=== PATIENT | male | born 1935 | race Caucasian/White ===

== ENCOUNTER 2020-05-08 07:54 | Observation (INO) | payer MEDICARE, SELFPAY ==
[2020-05-08] VITALS (15 sets, daily range): BP systolic 144–168; BP diastolic 56–76; PULSE 58–72; RESP 14–20; TEMP 36.4–36.8; O2SAT 95–99; BMI 29.7
--- NOTE | ~2020-05-08 | XR_ITS ---
XR chest 2V DATE: 05/08/2020 08:19 INDICATION: Mid frontal chest wall pain. TECHNIQUE: AP and lateral views COMPARISON: 05/02/2018 PA and lateral views FINDINGS: Status post sternotomy and aortic valve replacement. Left-sided AICD/pacemaker device with leads overlying right atrium and right ventricle. Cardiomegaly. Aortic calcification. No pulmonary infiltrate or consolidation, pleural effusion or pulmonary vascular congestion or pneumo thorax is detected. Severe osteoarthritic change at the glenohumeral joints. Degenerative spurring of the thoracic spine. Diffuse osteopenia. IMPRESSION: Status post sternotomy/aortic valve replacement Left AICD/pacemaker Cardiomegaly, aortic atherosclerosis No active pulmonary disease Reviewed, dictated and finalized at location B.
--- NOTE | ~2020-05-08 | XR_ITS ---
XR knee RT 3V 05/08/2020 15:14 Indication: Right knee pain and swelling Procedure: 3 views right knee Comparison: No prior studies for comparison. Findings: No fracture or traumatic malalignment. Mild osteoarthritis of the right knee. There is kristina drocalcinosis. There are surgical changes along the medial aspect of the knee. Impression: 1: Mild osteoarthritis of the right knee. Reviewed, dictated and finalized at location A. Impression: 1: Mild osteoarthritis of the right knee.
--- NOTE | 2020-05-08 07:59 | ECG_ITS ---
Measurements Intervals [place] Rate: 61 P: -40 MS: 221 QRS: -29 QRSD: 117 T: -61 QT: 422 QTc: 427 Interpretive Statements ELECTRONIC ATRIAL PACEMAKER WITH INHIBITION ATRIAL PREMATURE COMPLEX INTRAVENTRICULAR CONDUCTION DELAY LEFT VENTRICULAR HYPERTROPHY AND ST-T CHANGE INFERIOR INFARCT, AGE INDETERMINATE EXTENSIVE ANTERIOR INFARCT, AGE INDETERMINATE BORDERLINE T WAVE ABNORMALITY- HIGH LATERAL LEADS ABNORMAL ECG Electronically Signed On 05-08-2020 13:39:29 CDT by Yvan Jenkins D.O.
--- NOTE | 2020-05-08 08:03 | ED.CHESTPAIN ---
HPI - Chest Pain General Chief Complaint: Chest Pain Stated Complaint: CP Source: RN notes reviewed History of Present Illness HPI narrative: Patient presents emergency department from home via EMS for chest pain. Patient states he awoke approximately 5:30 AM this morning with midsternal chest pain states the pain was described as a pressure did not radiate associate with shortness of breath. Patient took 4 nitros at home with minimal relief was given additional nitro by EMS with resolution of the pain. Patient also was given aspirin 325 mg by EMS patient denies any current chest pain. Denies any fevers or chills nausea vomiting diarrhea or any other symptoms. Patient does have a history of coronary artery disease and is followed by Dr. Francois Related Data Home Medications Medication Instructions Recorded Confirmed aspirin 81 mg tablet,delayed 81 mg PO DAILY 04/11/19 release atorvastatin 40 mg tablet 40 mg PO DAILY 04/11/19 calcitonin (salmon) 200 1 spray INTRANASAL (ALT) DAILY 04/11/19 unit/actuation nasal spray losartan 100 1 tablet PO DAILY 04/11/19 mg-hydrochlorothiazide 12.5 mg tablet Allergies Allergy/AdvReac Type Severity Reaction Status Date / Time No Known Allergies Allergy Verified 05/08/20 08:06 Review of Systems Review of Systems: Narrative: Gen.: Denies fevers or chills Eyes: Denies eye pain or visual change ENT: Denies congestion Respiratory: Denies shortness of breath or cough CV: See HPI GI: Denies abdominal pain nausea, emesis or diarrhea Musculoskeletal: Denies back pain or muscle pain Neuro: Denies numbness, tingling, weakness or focal weakness Skin: Denies rash Except as documented, all other systems reviewed and negative [facility] Past Medical History Medical History AF (atrial fibrillation) Benign essential HTN CAD (coronary artery disease) Cataract Hypothyroidism (acquired) Mitral valve regurgitation Mixed hyperlipidemia Neuropathy Scoliosis 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 Surgical History Surgical History (Updated 04/11/19 @ 21:49 by Narcisa Lopez MD) Hx of CABG Hx of cataract surgery S/P AVR S/P implantation of automatic cardioverter/defibrillator (AICD) Family History Family History (Updated 05/22/16 @ 23:56 by DOCTOR UNKNOWN) Father Family history of premature coronary heart disease, Onset Age: 56 Patient's father is Social History Social History Social History: Smoking status: Former smoker Tobacco type: cigarettes Second hand tobacco smoke exposure: No Smoking end date: 02/15/93 Alcohol intake: never Substance use: never Substance use type: does not use Gender identity (if verbalized by the patient): Male Exam Narrative: Exam Narrative: APPEARANCE: No acute distress, nontoxic, resting in bed EYES: EOMI HEENT: Normocephalic, atraumatic, OMM RESPIRATORY: No respiratory distress Clear to auscultation bilaterally with no rhonchi wheezing or rales. CARDIOVASCULAR: Regular rate and rhythm without murmurs rubs or gallops. ABDOMINAL: Soft, nontender, nondistended, no rebound or guarding MUSCULOSKELETAl: Moves all extremities. No clubbing, cyanosis or edema. NEURO: Awake and alert. Following commands, speech normal, no focal deficits SKIN:: Warm, dry. No rashes lesions or abrasions PSYCHIATRIC: Normal affect/mood, Course Course Emergency Course: Discussed with Dr. Francois presentation work-up agrees with admission to her service at this time Discussed with patient and family results of workup and diagnosis. Discussed need for admission. Patient and family understand and agree to current treatment plan Vital Signs Vital signs: Vital Signs Temperature 97.9 F 05/08/20 07:53 Pulse Rate 60 05/08/20 07:53 Respiratory Rate 17
--- NOTE | 2020-05-08 08:14 | PC.NURSE ---
Pt taken to XR via stretcher at this time.
[2020-05-08 08:34] LABS: Basophils Percent Auto 0.4 % (0.2-1.2); Eosinophils Absolute Auto 0.1 K/mm3 (0-0.3); Eosinophils Percent Auto 1.1 % (0-4.4); Hematocrit 37.4 % (42.0-52.0); Hemoglobin 12.6 g/dL (14.0-18.0); Immature Granulocyte Absolute 0.03 K/mm3 (0.00-0.031); Immature Granulocyte Percent A 0.3 % (0-0.5); Lymphocytes Absolute Auto 2.37 K/mm3 (0.9-3.2); Lymphocytes Percent Auto 22.1 % (18.3-44.2); Mean Corpuscular HGB Conc 33.7 g/dl (32-36); Mean Corpuscular Hemoglobin 33.2 pg (26-34); Mean Corpuscular Volume 98.4 fl (80-100); Mean Platelet Volume 10.1 fl (7.4-10.4); Monocytes Absolute Auto 1.1 K/mm3 (0.1-0.6); Monocytes Percent Auto 10.6 % (2.6-8.5); Neutrophils Percent Auto 65.5 % (45.5-73.1); Platelet Count Result 143 k/mm3 (150-375); Red Cell Distribution Width 11.9 % (11.5-14.5); White Blood Count 10.7 K/mm3 (4.5-10.0)
[2020-05-08 08:44] LABS: Partial Thromboplastin Time 26.2 SECONDS (22.3-36.8); Prothrombin Time 14.1 Seconds (11.1-14.7)
[2020-05-08 08:45] LABS: Anion Gap 7 mmol/L (8-16); Blood Urea Nitrogen 40 mg/dL (9-20); Calcium 8.9 mg/dL (8.4-10.2); Carbon Dioxide 23 mmol/L (22-30); Chloride 106 mmol/L (98-107); Estimated CRCL calculation 35 ml/min; Estimated Glomerular Filt Rate 36; Glucose 116 mg/dL (75-110); Potassium 4.6 mmol/L (3.4-5.0); Sodium 136 mmol/L (137-145)
[2020-05-08 09:01] LABS: Troponin I 0.036 ng/mL (0.000-0.034)
--- NOTE | 2020-05-08 11:29 | ADMGEN ---
This patient, Vladimir Blackburn, was admitted to IMU Room 206-01. Patient/family oriented to hospital policies and general routines including ID bracelet, bed and alarms, visiting hours, pain management, procedures, bathroom and other care routines, personal items, smoking policy, room service/diet, and visiting hours. Information on how to activate the Rapid Response Team has been discussed. Patient/Family are encouraged to report perceived risks to care and to ask questions if they do not understand what they are told or what they should do.
--- NOTE | 2020-05-08 11:35 | PM.IMHP ---
H&P: HPI History of Present Illness Date/Time: 05/08/20 11:35 Chief Complaint: Chest pain Narrative: Mr. Vladimir Blackburn is an 85-year-old male who was admitted with chest discomfort. He has a history of CAD. Mr. bia bower woke up this morning around 5:00 a.m. with some lower sternal and epigastric chest discomfort and pressure. He rated it as a 5/10. There was a little shortness of breath. No sweating, radiation, or nausea. He took 3 nitroglycerins which helped some, and called the ambulance. EMS gave him a another nitroglycerin and his discomfort resolved. He has been doing well since then. He is not sure if this is similar to what he had in the past, although it was not as severe as the discomfort he experienced in 2019. Do his ADLs in the last few weeks with no particular problems with any chest discomfort. He has a history of CAD with CABG and aortic valve replacement in 2009 by at [facility] (MAGALLON to the Left anterior descending, SVG to the OM, SVG to the PDA), with bioprosthetic aortic valve replacement. Non-STEMI in 2019 secondary to mid vessel occlusion of a large mid diagonal. Also [employer] [facility] ICD with Gen change in 2016, paroxysmal AFib RVR, prior cardiomyopathy with improvement of EF, PVCs, hypertensive heart disease, stage III CKD, hyperlipidemia. Review of Systems Constitutional: Constitutional: Denies weakness Eyes: Eyes: Reports no additional eye complaints ENT: Denies epistaxis Cardiovascular: Cardiovascular: Reports chest pain, Denies diaphoresis, Denies pedal edema and Denies lightheadedness Respiratory: Respiratory: Denies cough and Reports dyspnea Gastrointestinal: Gastrointestinal: Denies abdominal pain Genitourinary: Genitourinary: Denies dysuria Musculoskeletal: Musculoskeletal: Reports arthralgias (Twisted right knee recently) Integumentary/Breasts: Skin/Breast: Denies rash Neurologic: Reports system reviewed and no additional complaints, except as documented Psychiatric: Psychiatric: Denies behavioral changes [facility] Past Medical History Medical History (Updated 05/08/20 @ 17:08 by Aiyana Francois MD) AF (atrial fibrillation) Benign essential HTN CAD (coronary artery disease) Cataract Chronic kidney disease, stage 3 Hypothyroidism (acquired) Mitral valve regurgitation Mixed hyperlipidemia Neuropathy Scoliosis 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 Smoking status: Former smoker Tobacco type: cigarettes Second hand tobacco smoke exposure: No Smoking end date: 02/15/93 Alcohol intake: never Substance use: never Substance use type: does not use Gender identity (if verbalized by the patient): Male Spiritual care concerns: No Meds Home Medications and Allergies Home Medications Medication Instructions Recorded Confirmed Type aspirin 81 mg tablet,delayed 81 mg PO DAILY 04/11/19 05/08/20 History release atorvastatin 40 mg tablet 40 mg PO DAILY 04/11/19 05/08/20 History metoprolol tartrate 50 mg tablet 50 mg PO Q12H #180 tablet 07/03/19 05/08/20 Rx levothyroxine 50 mcg tablet 50 mcg PO DAILY #90 tablet 11/13/19 05/08/20 Rx amlodipine 2.5 mg tablet 2.5 mg PO DAILY #30 tablet 01/31/20 05/08/20 Rx terazosin 2 mg capsule 2 mg PO DAILY #90 cap 03/03/20 05/08/20 Rx valsartan-hydrochlorothiazide 1 tablet DAILY 05/08/20 05/08/20 History
[2020-05-08 12:26] LABS: Troponin I 0.029 ng/mL (0.000-0.034)
--- NOTE | 2020-05-08 14:00 | ECG_ITS ---
Measurements Intervals [place] Rate: 74 P: PA: 0 QRS: -23 QRSD: 116 T: -28 QT: 402 QTc: 448 Interpretive Statements ELECTRONIC ATRIAL PACEMAKER WITH INHIBITION VENTRICULAR PREMATURE COMPLEX INFERIOR INFARCT, AGE INDETERMINATE BORDERLINE ST-T WAVE ABNORMALITY- LAT/HIGH LAT LEADS BASELINE ARTIFACT- II, III, AVF ABNORMAL ECG Electronically Signed On 05-08-2020 14:27:32 CDT by Yvan Jenkins D.O.
[2020-05-08 15:57] LABS: Troponin I 0.032 ng/mL (0.000-0.034)
[2020-05-08] MEDS: METOPROLOL TARTRATE 50 MG TAB PO (21:43)
[2020-05-09] VITALS (8 sets, daily range): BP systolic 119–157; BP diastolic 58–72; PULSE 60–81; RESP 12–20; TEMP 36.6; O2SAT 95–98
[2020-05-09] MEDS: LEVOTHYROXINE SODIUM 50 MCG TABLET PO (06:40)
[2020-05-09] MEDS: METOPROLOL TARTRATE 50 MG TAB PO (09:10)
[2020-05-09] MEDS: VALSARTAN 160 MG TABLET BY MOUTH (09:10)
[2020-05-09] MEDS: ASPIRIN 81 MG ENTERIC TABLET PO (09:11)
[2020-05-09] MEDS: hydroCHLOROthiazide 25 MG TABLET PO (09:11)
[2020-05-09] MEDS: ATORVASTATIN 40 MG TABLET PO (09:11)
[2020-05-09] MEDS: TERAZOSIN HCL 1 MG CAPSULE 2 MG PO (09:11)
[2020-05-09] MEDS: amLODIPine BESYLATE 2.5 MG TABLET PO (09:11)
--- NOTE | 2020-05-09 11:02 | PM.DS ---
DS: Admitting Diagnosis Admitting Diagnosis Admitting Diagnosis: Chest pain DS: Discharge Diagnosis Discharge Diagnosis (1) Chest pain: Code(s): R07.9 - Chest pain, unspecified Status: Acute Assessment and Plan: Patient was awakened with chest pain as described in the H&P and came to the emergency room after 3 nitroglycerins did not relieve it. He received a 4th nitroglycerin by EMS and when he arrived in the emergency room was free of discomfort. Troponins were slightly elevated but flat, at 0.036, 0.0290, 0.032, which is not suggestive of an ACS. Two EKGs showed no acute ischemic changes. He had no further chest discomfort during his hospital stay. Unclear if this was an episode of angina or perhaps acid reflux. He was up and about with no further chest discomfort so I feel it is reasonable to discharge Mr. Blackburn today with outpatient follow-up and outpatient Lexiscan. He was instructed to call if he had any further episodes and was given a fresh prescription for nitroglycerin. (2) CAD (coronary artery disease): Code(s): I25.10 - Atherosclerotic heart disease of [place] coronary artery without angina pectoris Status: Acute Assessment and Plan: History of CAD and CABG. (3) S/P aortic valve replacement with bioprosthetic valve: Code(s): Z95.3 - Presence of xenogenic heart valve Status: Acute Assessment and Plan: History of bioprosthetic heart valve which sounds normal by auscultation. (4) Knee pain: Code(s): M25.569 - Pain in unspecified knee Status: Acute Assessment and Plan: Acute knee pain which started a couple days ago. Chest x-ray showed only arthritis. Recommend he follow up with Dr. oscar carlton, take Tylenol, heat, and perhaps [id number] Voltaren cream or Aspercreme. (5) Chronic kidney disease, stage 3: Code(s): N18.30 - Chronic kidney disease, stage 3 unspecified Status: Acute Assessment and Plan: Chronic kidney disease stage 3, stable. Avoid nonsteroidals. DS: Summary Hospital Course Reason for hospitalization: Chest pain Hospital Course: See above Status at Discharge Functional status at discharge: independent ambulation Overall status at discharge: patient is back to baseline Time Spent with Patient Time attestation: Total time spent providing and/or coordinating discharge services: Time spent: Greater than 30 minutes Exam Const: General: comfortable and no acute distress HENMT: Mouth: Yes moist mucous membranes Eyes: EOM: EOMs intact bilaterally Neck: Neck: supple Resp: Effort & Inspection: normal respiratory effort Auscultation: clear to auscultation bilaterally Cardio: Rate: regular rate Rhythm: regular rhythm Heart sounds: Murmur heart sound present Other: 1-2/6 JOSE upper sternal borders GI: GI Palp: Yes Soft to palpation Skin: General skin exam: no rashes or lesions noted Neuro: Motor exam (neuro): Normal motor muscle tone present throughout Extrem: General: no edema and no pedal edema Psych: Appearance: grossly normal Mental Status: mental status grossly normal Affect: normal affect DS: Data Data Completed and Pending Labs on day of discharge: Labs from last 24 hours 05/08/20 05/08/20 14:29 11:27 Troponin I 0.032 0.029 First trop 0.036 BUN/creat = 40/1.8, GFR 36 ml/min chest x-ray showed ICD leads in appropriate position, borderline cardiomegaly but clear lungs. Radiologist interpretation similar. EKG showed: Atrially paced rhythm, [place] contrast shows no ischemic changes. Old anterior CT, old inferior CT. Heart rate 51, first-degree AV block. Interventricular conduction delay. EKG from 05/08/2020 at 2:09 p.m.: atrial paced, PVC, old inferior CT, old anteroseptal CT, no acute ischemic
== END 2020-05-09 11:52 | disposition home or self-care (01) ==
LOC: ANHED 09:36 → ANHIMU 10:14
PROVIDERS: Admitting Provider Internal Medicine Cardiovascular Disease; Emergency Provider Emergency Medicine; PCP Family Medicine; Visit Provider Internal Medicine Cardiovascular Disease
DX: R07.9 Chest pain, unspecified (principal); I25.2 Old myocardial infarction; I25.10 Atherosclerotic heart disease of native coronary artery without angina pectoris; M17.11 Unilateral primary osteoarthritis, right knee; N18.30 Chronic kidney disease, stage 3 unspecified; Z95.810 Presence of automatic (implantable) cardiac defibrillator; Z95.4 Presence of other heart-valve replacement; Z95.1 Presence of aortocoronary bypass graft; Z87.891 Personal history of nicotine dependence; Z95.3 Presence of xenogenic heart valve
CPT/HCPCS: 36415; 71046; 73562; 80048; 84484; 85025; 85610; 85730; 93005; 99285; A9270; G0378

== ENCOUNTER 2021-07-07 07:23 | Emergency (ER) | payer MEDICARE, SELFPAY ==
--- NOTE | ~2021-07-07 | CT_ITS ---
EXAMINATION: CT abdomen pelvis wo con DATE: 07/07/2021 08:06 INDICATION: Low abdominal pain. Inability to urinate. TECHNIQUE: Computed tomography (CT) of the abdomen and pelvis was performed without intravenous contr ast. Automated exposure control and iterative reconstruction technique were employed. The dose-length product was 977.25 mGy-cm. COMPARISON: Chest CT 11/22/2009 FINDINGS: The visualized portions of the lung bases demonstrate mild atelectasis and chronic lung dis ease. There is a 6 mm nodule in right middle lobe, likely benign. There is a 6 mm nodule in left lowe r lobe, likely benign. Cardiomegaly is noted. There are changes of aortic valve replacement. There ar e coronary artery calcifications. There is a large sliding hiatal hernia. The liver is normal. There are gallstones in the gallbladder, which is normal in size. Calcifications in the spleen are consiste nt with old granulomatous disease. The pancreas, adrenal glands, and right kidney are normal. There i s a 4.5 cm cyst in left kidney. There are changes of left inguinal hernia repair. The bladder is deco mpressed by a Newton catheter. There are approximately 6 calcifications in the prostate adjacent to th e Newton catheter measuring up to 3 mm. There is diverticulosis of the colon without evidence of diver ticulitis. The appendix is normal. There is calcified atherosclerosis of the aorta and many of the ot her arteries. There are no pathologically enlarged lymph nodes. There is no free intraperitoneal flui d. IMPRESSION: 1. Small calcifications in the prostate adjacent to the Newton catheter that are most likely prostate calcifications. Urethral stone cannot be excluded. 2. Large sliding hiatal hernia. Reviewed, dictated and finalized at location A.
[2021-07-07 07:27] VITALS: BP 159/79; PULSE 95; RESP 18; TEMP 36.6; O2SAT 98
--- NOTE | 2021-07-07 07:33 | ED.MALEGU ---
HPI - Male Genitourinary General Chief complaint: Urogenital-Male Stated complaint: diff urinating Time Seen by Provider: 07/07/21 07:27 Source: RN notes reviewed History of Present Illness HPI Narrative: Patient presents emergency department from home via EMS for urinary retention. Patient states has been having difficulty urinating for the past week and a half this progressively worsening he states is gotten to the point when he goes he only has a small amount of dribbling he states that with this he has a feeling of fullness in his lower abdomen he denies any fevers or chills chest pain shortness of breath nausea vomiting or any other symptoms. Denies any previous history of difficulty urinating Related Data Home Medications Medication Instructions Recorded Confirmed aspirin 81 mg tablet,delayed 81 mg PO DAILY 04/11/19 06/20/21 release Allergies Allergy/AdvReac Type Severity Reaction Status Date / Time No Known Allergies Allergy Verified 07/07/21 07:38 Review of Systems Review of Systems: Gen.: Denies fevers or chills Respiratory: Denies shortness of breath or cough CV: Denies chest pain or palpitations GI: Denies abdominal pain nausea, emesis or diarrhea see HPI Musculoskeletal: Denies back pain or muscle pain Neuro: Denies numbness, tingling, weakness or focal weakness Skin: Denies rash Except as documented, all other systems reviewed and negative [facility] Past Medical History Medical History AF (atrial fibrillation) Benign essential HTN CAD (coronary artery disease) Cataract Chronic kidney disease, stage 3 Hypothyroidism (acquired) Mitral valve regurgitation Mixed hyperlipidemia Neuropathy Scoliosis 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 Smoking status: Former smoker Tobacco type: cigarettes Second hand tobacco smoke exposure: No Smoking end date: 02/15/93 Alcohol intake: never Substance use: never Substance use type: does not use Gender identity (if verbalized by the patient): Male Sexual Orientation (if Verbalized by the Patient): Straight or Heterosexual Spiritual care concerns: No Exam Narrative: APPEARANCE: No acute distress, nontoxic, resting in bed EYES: EOMI HEENT: Normocephalic, atraumatic, OMM RESPIRATORY: No respiratory distress Clear to auscultation bilaterally with no rhonchi wheezing or rales. CARDIOVASCULAR: Regular rate and rhythm without murmurs rubs or gallops. ABDOMINAL: Soft, nontender, nondistended, no rebound or guarding : No phimosis or paraphimosis, no skin lesions no scrotal swelling or erythema MUSCULOSKELETAl: Moves all extremities. No clubbing, cyanosis or edema. NEURO: Awake and alert. Following commands, speech normal, no focal deficits SKIN:: Warm, dry. No rashes lesions or abrasions PSYCHIATRIC: Normal affect/mood, Course Course Emergency Course: Called and discussed with Dr. Driscoll presentation work-up this time recommends patient remain with Newton and discharged with Flomax and follow-up as an outpatient Discussed with patient results of workup and diagnosis. Discussed need for follow-up with primary care, proper use of medication, and reasons to return to the emergency department. Patient understands and agrees to current treatment plan Reviewed old records patient
[2021-07-07 07:45] LABS: Appearance Urine Clear (Clear); Bilirubin Urine Negative (Negative); Blood Urine Negative (Negative); Color Urine Yellow (Yellow); Glucose Urine UA Negative (Negative); Ketones Urine Negative (Negative); Leukocyte Esterase Ur Negative LEU/UL (Negative); Nitrate Urine Negative (Negative); Protein Urine 1+ mg/dL (Negative); Urobilinogen Urine 0.2 mg/dL (<2.0); pH Urine 5.5 (5.0-9.0)
[2021-07-07 07:53] LABS: Basophils Absolute Auto 0.1 K/mm3 (0.0-0.1); Basophils Percent Auto 0.4 % (0.2-1.2); Eosinophils Absolute Auto 0.2 K/mm3 (0-0.3); Eosinophils Percent Auto 1.5 % (0-4.4); Hematocrit 37.2 % (42.0-52.0); Hemoglobin 12.7 g/dL (14.0-18.0); Immature Granulocyte Absolute 0.04 K/mm3 (0.00-0.031); Immature Granulocyte Percent A 0.4 % (0-0.5); Lymphocytes Absolute Auto 3.47 K/mm3 (0.9-3.2); Lymphocytes Percent Auto 30.7 % (18.3-44.2); Mean Corpuscular HGB Conc 34.1 g/dl (32-36); Mean Corpuscular Hemoglobin 33.6 pg (26-34); Mean Corpuscular Volume 98.4 fl (80-100); Mean Platelet Volume 10.1 fl (7.4-10.4); Monocytes Absolute Auto 1.2 K/mm3 (0.1-0.6); Monocytes Percent Auto 10.9 % (2.6-8.5); Neutrophils Absolute Auto 6.4 K/mm3 (1.3-6.7); Neutrophils Percent Auto 56.1 % (45.5-73.1); Platelet Count Result 166 k/mm3 (150-375); Red Blood Count 3.78 M/mm3 (4.6-6.20); Red Cell Distribution Width 12.2 % (11.5-14.5); White Blood Count 11.3 K/mm3 (4.5-10.0)
[2021-07-07 07:59] LABS: Mucus Urine Rare /lpf; RBC Urine 0-2 /hpf (0-2); WBC Urine 0-3 /hpf
[2021-07-07 08:03] LABS: Alanine Aminotransferase 19 U/L (6-50); Albumin Level 3.7 g/dL (3.5-5.1); Alkaline Phosphatase 62 U/L (38-126); Anion Gap 6 mmol/L (8-16); Aspartate Amino Transferase 27 U/L (17-59); Bilirubin,Total 0.6 mg/dL (0.2-1.3); Blood Urea Nitrogen 37 mg/dL (9-20); Calcium 8.7 mg/dL (8.4-10.2); Carbon Dioxide 19 mmol/L (22-30); Chloride 109 mmol/L (98-107); Estimated CRCL calculation 30 ml/min; Estimated Glomerular Filt Rate 36; Glucose 109 mg/dL (65-110); Potassium 4.3 mmol/L (3.4-5.0); Sodium 134 mmol/L (137-145)
[2021-07-07 08:15] LABS: Add Urine Microscopic? YES
[2021-07-07] MEDS: SODIUM CHLORIDE 0.9% IV 1,000 ML 999 ML IV CONT (08:19)
[2021-07-07] MEDS: TAMSULOSIN HCL 0.4 MG CAPSULE PO (09:13)
[2021-07-07 09:27] VITALS: BP 144/79; PULSE 84; RESP 17; O2SAT 97
== END 2021-07-07 10:31 | disposition home or self-care (01) ==
PROVIDERS: Emergency Provider Emergency Medicine; PCP Family Medicine
DX: R33.9 Retention of urine, unspecified (principal); N18.30 Chronic kidney disease, stage 3 unspecified; I12.9 Hypertensive chronic kidney disease with stage 1 through stage 4 chronic kidney disease, or unspecified chronic kidney disease; I48.91 Unspecified atrial fibrillation; I25.10 Atherosclerotic heart disease of native coronary artery without angina pectoris; I34.0 Nonrheumatic mitral (valve) insufficiency; E03.9 Hypothyroidism, unspecified; E78.2 Mixed hyperlipidemia; G62.9 Polyneuropathy, unspecified; M47.816 Spondylosis without myelopathy or radiculopathy, lumbar region; Z95.1 Presence of aortocoronary bypass graft; Z98.49 Cataract extraction status, unspecified eye; Z95.810 Presence of automatic (implantable) cardiac defibrillator; Z87.891 Personal history of nicotine dependence; Z79.82 Long term (current) use of aspirin; K44.9 Diaphragmatic hernia without obstruction or gangrene
CPT/HCPCS: 36415; 51702; 74176; 80053; 81001; 85025; 96360; 99284; A9270; J7030

== ENCOUNTER 2022-05-11 19:59 | Observation (INO) | payer MEDICARE, SELFPAY ==
--- NOTE | ~2022-05-11 | CT_ITS ---
EXAMINATION: CT abdomen pelvis w con DATE: 05/12/2022 04:12 INDICATION: Blood in stool. Abdominal pain. TECHNIQUE: Computed tomography (CT) of the abdomen and pelvis was performed with 100 mL Omnipaque 350 intravenous contrast. Automated exposure control and iterative reconstruction technique were employe d. The dose-length product was 1196.01 mGy-cm. COMPARISON: CT abdomen and pelvis 07/07/2021 FINDINGS: The visualized portions of the lung bases demonstrate emphysema and chronic interstitial martin ng disease. There are a few scattered pulmonary nodules measuring up to 7 mm without change, likely b enign. No pleural effusion. The heart size is normal. No pericardial effusion. There is a pacer wire in right ventricle. There is a large sliding hiatal hernia. The liver and spleen are normal. There ar e gallstones in the gallbladder, which is normal in size. The pancreas and adrenal glands are normal. There is cortical thinning of the kidneys. There are cysts in the kidneys measuring up to 4.6 cm on the left. There is calcified atherosclerosis of the aorta and many of the other arteries. There is se racheal stenosis of the origins of celiac axis and superior mesenteric artery. There is moderate stenosi s of the origin of right renal artery and severe stenosis of the origin of left renal artery. There i s severe stenosis of the origin of inferior mesenteric artery. There are changes of left inguinal her adrienne repair. There is lumbar dextroscoliosis and severe spondylosis. There is diverticulosis of the co alfredo without evidence of diverticulitis. Again seen is a focus of old fat necrosis adjacent to the sig moid colon. The appendix is normal. There are no dilated loops of bowel. There are no pathologically enlarged lymph nodes. There is no free intraperitoneal fluid. There is thoracolumbar dextroscoliosis and severe spondylosis. IMPRESSION: 1. Large sliding hiatal hernia. 2. 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 Reviewed, dictated and finalized at location A. IMPRESSION: 1. Large sliding hiatal hernia. 2. 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
[2022-05-11 20:24] VITALS: BP 154/65; PULSE 78; RESP 16; TEMP 36.3; O2SAT 97
[2022-05-11 20:49] LABS: Basophils Absolute Auto 0.1 K/mm3 (0.0-0.1); Basophils Percent Auto 0.5 % (0.2-1.2); Eosinophils Absolute Auto 0.5 K/mm3 (0-0.3); Eosinophils Percent Auto 3.5 % (0-4.4); Hemoglobin 11.7 g/dL (14.0-18.0); Immature Granulocyte Absolute 0.05 K/mm3 (0.00-0.031); Immature Granulocyte Percent A 0.4 % (0-0.5); Lymphocytes Absolute Auto 4.17 K/mm3 (0.9-3.2); Lymphocytes Percent Auto 32.1 % (18.3-44.2); Mean Corpuscular HGB Conc 33.4 g/dl (32-36); Mean Corpuscular Hemoglobin 33.4 pg (26-34); Mean Platelet Volume 9.8 fl (7.4-10.4); Monocytes Absolute Auto 1.6 K/mm3 (0.1-0.6); Monocytes Percent Auto 12.5 % (2.6-8.5); Neutrophils Absolute Auto 6.7 K/mm3 (1.3-6.7); Platelet Count Result 167 k/mm3 (150-375); Red Cell Distribution Width 12.6 % (11.5-14.5)
[2022-05-11 21:04] LABS: Alanine Aminotransferase 21 U/L (6-50); Albumin Level 3.7 g/dL (3.5-5.1); Alkaline Phosphatase 59 U/L (38-126); Anion Gap 6 mmol/L (8-16); Aspartate Amino Transferase 25 U/L (17-59); Bilirubin,Total 0.5 mg/dL (0.2-1.3); Blood Urea Nitrogen 35 mg/dL (9-20); Calcium 8.5 mg/dL (8.4-10.2); Carbon Dioxide 23 mmol/L (22-30); Chloride 108 mmol/L (98-107); Estimated CRCL calculation 30 ml/min; Estimated Glomerular Filt Rate 36; Glucose 153 mg/dL (65-110); Potassium 4.4 mmol/L (3.4-5.0); Sodium 137 mmol/L (137-145)
[2022-05-11 21:05] LABS: INR 1.2; Partial Thromboplastin Time 28.2 SECONDS (22.3-36.8); Prothrombin Time 14.7 Seconds (11.1-14.7)
[2022-05-11 22:26] VITALS: BP 146/91; PULSE 75; RESP 16; TEMP 36.6; O2SAT 99
[2022-05-12] VITALS (11 sets, daily range): BP systolic 152–191; BP diastolic 74–113; PULSE 62–95; RESP 15–22; TEMP 36.4–36.5; O2SAT 94–98; BMI 29.0
--- NOTE | 2022-05-12 03:18 | ED.GENADULT ---
HPI - General Adult General Chief complaint: GI Bleed Stated complaint: rectal bleeding tonight - no blood thinners Time Seen by Provider: 05/12/22 03:00 History of Present Illness HPI narrative: Patient is a 87-year-old gentleman who presents to emergency department with chief complaint of rectal bleeding patient reports that this evening he had a bowel movement and then subsequently started having bright light blood per rectum. Patient denies vomiting denies abdominal pain reports he is not on any blood thinners. Related Data Home Medications Medication Instructions Recorded Confirmed aspirin 81 mg tablet,delayed 81 mg PO DAILY 04/11/19 05/12/22 release (Adult Low Dose Aspirin) atorvastatin 40 mg tablet 40 mg PO DAILY 05/12/22 05/12/22 terazosin 2 mg capsule 2 mg PO DAILY 05/12/22 05/12/22 valsartan 160 1 tablet PO DAILY 05/12/22 05/12/22 mg-hydrochlorothiazide 25 mg tablet Allergies Allergy/AdvReac Type Severity Reaction Status Date / Time No Known Allergies Allergy Verified 05/12/22 06:38 Review of Systems Review of Systems: A 10 system review of systems was completed on the patient and is negative except for what is stated in the HPI. Nursing and ancillary documentation was reviewed. 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 Smoking status: Former smoker Tobacco type: cigarettes Second hand tobacco smoke exposure: No Smoking end date: 02/15/93 Alcohol intake: never Substance use: never Substance use type: does not use Lack of Transportation: No Lack of Food: Never True Current Housing: I Have Housing Concerned About Future Housing: No Difficulty Paying Gas/Electric Bills: No Difficulty Paying for Meds: No Currently Unemployed: No Education: Trade/Vocational Certificate Difficulty w/ Childcare or Family Care: No Living arrangements: with family Occupation/Education: retired Gender identity (if verbalized by the patient): Male Sexual Orientation (if Verbalized by the Patient): Straight or Heterosexual Spiritual care concerns: No Exam Narrative: GENERAL: Well-appearing, well-nourished, and in no acute distress. HEAD: Normocephalic, atraumatic. EYES: PERRLA and EOMI. ENT: Nares clear, no rhinorrhea or epistaxis. Mucous membranes moist. NECK: Supple. CHEST: Clear to auscultation. No respiratory distress. HEART: Regular rate and rhythm. No murmur heard. Normal peripheral pulses. ABDOMEN: Soft, nontender, nondistended, normal active bowel sounds. : There is a small skin tag/hemorrhoid at the 1 o'clock position stool is guaiac positive and red EXTREMITIES: Normal range of motion. No edema. SKIN: Warm, dry, no rash. NEURO: No focal deficits. Alert and oriented x3. PSYCH: Normal mood and affect. Course Vital Signs Vital signs: Vital Signs Temperature 36.3 C L 05/11/22 20:24 Pulse Rate 78 05/11/22 20:24 Respiratory Rate 16 05/11/22 20:24 Blood Pressure 154/65 H 05/11/22 20:24 Pulse O
[2022-05-12 05:32] LABS: Hematocrit 35.6 % (42.0-52.0); Hemoglobin 11.8 g/dL (14.0-18.0)
--- NOTE | 2022-05-12 07:35 | ADMGEN ---
This patient, Vladimir Blackburn, was admitted to 3 [facility] Surg Room 305-01. Patient/family oriented to hospital policies and general routines including ID bracelet, bed and alarms, visiting hours, pain management, procedures, bathroom and other care routines, personal items, smoking policy, room service/diet, and visiting hours. Information on how to activate the Rapid Response Team has been discussed. Patient/Family are encouraged to report perceived risks to care and to ask questions if they do not understand what they are told or what they should do.
[2022-05-12] MEDS: PANTOPRAZOLE SODIUM IV 40 MG VIAL IV PUSH (08:54)
[2022-05-12 11:43] LABS: Hematocrit 36.4 % (42.0-52.0)
--- NOTE | 2022-05-12 12:24 | WPDGICN ---
Assessment and Plan Assessment and plan (1) Rectal bleeding: Code(s): K62.5 - Hemorrhage of anus and rectum Status: Acute Assessment and Plan: The bleeding was bright red and occurred after he wiped himself repeatedly. I told that I am fairly certain that is hemorrhoidal. I also told that if he has persistent bleeding that we would need to consider at least a flexible sigmoidoscopy. He is hungry and would like to go home. I had ordered liquid diet but since he did not get that I will switch to a regular diet. (2) Mesenteric artery insufficiency: Code(s): K55.1 - Chronic vascular disorders of intestine Status: Acute Assessment and Plan: He has had no abdominal pain or other symptoms to suggest mesenteric insufficiency as a cause of his symptoms such as ischemic colitis, but the CT scan does show: IMPRESSION: 1. Large sliding hiatal hernia. 2. 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 (3) Anemia: Code(s): D64.9 - Anemia, unspecified Status: Acute Assessment and Plan: His initial hemoglobin yesterday was 11.7. This is more less than his usual range. In April of 2018 he was 11.2. Last summer he was 12.7. His hemoglobin now is 12. This difficult therefore to determine how much blood he lost with this present illness but I suspect that is not a significant amount. He is hemodynamically stable. Plan From my perspective he can be discharged today after seen by hospitalist GI Consult Note Consult date/time: 05/12/22 12:24 HPI: Vladimir Blackburn is a 87 year old male who presented to the emergency room last night with rectal bleeding. He states that he was having a bowel movement. Was soft, he needed to wipe himself repeatedly. He then noticed that he was bleeding and he had to wipe the blood over over. The blood was bright red. He was not having any abdominal pain or rectal pain but that. He does not recall straining having a bowel movement. He then called 911 and came to the emergency room. He waited 7 hours to be seen. He was then admitted I told that I would see check his CT scan and let him know if he could go home. I had actually did not receive the consult request until 10:11 a.m. this morning. He stated that he has been ?waiting all morning? for me to get there. He has not seen any more blood since he got here. I had ordered a clear liquid diet when I received the consult information but he states he still has had nothing. He would like to eat. I looked at his orders and saw that there was a consult request put in for me and it indicates that I had not yet been notified The only other documentation in the records so far is the draft of the ER physician which states: General Chief complaint: GI Bleed Stated complaint: rectal bleeding tonight - no blood thinners Time Seen by Provider: 05/12/22 03:00 Review of Systems Review of Systems: All systems reviewed & are unremarkable except as noted in HPI and below PMFSH Past Medical History Medical History AF (atrial fibrillation) Benign essential HTN CAD (coronary artery disease) Cataract Chronic kidney disease, stage 3 Hypothyroidism (acquired) Mitral valve regurgitation Mixed hyperlipidemia Neuropathy Scoliosis 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
--- NOTE | 2022-05-12 13:06 | PM.SD2 ---
Same Day Admit/Disch: HPI History of Present Illness Chief complaint: GI Bleed Narrative: Vladimir Blackburn is a 87 year old male who presented to the ED last night with rectal bleeding. he states it wasnot a bowel movement, it was all bright red blood. no abdominal pain, nausea, vomiting. no straining. hx of constipation on and off int eh apst. came to the ED for evaluation. he has not had any blood since then. he is seen by pediatric critical care nurse recently. he takes a baby aspirin a day. he is not on any other blood thinner. no fever, chills. family at bedside. 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 Smoking status: Former smoker Tobacco type: cigarettes Second hand tobacco smoke exposure: No Smoking end date: 02/15/93 Alcohol intake: never Substance use: never Substance use type: does not use Lack of Transportation: No Lack of Food: Never True Current Housing: I Have Housing Concerned About Future Housing: No Difficulty Paying Gas/Electric Bills: No Difficulty Paying for Meds: No Currently Unemployed: No Education: Trade/Vocational Certificate Difficulty w/ Childcare or Family Care: No Living arrangements: with family Occupation/Education: retired Gender identity (if verbalized by the patient): Male Sexual Orientation (if Verbalized by the Patient): Straight or Heterosexual Spiritual care concerns: No Same Day Admit/Disch: Med Pre-admit Medications Home Medications Medication Instructions Recorded Confirmed Type aspirin 81 mg tablet,delayed 81 mg PO DAILY 04/11/19 05/12/22 History release (Adult Low Dose Aspirin) amlodipine 2.5 mg tablet 2.5 mg PO DAILY #90 tabs 06/20/21 05/12/22 Rx tamsulosin 0.4 mg capsule (Flomax) 0.4 mg PO DAILY #14 caps 07/07/21 05/12/22 Rx levothyroxine 50 mcg tablet 50 mcg PO DAILY #90 tabs 03/31/22 05/12/22 Rx metoprolol tartrate 50 mg tablet 50 mg PO Q12H #180 tabs 03/31/22 05/12/22 Rx atorvastatin 40 mg tablet 40 mg PO DAILY 05/12/22 05/12/22 History terazosin 2 mg capsule 2 mg PO DAILY 05/12/22 05/12/22 History valsartan 160 1 tablet PO DAILY 05/12/22 05/12/22 History mg-hydrochlorothiazide 25 mg tablet Exam Narrative: GENERAL: The patient is well developed, not in acute distress HEENT: Nonicteric sclerae, PERRLA, EOMI. Oropharynx clear. Moist mucous membranes. Conjunctivae appear well perfused. CHEST: Chest wall is nontender. HEART: Regular rate and rhythm without murmur, rubs, or gallops LUNGS: Clear to auscultation bilaterally. no respiratory distress ABDOMEN: Soft, positive bowel sounds, non-tender, no organomegaly. SKIN: No rash, no excessive bruising, petechiae, or purpura. NEUROLOGIC: Cranial nerves II-XII intact, alert and oriented x 3, no gross motor deficits EXTREMITIES: no edema, cyanosis or clubbing DS: Data Data Completed and Pending Labs on day of discharge: Labs from last 24 hours 05/12/22 05/12/22 05/11/22 11:28 05:27 20:39 WBC RBC H
== END 2022-05-12 14:15 | disposition home or self-care (01) ==
LOC: ANHED 05-12 06:02 → ANH3MEDSUR 05-12 06:39
PROVIDERS: Emergency Medicine; Admitting Provider Internal Medicine; Emergency Provider Emergency Medicine; PCP Family Medicine; Visit Provider Internal Medicine
DX: K62.5 Hemorrhage of anus and rectum (principal); K55.1 Chronic vascular disorders of intestine; D64.9 Anemia, unspecified; Z79.82 Long term (current) use of aspirin; I25.10 Atherosclerotic heart disease of native coronary artery without angina pectoris; E78.5 Hyperlipidemia, unspecified; E03.9 Hypothyroidism, unspecified; N18.30 Chronic kidney disease, stage 3 unspecified; I12.9 Hypertensive chronic kidney disease with stage 1 through stage 4 chronic kidney disease, or unspecified chronic kidney disease; I48.91 Unspecified atrial fibrillation; Z87.891 Personal history of nicotine dependence
CPT/HCPCS: 36415; 74177; 80053; 85014; 85018; 85025; 85610; 85730; 86850; 86900; 86901; 96374; 99285; C9113; G0378; Q9967

== ENCOUNTER 2023-01-31 07:15 | Emergency (ER) | payer MEDICARE, SELFPAY ==
--- NOTE | ~2023-01-31 | XR_ITS ---
XR foot RT min 3V 01/31/2023 07:50 Indication: Right foot injury with pain. Procedure: 4 views right foot Comparison: No prior studies for comparison. Findings: There is an acute nondisplaced intra-articular fracture proximal aspect of the first proxim al phalanx. There is mild osteoarthritis of the first MTP joint. There is atherosclerosis. Osteopenia . Mild soft tissue swelling of the first digit. Impression: 1: Nondisplaced intra-articular fracture right first proximal phalanx extending to the MTP joint. Reviewed, dictated and finalized at location A. MOUNTER Impression: 1: Nondisplaced intra-articular fracture right first proximal phalanx extending to the MTP joint.
--- NOTE | ~2023-01-31 | CT_ITS ---
EXAMINATION: CT cervical spine wo con DATE: 01/31/2023 07:45 INDICATION: Neck pain after fall TECHNIQUE: Computed tomography (CT) of the cervical spine was performed without intravenous contrast. The dose-length product was 459 mGy-cm. Automated exposure control and iterative reconstruction technique were employed. COMPARISON: None FINDINGS: There is straightening of cervical lordosis. There is advanced multilevel uncinate and face t hypertrophy with levoscoliosis. There is degenerative anterolisthesis at C3-4 and C4-5. There is di sc narrowing at C4-5, C5-6 and C6-7. Craniovertebral junction is normal. Odontoid process is normal. No evidence for perched facet. No abnormality of the lung apices. No significant paraspinal soft tiss ue abnormality. No acute fracture or traumatic malalignment. IMPRESSION: 1. No acute abnormality of the cervical spine. 2: Severe cervical spondylosis. Reviewed, dictated and finalized at location A. [employer]
--- NOTE | ~2023-01-31 | CT_ITS ---
EXAMINATION: CT brain wo con DATE: 01/31/2023 07:45 INDICATION: Status post recent fall. Abrasions to the head. TECHNIQUE: Computed tomography (CT) of the head was performed without intravenous contrast. The dose- length product was 681.00 mGy-cm. Automated exposure control and iterative reconstruction technique w ere employed. COMPARISON: CT dated 08/14/2015 FINDINGS: There is generalized atrophy. There are scattered moderate periventricular and subcortical white matter changes, most likely related to small vessel ischemic disease (microangiopathy). No vent riculomegaly or midline shift. There is a chronic left cerebellar infarction. There is intracranial a therosclerosis. There is mucosal thickening of the left maxillary, ethmoid and sphenoid sinuses. Mast oids are pneumatized. No depressed skull fractures. IMPRESSION: 1. No acute intracranial abnormality. 2: Mild sinusitis. 3: Chronic left cerebellar infarction. Reviewed, dictated and finalized at location A. [employer]
--- NOTE | ~2023-01-31 | XR_ITS ---
XR lumbar spine 2-3V 01/31/2023 07:50 Indication: Low back pain after recent fall Procedure: 3 views lumbar spine Comparison: CT dated 07/16/2017 Findings: There is dextroscoliosis. There is severe loss of disc height at all lumbar levels with end plate hypertrophy. There is severe multilevel facet hypertrophy. No acute fracture or traumatic malal ignment. Mild chronic wedge shaped appearance to T12. There is atherosclerosis of the aorta and iliac arteries. Impression: 1: No acute abnormality of the lumbar spine. 2: Severe lumbar spondylosis with dextroscoliosis. Reviewed, dictated and finalized at location A. [employer] W[employer]ER Impression: 1: No acute abnormality of the lumbar spine. 2: Severe lumbar spondylosis with dextroscoliosis.
[2023-01-31 07:19] VITALS: BP 156/86; PULSE 85; RESP 16; TEMP 36.9; O2SAT 97
--- NOTE | 2023-01-31 07:26 | ED.GENADULT ---
HPI - General Adult General Chief complaint: Weakness Stated complaint: stubbed toe x 2 days Time Seen by Provider: 01/31/23 07:18 History of Present Illness HPI narrative: 87-year-old male presenting to the emergency department for evaluation of right foot pain. Patient reports 2 days ago he was walking and injured his foot causing himself to fall and strike his face. Patient denies any loss of consciousness at this time. Patient does have abrasions to his face from that fall. Patient states that since he had the fall he has had increased pain at the right foot and difficulty with ambulation. Patient states he did not feel safe using a cane but did use a walker and was still having some discomfort with foot. patient denies any chest pain shortness of breath nausea vomiting or diarrhea. Patient denies any abdominal pain or pain with urination. Patient states he is eating and drinking well. Patient denies any associated numbness or weakness but states he is having ambulation issues due to the right foot Related Data Home Medications Medication Instructions Recorded Confirmed aspirin 81 mg tablet,delayed 81 mg PO DAILY 04/11/19 08/26/22 release (Adult Low Dose Aspirin) Allergies Allergy/AdvReac Type Severity Reaction Status Date / Time No Known Allergies Allergy Verified 08/25/22 09:34 Review of Systems Review of Systems: All systems reviewed & are unremarkable except as noted in HPI and below [facility] Past Medical History Medical History (Updated 01/31/23 @ 18:30 by Kush Cerda MD) AF (atrial fibrillation) Benign essential HTN CAD (coronary artery disease) Cataract Chronic kidney disease, stage 3 Hypothyroidism (acquired) Mitral valve regurgitation Mixed hyperlipidemia Neuropathy Scoliosis 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 Smoking status: Former smoker Tobacco type: cigarettes Second hand tobacco smoke exposure: No Smoking end date: 02/15/93 Alcohol intake: never Substance use: never Substance use type: does not use Lack of Transportation: No Lack of Food: Never True Current Housing: I Have Housing Concerned About Future Housing: No Difficulty Paying Gas/Electric Bills: No Difficulty Paying for Meds: No Currently Unemployed: No Education: Trade/Vocational Certificate Difficulty w/ Childcare or Family Care: No Living arrangements: with family Occupation/Education: retired Gender identity (if verbalized by the patient): Male Sexual Orientation (if Verbalized by the Patient): Straight or Heterosexual Spiritual care concerns: No Exam Narrative: APPEARANCE: Well appearing, no pain, no distress, well-nourished. HEAD: normocephalic, facial abrasion. EYES: PERRLA/EOMI, conjunctivae clear. NOSE: Normal no drainage EARS:TMS clear with good light reflex. THROAT: Pharynx clear, no exudate. NECK: Supple. No adenopathy, no masses. RESPIRATORY: Airway patent, respirations nonlabored. Clear to auscultation bilaterally, no rales, rhonchi, wheezing. CARDIOVASCULAR: Regular rate and rhythm without murmurs rubs or gallops. ABDOMINAL: Soft, nontender, nondistended, normal bowel sounds MUSCULOSKELETAL: Moves all extremities. ecchymosis over right great toe NEURO: Alert. Cranial nerves II through XII intact. grossly intact SKIN: abrasion to face an
== END 2023-01-31 10:20 | disposition home or self-care (01) ==
PROVIDERS: Emergency Provider Emergency Medicine; PCP Family Medicine
DX: S92.414A Nondisplaced fracture of proximal phalanx of right great toe, initial encounter for closed fracture (principal); S00.81XA Abrasion of other part of head, initial encounter; I48.91 Unspecified atrial fibrillation; I25.10 Atherosclerotic heart disease of native coronary artery without angina pectoris; I12.9 Hypertensive chronic kidney disease with stage 1 through stage 4 chronic kidney disease, or unspecified chronic kidney disease; N18.30 Chronic kidney disease, stage 3 unspecified; E03.9 Hypothyroidism, unspecified; E78.2 Mixed hyperlipidemia; G62.9 Polyneuropathy, unspecified; Z95.810 Presence of automatic (implantable) cardiac defibrillator; Z95.1 Presence of aortocoronary bypass graft; Z87.891 Personal history of nicotine dependence; Z98.49 Cataract extraction status, unspecified eye; Z79.82 Long term (current) use of aspirin; J32.9 Chronic sinusitis, unspecified; M47.812 Spondylosis without myelopathy or radiculopathy, cervical region; M47.816 Spondylosis without myelopathy or radiculopathy, lumbar region; W01.0XXA Fall on same level from slipping, tripping and stumbling without subsequent striking against object, initial encounter
CPT/HCPCS: 29515; 70450; 72100; 72125; 73630; 99284

== ENCOUNTER 2023-06-03 11:08 | Inpatient (IN) | payer MEDICARE, SELFPAY ==
[2023-06-03] VITALS (11 sets, daily range): BP systolic 131–166; BP diastolic 53–86; PULSE 71–86; RESP 18–22; TEMP 36.1–36.6; O2SAT 95–97; BMI 28.0
--- NOTE | ~2023-06-03 | CT_ITS ---
EXAMINATION: CTA chest PE protocol DATE: 06/03/2023 14:55 INDICATION: Shortness of breath. TECHNIQUE: Computed tomography angiography (CTA) of the chest was performed with 100 mL Omnipaque-350 intravenous contrast timed to evaluate the pulmonary arteries. Coronal maximum intensity projection 3D-reconstructions were created by the technologist. Automated exposure control and iterative reconst ruction technique were employed. The dose-length product was 769.37 mGy-cm. COMPARISON: None. FINDINGS: There are small pleural effusions. There is mild atelectasis bilaterally. There are airspac e opacities in left lower lobe. Cardiomegaly is noted. There are changes of aortic valve replacement. There are coronary artery calcifications. There are changes of coronary bypass grafting. No pericard ial effusion. There is no pulmonary embolus. There is a large sliding hiatal hernia. There are widesp read arterial calcifications. There is a 4.2 cm cyst in left kidney. There are gallstones in the gall bladder, which is normal in size. There is a closure device at left atrial appendage. There is a left chest wall pacer with leads in the right atrium and right ventricle. There is severe cervical spondy losis, moderate thoracic spondylosis, and severe lumbar spondylosis. There is mild chronic anterior w edging of multiple vertebral bodies. IMPRESSION: 1. No pulmonary embolus. Sensitivity is moderately decreased by motion artifact. 2. Left lower lobe airspace opacities, consistent with atelectasis versus pneumonia. 3. Small pleural effusions. 4. Large sliding hiatal hernia. Reviewed, dictated and finalized at location E. IMPRESSION: 1. No pulmonary embolus. Sensitivity is moderately decreased by motion artifact . 2. Left lower lobe airspace opacities, consistent with atelectasis versus pneum onia. 3. Small pleural effusions. 4. Large sliding hiatal hernia.
--- NOTE | ~2023-06-03 | XR_ITS ---
EXAMINATION: XR chest 1V portable DATE: 06/03/2023 12:10 INDICATION: Congestive heart failure TECHNIQUE: frontal view of the chest was obtained. COMPARISON: None FINDINGS: Increased interstitial pattern in the bilateral lower lungs consistent with mild pulmonary edema. Mor e dense consolidation at the left lower lung zone with blunting at costophrenic angle consistent with small left pleural effusion and associated atelectasis. No pneumothorax. Cardiomegaly. Median sterno annelise wires and aortic valve repair. There is also a left atrial appendage occlusion clip. Dual lead p acemaker/AICD seen with leads projecting over the expected locations of the right atrium and right ve ntricle. Advanced right-sided and at least moderate left-sided glenohumeral osteoarthritis. IMPRESSION: 1. Likely congestive heart failure related mild pulmonary edema in the bilateral lower lungs. Differe ntial would include pneumonia in the appropriate clinical setting. 2. Small left pleural effusion with associated atelectasis. 3. Cardiomegaly. Reviewed, dictated and finalized at location A. IMPRESSION: 1. Likely congestive heart failure related mild pulmonary edema in the bilatera l lower lungs. Differential would include pneumonia in the appropriate clinical setting. 2. Small left pleural effusion with associated atelectasis. 3. Cardiomegaly.
--- NOTE | ~2023-06-03 | US_ITS ---
EXAMINATION: US venous doppler UE LT DATE: 06/03/2023 15:15 INDICATION: swelling . TECHNIQUE: Grayscale ultrasound images without and with compression and Doppler ultrasound images of the left upper extremity veins were obtained. COMPARISON: None. FINDINGS: The visualized portions of the left internal jugular vein, subclavian vein, axillary vein, brachial v eins, basilic vein, cephalic vein, radial vein, and ulnar vein are patent. IMPRESSION: No deep venous thrombosis. Reviewed, dictated and finalized at location K. IMPRESSION: No deep venous thrombosis.
--- NOTE | ~2023-06-03 | US_ITS ---
EXAMINATION: US renal BI DATE: 06/06/2023 15:06 INDICATION: Elevated creatinine. TECHNIQUE: Multiple ultrasound grayscale images of the kidneys were obtained. COMPARISON: Chest CT 06/03/2023 FINDINGS: The right kidney measures 14.0 x 7.5 x 7.1 cm. The left kidney measures 13.4 x 6.4 x 5.8 cm. The kidn eys demonstrate normal parenchymal echogenicity. There are cysts in the kidneys measuring up to 3.8 c m on the right. There is no hydronephrosis. The bladder is normal. IMPRESSION: 1. Normal kidney sizes. No hydronephrosis. Reviewed, dictated and finalized at location E.
--- NOTE | 2023-06-03 11:14 | ECG_ITS ---
SEE SCANNED COPY FOR CONFIRMED REPORT MTDD
[2023-06-03 11:31] LABS: Basophils Percent Auto 0.3 % (0.2-1.2); Eosinophils Absolute Auto 0.2 K/mm3 (0-0.3); Eosinophils Percent Auto 1.6 % (0-4.4); Hematocrit 32.8 % (42.0-52.0); Hemoglobin 10.7 g/dL (14.0-18.0); Immature Granulocyte Absolute 0.03 K/mm3 (0.00-0.031); Immature Granulocyte Percent A 0.3 % (0-0.5); Lymphocytes Absolute Auto 3.24 K/mm3 (0.9-3.2); Lymphocytes Percent Auto 31.3 % (18.3-44.2); Mean Corpuscular HGB Conc 32.6 g/dl (32-36); Mean Corpuscular Hemoglobin 33.8 pg (26-34); Mean Corpuscular Volume 103.5 fl (80-100); Mean Platelet Volume 9.7 fl (7.4-10.4); Monocytes Absolute Auto 1.1 K/mm3 (0.1-0.6); Monocytes Percent Auto 10.8 % (2.6-8.5); Neutrophils Absolute Auto 5.8 K/mm3 (1.3-6.7); Neutrophils Percent Auto 55.7 % (45.5-73.1); Platelet Count Result 164 k/mm3 (150-375); Red Blood Count 3.17 M/mm3 (4.6-6.20); Red Cell Distribution Width 13.2 % (11.5-14.5); White Blood Count 10.4 K/mm3 (4.5-10.0)
[2023-06-03 11:41] LABS: Alanine Aminotransferase 18 U/L (6-50); Albumin Level 3.3 g/dL (3.5-5.1); Alkaline Phosphatase 76 U/L (38-126); Anion Gap 7 mmol/L (4-12); Aspartate Amino Transferase 25 U/L (17-59); Bilirubin,Total 0.7 mg/dL (0.2-1.3); Blood Urea Nitrogen 27 mg/dL (9-20); Calcium 8.5 mg/dL (8.4-10.2); Carbon Dioxide 20 mmol/L (22-30); Chloride 109 mmol/L (98-107); Estimated CRCL calculation 27 ml/min; Estimated Glomerular Filt Rate 34; Glucose 135 mg/dL (65-110); Potassium 4.3 mmol/L (3.4-5.0); Sodium 136 mmol/L (137-145)
[2023-06-03 11:47] LABS: INR 1.2; Partial Thromboplastin Time 27.9 Seconds (22.3-36.8); Prothrombin Time 15.5 Seconds (11.1-14.7)
[2023-06-03 12:06] LABS: NT Pro B Type Natriuretic Pept 8100 pg/mL (19.9-100); Troponin I 0.043 ng/mL (0.000-0.034)
--- NOTE | 2023-06-03 12:25 | ED.EXTPRO ---
HPI - Extremity Problem General Chief complaint: Extremity Problem,Nontraumatic Stated complaint: BLE swelling Time Seen by Provider: 06/03/23 12:11 Source: patient and family Mode of arrival: ambulatory Limitations: no limitations History of Present Illness HPI Narrative: 88 years old white male came from home by ambulance complaining of swelling of the feet bilaterally , left forearm and shortness of breath on exertion started 1 week ago. Patient report intermittent productive cough of dark sputum over the last 2 days. He denies any fever or chills or nausea or vomiting or orthopnea. Denies chest pain or back pain. Complaint: cold extremity Related Data Home Medications Medication Instructions Recorded Confirmed aspirin 81 mg tablet,delayed 81 mg PO DAILY 04/11/19 02/16/23 release (Adult Low Dose Aspirin) tamsulosin 0.4 mg capsule 0.4 mg PO DAILY 02/16/23 02/16/23 Allergies Allergy/AdvReac Type Severity Reaction Status Date / Time No Known Allergies Allergy Verified 06/03/23 11:32 Review of Systems Review of Systems: All systems reviewed & are unremarkable except as noted in HPI and below PMFSH Past Medical History Medical History AF (atrial fibrillation) Benign essential HTN CAD (coronary artery disease) Cataract Chronic kidney disease, stage 3 Hypothyroidism (acquired) Mitral valve regurgitation Mixed hyperlipidemia Neuropathy Scoliosis 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 Smoking status: Former smoker Tobacco type: cigarettes Second hand tobacco smoke exposure: No Smoking end date: 02/15/93 Alcohol intake: never Substance use: never Substance use type: does not use Current Housing: Decline to Answer Concerned About Future Housing: Decline to Answer Difficulty Paying Gas/Electric Bills: Decline to Answer Difficulty Paying for Meds: Decline to Answer Currently Unemployed: Decline to Answer Education: Decline to Answer Difficulty w/ Childcare or Family Care: Decline to Answer Living arrangements: with family Occupation/Education: retired Gender identity (if verbalized by the patient): Male Sexual Orientation (if Verbalized by the Patient): Straight or Heterosexual Spiritual care concerns: No Exam Narrative: General appearance: Well-developed, well-nourished Skin: Normal color 2+ edema of the ankles bilaterally, no edema of the left upper extremity or swelling. Few basilar rales bilaterally Head: Normocephalic, nontraumatic Eyes: Clear conjunctiva ENT: Oropharynx normal, ears normal, nose normal Neck: Supple, nontender Chest and respiratory: Airway patent, no respiratory distress, no accessory muscle use Heart: Regular rate/rhythm Abdomen: Soft, nontender, no organomegaly, quiet bowel sounds Vascular: Normal peripheral pulses, normal capillary refill. Musculoskeletal: Normal range of motion, nontender back Neurologic: Alert and oriented ?3, FEATHER MIXER is normal as tested, no gross motor deficit Course Vital Si
[2023-06-03] MEDS: FUROSEMIDE INJ 40 MG/4 ML VIAL IV PUSH (13:31)
[2023-06-03 13:44] LABS: Alveolar/Arterial O2 Gradient 43.3 mmHg; Base Excess ABG -5.1 mEq/l (+/-2.0); Fractional Inspired Oxygen 21 %; HCO3 ABG 18.1 mEq/l (22.0-26.0); Oxygen Content ABG 14.9 %vol (16.0-22.0); Oxygen Saturation ABG 95.3 % (95.0-100.0); Oxyhemoglobin 92.3 % THb (90.0-100.0); PCO2 ABG 27.9 mmHg (35.0-45.0); PO2 FiO2 Ratio Arterial Blood 3.48 %; Total Hemoglobin 11.4 g/dL (12.0-18.0); pH ABG 7.429 (7.350-7.450)
[2023-06-03 13:45] LABS: Device ROOM AIR; Modified Allen's Test Pass; Site Drawn RIGHT RADIAL
[2023-06-03 14:31] LABS: D Dimer 1.96 ug/mL (<0.48)
--- NOTE | 2023-06-03 15:20 | PC.NURSE ---
Meal tray ordered for pt
--- NOTE | 2023-06-03 16:30 | PM.IMHP ---
H&P: HPI History of Present Illness Date/Time: 06/03/23 18:30 Chief Complaint: Shortness of breath and lower extremity swelling. Narrative: This is a pleasant 88-year-old male with congestive heart failure, ischemic cardiomyopathy with ejection fraction as low as 30 to 35% although that has gradually improved, coronary artery disease status post 3 vessel bypass in 2009, bicuspid aortic valve with stenosis status post bioprosthetic aortic valve replacement, hypertension, hyperlipidemia, chronic kidney disease stage 3, anemia, benign prostatic hyperplasia, and hypothyroidism who presented to the emergency department for evaluation of shortness of breath and lower extremity swelling. The patient provides the following history. He gives a 1 week history of progressive dyspnea on lesser and lesser exertion as well as increasing edema in his legs as well as his left arm. He also endorses a cough productive of dark brown phlegm which has been ongoing for 3 weeks. He denies syncope, near syncope, fever, chills, sweats, sinus congestion, sore throat, chest and pleuritic pain, palpitations, abdominal pain, nausea, vomiting, diarrhea, orthopnea, and paroxysmal nocturnal dyspnea. No sick contacts. In the ED: He was afebrile on arrival with stable vital signs. Labs were significant for WBC count of 10.4, hemoglobin 10.7, MCV 103.5, D-dimer 1.96, sodium 136, BUN 27, creatinine 1.90, troponin 0.043, proBNP 8100, total protein 6.0, albumin 3.3. Chest x-ray showed likely congestive heart failure with mild pulmonary edema in the lower lung zones, small left pleural effusion with associated atelectasis, and cardiomegaly. Chest CTA was negative for PE but sensitivity was moderately decreased by motion artifact, left lower lobe airspace opacities which may be atelectasis or pneumonia, small pleural effusions, enlarged sliding hiatal hernia. Left upper extremity venous Doppler ultrasound was negative for DVT. He received 40 mg IV furosemide and 750 mg of levofloxacin and he is being admitted in this setting for further treatment and evaluation. Review of Systems Review of Systems: 12 systems were reviewed and are negative except for as per HPI. [facility] Past Medical History Medical History (Updated 06/03/23 @ 16:40 by Justine Rivera PA-C) Aortic stenosis 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 History of cataract extraction History of coronary artery bypass graft x 3 (2009) MAGALLON to LAD, SVG to OM, SVG to PDA per Dr. Antony at [place]. History of hernia repair History of implantable cardioverter-defibrillator (ICD) placement (2009) History of melanoma excision Left hand. Family History Family History Father Family history of premature coronary heart disease, Onset Age: 56 Patient's father is Mother Bladder cancer Social History Social History (Updated 06/03/23 @ 16:35 by Justine Rivera PA-C) Social History: Surrogate medical decision maker: Code status: Full code. Smoking packs per day: 0.5 Smoking cigarettes per day: 10.0 Years smoked: 42 Smoking pack-years: 21.00 Smoking status: Former smoker Tobacco type: cigarettes Second hand tobacco smoke exposure: No Smoking end date: 02/15/93 Alcohol intake: never Substance use: never Substance use type: does not use Do You Feel Safe in your Home
[2023-06-03] MEDS: levoFLOXacin 750 MG/D5W 150 ML 750 MG/150 ML BAG 100 MG IVPB (16:31)
--- NOTE | 2023-06-03 17:28 | ADMGEN ---
This patient, Vladimir Blackburn, was admitted to IMU Room 203-01. Patient/family oriented to hospital policies and general routines including ID bracelet, bed and alarms, visiting hours, pain management, procedures, bathroom and other care routines, personal items, smoking policy, room service/diet, and visiting hours. Information on how to activate the Rapid Response Team has been discussed. Patient/Family are encouraged to report perceived risks to care and to ask questions if they do not understand what they are told or what they should do.
[2023-06-03 18:10] LABS: Influenza A QL RT-PCR Negative (Negative); Influenza B QL RT-PCR Negative (Negative); RSV RNA, RT-PCR Negative (Negative); SARS-CoV-2 RNA PCR Negative (Negative)
[2023-06-03 19:51] LABS: CRP < 0.5 mg/dL (<1.0)
[2023-06-03 20:00] LABS: Troponin I 0.035 ng/mL (0.000-0.034)
[2023-06-03 20:20] LABS: Procalcitonin 0.1 ng/mL
[2023-06-03] MEDS: guaiFENesin 12 HR 600 MG TABCR PO (20:39)
[2023-06-03] MEDS: FUROSEMIDE INJ 40 MG/4 ML VIAL 20 MG IV PUSH (20:40)
[2023-06-03 20:49] LABS: Folic Acid 13.7 ng/mL (2.76->20)
[2023-06-03] MEDS: METOPROLOL TARTRATE 50 MG TAB PO (23:57)
[2023-06-03] MEDS: AZITHROMYCIN 250 MG TABLET 500 MG PO (23:57)
[2023-06-04] VITALS (16 sets, daily range): BP systolic 141–161; BP diastolic 56–83; PULSE 65–88; RESP 16–20; TEMP 36.2–36.9; O2SAT 94–98
--- NOTE | 2023-06-04 | ECHO_ITS ---
Patient Info Name: Vladimir Blackburn Age: 88 years : 1935 Gender: Male Ht: 72 in Wt: 206 lbs BSA: 2.20 m2 HR: 76 bpm BP: 157 / 65 mmHg Heart Rhythm: Sinus Rhythm Technical Quality: Fair Exam Date: 06/04/2023 9:33 AM Exam Location: Echo Lab Patient Status: Inpatient Admit Date: 06/03/2023 Staff Ordering Physician: Justine Rivera PA-C Rn Er: Sheela Torres YONI Attending Provider: Kelly Nguyen MD Referring Physician: Miguel SYLVESTER; Exam Type: CA echo doppler color flow Study Info Indications I50.20 - Unspecified systolic (congestive) heart failure Complete two-dimensional, color flow and Doppler transthoracic echocardiogram is performed. Summary 1. Complete two-dimensional, color flow and Doppler transthoracic echocardiogram is performed. 2. Left ventricular chamber dimension is mildly enlarged. 3. Left ventricular systolic function is mildly reduced, estimated at 40-45%. 4. There is mildly increased left ventricular wall thickness. 5. The left ventricular diastolic function is grade II diastolic dysfunction. 6. The inferior wall, and mid inferolateral wall are akinetic. 7. The anterolateral wall, and basal inferolateral wall are hypokinetic. 8. Left atrial chamber dimension is moderately enlarged. 9. There is mild bioprosthetic aortic valve stenosis with a peak velocity of 240 cm/s, mean gradient of 8 mmHg, and aortic valve area of 1.2 cm2. 10. The bioprosthetic aortic valve is normal. 11. There is moderate mitral valve regurgitation. 12. There is mild pulmonic regurgitation. 13. Mild pulmonary hypertension, estimated pulmonary arterial systolic pressure is 40 mmHg. 14. There is moderate tricuspid valve regurgitation. Left Ventricle Left ventricular chamber dimension is mildly enlarged. Left ventricular systolic function is mildly reduced, estimated at 40-45%. There is mildly increased left ventricular wall thickness. The left ventricular diastolic function is grade II diastolic dysfunction. The inferior wall, and mid inferolateral wall are akinetic. The anterolateral wall, and basal inferolateral wall are hypokinetic. All other lee appear normal. Right Ventricle Right ventricular chamber dimension is normal. Right ventricular systolic function is normal. Linear artifact in right ventricle suggestive of catheter(s), pacemaker lead(s), or ICD lead(s). Left Atria Left atrial chamber dimension is moderately enlarged. Right Atria Right atrial chamber dimension is normal. Atrial Septum Intact interatrial septum visualized by color flow imaging. Aortic Valve The bioprosthetic aortic valve is normal. There is mild bioprosthetic aortic valve stenosis with a peak velocity of 240 cm/s, mean gradient of 8 mmHg, and aortic valve area of 1.2 cm2. There is trace regurgitation of the bioprosthetic aortic valve. Pulmonic Valve The pulmonic valve is normal. There is no pulmonic valve stenosis. There is mild pulmonic regurgitation. Mitral Valve The mitral valve has thickened leaflets. There is no mitral valve stenosis. There is moderate mitral valve regurgitation. Tricuspid Valve The tricuspid valve leaflets are normal. There is no significant tricuspid valve stenosis. There is moderate tricuspid valve regurgitation. Mild pulmonary hypertension, estimated pulmonary arterial systolic pressure is 40 mmHg. Pericardium/Pleural The pericardium appears normal. There is no pericardial effusion. Inferior Vena Cava Normal inferior vena cava with >50% collapse upon inspiration consistent with normal right atrial pressure, 10 mmHg.
[2023-06-04 04:34] LABS: Basophils Percent Auto 0.3 % (0.2-1.2); Eosinophils Absolute Auto 0.3 K/mm3 (0-0.3); Eosinophils Percent Auto 2.7 % (0-4.4); Hematocrit 30.7 % (42.0-52.0); Hemoglobin 10.1 g/dL (14.0-18.0); Immature Granulocyte Absolute 0.04 K/mm3 (0.00-0.031); Immature Granulocyte Percent A 0.3 % (0-0.5); Lymphocytes Absolute Auto 3.09 K/mm3 (0.9-3.2); Lymphocytes Percent Auto 26.5 % (18.3-44.2); Mean Corpuscular HGB Conc 32.9 g/dl (32-36); Mean Corpuscular Hemoglobin 33.3 pg (26-34); Mean Corpuscular Volume 101.3 fl (80-100); Mean Platelet Volume 10.5 fl (7.4-10.4); Monocytes Absolute Auto 1.3 K/mm3 (0.1-0.6); Monocytes Percent Auto 11.3 % (2.6-8.5); Neutrophils Absolute Auto 6.8 K/mm3 (1.3-6.7); Neutrophils Percent Auto 58.9 % (45.5-73.1); Platelet Count Result 163 k/mm3 (150-375); Red Blood Count 3.03 M/mm3 (4.6-6.20); Red Cell Distribution Width 13.1 % (11.5-14.5); White Blood Count 11.6 K/mm3 (4.5-10.0)
[2023-06-04 05:08] LABS: Anion Gap 5 mmol/L (4-12); Blood Urea Nitrogen 28 mg/dL (9-20); Calcium 8.6 mg/dL (8.4-10.2); Carbon Dioxide 24 mmol/L (22-30); Chloride 103 mmol/L (98-107); Estimated CRCL calculation 26 ml/min; Estimated Glomerular Filt Rate 32; Glucose 96 mg/dL (65-110); Magnesium 1.6 mg/dL (1.6-2.3); Sodium 132 mmol/L (137-145)
[2023-06-04] MEDS: LEVOTHYROXINE SODIUM 50 MCG TABLET BY MOUTH (05:23)
[2023-06-04] MEDS: VALSARTAN 160 MG TABLET PO (09:01)
[2023-06-04] MEDS: FUROSEMIDE INJ 40 MG/4 ML VIAL 20 MG IV PUSH (09:02)
[2023-06-04] MEDS: guaiFENesin 12 HR 600 MG TABCR PO ×2 (09:02→20:04)
[2023-06-04] MEDS: METOPROLOL TARTRATE 50 MG TAB PO ×2 (09:02→20:04)
[2023-06-04] MEDS: TERAZOSIN HCL 1 MG CAPSULE 2 MG PO (09:02)
[2023-06-04] MEDS: ATORVASTATIN 40 MG TABLET PO (09:03)
[2023-06-04] MEDS: ASPIRIN 81 MG ENTERIC TABLET PO (09:03)
[2023-06-04] MEDS: AZITHROMYCIN 250 MG TABLET PO (09:03)
[2023-06-04] MEDS: ENOXAPARIN 40 MG/0.4 ML SYRINGE SUB-Q (09:03)
--- NOTE | 2023-06-04 09:48 | PM.IMPN ---
Progress Note: A&P Assessment and Plan (1) Acute exacerbation of congestive heart failure: Code(s): I50.9 - Heart failure, unspecified Status: Acute (2) Elevated troponin: Code(s): R79.89 - Other specified abnormal findings of blood chemistry Status: Acute (3) Pneumonia: Code(s): J18.9 - Pneumonia, unspecified organism Status: Acute (4) Coronary artery disease: Code(s): I25.10 - Atherosclerotic heart disease of [place] coronary artery without angina pectoris Status: Acute (5) Chronic kidney disease, stage 3: Code(s): N18.30 - Chronic kidney disease, stage 3 unspecified Status: Acute (6) Chronic anemia: Code(s): D64.9 - Anemia, unspecified Status: Acute (7) Benign essential hypertension: Code(s): I10 - Essential (primary) hypertension Status: Acute (8) Hypothyroidism: Code(s): E03.9 - Hypothyroidism, unspecified Status: Acute Plan The patient presented to the emergency department for evaluation of shortness of breath, productive cough, and increased lower extremity edema as detailed in HPI. Labs, imaging, EKG, and all reports were personally reviewed. Clinically he appears to have a CHF exacerbation he will be diuresed with close monitoring of volume status, renal function, and electrolytes. Continue empiric antibiotics for possible pneumonia seen on CT as he does have a productive cough, mild leukocytosis, and findings suggestive of pneumonia on CT scan. Check CRP and procalcitonin. Attempt sputum for culture. Troponins were mildly elevated and are flat and are not likely indicative acute coronary syndrome and more likely related to CHF in the setting of chronic kidney disease. Iron studies, B12, and folate ordered for evaluation of macrocytic anemia. Continue levothyroxine and check TSH. T 06/03 community-acquired pneumonia Continue azithromycin ceftriaxone today suspected acute on chronic diastolic heart failure received Lasix 40 mg IV push once Now is on Lasix 20 mg b.i.d. IV Repeat echocardiogram change to oral lasix 20 mg bid po today Essential hypertension Continue metoprolol 50 mg b.i.d. p.o. Hypothyroidism Continue Synthroid 50 mcg daily p.o. CKD stage 4 avoid nephrotoxic medication Follow-up BMP Subjective Date/time seen: 06/04/23 09:48 Interval history: I saw and exam patient today. Patient feels dyspnea is improving, still has cough with sputum. Patient denies headache, still has general weakness no focal weakness. Denies abdomen pain, nausea vomiting diarrhea Exam Narrative: GENERAL: Pleasant, in no acute distress. Well-nourished. - EYES: EOMI. Anicteric. - HENT: Moist mucous membranes. - LUNGS: Clear to auscultation bilaterally, no wheezing, rhonchi, or rales. - CARDIOVASCULAR: Regular rate and rhythm. No murmur. No JVD. - ABDOMEN: Soft, non-tender and non-distended. No palpable masses. - EXTREMITIES: No edema. Peripheral pulses 2+. Non-tender. - NEUROLOGIC: No focal neurological deficits. CN II-XII grossly intact. general weakness - PSYCHIATRIC: Awake, Alert and oriented x 3. Appropriate mood and affect. - SKIN: No rashes or lesions. Warm. - LYMPH: No cervical lymphadenopathy. Objective Data Vital Signs Vital Signs: Vital Signs - 24 hr 06/03/23 11:20 06/03/23 11:30 06/03/23 13:33 Temperature 97.9 F Pulse Rate 74 71 Respiratory Rate 22 H 18 Blood Pressure 150/64 H 157/84 H Pulse Oximetry 95 95 96 Oxygen Delivery Room Air Room Air 06/03/23 15:12 06/03/23 16:58 06/03/23 18:00 Temperature 97.8 F Pulse Rate 71 76 79 Respiratory Rate 20 20 Blood Pressure 161/63 H 166/86 H Pulse Oximetry 96 96 Oxygen Delivery 06/03/23 20:38 06/03/23 20:00 06/03/23 20:00 Temperature 97.7 F Pulse Rate 81 77 Respiratory Rate 18 Blood Pressure 131/53 L Pulse Oximetry 97 Oxygen Delivery Room Air 06/03/23 22:00 06/03/23 23:38 06/03/23 23:
--- NOTE | 2023-06-04 16:18 | PC.NURSE ---
notified dr. Nguyen of 9 beat run of [facility] and patient asymptomatic. Telephone order to consult Cardiology obtained and carried out.
[2023-06-04] MEDS: FUROSEMIDE 20 MG TABLET PO (16:57)
[2023-06-04] MEDS: MAGNESIUM SULF 2 GM/WATER 50ML 2 GM/50 ML BAG IVPB (16:57)
[2023-06-04 23:53] LABS: Iron 85 ug/dL (49-181)
[2023-06-05] VITALS (11 sets, daily range): BP systolic 118–169; BP diastolic 49–72; PULSE 64–96; RESP 12–24; TEMP 36.3–36.9; O2SAT 89–96
[2023-06-05 00:02] LABS: Percent Iron Saturation 36 % (20-50)
[2023-06-05 00:57] LABS: Free T4 Free Thyroxine Reflex 1.37 ng/dL (0.78-2.19)
[2023-06-05 04:15] LABS: Anion Gap 4 mmol/L (4-12); Blood Urea Nitrogen 35 mg/dL (9-20); Calcium 8.8 mg/dL (8.4-10.2); Carbon Dioxide 27 mmol/L (22-30); Chloride 103 mmol/L (98-107); Estimated CRCL calculation 22 ml/min; Estimated Glomerular Filt Rate 26; Glucose 98 mg/dL (65-110); Magnesium 1.9 mg/dL (1.6-2.3); Potassium 4.3 mmol/L (3.4-5.0); Sodium 134 mmol/L (137-145)
[2023-06-05] MEDS: LEVOTHYROXINE SODIUM 50 MCG TABLET BY MOUTH (06:14)
[2023-06-05] MEDS: VALSARTAN 160 MG TABLET PO (08:45)
[2023-06-05] MEDS: TERAZOSIN HCL 1 MG CAPSULE 2 MG PO (08:45)
[2023-06-05] MEDS: guaiFENesin 12 HR 600 MG TABCR PO ×2 (08:45→20:01)
[2023-06-05] MEDS: METOPROLOL TARTRATE 50 MG TAB PO ×2 (08:45→20:01)
[2023-06-05] MEDS: FUROSEMIDE 20 MG TABLET PO (08:45)
[2023-06-05] MEDS: ATORVASTATIN 40 MG TABLET PO (08:46)
[2023-06-05] MEDS: ASPIRIN 81 MG ENTERIC TABLET PO (08:46)
[2023-06-05] MEDS: AZITHROMYCIN 250 MG TABLET PO (08:46)
[2023-06-05] MEDS: ENOXAPARIN 30 MG/0.3 ML SYRINGE SUB-Q (08:50)
--- NOTE | 2023-06-05 09:09 | PM.IMPN ---
Progress Note: A&P Assessment and Plan (1) Chronic kidney disease, stage 3: Code(s): N18.30 - Chronic kidney disease, stage 3 unspecified Status: Acute (2) Chronic anemia: Code(s): D64.9 - Anemia, unspecified Status: Acute (3) Acute exacerbation of congestive heart failure: Code(s): I50.9 - Heart failure, unspecified Status: Acute (4) Coronary artery disease: Code(s): I25.10 - Atherosclerotic heart disease of [place] coronary artery without angina pectoris Status: Acute (5) Hypothyroidism: Code(s): E03.9 - Hypothyroidism, unspecified Status: Acute (6) Benign essential hypertension: Code(s): I10 - Essential (primary) hypertension Status: Acute (7) Pneumonia: Code(s): J18.9 - Pneumonia, unspecified organism Status: Acute (8) Elevated troponin: Code(s): R79.89 - Other specified abnormal findings of blood chemistry Status: Acute Plan 88-year-old male past medical history heart failure reduced ejection fraction (EF as low as 35%), ischemic cardiomyopathy, ICD implantation, CAD status post in 2009, bicuspid aortic valve with stenosis status post bioprosthetic aortic valve replacement, hypertension, hyperlipidemia, CKD stage 3, anemia, BPH, hypothyroidism presenting with complaint of shortness of breath lower extremity swelling. Admitted on 06/03/2023. His swelling is resolved. It appears his decompensation has been resolved although with this low-dose of Lasix 20 mg p.o. b.i.d. it appears his renal function has declined. TRI and CKD. Could also be compound did by ATN from pneumonia. Continue ceftriaxone and azithromycin. Discontinue his valsartan as he will have to be started on Entresto anyway. Hydrochlorothiazide will be switched out for Lasix eventually as well. Start fluid restriction 1500 cc per day with daily weights intake and output he is already on heart healthy diet. There have been reports about paroxysmal AFib but the patient denies he has any history of this and does not want to take blood thinners. He does have a history of rectal bleeding. Start Jardiance. Does have elevated blood pressure. When his renal function is better hopefully start spironolactone and Entresto. He is already on metoprolol 50 mg p.o. b.i.d.. Hopefully send him home on a low dose of Lasix. Increase levothyroxine from 50 mcg 25 mcg q.day as is TSH is elevated. Check procalcitonin tomorrow as he leukocytosis FEN: Saline lock IV. Heart healthy diet. GI prophylaxis: Not indicated DVT prophylaxis: Lovenox Lines: Peripheral IV Code Status: DNR Dispo: Stable. Transfer to medical floor Subjective Date/time seen: 06/05/23 09:09 Interval history: No acute overnight events. Patient reports the swelling is resolved Review of Systems Review of Systems: All systems reviewed & are unremarkable except as noted in HPI and below (Subjective) Exam Const: General: comfortable and no acute distress Eyes: Pupils: Equal, round and reactive pupils present Resp: Effort & Inspection: normal respiratory effort Auscultation: clear to auscultation bilaterally Cardio: Rate: regular rate Rhythm: regular rhythm GI: GI Palp: Yes Soft to palpation and No Tenderness to palpation present (GI) Extrem: General: no edema Objective Data Vital Signs Vital Signs: Vital Signs - 24 hr 06/04/23 11:35 06/04/23 10:00 06/04/23 12:00 Temperature 98.5 F Pulse Rate 84 74 Respiratory Rate 17 Blood Pressure 153/82 H Pulse Oximetry 98 Oxygen Delivery Room Air 06/04/23 12:00 06/04/23 15:48 06/04/23 16:00 Temperature 98.3 F Pulse Rate 88 73 77 Respiratory Rate 18 Blood Pressure 161/83 H Pulse Oximetry 96 Oxygen Delivery 06/04/23 19:48 06/04/23 20:04 06/04/23 20:00 Temperature 97.6 F Pulse Rate 71 78 71 Respiratory Rate 18 18 Blood Pressure 141/56 H Pulse Oximetry 95 95 Oxygen Delivery Room Air
--- NOTE | 2023-06-05 09:54 | PM.CNCAR ---
Assessment and Plan Assessment and plan (1) NSVT (nonsustained ventricular tachycardia): Code(s): I47.29 - Other ventricular tachycardia Status: Acute Assessment and Plan: He had a 9 beat run nonsustained ventricular tachycardia in a patient has underlying CAD, previous cardiomyopathy, ICD in place. Electrolytes were checked and his magnesium level was 1.6. I did proceed to give him 2 g IV magnesium. Potassium is okay. At This point no further workup is indicated. (2) Chronic kidney disease, stage 3: Code(s): N18.30 - Chronic kidney disease, stage 3 unspecified Status: Acute Assessment and Plan: Worsening likely secondary to diuresis (3) Acute exacerbation of congestive heart failure: Code(s): I50.9 - Heart failure, unspecified Status: Acute Assessment and Plan: Acute on chronic mixed systolic and diastolic CHF. Already underwent diuresis and appears to be compensated and euvolemic at this point (4) Paroxysmal atrial fibrillation: Code(s): I48.0 - Paroxysmal atrial fibrillation Status: Acute Assessment and Plan: Paced rhythm at present (5) Coronary artery disease: Code(s): I25.10 - Atherosclerotic heart disease of [place] coronary artery without angina pectoris Status: Acute Assessment and Plan: Asymptomatic History of Present Illness History of Present Illness Consult date/time: 06/05/23 09:54 Requesting physician: Kelly Nguyen MD Consult reason: Other (NSVT) Reason For Visit: elevated troponin,chf,pneumonia Narrative: Date of service 06/05/2023 Reason for consultation: Nonsustained ventricular tachycardia Requesting provider: Dr. Nguyen History: Patient is an 85-year-old male who has a history of CAD and CABG and aortic valve replacement 2009 at [place]. His MAGALLON to LAD, SVG OM, SVG to PDA with a bioprosthetic aortic valve. He had a non-STEMI in 2019 with mid vessel occlusion of a large mid diagonal branch. ICD 10 changes and 16. He also has PAF, cardiomyopathy, PVCs, hypertensive heart disease and stage 3 chronic kidney disease. He had progressive worsening shortness of breath as well as lower extremity edema over the past week or so prior to admission. He was admitted for diuresis and heart failure exacerbation. Denied any significant chest pain. Also had productive sputum production x3 weeks. Denies any syncope, presyncope, paroxysmal nocturnal dyspnea, orthopnea, edema or palpitations. Chest x-ray showed mild pulmonary edema. BNP was 8100. Yesterday while on telemetry, he had a 9 beat run of nonsustained ventricular tachycardia. Magnesium level was low at 1.6. Have ordered placed with 2 g IV magnesium. He otherwise feels fine and is without complaint except for the fact that he wants to go home Review of Systems Review of Systems: All systems reviewed & are unremarkable except as noted in HPI and below Constitutional: Constitutional: Denies body ache(s) Eyes: Eyes: Denies blurry vision ENT: Denies Normal hearing present Cardiovascular: Cardiovascular: Denies chest pain and Reports leg edema Respiratory: Respiratory: Denies chest congestion Gastrointestinal: Gastrointestinal: Denies abdominal pain Genitourinary: Genitourinary: Denies hematuria Musculoskeletal: Musculoskeletal: Denies back pain Integumentary/Breasts: Skin/Breast: Denies skin pain Neurologic: Denies Abnormal speech present Psychiatric: Psychiatric: Denies behavioral changes Endocrine: Endocrine: Denies excessive sweating Hematologic/Lymphatic: Hematologic/Lymphatic: Denies easy bleeding Allergic/Immunologic: Allergic/Immunologic: Denies GI upset with certain foods PMFSH Past Medical History Medical History Aortic stenosis 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 Benign essential hypertension Benign prostatic hyperplasia Chronic
[2023-06-05] MEDS: LEVOTHYROXINE SODIUM 75 MCG TABLET PO (10:31)
[2023-06-05] MEDS: EMPAGLIFLOZIN 10 MG TABLET PO (10:31)
[2023-06-05] MEDS: SODIUM CHLORIDE 0.9% IV 250 ML 999 ML IV CONT (11:18)
[2023-06-06] VITALS (14 sets, daily range): BP systolic 121–170; BP diastolic 57–85; PULSE 67–80; RESP 16–24; TEMP 36.1–36.5; O2SAT 91–98
[2023-06-06 04:01] LABS: Basophils Absolute Auto 0.1 K/mm3 (0.0-0.1); Basophils Percent Auto 0.4 % (0.2-1.2); Eosinophils Absolute Auto 0.4 K/mm3 (0-0.3); Eosinophils Percent Auto 3.4 % (0-4.4); Hematocrit 29.7 % (42.0-52.0); Hemoglobin 9.6 g/dL (14.0-18.0); Immature Granulocyte Absolute 0.04 K/mm3 (0.00-0.031); Immature Granulocyte Percent A 0.4 % (0-0.5); Lymphocytes Absolute Auto 4.13 K/mm3 (0.9-3.2); Lymphocytes Percent Auto 36.7 % (18.3-44.2); Mean Corpuscular HGB Conc 32.3 g/dl (32-36); Mean Corpuscular Hemoglobin 33.6 pg (26-34); Mean Corpuscular Volume 103.8 fl (80-100); Mean Platelet Volume 10.5 fl (7.4-10.4); Monocytes Absolute Auto 1.3 K/mm3 (0.1-0.6); Monocytes Percent Auto 11.6 % (2.6-8.5); Neutrophils Absolute Auto 5.4 K/mm3 (1.3-6.7); Neutrophils Percent Auto 47.5 % (45.5-73.1); Platelet Count Result 158 k/mm3 (150-375); Red Blood Count 2.86 M/mm3 (4.6-6.20); Red Cell Distribution Width 12.9 % (11.5-14.5); White Blood Count 11.3 K/mm3 (4.5-10.0)
[2023-06-06 04:14] LABS: Anion Gap 7 mmol/L (4-12); Blood Urea Nitrogen 38 mg/dL (9-20); Calcium 8.5 mg/dL (8.4-10.2); Carbon Dioxide 23 mmol/L (22-30); Chloride 105 mmol/L (98-107); Estimated CRCL calculation 23 ml/min; Estimated Glomerular Filt Rate 27; Glucose 100 mg/dL (65-110); Magnesium 1.9 mg/dL (1.6-2.3); Potassium 4.2 mmol/L (3.4-5.0); Sodium 135 mmol/L (137-145)
[2023-06-06 04:31] LABS: Procalcitonin 0.1 ng/mL
[2023-06-06] MEDS: LEVOTHYROXINE SODIUM 75 MCG TABLET PO (06:03)
[2023-06-06] MEDS: ATORVASTATIN 40 MG TABLET PO (08:08)
[2023-06-06] MEDS: METOPROLOL TARTRATE 50 MG TAB PO ×2 (08:09→20:58)
[2023-06-06] MEDS: EMPAGLIFLOZIN 10 MG TABLET PO (08:10)
[2023-06-06] MEDS: AZITHROMYCIN 250 MG TABLET PO (08:11)
[2023-06-06] MEDS: ENOXAPARIN 30 MG/0.3 ML SYRINGE SUB-Q (08:11)
[2023-06-06] MEDS: guaiFENesin 12 HR 600 MG TABCR PO ×2 (08:11→20:58)
[2023-06-06] MEDS: ASPIRIN 81 MG ENTERIC TABLET PO (08:11)
[2023-06-06] MEDS: TERAZOSIN HCL 1 MG CAPSULE 2 MG PO (08:51)
--- NOTE | 2023-06-06 09:02 | PM.PNCARD ---
Progress Note: A&P Assessment and Plan (1) NSVT (nonsustained ventricular tachycardia): Code(s): I47.29 - Other ventricular tachycardia Status: Acute Assessment and Plan: He had a 9 beat run nonsustained ventricular tachycardia in a patient has underlying CAD, previous cardiomyopathy, ICD in place. 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 Already underwent diuresis and appears to be compensated and euvolemic at this point (4) Paroxysmal atrial fibrillation: Code(s): I48.0 - Paroxysmal atrial fibrillation Status: Acute Assessment and Plan: Paced rhythm at present (5) Coronary artery disease: Code(s): I25.10 - Atherosclerotic heart disease of [place] coronary artery without angina pectoris Status: Acute Assessment and Plan: Asymptomatic Plan Okay for discharge from cardiac perspective Subjective Date/time seen: 06/06/23 09:02 Interval history: 88-year-old with CAD, AVR, CHF Date of service 06/06/2023: Feels good and still wants to go home. No chest pain or shortness of breath. Review of Systems Review of Systems: All systems reviewed & are unremarkable except as noted in HPI and below Constitutional: Constitutional: Denies body ache(s) and Denies excessive sweating Eyes: Eyes: Denies blurry vision ENT: Denies Normal hearing present Cardiovascular: Cardiovascular: Denies chest pain and Reports leg edema Respiratory: Respiratory: Denies chest congestion Gastrointestinal: Gastrointestinal: Denies abdominal pain Genitourinary: Genitourinary: Denies hematuria Musculoskeletal: Musculoskeletal: Denies back pain Integumentary/Breasts: Skin/Breast: Denies skin pain Neurologic: Denies Normal hearing present, Denies Abnormal speech present and Denies behavioral changes Psychiatric: Psychiatric: Denies behavioral changes Endocrine: Endocrine: Denies excessive sweating Hematologic/Lymphatic: Hematologic/Lymphatic: Denies easy bleeding Allergic/Immunologic: Allergic/Immunologic: Denies GI upset with certain foods Exam Narrative: Awake alert oriented appears stated age Const: General: comfortable and no acute distress HENMT: Face/Nose/Sinus: Normal nares present Mouth: Yes moist mucous membranes Eyes: General: appearance normal, both eyes and all related structures Sclera: sclerae normal Neck: Neck: supple Carotids: no bruits Chest: Other: No reproducible chest wall pain to palpation. ICD in left upper chest Resp: Effort & Inspection: normal respiratory effort Auscultation: clear to auscultation bilaterally Cardio: Rate: regular rate Rhythm: regular rhythm Heart sounds: Murmur heart sound present GI: Inspection: non-distended Auscultation: normal bowel sounds Skin: General skin exam: normal color Neuro: Cranial nerves: No Normal hearing present Speech: No Abnormal speech present Other: Bruising noted Extrem: General: normal to inspection Psych: Mental Status: mental status grossly normal Affect: normal affect Objective Data Vital Signs Vital Signs: Vital Signs - 24 hr 06/05/23 09:39 06/05/23 12:34 06/05/23 12:00 Temperature 36.3 C L Pulse Rate 71 80 Respiratory Rate 20 Blood Pressure 151/65 H Pulse Oximetry 96 94 Oxygen Delivery Room Air 06/05/23 16:00 06/05/23 16:00 06/05/23 20:01 Temperature 36.9 C Pulse Rate 71 67 76 Respiratory Rate 16 Blood Pressure 118/49 L Pulse Oximetry 91 Oxygen Delivery 06/05/23 20:00 06/05/23 20:00 06/05/23 20:00 [facility]
--- NOTE | 2023-06-06 13:13 | PM.CNNEP ---
Assessment and Plan Assessment and plan (1) Chronic kidney disease, stage 3b: Code(s): N18.32 - Chronic kidney disease, stage 3b Status: Acute Assessment and Plan: The patient has a chronically elevated creatinine. Lately his creatinine has been relatively stable at 1.9 which gives him stage IIIB CKD. Most likely this is due to hypertension. Because of his hyperlipidemia and because of his coronary disease there is risk that there might be some small vessel vascular disease in the kidneys but I doubt if there is large vessel renal arterial stenosis because of his good blood pressure control. I have encouraged the patient to follow-up with me in the off the and we could evaluate this to be sure there is nothing else going on. He is campaigning for discharge so I will not order all whole lot of labs now. I will order renal ultrasound. Will also order a CK and a urinalysis. (2) Acute kidney injury: Code(s): N17.9 - Acute kidney failure, unspecified Status: Acute Assessment and Plan: The patient has acute kidney injury. This could be because of the diuresis. Although his intake/output was not he usually negative, his swelling is certainly much better than it was on admission. He also received contrast with his CT angio of the chest and this may have played a role as well. His creatinine was routinely rising since admission however today it is down a little bit. Hopefully he has reached a peak and his creatinine will fall more with time. His has dementia and cannot be alone and there is nobody else to be with her so he might end of signing out AMA. If he does I asked him to call my office tomorrow so we get some more blood work and follow was kidneys closely. (3) Benign essential HTN: Code(s): I10 - Essential (primary) hypertension Status: Acute Assessment and Plan: Patient has hypertension. His blood pressure is under good control. Will hold off on ARBs until he is back to baseline. (4) CAD (coronary artery disease): Qualifiers: Coronary Disease-Associated Artery/Lesion type: [place] artery [place] vs. transplanted heart: [place] heart Associated angina: with stable angina Qualified Code(s): I25.118 - Atherosclerotic heart disease of [place] coronary artery with other forms of angina pectoris Code(s): I25.10 - Atherosclerotic heart disease of [place] coronary artery without angina pectoris Status: Acute Assessment and Plan: No chest pain. He had a bypass. He does have a history of volume overload. He has been given Lasix to help this. He had valve replacements. He has paroxysmal atrial fibrillation. (5) Mixed hyperlipidemia: Code(s): E78.2 - Mixed hyperlipidemia Status: Acute Assessment and Plan: He is on atorvastatin History of Present Illness Reason for Consult Consult date: 06/06/23 Chief Complaint Chief complaint: elevated troponin,chf,pneumonia History of Present Illness Narrative: Vladimir is a very pleasant 88-year-old gentleman who has multiple medical problems including congestive heart failure, chronic kidney disease with a baseline creatinine of around 1.9, history of coronary artery disease status post bypass in 2009 and also prosthetic aortic valve placement then, hypertension, hyperlipidemia, anemia, BPH, hypothyroidism, melanoma, hyperlipidemia, paroxysmal atrial fibrillation. The patient came in the hospital was shortness of breath and swelling. He says that he had been having swelling in his legs for a little while, going on for about a week. He also had gradually worsening shortness of breath. In addition on the night of admission he woke up in his left wrist was swollen and painful so he called the ambulance and was brought over to the ER. He was seen in the ER and evaluated. He is found to be in volume overload. Because the shortness of breath he had a chest CTA to rule out pulmonary embolism. T
--- NOTE | 2023-06-06 13:18 | PM.IMPN ---
Progress Note: A&P Assessment and Plan (1) Hypothyroidism (acquired): Code(s): E03.9 - Hypothyroidism, unspecified Status: Acute (2) Benign essential HTN: Code(s): I10 - Essential (primary) hypertension Status: Acute (3) CHF (congestive heart failure): Code(s): I50.9 - Heart failure, unspecified Status: Acute (4) CKD (chronic kidney disease) stage 3, GFR 30-59 ml/min: Code(s): N18.30 - Chronic kidney disease, stage 3 unspecified Status: Acute (5) Acute exacerbation of congestive heart failure: Code(s): I50.9 - Heart failure, unspecified Status: Acute Plan 88-year-old male past medical history heart failure reduced ejection fraction (EF as low as 35%), ischemic cardiomyopathy, ICD implantation, CAD status post in 2009, bicuspid aortic valve with stenosis status post bioprosthetic aortic valve replacement, hypertension, hyperlipidemia, CKD stage 3, anemia, BPH, hypothyroidism presenting with complaint of shortness of breath lower extremity swelling. Admitted on 06/03/2023. His swelling is resolved. It appears his decompensation has been resolved although with this low-dose of Lasix 20 mg p.o. b.i.d. it appears his renal function has declined. TRI and CKD. Could also be compound did by ATN from pneumonia and contrast administration. Continue ceftriaxone and azithromycin. Discontinue his valsartan as he will have to be started on Entresto anyway. Hydrochlorothiazide will be switched out for Lasix eventually as well. Start fluid restriction 1500 cc per day with daily weights intake and output he is already on heart healthy diet. There have been reports about paroxysmal AFib but the patient denies he has any history of this and does not want to take blood thinners. He does have a history of rectal bleeding. Start Jardiance. Does have elevated blood pressure. When his renal function is better hopefully start spironolactone and Entresto. He is already on metoprolol 50 mg p.o. b.i.d.. Hopefully send him home on a low dose of Lasix. Increase levothyroxine from 50 mcg 25 mcg q.day as is TSH is elevated. Check procalcitonin tomorrow as he leukocytosis June 06, 2023: Continue to monitor leukocytosis. His serum creatinine is slightly better although continue monitoring is warranted. Nephrology consult pending. He is currently off of diuretic and the fluid restriction has been lifted. Yesterday administered a 250 cc normal saline bolus. Cardiology consulted for his VTACH. Maintain normal electrolytes status. FEN: Saline lock IV. Heart healthy diet. GI prophylaxis: Not indicated DVT prophylaxis: Lovenox Lines: Peripheral IV Code Status: DNR Dispo: Stable. Okay to transfer to medical floor with telemetry. Subjective Date/time seen: 06/06/23 13:18 Interval history: No acute overnight events. No complaints elicit Review of Systems Review of Systems: All systems reviewed & are unremarkable except as noted in HPI and below (Subjective) Exam Const: General: comfortable and no acute distress Eyes: Pupils: Equal, round and reactive pupils present Resp: Effort & Inspection: normal respiratory effort Auscultation: clear to auscultation bilaterally Cardio: Rate: regular rate Rhythm: regular rhythm GI: GI Palp: Yes Soft to palpation and No Tenderness to palpation present (GI) Extrem: General: no edema Objective Data Vital Signs Vital Signs: Vital Signs - 24 hr 06/05/23 16:00 06/05/23 16:00 06/05/23 20:01 Temperature 98.4 F Pulse Rate 71 67 76 Respiratory Rate 16 Blood Pressure 118/49 L Pulse Oximetry 91 Oxygen Delivery 06/05/23 20:00 06/05/23 20:00 06/05/23 20:00 Temperature 98.0 F Pulse Rate 96 96 80 Respiratory Rate 12 12 Blood Pressure 125/59 L Pulse Oximetry 90 90 Oxygen Delivery Room Air 06/05/23 23:23 06/06/23 00:00 06/06/23 04:16 Temperature 97.7 F Pulse Rate 75 72 Respiratory Rate 12 Blood
[2023-06-06 13:56] LABS: Creatine Kinase 115 U/L (55-170)
[2023-06-06 15:46] LABS: Urea Random Urine 289 MG/DL
[2023-06-06 15:47] LABS: Creatinine Urine 39.1 mg/dL; Total Protein Urine Random 81 mg/dL; Ur Ttl Prot Creatinine Ratio 2.07 mg/mg (0-0.20)
[2023-06-06 15:49] LABS: Sodium Urine Random 60 meq/L
--- NOTE | 2023-06-06 17:20 | PC.NURSE ---
Report given to Pia RN - pt to move to room 311 - personal belongings with pt- pt denies any c/o pain/or SOB
--- NOTE | 2023-06-06 18:55 | PC.NURSE ---
pt adamantly refuses bed alarm. pt educated on fall risk. pt states if I fall then it's my right to do so.
[2023-06-07] VITALS: PULSE 62
[2023-06-07 04:00] VITALS: PULSE 73
[2023-06-07 04:27] VITALS: BP 127/62; PULSE 59; RESP 16; TEMP 37.2; O2SAT 95
[2023-06-07] MEDS: LEVOTHYROXINE SODIUM 75 MCG TABLET PO (05:36)
[2023-06-07 06:12] LABS: Basophils Absolute Auto 0.1 K/mm3 (0.0-0.1); Basophils Percent Auto 0.4 % (0.2-1.2); Eosinophils Absolute Auto 0.4 K/mm3 (0-0.3); Eosinophils Percent Auto 3.8 % (0-4.4); Hematocrit 29.6 % (42.0-52.0); Hemoglobin 9.9 g/dL (14.0-18.0); Immature Granulocyte Absolute 0.04 K/mm3 (0.00-0.031); Immature Granulocyte Percent A 0.4 % (0-0.5); Lymphocytes Absolute Auto 3.87 K/mm3 (0.9-3.2); Lymphocytes Percent Auto 34.8 % (18.3-44.2); Mean Corpuscular HGB Conc 33.4 g/dl (32-36); Mean Corpuscular Hemoglobin 34.4 pg (26-34); Mean Corpuscular Volume 102.8 fl (80-100); Mean Platelet Volume 10.5 fl (7.4-10.4); Monocytes Absolute Auto 1.3 K/mm3 (0.1-0.6); Monocytes Percent Auto 11.6 % (2.6-8.5); Neutrophils Absolute Auto 5.5 K/mm3 (1.3-6.7); Platelet Count Result 158 k/mm3 (150-375); Red Blood Count 2.88 M/mm3 (4.6-6.20); Red Cell Distribution Width 13.2 % (11.5-14.5); White Blood Count 11.1 K/mm3 (4.5-10.0)
[2023-06-07 06:27] LABS: Albumin Level 3.1 g/dL (3.5-5.1); Anion Gap 2 mmol/L (4-12); Blood Urea Nitrogen 36 mg/dL (9-20); Calcium 8.3 mg/dL (8.4-10.2); Carbon Dioxide 23 mmol/L (22-30); Chloride 107 mmol/L (98-107); Estimated CRCL calculation 25 ml/min; Estimated Glomerular Filt Rate 30; Glucose 92 mg/dL (65-110); Phosphorus 4.2 mg/dL (2.5-4.5); Potassium 4.2 mmol/L (3.4-5.0); Sodium 132 mmol/L (137-145)
[2023-06-07 09:21] VITALS: PULSE 62
[2023-06-07] MEDS: ENOXAPARIN 30 MG/0.3 ML SYRINGE SUB-Q (09:21)
[2023-06-07] MEDS: METOPROLOL TARTRATE 50 MG TAB PO (09:21)
[2023-06-07] MEDS: guaiFENesin 12 HR 600 MG TABCR PO (09:21)
[2023-06-07] MEDS: ASPIRIN 81 MG ENTERIC TABLET PO (09:21)
[2023-06-07] MEDS: EMPAGLIFLOZIN 10 MG TABLET PO (09:21)
[2023-06-07] MEDS: ATORVASTATIN 40 MG TABLET PO (09:22)
[2023-06-07] MEDS: AZITHROMYCIN 250 MG TABLET PO (09:22)
--- NOTE | 2023-06-07 10:28 | PM.PNNEP ---
Progress Note: A&P Assessment and Plan (1) Acute kidney injury: Code(s): N17.9 - Acute kidney failure, unspecified Status: Acute Assessment and Plan: improvement noted likely due to combo of IV diuresis and contrast exposure (CTA of chest on admission) evaluation to date: renal ultrasound without obstruction urine electrolytes non-prerenal moderate proteinuria CPK normal aside from protein, UA bland creatinine appears to have peaked/plateaued at 2.4mg/dl reasonable urine output noted continue to follow trend of labs and UOP (2) Chronic kidney disease, stage 3b: Code(s): N18.32 - Chronic kidney disease, stage 3b Status: Acute Assessment and Plan: baseline creatinine seems to run ~ 1.8 - 1.9mg/dl suspect secondary to HTN, vascular disease (hyperlipidemia + CAD), and age-related change (3) Acute exacerbation of congestive heart failure: Code(s): I50.9 - Heart failure, unspecified Status: Acute Assessment and Plan: resolved/compensated at this time responded to IV diuretics Cardiology recommendations noted (4) Benign essential HTN: Code(s): I10 - Essential (primary) hypertension Status: Acute Assessment and Plan: reasonable control probably ok to restart his ARB in a couple of days follow trend of hemodynamics Not opposed to discharge from renal perspective if otherwise medically stable -- he can follow-up with Dr. Ochoa in the office for ongoing CKD management. Will continue to follow. Subjective Date/time seen: 06/07/23 10:28 Interval history: Follow-up for acute kidney injury/acute renal failure on chronic kidney disease. Chart reviewed -- assuming care from Dr. Ochoa; no apparent distress noted at the time of my visit; swelling/edema has resolved with current therapy/interventions; no issues or events overnight or earlier this morning; asking me about possible discharge today. Exam Narrative: General: elderly but WD/WN [place] male in NAD Heart: normal S1 and S2; no rub Lungs: clear to auscultation Abdomen: soft, nontender, nondistended, positive bowel sounds Extremities: no cyanosis or clubbing; no edema Skin: warm and dry Objective Data Vital Signs Vital Signs: Vital Signs Temp Pulse Resp BP Pulse Ox O2 Del Method 06/07/23 08:00 Room Air 06/07/23 09:21 62 06/07/23 04:27 98.9 F 59 L 16 127/62 95 04/22/24 04:00 73 06/07/23 00:00 62 06/06/23 20:00 73 06/06/23 20:18 97.7 F 72 16 154/85 H 97 06/06/23 20:58 73 06/06/23 20:00 Room Air 06/06/23 17:58 97.6 F 80 18 130/59 L 98 06/06/23 16:00 97.0 F L 70 20 170/68 H 95 Intake/Output Intake/Output: Intake & Output 06/04/23 06/05/23 06/06/23 06/07/23 23:59 23:59 23:59 23:59 Intake Total 2920 1720 830 620 Output Total 3050 1300 1250 600 Balance -130 420 -420 20 Meds/Results Medications: Active Medications Generic Name Dose Route Start Last Admin Trade Name Freq PRN Reason Stop Dose Admin Acetaminophen 650 mg 06/03/23 15:56 Acetaminophen 325 Mg Tablet PO Q4H PRN Mild Pain (1-3) or Fever Aspirin 81 mg 06/04/23 09:00 06/07/23 09:21 Aspirin 81 Mg Enteric Tablet PO 81 mg DAILY BUSHRA Administration Atorvastatin Calcium 40 mg 06/04/23 09:00 06/07/23 09:22 Atorvastatin 40 Mg Tablet PO 40 mg DAILY BUSHRA Administration Empagliflozin 10 mg 06/05/23 09:10 06/07/23 09:21 Empagliflozin 10 Mg Tablet PO 10 mg DAILY BUSHRA Administration Enoxaparin Sodium 30 mg 06/05/23 09:00 06/07/23 09:21 Enoxaparin 30 Mg/0.3 Ml Syringe SUB-Q 30 mg DAILY BUSHRA Administration Guaifenesin 600 mg 06/03/23 21:00 06/07/23 09:21 Guaifenesin 12 Hr 600 Mg Tabcr PO 600 mg Q12HR BUSHRA Administration Ceftriaxone Sodium 1 gm in 50 mls @ 100 mls/hr 06/04/23 21:00 06/06/23 21:30 Rocephin 1 Gm/Ns 50 Ml IVPB Infus
--- NOTE | 2023-06-07 10:28 | P.PNNP_ITS ---
Progress Note: A&P Assessment and Plan (1) Acute kidney injury: Code(s): N17.9 - Acute kidney failure, unspecified Status: Acute Assessment and Plan: * improvement noted * likely due to combo of IV diuresis and contrast exposure (CTA of chest on admission) * evaluation to date: * renal ultrasound without obstruction * urine electrolytes non-prerenal * moderate proteinuria * CPK normal * aside from protein, UA bland * creatinine appears to have peaked/plateaued at 2.4mg/dl * reasonable urine output noted * continue to follow trend of labs and UOP (2) Chronic kidney disease, stage 3b: Code(s): N18.32 - Chronic kidney disease, stage 3b Status: Acute Assessment and Plan: * baseline creatinine seems to run ~ 1.8 - 1.9mg/dl * suspect secondary to HTN, vascular disease (hyperlipidemia + CAD), and age- related change (3) Acute exacerbation of congestive heart failure: Code(s): I50.9 - Heart failure, unspecified Status: Acute Assessment and Plan: * resolved/compensated at this time * responded to IV diuretics * Cardiology recommendations noted (4) Benign essential HTN: Code(s): I10 - Essential (primary) hypertension Status: Acute Assessment and Plan: * reasonable control * probably ok to restart his ARB in a couple of days * follow trend of hemodynamics Not opposed to discharge from renal perspective if otherwise medically stable -- he can follow-up with Dr. Ochoa in the office for ongoing CKD management. Will continue to follow. Subjective Date/time seen: 06/07/23 10:28 Interval history: Follow-up for acute kidney injury/acute renal failure on chronic kidney disease. Chart reviewed -- assuming care from Dr. Ochoa; no apparent distress noted at the time of my visit; swelling/edema has resolved with current ther apy/interventions; no issues or events overnight or earlier this morning; asking me about possible discharge today. Exam Narrative: General: elderly but WD/WN [place] male in NAD Heart: normal S1 and S2; no rub Lungs: clear to auscultation Abdomen: soft, nontender, nondistended, positive bowel sounds Extremities: no cyanosis or clubbing; no edema Skin: warm and dry Objective Data Vital Signs Vital Signs: Vital Signs Temp Pulse Resp BP Pulse Ox O2 Del Method 06/07/23 08:00 Room Air 06/07/23 09:21 62 06/07/23 04:27 98.9 F 59 L 16 127/62 95 06/07/23 04:00 73 06/07/23 00:00 62 06/06/23 20:00 73 06/06/23 20:18 97.7 F 72 16 154/85 H 97 06/06/23 20:58 73 06/06/23 20:00 Room Air 06/06/23 17:58 97.6 F 80 18 130/59 L 98 06/06/23 16:00 97.0 F L 70 20 170/68 H 95 Intake/Output Intake/Output: Intake & Output 06/04/23 06/05/23 06/06/23 06/07/23 23:59 23:59 23:59 23:59 Intake Total 2920 1720 830 620 Output Total 3050 1300 1250 600 Balance -130 420 -420 20 Meds/Results Medications: Active Medications Generic Name Dose Route Start Last Admin Trade Name Freq PRN Reason Stop Dose Admin Acetaminophen 650 mg 06/03/23 15:56 Acetaminophen 325 Mg Tablet P
--- NOTE | 2023-06-07 10:32 | PM.IMPN ---
Progress Note: A&P Assessment and Plan (1) Hypothyroidism (acquired): Code(s): E03.9 - Hypothyroidism, unspecified Status: Acute (2) Benign essential HTN: Code(s): I10 - Essential (primary) hypertension Status: Acute (3) CHF (congestive heart failure): Code(s): I50.9 - Heart failure, unspecified Status: Acute (4) CKD (chronic kidney disease) stage 3, GFR 30-59 ml/min: Code(s): N18.30 - Chronic kidney disease, stage 3 unspecified Status: Acute (5) Acute exacerbation of congestive heart failure: Code(s): I50.9 - Heart failure, unspecified Status: Acute Plan 88-year-old male past medical history heart failure reduced ejection fraction (EF as low as 35%), ischemic cardiomyopathy, ICD implantation, CAD status post in 2009, bicuspid aortic valve with stenosis status post bioprosthetic aortic valve replacement, hypertension, hyperlipidemia, CKD stage 3, anemia, BPH, hypothyroidism presenting with complaint of shortness of breath lower extremity swelling. Admitted on 06/03/2023. acute on chronic heart failure His swelling is resolved. It appears his decompensation has been resolved although with this low-dose of Lasix 20 mg p.o. b.i.d. it appears his renal function has declined. c/w Jardiance. He is already on metoprolol 50 mg p.o. b.i.d.. buyer agent is consulted patient will see primary care doctor and buyer agent in the office for evaluation and adjusting diuretic medications TRI and CKD. Could also be compound did by ATN from pneumonia and contrast administration. Discontinue his valsartan appreciate clin application specialist consultation Follow-up with clin application specialist after discharge renal ultrasound shows no hydronephrosis, creatinine is 2.1 improving clin application specialist approved discharge patient today There have been reports about paroxysmal AFib but the patient denies he has any history of this and does not want to take blood thinners. He does have a history of rectal bleeding. Increase levothyroxine from 50 mcg to 75 mcg q.day as is TSH is elevated. Check procalcitonin tomorrow as he leukocytosis community-acquired pneumonia received azithromycin and ceftriaxone IV Transition to Augmentin 500-125 1 tab q.12 hour p.o. for total 7 days procalcitonin 0.1 patient is afebrile patient will be discharged home today Subjective Date/time seen: 06/07/23 10:32 Interval history: I saw on exam patient today in presents of patient's family. Patient denies cough, shortness of breath, patient was afebrile over the night blood pressure stable, no O2 desaturation Exam Narrative: GENERAL: Pleasant, in no acute distress. Well-nourished. - EYES: EOMI. Anicteric. - HENT: Moist mucous membranes. - LUNGS: Clear to auscultation bilaterally, no wheezing, rhonchi, or rales. - CARDIOVASCULAR: Regular rate and rhythm. No murmur. No JVD. - ABDOMEN: Soft, non-tender and non-distended. No palpable masses. - EXTREMITIES: No edema. Peripheral pulses 2+. Non-tender. - NEUROLOGIC: No focal neurological deficits. CN II-XII grossly intact. general weakness - PSYCHIATRIC: Awake, Alert and oriented x 3. Appropriate mood and affect. - SKIN: No rashes or lesions. Warm. - LYMPH: No cervical lymphadenopathy. Objective Data Vital Signs Vital Signs: Vital Signs - 24 hr 06/06/23 12:00 06/06/23 12:00 06/06/23 16:00 Temperature 97.4 F L 97.0 F L Pulse Rate 68 74 70 Respiratory Rate 24 H 20 Blood Pressure 121/59 L 170/68 H Pulse Oximetry 96 95 Oxygen Delivery 06/06/23 17:58 06/06/23 20:00 06/06/23 20:58 Temperature 97.6 F Pulse Rate 80 73 Respiratory Rate 18 Blood Pressure 130/59 L Pulse Oximetry 98 Oxygen Delivery Room Air 06/06/23 20:18 06/06/23 20:00 06/07/23 00:00 Temperature 97.7 F Pulse Rate 72 73 62 Respiratory Rate 16 Blood Pressure 154/85 H Pulse Oximetry 97 Oxygen Delivery 06/07/23 04:00 06/07/23 04:27 06/06
[2023-06-07] MEDS: TERAZOSIN HCL 1 MG CAPSULE 2 MG PO (11:25)
[2023-06-07 14:00] VITALS: BP 130/76; PULSE 76; RESP 14; TEMP 36.3; O2SAT 94
--- NOTE | 2023-06-07 14:31 | PM.DS ---
DS: Admitting Diagnosis Discharge Date 06/07/23 Admitting Diagnosis (1) Hypothyroidism (acquired): ?Code(s): E03.9 - Hypothyroidism, unspecified ?Status:?Acute (2) Benign essential HTN: ?Code(s): I10 - Essential (primary) hypertension ?Status:?Acute (3) CHF (congestive heart failure): ?Code(s): I50.9 - Heart failure, unspecified ?Status:?Acute (4) CKD (chronic kidney disease) stage 3, GFR 30-59 ml/min: ?Code(s): N18.30 - Chronic kidney disease, stage 3 unspecified ?Status:?Acute (5) Acute exacerbation of congestive heart failure: ?Code(s): I50.9 - Heart failure, unspecified ?Status:?Acute DS: Discharge Diagnosis Discharge Diagnosis (1) Hypothyroidism (acquired): Code(s): E03.9 - Hypothyroidism, unspecified Status: Acute (2) Benign essential HTN: Code(s): I10 - Essential (primary) hypertension Status: Acute (3) CHF (congestive heart failure): Code(s): I50.9 - Heart failure, unspecified Status: Acute (4) CKD (chronic kidney disease) stage 3, GFR 30-59 ml/min: Code(s): N18.30 - Chronic kidney disease, stage 3 unspecified Status: Acute (5) Acute exacerbation of congestive heart failure: Code(s): I50.9 - Heart failure, unspecified Status: Acute DS: Summary Hospital Course Hospital Course: 88-year-old male past medical history heart failure reduced ejection fraction (EF as low as 35%), ischemic cardiomyopathy, ICD implantation, CAD status post in 2009, bicuspid aortic valve with stenosis status post bioprosthetic aortic valve replacement, hypertension, hyperlipidemia, CKD stage 3, anemia, BPH, hypothyroidism presenting with complaint of shortness of breath lower extremity swelling. Admitted on 06/03/2023. the following med issues have been addressed during hospitalization acute on chronic heart failure His swelling is resolved. It appears his decompensation has been resolved although with this low-dose of Lasix 20 mg p.o. b.i.d. it appears his renal function has declined. c/w Jardiance. He is already on metoprolol 50 mg p.o. b.i.d.. timber trimmer is consulted patient will see primary care doctor and timber trimmer in the office for evaluation and adjusting diuretic medications TRI and CKD. Could also be compound did by ATN from pneumonia and contrast administration. Discontinue his valsartan appreciate store receiving specialist consultation Follow-up with store receiving specialist after discharge renal ultrasound shows no hydronephrosis, creatinine is 2.1 improving store receiving specialist approved discharge patient today There have been reports about paroxysmal AFib but the patient denies he has any history of this and does not want to take blood thinners. He does have a history of rectal bleeding. Increase levothyroxine from 50 mcg to 75 mcg q.day as is TSH is elevated. Check procalcitonin tomorrow as he leukocytosis community-acquired pneumonia received azithromycin and ceftriaxone IV Transition to Augmentin 500-125 1 tab q.12 hour p.o. for total 7 days procalcitonin 0.1 patient is afebrile patient will be discharged home today Time Spent with Patient Time attestation: Total time spent providing and/or coordinating discharge services: Exam Narrative: GENERAL: Pleasant, in no acute distress. Well-nourished. - EYES: EOMI. Anicteric. - HENT: Moist mucous membranes. - LUNGS: Clear to auscultation bilaterally, no wheezing, rhonchi, or rales. - CARDIOVASCULAR: Regular rate and rhythm. No murmur. No JVD. - ABDOMEN: Soft, non-tender and non-distended. No palpable masses. - EXTREMITIES: No edema. Peripheral pulses 2+. Non-tender. - NEUROLOGIC: No focal neurological deficits. CN II-XII grossly intact. general weakness - PSYCHIATRIC: Awake, Alert and oriented x 3. Appropriate mood and affect. - SKIN: No rashes or lesions. Warm. - LYMPH: No cervical lymphadenopathy. DS: Data Data Completed and Pen
[2023-06-07 18:22] LABS: Pneumococcal Antigen Urine NOT DETECTED
[2023-06-08 00:28] LABS: Legionella pneumophila Ag Ur NOT DETECTED
[2023-06-09 18:29] LABS: Mycoplasma IgM Antibody Titer 127 U/mL
== END 2023-06-07 15:50 | disposition home or self-care (01) | DRG 291 ==
LOC: ANHED 15:56 → ANHIMU 16:37 → ANH3MEDSUR 06-06 17:30
PROVIDERS: Emergency Medicine; General Practice; Internal Medicine Cardiovascular Disease; Internal Medicine Nephrology; Physician Assistant; Admitting Provider Hospitalist; Emergency Provider Emergency Medicine; PCP Family Medicine; Visit Provider Hospitalist
DX: I13.0 Hypertensive heart and chronic kidney disease with heart failure and stage 1 through stage 4 chronic kidney disease, or unspecified chronic kidney disease (principal); I50.43 Acute on chronic combined systolic (congestive) and diastolic (congestive) heart failure; J18.9 Pneumonia, unspecified organism; I47.29 Other ventricular tachycardia; N17.9 Acute kidney failure, unspecified; I25.5 Ischemic cardiomyopathy; N18.32 Chronic kidney disease, stage 3b; D63.1 Anemia in chronic kidney disease; E78.2 Mixed hyperlipidemia; E03.9 Hypothyroidism, unspecified; I25.118 Atherosclerotic heart disease of native coronary artery with other forms of angina pectoris; I25.2 Old myocardial infarction; I48.0 Paroxysmal atrial fibrillation; I08.0 Rheumatic disorders of both mitral and aortic valves; N40.0 Benign prostatic hyperplasia without lower urinary tract symptoms; Z95.810 Presence of automatic (implantable) cardiac defibrillator; Z95.2 Presence of prosthetic heart valve; Z79.82 Long term (current) use of aspirin; Z95.1 Presence of aortocoronary bypass graft; Z87.891 Personal history of nicotine dependence; Z98.49 Cataract extraction status, unspecified eye; Z85.820 Personal history of malignant melanoma of skin
CPT/HCPCS: 36415; 36600; 71045; 71275; 76775; 80048; 80053; 80069; 82550; 82570; 82607; 82728; 82746; 82805; 83540; 83550; 83735; 83880; 84145; 84156; 84300; 84439; 84443; 84480; 84484; 84540; 85025; 85380; 85610; 85730; 86140; 86738; 87040; 87070; 87205; 87449; 87637; 87899; 93005; 93306; 93971; 96365; 96366; 96372; 96374; 96375; 96376; 99285; A9270; G0378; J0696; J1650; J1940; J1956; J3475; J7030; J7050; Q9967

== ENCOUNTER 2023-09-21 07:49 | Inpatient (IN) | payer MEDICARE, SELFPAY ==
[2023-09-21] VITALS (14 sets, daily range): BP systolic 122–154; BP diastolic 49–82; PULSE 80–118; RESP 18–26; TEMP 35.9–36.8; O2SAT 92–99; BMI 26.5
--- NOTE | ~2023-09-21 | US_ITS ---
EXAMINATION: US thoracentesis DATE: 09/23/2023 15:48 INDICATION: pleural effusion TECHNIQUE: The procedure and its risks, benefits, and alternatives were discussed with the patient. P otential risks discussed included bleeding, infection, and pneumothorax. The patient understood the r isks and agreed to proceed. The skin was prepped and draped in sterile fashion. 1% lidocaine was used for local anesthesia. Under ultrasound guidance, a 5 Fr catheter with trochar was advanced into the left pleural effusion. Fluid was aspirated. The catheter was removed, and a dressing was applied. The re were no immediate complications. FINDINGS: Ultrasound images demonstrate a left pleural effusion and the catheter within the fluid. IMPRESSION: 1. Successful ultrasound-guided thoracentesis yielding 1000 mL of clear, yellow fluid. Reviewed, dictated and finalized at location A. IMPRESSION: 1. Successful ultrasound-guided thoracentesis yielding 1000 mL of clear, yello w fluid.
--- NOTE | ~2023-09-21 | XR_ITS ---
XR chest 2V Ordering provider: Kush Cerda MD History: 88 years Male with . sob, HX OF HIGH BLOOD PRESSURE . Comparison: June 03, 2023 FINDINGS: MEDIASTINUM: The cardiac silhouette is moderately enlarged Left bipolar pacemaker. Postoperative lamar ges in the mediastinum. Congestive romelia. LUNGS: No pneumothorax. Bilateral basal opacification suggestive of pneumonia. Left pleural effusion is noted. Minimal opacification the right upper lobe is also noted. OTHER: No free air under the diaphragm. Degenerative spine. Bilateral shoulder osteoarthritic changes . IMPRESSION: Bilateral basal pneumonia with left pleural effusion. Underlying cardiac decompensation with pulmonar y edema is highly suggestive. Reviewed, dictated and finalized at location A. IMPRESSION: Bilateral basal pneumonia with left pleural effusion. Underlying cardiac decomp ensation with pulmonary edema is highly suggestive.
--- NOTE | ~2023-09-21 | XR_ITS ---
EXAMINATION: [id number] DATE: 09/23/2023 15:09 INDICATION: Left pleural effusion status post thoracentesis. TECHNIQUE: Frontal and lateral views of the chest were obtained. COMPARISON: Chest 2 views 09/23/2023 at 9:20 AM, chest CT 09/21/2023 FINDINGS: There is a small right pleural effusion. There are airspace opacities in right lower lung z one. No pneumothorax. Cardiomegaly is noted. There are changes of aortic valve replacement. There is a closure device at left atrial appendage. There is a left chest wall pacer with leads in the right a trium and right ventricle. There is a large hiatal hernia. IMPRESSION: 1. Small right pleural effusion. 2. Airspace opacities in right lower lung zone, consistent with atelectasis versus pneumonia. 3. Cardiomegaly. 4. Large hiatal hernia. Reviewed, dictated and finalized at location A. IMPRESSION: 1. Small right pleural effusion. 2. Airspace opacities in right lower lung zone, consistent with atelectasis laverne agusto pneumonia. 3. Cardiomegaly. 4. Large hiatal hernia.
--- NOTE | ~2023-09-21 | CT_ITS ---
EXAMINATION: CT diagnostic chest wo con DATE: 09/21/2023 20:08 INDICATION: Hemoptysis TECHNIQUE: Computed tomography (CT) of the chest was performed with 100 mL Omnipaque-350 intravenous contrast. Automated exposure control and iterative reconstruction technique were employed. The dose-l ength product was 311.48 mGy-cm. COMPARISON: X-ray chest same date; [facility]PA 06/03/2023. FINDINGS: CHEST: Thoracic aorta: No significant dilation. Moderate arch calcification. Lung parenchyma and airways: Bilateral septal thickening. Subsegmental right basilar opacities. Minim al left basilar atelectasis. Thoracic inlet, axillae and chest wall: No thyroid or soft tissue mass. Left chest pacer. No axillary lymphadenopathy. Mediastinum: Large hiatal hernia. Enlarged mediastinal lymph nodes. Dilated central pulmonary arterie s as can be seen with pulmonary arterial hypertension. Heart and pericardium: Cardiomegaly. Aortic valve replacement. Mitral calcification. No pericardial e ffusion. Atrial occlusion device. Coronary artery calcifications: Moderate. Pleura: Moderate volume simple bilateral pleural fluid collections. Upper abdomen: No significant finding. Thoracic bones: No acute osseous finding in the chest. IMPRESSION: Subsegmental right lower lobe atelectasis/consolidation. Mild interstitial edema. Moderate bilateral pleural effusions. Cardiomegaly. Reviewed, dictated and finalized at location K. IMPRESSION: Subsegmental right lower lobe atelectasis/consolidation. Mild interstitial kathryn a. Moderate bilateral pleural effusions. Cardiomegaly.
--- NOTE | ~2023-09-21 | XR_ITS ---
Clinical Indication: CHF PA and lateral views of the chest: Comparison: 09/21/2023 Findings: Small left pleural effusion present. There is bibasilar pulmonary edema/atelectasis and aimee tral congestive change. Cardiomediastinal silhouette is stable, with pacemaker device. There is adva nced degenerative change of the bilateral glenohumeral joints. Impression: Bibasilar pulmonary edema and central congestive change, with small left pleural effusion. Findings o verall are similar to prior exam. Reviewed, dictated and finalized at location M. Impression: Bibasilar pulmonary edema and central congestive change, with small left pleura l effusion. Findings overall are similar to prior exam.
--- NOTE | 2023-09-21 08:02 | ECG_ITS ---
Test Date: 2023-09-21 08:01:11 Measurements Intervals [place] Rate: 67 P: 0 WI: 0 QRS: -62 QRSD: 183 T: 112 QT: 434 QTc: 461 Interpretive Statements ELECTRONIC VENTRICULAR PACEMAKER No previous ECG available for comparison Electronically Signed On 09-21-2023 14:47:55 CDT by Ju Hernandez M.D.
--- NOTE | 2023-09-21 09:07 | ED.GENADULT ---
HPI - General Adult General Chief complaint: Shortness of Breath/Dyspnea Stated complaint: SOB History of Present Illness HPI narrative: 88-year-old male presenting to the emergency department for evaluation of worsening shortness breath this morning. Patient does have history of coronary disease, mitral valve regurgitation, chronic kidney disease, high cholesterol, hypertension. Related Data Home Medications Medication Instructions Recorded Confirmed aspirin 81 mg tablet,delayed 81 mg PO DAILY 04/11/19 09/21/23 release (Adult Low Dose Aspirin) rivaroxaban 15 mg tablet (Xarelto) 15 mg PO DAILY 09/21/23 09/21/23 terazosin 2 mg capsule 2 mg PO DAILY 09/21/23 09/21/23 Allergies Allergy/AdvReac Type Severity Reaction Status Date / Time No Known Allergies Allergy Verified 09/21/23 12:24 Review of Systems Review of Systems: All systems reviewed & are unremarkable except as noted in HPI and below PMFSH Past Medical History Medical History (Updated 09/21/23 @ 10:49 by Kush Cerda MD) Aortic stenosis 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 History of cataract extraction History of coronary artery bypass graft x 3 (2009) MAGALLON to LAD, SVG to OM, SVG to PDA per Dr. Antony at [place]. History of hernia repair History of implantable cardioverter-defibrillator (ICD) placement (2009) History of melanoma excision Left hand. Family History Family History (Updated 09/21/23 @ 12:16 by Unruly Flowers RN) Father Patient's father is Family history of premature coronary heart disease, Onset Age: 56 Mother Bladder cancer Other No problems noted. Other Breast cancer Social History Social History (Updated 06/10/23 @ 13:19 by Kathy Schroeder) Social History: Surrogate medical decision maker: Code status: Full code. Smoking packs per day: 0.5 Smoking cigarettes per day: 10.0 Years smoked: 40 Smoking pack-years: 20.00 Smoking status: Former smoker Tobacco type: cigarettes Second hand tobacco smoke exposure: No Smoking end date: 02/15/93 Alcohol intake: never Substance use: never Substance use type: does not use Do You Feel Safe in your Home?: Yes Lack of Transportation: No Lack of Food: Never True Current Housing: I Have Housing Concerned About Future Housing: No Difficulty Paying Gas/Electric Bills: No Difficulty Paying for Meds: No Currently Unemployed: No Education: Decline to Answer Difficulty w/ Childcare or Family Care: YES Living arrangements: with family Additional living arrangements comments: Has a son and daughter. Occupation/Education: retired Gender identity (if verbalized by the patient): Male Sexual Orientation (if Verbalized by the Patient): Straight or Heterosexual Spiritual care concerns: No Exam Narrative: APPEARANCE: Ill-appearing HEAD: normocephalic, atraumatic. EYES: PERRLA/EOMI, conjunctivae clear. NOSE: Normal no drainage EARS:TMS clear with good light reflex. THROAT: Pharynx clear, no exudate. NECK: Supple. No adenopathy, no masses. RESPIRATORY: Airway patent, respirations nonlabored. Clear to auscultation bilaterally, no rales, rhonchi, wheezing. CARDIOVASCULAR: Regular rate and rhythm without murmurs rubs or gallops. ABDOMINAL: Soft, nontender,
--- NOTE | 2023-09-21 09:10 | PC.NURSE ---
Pt family states pt has been having streaks of blood in his mucous, EDP made aware
[2023-09-21] MEDS: AZITHROMYCIN 500 MG/NS 250 ML 500 MG/250 ML BAG 250 MG IVPB (09:37)
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
[2023-09-21 09:50] LABS: Basophils Percent Auto 0.3 % (0.2-1.2); Eosinophils Absolute Auto 0.1 K/mm3 (0-0.3); Eosinophils Percent Auto 0.6 % (0-4.4); Hematocrit 29.2 % (42.0-52.0); Hemoglobin 9.3 g/dL (14.0-18.0); Immature Granulocyte Absolute 0.04 K/mm3 (0.00-0.031); Immature Granulocyte Percent A 0.4 % (0-0.5); Lymphocytes Absolute Auto 1.97 K/mm3 (0.9-3.2); Lymphocytes Percent Auto 18.8 % (18.3-44.2); Mean Corpuscular HGB Conc 31.8 g/dl (32-36); Mean Corpuscular Hemoglobin 33.3 pg (26-34); Mean Corpuscular Volume 104.7 fl (80-100); Mean Platelet Volume 10.7 fl (7.4-10.4); Monocytes Percent Auto 9.5 % (2.6-8.5); Neutrophils Absolute Auto 7.4 K/mm3 (1.3-6.7); Neutrophils Percent Auto 70.4 % (45.5-73.1); Platelet Count Result 148 k/mm3 (150-375); Red Blood Count 2.79 M/mm3 (4.6-6.20); Red Cell Distribution Width 13.2 % (11.5-14.5); White Blood Count 10.5 K/mm3 (4.5-10.0)
[2023-09-21 09:59] LABS: INR 2.3; Prothrombin Time 25.9 Seconds (11.1-14.7)
[2023-09-21 10:00] LABS: Partial Thromboplastin Time 36.6 Seconds (22.3-36.8)
[2023-09-21 10:25] LABS: SARS-CoV-2 RNA PCR Negative (Negative)
[2023-09-21 11:17] LABS: Alanine Aminotransferase 17 U/L (6-50); Albumin Level 3.1 g/dL (3.5-5.1); Alkaline Phosphatase 74 U/L (38-126); Anion Gap 12 mmol/L (4-12); Aspartate Amino Transferase 22 U/L (17-59); Bilirubin,Total 0.9 mg/dL (0.2-1.3); Blood Urea Nitrogen 35 mg/dL (9-20); Calcium 8.5 mg/dL (8.4-10.2); Carbon Dioxide 15 mmol/L (22-30); Chloride 109 mmol/L (98-107); Estimated CRCL calculation 26 ml/min; Estimated Glomerular Filt Rate 32; Glucose 109 mg/dL (65-110); Potassium 4.2 mmol/L (3.4-5.0); Sodium 136 mmol/L (137-145)
[2023-09-21 11:25] LABS: NT Pro B Type Natriuretic Pept 19400 pg/mL (19.9-100)
--- NOTE | 2023-09-21 12:12 | ADMGEN ---
This patient, Vladimir Blackburn, was admitted to [facility] Surg Room 317-02. Patient/family oriented to hospital policies and general routines including ID bracelet, bed and alarms, visiting hours, pain management, procedures, bathroom and other care routines, personal items, smoking policy, room service/diet, and visiting hours. Information on how to activate the Rapid Response Team has been discussed. Patient/Family are encouraged to report perceived risks to care and to ask questions if they do not understand what they are told or what they should do.
[2023-09-21] MEDS: FUROSEMIDE INJ 40 MG/4 ML VIAL IV PUSH (17:15)
[2023-09-21 17:20] LABS: Procalcitonin 0.1 ng/mL
--- NOTE | 2023-09-21 18:50 | PM.IMHP ---
H&P: HPI History of Present Illness Date/Time: 09/21/23 18:50 Chief Complaint: Worsening shortness of breath Narrative: Patient presented to the ER with reports of worsening SOB within the last 3-4 days. Patient reports that symptoms started gradually and he was getting SOB just trying to put on his shoes, but now he cannot tolerate any activity in the house and he's his 's caregiver as the has dementia. Patient also reports episodes of intermittent coughs with sometimes bloody sputum for about a week. Patient has a history of coronary artery disease, mitral valve regurgitation, chronic kidney disease, AICD placement, high cholesterol, and hypertension. Patient also has paroxysmal A-Fib for which he takes rivaroxaban as well as aspirin for CAD. ER Work-up: CXR: Bilateral basal pneumonia with left pleural effusion. Underlying cardiac decompensation with pulmonary edema is highly suggestive. Labs: WBC 10.5, Hgb 9.3, Plat 148, INR 2.3, Co2 15, BUN 35, Cr 2, BNP 19,400. Review of Systems Review of Systems: All systems reviewed & are unremarkable except as noted in HPI and below PMFSH Past Medical History Medical History Aortic stenosis 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 History of cataract extraction History of coronary artery bypass graft x 3 (2009) MAGALLON to LAD, SVG to OM, SVG to PDA per Dr. Antony at [place]. History of hernia repair History of implantable cardioverter-defibrillator (ICD) placement (2009) History of melanoma excision Left hand. Family History Family History Father Patient's father is Family history of premature coronary heart disease, Onset Age: 56 Mother Bladder cancer Other No problems noted. Other Breast cancer Social History Social History Social History: Surrogate medical decision maker: Code status: Full code. Smoking packs per day: 0.5 Smoking cigarettes per day: 10.0 Years smoked: 40 Smoking pack-years: 20.00 Smoking status: Former smoker Tobacco type: cigarettes Second hand tobacco smoke exposure: No Smoking end date: 02/15/93 Alcohol intake: never Substance use: never Substance use type: does not use Do You Feel Safe in your Home?: Yes Lack of Transportation: No Lack of Food: Never True Current Housing: I Have Housing Concerned About Future Housing: No Difficulty Paying Gas/Electric Bills: No Difficulty Paying for Meds: No Currently Unemployed: No Education: Decline to Answer Difficulty w/ Childcare or Family Care: YES Living arrangements: with family Additional living arrangements comments: Has a son and daughter. Occupation/Education: retired Gender identity (if verbalized by the patient): Male Sexual Orientation (if Verbalized by the Patient): Straight or Heterosexual Spiritual care concerns: No Meds Home Medications and Allergies Home Medications Medication Instructions Recorded Confirmed Type aspirin 81 mg tablet,delayed 81 mg PO DAILY 04/11/19 09/21/23 History release (Adult Low Dose Aspirin) metoprolol tartrate 50 mg tablet 50 mg PO Q12H #180 tabs 03/31/22 09/21/23 Rx
[2023-09-21 20:34] LABS: Troponin I 0.047 ng/mL (0.000-0.034)
[2023-09-21] MEDS: guaiFENesin 12 HR 600 MG TABCR PO (21:00)
[2023-09-21] MEDS: METOPROLOL TARTRATE 50 MG TAB PO (21:00)
[2023-09-21 23:32] LABS: Troponin I 0.054 ng/mL (0.000-0.034)
[2023-09-22] VITALS (19 sets, daily range): BP systolic 109–140; BP diastolic 57–81; PULSE 77–84; RESP 18–24; TEMP 36.4–36.6; O2SAT 92–98
[2023-09-22] MEDS: MELATONIN 3 MG TABLET 6 MG PO ×2 (00:43→20:27)
[2023-09-22 02:30] LABS: Troponin I 0.068 ng/mL (0.000-0.034)
--- NOTE | 2023-09-22 02:55 | PCRCNOTE ---
Patient refused his 0200 updraft treatment stating he has not been able to get any sleep. Treatment to resume at 0800.
[2023-09-22] MEDS: NITROGLYCERIN SL 0.4 MG TABLET SUBLINGUAL ×3 (05:28→05:39)
[2023-09-22] MEDS: LEVOTHYROXINE SODIUM 75 MCG TABLET PO (05:39)
--- NOTE | 2023-09-22 05:40 | PC.NURSE ---
Pt compaining of chest pain. This RN spoke with MD about concerns, and provider reported to bedside. Provider ordered Nitro to be administered. After 3 doses SL the pt continued to complain of 4/10 chest pain, described as aching. This RN called MD after administering Nitro to give update. Provider ordered a consult to cardiology.
[2023-09-22] MEDS: IPRATROPIUM 0.5 MG/ALBUTEROL SULFATE 2.5 MG AMPUL.NEB 3 ML INHALATION ×3 (07:44→21:10)
--- NOTE | 2023-09-22 07:56 | PM.IMPN ---
Progress Note: A&P Assessment and Plan (1) Acute hypoxic respiratory failure: Code(s): J96.01 - Acute respiratory failure with hypoxia Status: Acute Assessment and Plan: Patient requiring 2 L NC on admission. Likely related to PNA and CHF exacerbation. - Oxygen via NC; wean as tolerated. Keep SpO2 greater than 88% - Started on abx, neb treatments for PNA. (2) CAP (community acquired pneumonia): Qualifiers: Laterality: left Lung location: lower lobe of lung Qualified Code(s): J18.9 - Pneumonia, unspecified organism Code(s): J18.9 - Pneumonia, unspecified organism Status: Acute Assessment and Plan: CXR: Bilateral basal pneumonia with left pleural effusion. Underlying cardiac decompensation with pulmonary edema is highly suggestive. Chest CT: Subsegmental right lower lobe atelectasis/consolidation. Mild interstitial edema.Moderate bilateral pleural effusions.Cardiomegaly. - started on CAP tx: azithromycin ceftriaxone on 05/17 - Viral PCR: negative for Flu/COVID/RSV - Sputum culture pending - Blood cultures pending - Requiring 2L NC (baseline RA), Oxygen via NC; wean as tolerated. Keep SpO2 greater than 90% - supportive treatment - Consider thoracentesis if patient continues to have shortness of breath following IV lasix treatment - Monitor vital signs, I&Os, neuro status and patient is a fall risk - Follow WBC, serum electrolytes, temperature curves and cultures - Gentle IV fluid resuscitation (3) CAD (coronary artery disease): Qualifiers: Associated angina: with stable angina Coronary Disease-Associated Artery/Lesion type: [place] artery [place] vs. transplanted heart: [place] heart Qualified Code(s): I25.118 - Atherosclerotic heart disease of [place] coronary artery with other forms of angina pectoris Code(s): I25.10 - Atherosclerotic heart disease of [place] coronary artery without angina pectoris Status: Acute Assessment and Plan: - Denies chest pain. - No ischemic changes on EKG. - Troponin elevated at 0.068 - Continue aspirin, statin and BB. - Cardiology consulted Minimally elevated troponin, flat. Not an ASC. (4) Hemoptysis: Code(s): R04.2 - Hemoptysis Status: Acute Assessment and Plan: - Unclear etiology. Possibly related to anticoagulation use vs pulmonary hypertension vs other. - Chest CT: Subsegmental right lower lobe atelectasis/consolidation. Mild interstitial edema.Moderate bilateral pleural effusions.Cardiomegaly. - Sputum culture pending - Hold rivaroxaban for now. - Monitor symptoms progression. (5) Acute exacerbation of congestive heart failure: Code(s): I50.9 - Heart failure, unspecified Status: Acute Assessment and Plan: - CXR Showing Left pleural effusion with underlying cardiac decompensation with pulmonary edema highly suggestive. - BNP: 19,400 >>> 8100 on 06/08. - Echo 06/04/23: LVEF 40-45% with grade II diastolic dysfunction and mild pulmonary hypertension - Given lasix 40 mg IV x1 - Strict I & O's with daily weights. - Low-Na diet. - Fluid restrictions. (6) CKD (chronic kidney disease) stage 3, GFR 30-59 ml/min: Code(s): N18.30 - Chronic kidney disease, stage 3 unspecified Status: Chronic Assessment and Plan: - Cr appears baseline. - Monitor renal function closely with diuresis. (7) AF (atrial fibrillation): Code(s): I48.91 - Unspecified atrial fibrillation Status: Chronic Assessment and Plan: - V-Paced rhythm on EKG. - No previous EKG's for comparison. - Continue tele monitoring. - Continue metoprolol. - Hold Xarelto for now. - TSH 2.760 Plan Code Status: DNR Diet: Heart Health, Low Na DVT PPx: SCD's. GI PPx: Protonix. Time Spent With Patient Time with patient: 25 - 35 minutes Subjective Date/time seen: 09/22/23 07:56 Interval history: 88-year-old male past medical history heart failure reduced ejection fraction (EF as lo
[2023-09-22 09:13] LABS: Hematocrit 28.3 % (42.0-52.0); Mean Corpuscular HGB Conc 31.8 g/dl (32-36); Mean Corpuscular Volume 103.7 fl (80-100); Mean Platelet Volume 10.7 fl (7.4-10.4); Platelet Count Result 141 k/mm3 (150-375); Red Blood Count 2.73 M/mm3 (4.6-6.20); Red Cell Distribution Width 13.2 % (11.5-14.5); White Blood Count 10.5 K/mm3 (4.5-10.0)
[2023-09-22 09:22] LABS: Anion Gap 11 mmol/L (4-12); Blood Urea Nitrogen 35 mg/dL (9-20); Calcium 8.1 mg/dL (8.4-10.2); Carbon Dioxide 18 mmol/L (22-30); Chloride 103 mmol/L (98-107); Estimated CRCL calculation 26 ml/min; Estimated Glomerular Filt Rate 32; Glucose 111 mg/dL (65-110); Potassium 4.2 mmol/L (3.4-5.0); Sodium 132 mmol/L (137-145)
[2023-09-22] MEDS: TERAZOSIN HCL 1 MG CAPSULE 2 MG PO (10:54)
[2023-09-22] MEDS: ATORVASTATIN 40 MG TABLET PO (10:54)
[2023-09-22] MEDS: guaiFENesin 12 HR 600 MG TABCR PO ×2 (10:54→20:27)
[2023-09-22] MEDS: ASPIRIN 81 MG ENTERIC TABLET PO (10:54)
[2023-09-22] MEDS: METOPROLOL TARTRATE 50 MG TAB PO ×2 (10:54→20:28)
[2023-09-22] MEDS: AZITHROMYCIN 500 MG/NS 250 ML 500 MG/250 ML BAG 250 MG IVPB (11:29)
--- NOTE | 2023-09-22 13:40 | PM.CNCAR ---
Assessment and Plan Assessment and plan (1) Pneumonia: Code(s): J18.9 - Pneumonia, unspecified organism Status: Acute Assessment and Plan: Treatment as per primary team. (2) Acute hypoxic respiratory failure: Code(s): J96.01 - Acute respiratory failure with hypoxia Status: Acute Assessment and Plan: Likely due to pneumonia and CHF. Will give him another dose of IV Lasix today. Please monitor strict I/Os. (3) Hemoptysis: Code(s): R04.2 - Hemoptysis Status: Acute Assessment and Plan: Xarelto on hold due to this. Resume Xarelto when hemoptysis has resolved. (4) Acute on chronic heart failure with mildly reduced ejection fraction (HFmrEF, 41-49%): Code(s): I50.23 - Acute on chronic systolic (congestive) heart failure Status: Acute Assessment and Plan: As above, will give another dose of IV Lasix today. Please monitor strict I/Os. Continue Metoprolol. (5) CAD (coronary artery disease): Qualifiers: Coronary Disease-Associated Artery/Lesion type: [place] artery [place] vs. transplanted heart: [place] heart Associated angina: with stable angina Qualified Code(s): I25.118 - Atherosclerotic heart disease of [place] coronary artery with other forms of angina pectoris Code(s): I25.10 - Atherosclerotic heart disease of [place] coronary artery without angina pectoris Status: Acute Assessment and Plan: Continue ASA and statin. (6) Benign essential HTN: Code(s): I10 - Essential (primary) hypertension Status: Acute Assessment and Plan: Stable. Continue Metoprolol. (7) Mixed hyperlipidemia: Code(s): E78.2 - Mixed hyperlipidemia Status: Acute Assessment and Plan: Continue high intensity statin (8) S/P aortic valve replacement with bioprosthetic valve: Code(s): Z95.3 - Presence of xenogenic heart valve Status: Acute (9) Paroxysmal atrial fibrillation: Code(s): I48.0 - Paroxysmal atrial fibrillation Status: Acute Assessment and Plan: Continue Metoprolol. Xarelto on hold for now due to hemoptysis. (10) Chest pain: Code(s): R07.9 - Chest pain, unspecified Status: Acute Assessment and Plan: Atypical, likely noncardiac. (11) Elevated troponin: Code(s): R79.89 - Other specified abnormal findings of blood chemistry Status: Acute Assessment and Plan: Minimally elevated, flat. Not an acute coronary syndrome. (12) History of implantable cardioverter-defibrillator (ICD) placement: Onset Date: 2009 Code(s): Z95.810 - Presence of automatic (implantable) cardiac defibrillator Status: Acute Assessment and Plan: Device interrogation ordered. History of Present Illness History of Present Illness Consult date/time: 09/22/23 13:40 Requesting physician: Fabio Argueta DO Consult reason: chest pain Reason For Visit: pneumonia,dyspnea Narrative: We are consulted for chest pain. This is an 88 year old male with coronary artery disease s/p CABG (MAGALLON to LAD, SVG to OM, SVG to PDA) in 2009, s/p bioprosthetic AVR, s/p [employer] ICD, atrial fibrillation, heart failure with reduced LVEF of 40-45% per TTE 05/2023, chronic kidney disease. Vladimir presented to [place] [facility] for worsening shortness of breath for the past few days. Has been having hemoptysis as well. Workup shows Hgb of 9, SCr of 2. Troponins of 0.047, 0.054, 0.068. Chest CTA showed subsegmental right lower lobe atelectasis/consolidation. Mild interstitial edema, moderate bilateral pleural effusions, cardiomegaly. He is admitted for pneumonia, acute hypoxic respiratory failure. Patient reports chest pain right beneath his device site that has been constant for 3 days now. No alleviated or exacerbating factors. Review of Systems Review of Systems: All systems reviewed & are unremarkable except as noted in HPI and below (HPI) [facility] Past Medical
[2023-09-22] MEDS: FUROSEMIDE INJ 40 MG/4 ML VIAL IV PUSH (17:21)
--- NOTE | 2023-09-22 18:52 | PC.NURSE ---
During admission, previous history shows a [employer] pacemaker. 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 It was unable to recognize device during multiple attempts. Granddaughter/daughter contacted who state they will bring up pt wallet that his device card in it 8/8 AM.
[2023-09-22 20:43] LABS: Troponin I 0.043 ng/mL (0.000-0.034)
[2023-09-23] VITALS (18 sets, daily range): BP systolic 131–144; BP diastolic 71–75; PULSE 72–100; RESP 18–22; TEMP 35.9–37.4; O2SAT 94–98
[2023-09-23] MEDS: LEVOTHYROXINE SODIUM 75 MCG TABLET PO (06:50)
[2023-09-23 07:06] LABS: Basophils Percent Auto 0.4 % (0.2-1.2); Eosinophils Absolute Auto 0.2 K/mm3 (0-0.3); Eosinophils Percent Auto 1.4 % (0-4.4); Hematocrit 30.9 % (42.0-52.0); Hemoglobin 9.7 g/dL (14.0-18.0); Immature Granulocyte Absolute 0.05 K/mm3 (0.00-0.031); Immature Granulocyte Percent A 0.5 % (0-0.5); Lymphocytes Absolute Auto 2.24 K/mm3 (0.9-3.2); Lymphocytes Percent Auto 21.3 % (18.3-44.2); Mean Corpuscular HGB Conc 31.4 g/dl (32-36); Mean Corpuscular Hemoglobin 32.6 pg (26-34); Mean Corpuscular Volume 103.7 fl (80-100); Mean Platelet Volume 10.7 fl (7.4-10.4); Monocytes Absolute Auto 1.2 K/mm3 (0.1-0.6); Monocytes Percent Auto 11.5 % (2.6-8.5); Neutrophils Absolute Auto 6.8 K/mm3 (1.3-6.7); Neutrophils Percent Auto 64.9 % (45.5-73.1); Platelet Count Result 154 k/mm3 (150-375); Red Blood Count 2.98 M/mm3 (4.6-6.20); Red Cell Distribution Width 13.1 % (11.5-14.5); White Blood Count 10.5 K/mm3 (4.5-10.0)
[2023-09-23 07:21] LABS: Alanine Aminotransferase 18 U/L (6-50); Albumin Level 3.1 g/dL (3.5-5.1); Alkaline Phosphatase 73 U/L (38-126); Anion Gap 12 mmol/L (4-12); Aspartate Amino Transferase 26 U/L (17-59); Bilirubin,Total 0.6 mg/dL (0.2-1.3); Blood Urea Nitrogen 37 mg/dL (9-20); Calcium 8.6 mg/dL (8.4-10.2); Carbon Dioxide 19 mmol/L (22-30); Chloride 102 mmol/L (98-107); Estimated CRCL calculation 25 ml/min; Estimated Glomerular Filt Rate 30; Glucose 114 mg/dL (65-110); Potassium 4.3 mmol/L (3.4-5.0); Sodium 133 mmol/L (137-145)
[2023-09-23] MEDS: IPRATROPIUM 0.5 MG/ALBUTEROL SULFATE 2.5 MG AMPUL.NEB 3 ML INHALATION ×3 (07:50→20:18)
--- NOTE | 2023-09-23 08:21 | PM.IMPN ---
Progress Note: A&P Assessment and Plan (1) Acute hypoxic respiratory failure: Code(s): J96.01 - Acute respiratory failure with hypoxia Status: Acute Assessment and Plan: Patient requiring 2 L NC on admission. Likely related to PNA and CHF exacerbation. - Oxygen via NC; wean as tolerated. Keep SpO2 greater than 88% - Started on abx, neb treatments for PNA. (2) CAP (community acquired pneumonia): Qualifiers: Laterality: left Lung location: lower lobe of lung Qualified Code(s): J18.9 - Pneumonia, unspecified organism Code(s): J18.9 - Pneumonia, unspecified organism Status: Acute Assessment and Plan: CXR 09/20: Bilateral basal pneumonia with left pleural effusion. Underlying cardiac decompensation with pulmonary edema is highly suggestive. Chest CT 09/20: Subsegmental right lower lobe atelectasis/consolidation. Mild interstitial edema.Moderate bilateral pleural effusions.Cardiomegaly. CXR 09/22: Bibasilar pulmonary edema and central congestive change, with small left pleural effusion. Findings overall are similar to prior exam. - started on CAP tx: azithromycin ceftriaxone on 09/21 - Viral PCR: negative for Flu/COVID/RSV - Sputum culture: preliminary- growth of normal oropharyngeal roger - Blood cultures obtained on 09/21/23: NGTD - Requiring 2L NC (baseline RA), Oxygen via NC; wean as tolerated. Keep SpO2 greater than 90% - supportive treatment - thoracentesis ordered, xarelto being held - Monitor vital signs, I&Os, neuro status and patient is a fall risk - Follow WBC, serum electrolytes, temperature curves and cultures - Gentle IV fluid resuscitation (3) CAD (coronary artery disease): Qualifiers: Associated angina: with stable angina Coronary Disease-Associated Artery/Lesion type: [place] artery [place] vs. transplanted heart: [place] heart Qualified Code(s): I25.118 - Atherosclerotic heart disease of [place] coronary artery with other forms of angina pectoris Code(s): I25.10 - Atherosclerotic heart disease of [place] coronary artery without angina pectoris Status: Acute Assessment and Plan: - Denies chest pain. - No ischemic changes on EKG. - Troponin elevated at 0.068 - Continue aspirin, statin and BB. - Cardiology consulted Minimally elevated troponin, flat. Not an ASC. (4) Hemoptysis: Code(s): R04.2 - Hemoptysis Status: Acute Assessment and Plan: - Unclear etiology. Possibly related to anticoagulation use vs pulmonary hypertension vs other. - Chest CT: Subsegmental right lower lobe atelectasis/consolidation. Mild interstitial edema.Moderate bilateral pleural effusions.Cardiomegaly. - Sputum culture: preliminary- growth of normal oropharyngeal roger - Hold rivaroxaban for now. - Monitor symptoms progression. Resolved. (5) Acute exacerbation of congestive heart failure: Code(s): I50.9 - Heart failure, unspecified Status: Acute Assessment and Plan: - CXR Showing Left pleural effusion with underlying cardiac decompensation with pulmonary edema highly suggestive. - BNP: 72882>>>19,400 on 09/20 >>> 8100 on 06/08. - Echo 06/04/23: LVEF 40-45% with grade II diastolic dysfunction and mild pulmonary hypertension - Echo ordered - Strict I & O's with daily weights. - Low-Na diet. - Fluid restrictions. (6) CKD (chronic kidney disease) stage 3, GFR 30-59 ml/min: Code(s): N18.30 - Chronic kidney disease, stage 3 unspecified Status: Chronic Assessment and Plan: - Cr appears baseline. - Monitor renal function closely with diuresis. (7) AF (atrial fibrillation): Code(s): I48.91 - Unspecified atrial fibrillation Status: Chronic Assessment and Plan: - V-Paced rhythm on EKG. - No previous EKG's for comparison. - Continue tele monitoring. - Continue metoprolol. - Hold Xarelto for now. - TSH 2.760 Plan Code Status: DNR Diet: Heart Health, Low Na DVT PPx: SCD's. GI PPx: Protonix. Time Sp
--- NOTE | 2023-09-23 08:37 | PM.PNCARD ---
Progress Note: A&P Assessment and Plan (1) Pneumonia: Code(s): J18.9 - Pneumonia, unspecified organism Status: Acute Assessment and Plan: Treatment as per primary team. (2) Acute hypoxic respiratory failure: Code(s): J96.01 - Acute respiratory failure with hypoxia Status: Acute Assessment and Plan: Likely due to pneumonia and CHF. Will give one more dose of IV furosemide today. Check CXR. (3) Hemoptysis: Code(s): R04.2 - Hemoptysis Status: Acute Assessment and Plan: Xarelto on hold due to this. Resume Xarelto when hemoptysis has resolved. (4) Acute on chronic heart failure with mildly reduced ejection fraction (HFmrEF, 41-49%): Code(s): I50.23 - Acute on chronic systolic (congestive) heart failure Status: Acute Assessment and Plan: As above, will give another dose of IV Lasix today. Please monitor strict I/Os. Continue Metoprolol. (5) CAD (coronary artery disease): Qualifiers: Coronary Disease-Associated Artery/Lesion type: [place] artery [place] vs. transplanted heart: [place] heart Associated angina: with stable angina Qualified Code(s): I25.118 - Atherosclerotic heart disease of [place] coronary artery with other forms of angina pectoris Code(s): I25.10 - Atherosclerotic heart disease of [place] coronary artery without angina pectoris Status: Acute Assessment and Plan: Continue ASA and statin. (6) Benign essential HTN: Code(s): I10 - Essential (primary) hypertension Status: Acute Assessment and Plan: Stable. Continue Metoprolol. (7) Mixed hyperlipidemia: Code(s): E78.2 - Mixed hyperlipidemia Status: Acute Assessment and Plan: Continue high intensity statin (8) S/P aortic valve replacement with bioprosthetic valve: Code(s): Z95.3 - Presence of xenogenic heart valve Status: Acute (9) Paroxysmal atrial fibrillation: Code(s): I48.0 - Paroxysmal atrial fibrillation Status: Acute Assessment and Plan: Continue Metoprolol. Xarelto on hold for now due to hemoptysis. (10) Chest pain: Code(s): R07.9 - Chest pain, unspecified Status: Acute Assessment and Plan: Atypical, likely noncardiac. (11) Elevated troponin: Code(s): R79.89 - Other specified abnormal findings of blood chemistry Status: Acute Assessment and Plan: Minimally elevated, flat. Not an acute coronary syndrome. (12) History of implantable cardioverter-defibrillator (ICD) placement: Onset Date: 2009 Code(s): Z95.810 - Presence of automatic (implantable) cardiac defibrillator Status: Acute Assessment and Plan: Device interrogation ordered. [employer] device. Subjective Date/time seen: 09/23/23 08:37 Interval history: Cardiology follow-up for CHF Date of service 09/23/2023: States that he feels about the same today, perhaps slightly less short of breath. He denies any chest pain, palpitations. Review of Systems Review of Systems: All systems reviewed & are unremarkable except as noted in HPI and below (HPI) Exam Const: Other: Ill appearing elderly man Eyes: General: appearance normal, both eyes and all related structures Sclera: sclerae normal Resp: Auscultation: not clear to auscultation bilaterally, rhonchi and wheezes Other: Slightly labored respirations, on supplemental oxygen Cardio: Rate: regular rate Rhythm: regular rhythm Heart sounds: no murmurs Skin: General skin exam: normal color Psych: Mental Status: mental status grossly normal Affect: normal affect Objective Data Vital Signs Vital Signs: Vital Signs - 24 hr 09/22/23 10:54 09/22/23 13:38 09/22/23 13:47 Temperature Pulse Rate 80 81 80 Respiratory Rate 18 18 Blood Pressure Pulse Oximetry Oxygen Delivery Oxygen Flow Rate 09/22/23 14:00 09/22/23 12:00 09/22/23 16:00 Temperature 3
[2023-09-23 09:05] LABS: NT Pro B Type Natriuretic Pept 24300 pg/mL (19.9-100)
[2023-09-23] MEDS: METOPROLOL TARTRATE 50 MG TAB PO ×2 (09:57→20:34)
[2023-09-23] MEDS: TERAZOSIN HCL 1 MG CAPSULE 2 MG PO (09:57)
[2023-09-23] MEDS: guaiFENesin 12 HR 600 MG TABCR PO ×2 (09:58→20:34)
[2023-09-23] MEDS: ATORVASTATIN 40 MG TABLET PO (09:58)
[2023-09-23] MEDS: ASPIRIN 81 MG ENTERIC TABLET PO (09:58)
[2023-09-23] MEDS: AZITHROMYCIN 500 MG/NS 250 ML 500 MG/250 ML BAG 250 MG IVPB (10:28)
[2023-09-23 10:59] LABS: INR 1.3; Prothrombin Time 16.7 Seconds (11.1-14.7)
[2023-09-23 11:00] LABS: Partial Thromboplastin Time 31.7 Seconds (22.3-36.8)
[2023-09-23] MEDS: FUROSEMIDE INJ 40 MG/4 ML VIAL IV PUSH (11:28)
[2023-09-23 15:55] LABS: pH Pleural Fluid > 7.500 (7.210-7.500)
[2023-09-23 16:14] LABS: Appearance Pleural Fluid Clear (Clear); Color Pleural Fluid Colorless (Colorless); Lymphocytes Pleural Fluid 31 %; Macrophages Pleural Fluid 30 %; Monocytes Pleural Fluid 31 %; Neutrophils Pleural Fluid 8 % (0-25); Nucleated Cell Pleural Fluid 454 /uL (0-1000); Pleural fluid source Pleural fluid; RBC Pleural Fluid < 2000 /uL (0-10000)
[2023-09-23 20:32] LABS: Troponin I 0.045 ng/mL (0.000-0.034)
[2023-09-23] MEDS: MELATONIN 3 MG TABLET 6 MG PO (20:34)
[2023-09-23] MEDS: ACETAMINOPHEN 325 MG TABLET 650 MG PO (20:34)
[2023-09-24] VITALS (12 sets, daily range): BP systolic 141; BP diastolic 77; PULSE 72–88; RESP 20; TEMP 36.7; O2SAT 96–97
--- NOTE | 2023-09-24 | ECHO_ITS ---
Patient Info Name: Vladimir Blackburn Age: 88 years : 1935 Gender: Male Ht: 72 in Wt: 195 lbs BSA: 2.13 m2 HR: 87 bpm BP: 131 / 75 mmHg Heart Rhythm: Paced Technical Quality: Good Exam Date: 09/24/2023 8:15 AM Exam Location: Echo Lab Patient Status: Inpatient Admit Date: 09/22/2023 Staff Ordering Physician: Arlene Berry PA-C Coupon Clerk: Cam Calix RDCS Attending Provider: Arlene Berry PA-C Referring Physician: Kristi CHUA; Exam Type: CA echo doppler color flow Study Info Indications - Cardiomegaly - BNP - SOB Complete two-dimensional, color flow and Doppler transthoracic echocardiogram is performed. Summary 1. Complete two-dimensional, color flow and Doppler transthoracic echocardiogram is performed. 2. Technically somewhat challenging echocardiogram. 3. Left ventricular hypertrophy with moderate enlargement and moderately reduced systolic function. 4. Bioprosthetic aortic valve which appears to be functioning normally. 5. Mild to moderate mitral regurgitation. 6. Biatrial dilation. 7. Pacemaker lead noted. Left Ventricle Left ventricular chamber dimension is mildly enlarged. Left ventricular systolic function is moderately reduced, estimated at 35-40%. There is moderate concentric increased left ventricular wall thickness. The left ventricular diastolic function is indeterminate. Right Ventricle Right ventricular chamber dimension is normal. Linear artifact in right ventricle suggestive of catheter(s), pacemaker lead(s), or ICD lead(s). Left Atria Left atrial chamber dimension is moderately enlarged. Right Atria Right atrial chamber dimension is moderately enlarged. Pulmonic Valve The pulmonic valve is normal. Mitral Valve The mitral valve has normal leaflets. There is mild to moderate mitral valve regurgitation. Tricuspid Valve The tricuspid valve leaflets are normal. There is mild tricuspid valve regurgitation. Mild pulmonary hypertension, estimated pulmonary arterial systolic pressure is Empty. Pericardium/Pleural The pericardium appears normal. Aorta The aortic root size at the sinus of Valsalva is normal. Left Ventricular Outflow Tract Name Value Normal LVOT 2D LVOT Diameter 1.9 cm LVOT Doppler LVOT Peak Gradient 3 mmHg LVOT Mean Gradient 2 mmHg LVOT VTI 17 cm LVOT VTI/AV VTI Ratio 0.3 LVOT Stroke Volume 48 ml LVOT CO 3.9 l/min LVOT CI 1.8 l/min/m2 Pulmonic Valve Name Value Normal PV Doppler PV Peak Gradient 7 mmHg PV Regurgitation Doppler OK Peak End Diastolic Velocity 116 cm/s Mitral Valve
[2023-09-24] MEDS: LEVOTHYROXINE SODIUM 75 MCG TABLET PO (05:44)
[2023-09-24 06:10] LABS: Basophils Percent Auto 0.3 % (0.2-1.2); Eosinophils Absolute Auto 0.3 K/mm3 (0-0.3); Eosinophils Percent Auto 2.3 % (0-4.4); Hematocrit 28.7 % (42.0-52.0); Hemoglobin 9.2 g/dL (14.0-18.0); Immature Granulocyte Absolute 0.04 K/mm3 (0.00-0.031); Immature Granulocyte Percent A 0.4 % (0-0.5); Lymphocytes Absolute Auto 2.88 K/mm3 (0.9-3.2); Lymphocytes Percent Auto 26.8 % (18.3-44.2); Mean Corpuscular HGB Conc 32.1 g/dl (32-36); Mean Corpuscular Hemoglobin 33.1 pg (26-34); Mean Corpuscular Volume 103.2 fl (80-100); Mean Platelet Volume 10.9 fl (7.4-10.4); Monocytes Absolute Auto 1.3 K/mm3 (0.1-0.6); Monocytes Percent Auto 11.9 % (2.6-8.5); Neutrophils Absolute Auto 6.3 K/mm3 (1.3-6.7); Neutrophils Percent Auto 58.3 % (45.5-73.1); Platelet Count Result 155 k/mm3 (150-375); Red Blood Count 2.78 M/mm3 (4.6-6.20); Red Cell Distribution Width 13.2 % (11.5-14.5); White Blood Count 10.8 K/mm3 (4.5-10.0)
[2023-09-24] MEDS: SODIUM CHLOR 3% 15 ML NEB (RESPIRATORY THERAPY) 6 ML INHALATION (06:14)
[2023-09-24 06:23] LABS: Alanine Aminotransferase 19 U/L (6-50); Albumin Level 2.9 g/dL (3.5-5.1); Alkaline Phosphatase 72 U/L (38-126); Anion Gap 8 mmol/L (4-12); Aspartate Amino Transferase 27 U/L (17-59); Bilirubin,Total 0.5 mg/dL (0.2-1.3); Blood Urea Nitrogen 42 mg/dL (9-20); Calcium 8.7 mg/dL (8.4-10.2); Carbon Dioxide 22 mmol/L (22-30); Chloride 102 mmol/L (98-107); Estimated CRCL calculation 25 ml/min; Estimated Glomerular Filt Rate 30; Glucose 109 mg/dL (65-110); Potassium 4.4 mmol/L (3.4-5.0); Sodium 132 mmol/L (137-145)
--- NOTE | 2023-09-24 08:26 | PM.IMPN ---
Progress Note: A&P Assessment and Plan (1) Acute hypoxic respiratory failure: Code(s): J96.01 - Acute respiratory failure with hypoxia Status: Acute Assessment and Plan: Patient requiring 2 L NC on admission. Likely related to PNA and CHF exacerbation. - Oxygen via NC; wean as tolerated. Keep SpO2 greater than 88% - Started on abx, neb treatments for PNA. Patient has returned to baseline room air. (2) CAP (community acquired pneumonia): Qualifiers: Laterality: left Lung location: lower lobe of lung Qualified Code(s): J18.9 - Pneumonia, unspecified organism Code(s): J18.9 - Pneumonia, unspecified organism Status: Acute Assessment and Plan: CXR 09/20: Bilateral basal pneumonia with left pleural effusion. Underlying cardiac decompensation with pulmonary edema is highly suggestive. Chest CT 09/20: Subsegmental right lower lobe atelectasis/consolidation. Mild interstitial edema.Moderate bilateral pleural effusions.Cardiomegaly. CXR 09/22: Bibasilar pulmonary edema and central congestive change, with small left pleural effusion. Findings overall are similar to prior exam. - started on CAP tx: IV azithromycin ceftriaxone on 09/21, transitioned to PO Augmentin and azithromycin on 09/23 - Viral PCR: negative for Flu/COVID/RSV - Sputum culture: final - growth of normal oropharyngeal roger - Blood cultures obtained on 09/21/23: NGTD - Returned to baseline room air, Oxygen via NC; wean as tolerated. Keep SpO2 greater than 90% - supportive treatment - s/p thoracentesis 09/22, 1L clear, yellow fluid removed from left pleura. Gram stain with no organisms seen. Cultures pending. - Monitor vital signs, I&Os, neuro status and patient is a fall risk - Follow WBC, serum electrolytes, temperature curves and cultures (3) CAD (coronary artery disease): Qualifiers: Associated angina: with stable angina Coronary Disease-Associated Artery/Lesion type: [place] artery [place] vs. transplanted heart: [place] heart Qualified Code(s): I25.118 - Atherosclerotic heart disease of [place] coronary artery with other forms of angina pectoris Code(s): I25.10 - Atherosclerotic heart disease of [place] coronary artery without angina pectoris Status: Acute Assessment and Plan: - Denies chest pain. - No ischemic changes on EKG. - Troponin elevated at 0.068 - Continue aspirin, statin and BB. - Cardiology consulted Minimally elevated troponin, flat. Not an ASC. (4) Hemoptysis: Code(s): R04.2 - Hemoptysis Status: Acute Assessment and Plan: - Unclear etiology. Possibly related to anticoagulation use vs pulmonary hypertension vs other. - Chest CT: Subsegmental right lower lobe atelectasis/consolidation. Mild interstitial edema.Moderate bilateral pleural effusions.Cardiomegaly. - Sputum culture: preliminary- growth of normal oropharyngeal roger - Hold rivaroxaban for now. - Monitor symptoms progression. Resolved. (5) Acute exacerbation of congestive heart failure: Code(s): I50.9 - Heart failure, unspecified Status: Acute Assessment and Plan: - CXR Showing Left pleural effusion with underlying cardiac decompensation with pulmonary edema highly suggestive. - BNP: 71364>>>19,400 on 09/20 >>> 8100 on 06/08. - Echo 06/04/23: LVEF 40-45% with grade II diastolic dysfunction and mild pulmonary hypertension - Echo 09/24/23: LVEF 35-40% - Strict I & O's with daily weights. - Low-Na diet. - Fluid restrictions - Cardiology consulted for HFrEF (6) CKD (chronic kidney disease) stage 3, GFR 30-59 ml/min: Code(s): N18.30 - Chronic kidney disease, stage 3 unspecified Status: Chronic Assessment and Plan: - Cr appears baseline. - Monitor renal function closely with diuresis. (7) AF (atrial fibrillation): Code(s): I48.91 - Unspecified atrial fibrillation Status: Chronic Assessment and Plan: - V-Paced rhythm on EKG. - No previous EKG's for compari
[2023-09-24] MEDS: ENOXAPARIN 30 MG/0.3 ML SYRINGE SUB-Q (08:39)
[2023-09-24] MEDS: ATORVASTATIN 40 MG TABLET PO (08:40)
[2023-09-24] MEDS: ASPIRIN 81 MG ENTERIC TABLET PO (08:40)
[2023-09-24] MEDS: METOPROLOL TARTRATE 50 MG TAB PO (08:40)
[2023-09-24] MEDS: guaiFENesin 12 HR 600 MG TABCR PO ×2 (08:40→21:17)
[2023-09-24] MEDS: AZITHROMYCIN 500 MG/NS 250 ML 500 MG/250 ML BAG 250 MG IVPB (09:35)
--- NOTE | 2023-09-24 13:16 | PM.PNCARD ---
Progress Note: A&P Assessment and Plan (1) Pneumonia: Code(s): J18.9 - Pneumonia, unspecified organism Status: Acute Assessment and Plan: Treatment as per primary team. (2) Acute hypoxic respiratory failure: Code(s): J96.01 - Acute respiratory failure with hypoxia Status: Acute Assessment and Plan: Likely due to pneumonia and CHF. Improving. (3) Hemoptysis: Code(s): R04.2 - Hemoptysis Status: Acute Assessment and Plan: Xarelto on hold due to this. Resume Xarelto when hemoptysis has resolved. (4) Acute on chronic heart failure with mildly reduced ejection fraction (HFmrEF, 41-49%): Code(s): I50.23 - Acute on chronic systolic (congestive) heart failure Status: Acute Assessment and Plan: EF 35-40%. Status post thoracentesis yesterday with improvement in respiratory status. No need for further IV diuresis, looks euvolemic. Will shift metoprolol tartrate to succinate Will add jardiance 10mg daily Because of renal function will not add ANDREA/ARB/ARNI at this time. Will also avoid spironolactone. Cardiology will sign off please call with any questions (5) CAD (coronary artery disease): Qualifiers: Associated angina: with stable angina Coronary Disease-Associated Artery/Lesion type: [place] artery [place] vs. transplanted heart: [place] heart Qualified Code(s): I25.118 - Atherosclerotic heart disease of [place] coronary artery with other forms of angina pectoris Code(s): I25.10 - Atherosclerotic heart disease of [place] coronary artery without angina pectoris Status: Acute Assessment and Plan: Continue ASA and statin. (6) Benign essential HTN: Code(s): I10 - Essential (primary) hypertension Status: Acute Assessment and Plan: Stable. Continue Metoprolol. (7) Mixed hyperlipidemia: Code(s): E78.2 - Mixed hyperlipidemia Status: Acute Assessment and Plan: Continue high intensity statin (8) S/P aortic valve replacement with bioprosthetic valve: Code(s): Z95.3 - Presence of xenogenic heart valve Status: Acute (9) Paroxysmal atrial fibrillation: Code(s): I48.0 - Paroxysmal atrial fibrillation Status: Acute Assessment and Plan: Continue Metoprolol. Xarelto on hold for now due to hemoptysis. (10) Chest pain: Code(s): R07.9 - Chest pain, unspecified Status: Acute Assessment and Plan: Atypical, likely noncardiac. (11) Elevated troponin: Code(s): R79.89 - Other specified abnormal findings of blood chemistry Status: Acute Assessment and Plan: Minimally elevated, flat. Not an acute coronary syndrome. (12) History of implantable cardioverter-defibrillator (ICD) placement: Onset Date: 2009 Code(s): Z95.810 - Presence of automatic (implantable) cardiac defibrillator Status: Acute Assessment and Plan: Device interrogation ordered. [employer] device. Subjective Date/time seen: 09/24/23 13:16 Interval history: Cardiology follow-up for CHF Date of service 09/23/2023: States that he feels about the same today, perhaps slightly less short of breath. He denies any chest pain, palpitations. Date of service 09/24/2023: Feeling better after undergoing thoracentesis yesterday. No shortness of breath. Off supplemental oxygen Review of Systems Review of Systems: All systems reviewed & are unremarkable except as noted in HPI and below (HPI) Exam Const: Other: Ill appearing elderly man Eyes: General: appearance normal, both eyes and all related structures Sclera: sclerae normal Resp: Auscultation: clear to auscultation bilaterally and diminished lung sounds Cardio: Rate: regular rate Rhythm: regular rhythm Heart sounds: no murmurs Skin: General skin exam: normal color Psych: Mental Status: mental status grossly normal Affect: normal affect Objective Data Vital Signs
[2023-09-24] MEDS: IPRATROPIUM 0.5 MG/ALBUTEROL SULFATE 2.5 MG AMPUL.NEB 3 ML INHALATION ×2 (13:41→20:33)
--- NOTE | 2023-09-24 16:33 | PCPTNOTE ---
On 09/24/23, the student, Evelyne Patel, provided care and completed [facility] documentation on this patient. I have reviewed the student's documentation and agree with the findings.
[2023-09-24] MEDS: ACETAMINOPHEN 325 MG TABLET 650 MG PO (21:09)
[2023-09-24] MEDS: MELATONIN 3 MG TABLET 6 MG PO (21:10)
[2023-09-25] MEDS: IPRATROPIUM 0.5 MG/ALBUTEROL SULFATE 2.5 MG AMPUL.NEB 3 ML INHALATION (02:26)
[2023-09-25] MEDS: SODIUM CHLOR 3% 15 ML NEB (RESPIRATORY THERAPY) 6 ML INHALATION (04:57)
[2023-09-25 04:58] VITALS: PULSE 81; RESP 20
[2023-09-25 05:15] VITALS: PULSE 87; RESP 20
[2023-09-25 05:50] VITALS: BP 157/78; PULSE 67; RESP 20; TEMP 36.7; O2SAT 100
[2023-09-25 06:15] LABS: Basophils Percent Auto 0.4 % (0.2-1.2); Eosinophils Absolute Auto 0.3 K/mm3 (0-0.3); Eosinophils Percent Auto 2.7 % (0-4.4); Hematocrit 27.2 % (42.0-52.0); Hemoglobin 8.8 g/dL (14.0-18.0); Immature Granulocyte Absolute 0.03 K/mm3 (0.00-0.031); Immature Granulocyte Percent A 0.3 % (0-0.5); Lymphocytes Absolute Auto 2.98 K/mm3 (0.9-3.2); Lymphocytes Percent Auto 31.1 % (18.3-44.2); Mean Corpuscular HGB Conc 32.4 g/dl (32-36); Mean Corpuscular Hemoglobin 33.1 pg (26-34); Mean Corpuscular Volume 102.3 fl (80-100); Mean Platelet Volume 10.9 fl (7.4-10.4); Monocytes Absolute Auto 1.2 K/mm3 (0.1-0.6); Monocytes Percent Auto 12.7 % (2.6-8.5); Neutrophils Absolute Auto 5.1 K/mm3 (1.3-6.7); Neutrophils Percent Auto 52.8 % (45.5-73.1); Platelet Count Result 152 k/mm3 (150-375); Red Blood Count 2.66 M/mm3 (4.6-6.20); Red Cell Distribution Width 13.4 % (11.5-14.5); White Blood Count 9.6 K/mm3 (4.5-10.0)
[2023-09-25 06:29] LABS: Alanine Aminotransferase 21 U/L (6-50); Albumin Level 2.9 g/dL (3.5-5.1); Alkaline Phosphatase 66 U/L (38-126); Anion Gap 8 mmol/L (4-12); Aspartate Amino Transferase 26 U/L (17-59); Bilirubin,Total 0.6 mg/dL (0.2-1.3); Blood Urea Nitrogen 46 mg/dL (9-20); Calcium 8.5 mg/dL (8.4-10.2); Carbon Dioxide 22 mmol/L (22-30); Chloride 104 mmol/L (98-107); Estimated CRCL calculation 25 ml/min; Estimated Glomerular Filt Rate 30; Glucose 107 mg/dL (65-110); Potassium 4.3 mmol/L (3.4-5.0); Sodium 134 mmol/L (137-145)
[2023-09-25] MEDS: LEVOTHYROXINE SODIUM 75 MCG TABLET PO (06:57)
[2023-09-25 08:00] VITALS: PULSE 86
[2023-09-25] MEDS: TERAZOSIN HCL 1 MG CAPSULE 2 MG PO (08:45)
[2023-09-25 08:46] VITALS: PULSE 72
[2023-09-25] MEDS: guaiFENesin 12 HR 600 MG TABCR PO (08:46)
[2023-09-25] MEDS: ATORVASTATIN 40 MG TABLET PO (08:46)
[2023-09-25] MEDS: ASPIRIN 81 MG ENTERIC TABLET PO (08:46)
[2023-09-25] MEDS: ACETAMINOPHEN 325 MG TABLET 650 MG PO (08:46)
[2023-09-25] MEDS: AMOXICILLIN/CLAVULANATE K 500-125 MG TAB 1 TABLET PO (08:46)
[2023-09-25] MEDS: METOPROLOL SUCCINATE EXT REL 100 MG TABCR PO (08:46)
[2023-09-25] MEDS: ENOXAPARIN 30 MG/0.3 ML SYRINGE SUB-Q (08:47)
[2023-09-25] MEDS: AZITHROMYCIN 250 MG TABLET 500 MG PO (08:52)
[2023-09-25 09:26] LABS: Iron 54 ug/dL (49-181)
[2023-09-25 09:35] LABS: Percent Iron Saturation 26 % (20-50)
[2023-09-25 11:36] LABS: Folic Acid 7.8 ng/mL (2.76->20)
[2023-09-25 12:00] VITALS: PULSE 80
--- NOTE | 2023-09-25 12:51 | PM.DS ---
DS: Admitting Diagnosis Discharge Date 09/25/2023 Admitting Diagnosis Acute hypoxic community-acquired pneumonia coronary artery disease hemoptysis acute exacerbation of congestive heart failure CKD AFib DS: Discharge Diagnosis Discharge Diagnosis (1) Acute hypoxic respiratory failure: Code(s): J96.01 - Acute respiratory failure with hypoxia Status: Acute (2) CAP (community acquired pneumonia): Qualifiers: Laterality: left Lung location: lower lobe of lung Qualified Code(s): J18.9 - Pneumonia, unspecified organism Code(s): J18.9 - Pneumonia, unspecified organism Status: Acute (3) CAD (coronary artery disease): Qualifiers: Associated angina: with stable angina Coronary Disease-Associated Artery/Lesion type: hoh artery [place] vs. transplanted heart: hoh heart Qualified Code(s): I25.118 - Atherosclerotic heart disease of hoh coronary artery with other forms of angina pectoris Code(s): I25.10 - Atherosclerotic heart disease of hoh coronary artery without angina pectoris Status: Acute (4) Hemoptysis: Code(s): R04.2 - Hemoptysis Status: Acute (5) Acute exacerbation of congestive heart failure: Code(s): I50.9 - Heart failure, unspecified Status: Acute (6) CKD (chronic kidney disease) stage 3, GFR 30-59 ml/min: Code(s): N18.30 - Chronic kidney disease, stage 3 unspecified Status: Chronic (7) AF (atrial fibrillation): Code(s): I48.91 - Unspecified atrial fibrillation Status: Chronic DS: Summary Hospital Course Reason for hospitalization: Acute hypoxic community-acquired pneumonia coronary artery disease hemoptysis acute exacerbation of congestive heart failure CKD AFib Hospital Course: 88-year-old male past medical history heart failure reduced ejection fraction (EF as low as 35%), ischemic cardiomyopathy, ICD implantation, CAD status post in 2009, bicuspid aortic valve with stenosis status post bioprosthetic aortic valve replacement, hypertension, hyperlipidemia, CKD stage 3, anemia, BPH, hypothyroidism presenting with complaint of shortness of breath. On admission patient was noted to be in acute respiratory distress with new oxygen supplementation requirement of 2L NC (baseline room air). Patient had a slight leukocytosis but did not meet sepsis requirements at that time. Patients troponins wre elevated, but he denies chest pain. Cardiology was consulted and ruled out ASC. Patient endorsed mild hemoptysis. His Xarelto was held at that time. A Chest XR was obtained and showed bilateral basal pneumonia with left pleural effusion. Underlying cardiac decompensation with pulmonary edema is highly suggestive. Chest CT showed subsegmental right lower lobe atelectasis/consolidation. Mild interstitial edema.Moderate bilateral pleural effusions.Cardiomegaly. Patient was started on community acquired pneumonia treatment of azithromycin and rocephin. A sputum culture was negative. Blood cultures were negative. BNP was elevated at 19,400. He was then treated for cocurrent CHF exacerbation with IV lasix. An echo was obtained and showed worsening EF of 35-40%. Cardiology started patient on Toprolol XL and jardiance. Due to renal function, ANDREA/ARB/ARNI adn spironolactone was avoided. Patient underwent a thoracentesis on 09/22 with removal of 1L. He was weaned off the oxygen and returned to baseline room air. His hemoptysis resolved and his Xarelto was restarted at discharge. Patient completed his course of azithromycin while inpatient and is to compete the Augmentin at time of discharge. Patient was noted to be anemic throughout hospitalization. Iron panel and B12 were low and patient was started on supplementation. Patient was evaluated by PT/OT prior to discharge who recommended home health services. Patient discharged home with home health in stable condition. He is to complete his antibiotic regimen and follow
[2023-09-28 03:19] LABS: Legionella pneumophila Ag Ur NOT DETECTED
[2023-10-06 19:44] LABS: Albumin Pleural Fluid 0.5 g/dL; Amylase, Pleural Fluid <10 U/L; Glucose Pleural Fluid 126 mg/dL; LDH Pleural Fluid 27 U/L; Total Protein Pleural Fluid <3.0 g/dL
== END 2023-09-25 14:00 | disposition home health service (06) | DRG 193 ==
LOC: ANHED 10:38 → ANH3MEDSUR 11:11
PROVIDERS: Internal Medicine; Nurse Practitioner; Nurse Practitioner Adult Health; Admitting Provider Internal Medicine; Emergency Provider Emergency Medicine; PCP Family Medicine; Visit Provider Student in an Organized Health Care Education/Training Program
DX: J18.9 Pneumonia, unspecified organism (principal); I50.23 Acute on chronic systolic (congestive) heart failure; I13.0 Hypertensive heart and chronic kidney disease with heart failure and stage 1 through stage 4 chronic kidney disease, or unspecified chronic kidney disease; R04.2 Hemoptysis; N40.0 Benign prostatic hyperplasia without lower urinary tract symptoms; N18.30 Chronic kidney disease, stage 3 unspecified; E78.2 Mixed hyperlipidemia; I48.0 Paroxysmal atrial fibrillation; M41.9 Scoliosis, unspecified; M47.817 Spondylosis without myelopathy or radiculopathy, lumbosacral region; I25.10 Atherosclerotic heart disease of native coronary artery without angina pectoris; G62.9 Polyneuropathy, unspecified; I25.5 Ischemic cardiomyopathy; D64.9 Anemia, unspecified; R09.02 Hypoxemia; R07.89 Other chest pain; Z66 Do not resuscitate; Z95.2 Presence of prosthetic heart valve; Z87.891 Personal history of nicotine dependence; Z85.820 Personal history of malignant melanoma of skin; Z95.1 Presence of aortocoronary bypass graft; Z20.822 Contact with and (suspected) exposure to COVID-19; Z79.01 Long term (current) use of anticoagulants; Z95.810 Presence of automatic (implantable) cardiac defibrillator
CPT/HCPCS: 32555; 36415; 71046; 71250; 80048; 80053; 82042; 82150; 82607; 82746; 82945; 83540; 83550; 83605; 83615; 83880; 83986; 84145; 84157; 84311; 84443; 84478; 84484; 85025; 85027; 85610; 85730; 87015; 87040; 87070; 87075; 87102; 87116; 87205; 87206; 87449; 87635; 88108; 88305; 89051; 93005; 93306; 94640; 96365; 96367; 96375; 97110; 97116; 97161; 97165; 97530; 99285; A9270; G0378; J0456; J0696; J1650; J1940

== ENCOUNTER 2023-10-17 09:35 | Inpatient (IN) | payer MEDICARE, SELFPAY ==
[2023-10-17] VITALS (7 sets, daily range): BP systolic 125–151; BP diastolic 75–86; PULSE 80–88; RESP 17–28; TEMP 36.4; O2SAT 94–98; BMI 27.1
--- NOTE | ~2023-10-17 | XR_ITS ---
EXAMINATION: [id number] DATE: 10/23/2023 11:20 INDICATION: Bilateral pleural effusions status post left thoracentesis. TECHNIQUE: Frontal and lateral views of the chest were obtained. COMPARISON: Chest 2 views 10/17/2023 FINDINGS: There is a small right pleural effusion. There are airspace opacities at the lung bases. No pneumothorax. Cardiomegaly is noted. There are changes of aortic valve replacement. There is a closu re device at left atrial appendage. There is a left chest wall pacer with leads in the right atrium a nd right ventricle. There is a moderate-sized hiatal hernia. IMPRESSION: 1. Small right pleural effusion. 2. Airspace opacities at the lung bases with interval improvement, likely atelectasis. 3. Cardiomegaly. 4. Moderate-sized hiatal hernia. Reviewed, dictated and finalized at location A. IMPRESSION: 1. Small right pleural effusion. 2. Airspace opacities at the lung bases with interval improvement, likely atele ctasis. 3. Cardiomegaly. 4. Moderate-sized hiatal hernia.
--- NOTE | ~2023-10-17 | XR_ITS ---
EXAMINATION: XR chest 1V portable DATE: 10/23/2023 07:17 INDICATION: Pleural effusions. TECHNIQUE: A single frontal view of the chest was obtained. COMPARISON: Chest 2 views 10/17/2023, chest CT 10/21/2023 FINDINGS: There are small pleural effusions. There are airspace opacities in the perihilar regions an d at the lung bases. No pneumothorax. Cardiomegaly is noted. There are changes of aortic valve replac ement. There is a closure device at left atrial appendage. There is a left chest wall pacer with lead s in the right atrium and right ventricle. IMPRESSION: 1. Stable airspace opacities in the perihilar regions and at the lung bases, consistent with atelecta sis versus pneumonia. 2. Stable small pleural effusions. 3. Cardiomegaly. Reviewed, dictated and finalized at location A. IMPRESSION: 1. Stable airspace opacities in the perihilar regions and at the lung bases, co nsistent with atelectasis versus pneumonia. 2. Stable small pleural effusions. 3. Cardiomegaly.
--- NOTE | ~2023-10-17 | CT_ITS ---
CT Scan of the Chest without Contrast: Clinical Indication: Pneumonia, effusion Technique: Contiguous sections were acquired throughout the chest without intravenous contrast. Dose reduction technique was used on this scan by utilizing automated exposure control and iterative recon struction technique. The dose-length product (DLP) was 559.32 mGy-cm. COMPARISON: 09/21/2023 Findings: There is no evidence of any significant mediastinal, hilar or axillary lymphadenopathy.. Extensive co ronary artery calcifications and atherosclerotic calcifications of the aorta are present. No pericard ial effusion. . There are large bilateral pleural effusions, probably mildly increased in size from prior exam. The re is mild bibasilar atelectatic change. Images through the upper abdomen reveal moderate hiatal hernia and small layering gallstones/gallblad mary sludge. Impression: Large bilateral pleural effusions, probably increased from prior exam, with mild bibasilar atelectati c change. Moderate hiatal hernia. Reviewed, dictated and finalized at location M. Impression: Large bilateral pleural effusions, probably increased from prior exam, with mil d bibasilar atelectatic change. Moderate hiatal hernia.
--- NOTE | ~2023-10-17 | US_ITS ---
EXAMINATION: US thoracentesis DATE: 10/23/2023 11:19 INDICATION: pleural effusion TECHNIQUE: The procedure and its risks, benefits, and alternatives were discussed with the patient. P otential risks discussed included bleeding, infection, and pneumothorax. The patient understood the r isks and agreed to proceed. The skin was prepped and draped in sterile fashion. 1% lidocaine was used for local anesthesia. Under ultrasound guidance, a 5 Fr catheter with trochar was advanced into the left pleural effusion. Fluid was aspirated. The catheter was removed, and a dressing was applied. The re were no immediate complications. FINDINGS: Ultrasound images demonstrate a left pleural effusion and the catheter within the fluid. IMPRESSION: 1. Successful ultrasound-guided thoracentesis yielding 500 mL of yellow fluid. Reviewed, dictated and finalized at location A.
--- NOTE | ~2023-10-17 | XR_ITS ---
Clinical Indication: Shortness of breath AP and lateral views of the chest: Comparison: 09/23/2023 Findings: Small left pleural effusion present. There is an open incision bibasilar consolidation. Car diomediastinal silhouette is stable, with pacemaker device, status post interval placement. Bones and soft tissues are unremarkable. Impression: Probable bibasilar pulmonary edema/atelectasis. Correlate clinically for pneumonia. Small left pleural effusion. Status post interval replacement with pacemaker device. Reviewed, dictated and finalized at location . Impression: Probable bibasilar pulmonary edema/atelectasis. Correlate clinically for pneumo adrienne. Small left pleural effusion. Status post interval replacement with pacemaker device.
--- NOTE | 2023-10-17 09:43 | ECG_ITS ---
Test Date: 2023-10-17 09:49:11 Measurements Intervals [place] Rate: 80 P: 0 [place]: 0 QRS: -66 QRSD: 191 T: 117 QT: 460 QTc: 531 Interpretive Statements ELECTRONIC VENTRICULAR PACEMAKER BASELINE ARTIFACT- I, III, AVR, AVL, AVF NO FURTHER INTERPRETATION IS POSSIBLE ATYPICAL ECG Compared to ECG 09/21/2023 08:01:11 No significant changes Electronically Signed On 10-17-2023 11:11:35 CDT by Yvan Jenkins D.O.
[2023-10-17 09:55] LABS: Basophils Percent Auto 0.2 % (0.2-1.2); Eosinophils Absolute Auto 0.1 K/mm3 (0-0.3); Eosinophils Percent Auto 0.8 % (0-4.4); Hematocrit 30.3 % (42.0-52.0); Hemoglobin 9.5 g/dL (14.0-18.0); Immature Granulocyte Absolute 0.03 K/mm3 (0.00-0.031); Immature Granulocyte Percent A 0.3 % (0-0.5); Lymphocytes Absolute Auto 1.82 K/mm3 (0.9-3.2); Lymphocytes Percent Auto 20.1 % (18.3-44.2); Mean Corpuscular HGB Conc 31.4 g/dl (32-36); Mean Corpuscular Hemoglobin 33.8 pg (26-34); Mean Corpuscular Volume 107.8 fl (80-100); Mean Platelet Volume 10.4 fl (7.4-10.4); Monocytes Percent Auto 10.8 % (2.6-8.5); Neutrophils Absolute Auto 6.1 K/mm3 (1.3-6.7); Neutrophils Percent Auto 67.8 % (45.5-73.1); Platelet Count Result 135 k/mm3 (150-375); Red Blood Count 2.81 M/mm3 (4.6-6.20); Red Cell Distribution Width 15.2 % (11.5-14.5); White Blood Count 9.1 K/mm3 (4.5-10.0)
[2023-10-17 10:07] LABS: Alanine Aminotransferase 26 U/L (6-50); Alkaline Phosphatase 69 U/L (38-126); Anion Gap 7 mmol/L (4-12); Aspartate Amino Transferase 32 U/L (17-59); Bilirubin,Total 0.6 mg/dL (0.2-1.3); Blood Urea Nitrogen 35 mg/dL (9-20); Calcium 8.4 mg/dL (8.4-10.2); Carbon Dioxide 21 mmol/L (22-30); Chloride 107 mmol/L (98-107); Estimated CRCL calculation 28 ml/min; Estimated Glomerular Filt Rate 34; Glucose 112 mg/dL (65-110); Potassium 4.5 mmol/L (3.4-5.0); Sodium 135 mmol/L (137-145)
[2023-10-17 10:20] LABS: Anisocytosis 1+; Macrocytosis 1+ (NORMAL); Platelet Estimate Slightly Decreased (Adequate); Schistocytes None Seen
[2023-10-17 10:56] LABS: NT Pro B Type Natriuretic Pept 23100 pg/mL (19.9-100)
[2023-10-17 11:31] LABS: Influenza A QL RT-PCR Negative (Negative); Influenza B QL RT-PCR Negative (Negative); SARS-CoV-2 RNA PCR Negative (Negative)
--- NOTE | 2023-10-17 11:53 | ED.GENADULT ---
HPI - General Adult General Chief complaint: Shortness of Breath/Dyspnea Stated complaint: SOB Time Seen by Provider: 10/17/23 10:10 History of Present Illness HPI narrative: Patient is a 88-year-old male who presents to the emergency department this morning complaining of worsening shortness of breath since yesterday. Patient states the symptoms have been intermittent for the past week but has worsened yesterday / this morning. Patient was admitted here approximately 2 weeks ago for pneumonia and atrial fibrillation. Patient states that when he was discharged he was feeling slightly better and feels as though his symptoms have progressively gotten worse throughout the past few days. Patient also states that he been having some worsening lower extremity edema and states that the edema has now progressed to his arms as well. Denies taking any water pills at home. Denies any chest pain or shortness of breath and denies any abdominal pain. No additional symptoms or concerns at this time. Related Data Home Medications Medication Instructions Recorded Confirmed aspirin 81 mg tablet,delayed 81 mg PO DAILY 04/11/19 09/21/23 release (Adult Low Dose Aspirin) rivaroxaban 15 mg tablet (Xarelto) 15 mg PO DAILY 09/21/23 09/21/23 terazosin 2 mg capsule 2 mg PO DAILY 09/21/23 09/21/23 Allergies Allergy/AdvReac Type Severity Reaction Status Date / Time No Known Allergies Allergy Verified 09/21/23 12:24 Review of Systems Review of Systems: All systems are reviewed and are negative unless stated otherwise in the HPI. [facility] Past Medical History Medical History Aortic stenosis 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 History of cataract extraction History of coronary artery bypass graft x 3 (2009) MAGALLON to LAD, SVG to OM, SVG to PDA per Dr. Antony at [place]. History of hernia repair History of implantable cardioverter-defibrillator (ICD) placement (2009) History of melanoma excision Left hand. Family History Family History Father Patient's father is Family history of premature coronary heart disease, Onset Age: 56 Mother Bladder cancer Other No problems noted. Other Breast cancer Social History Social History Social History: Surrogate medical decision maker: Code status: Full code. Smoking packs per day: 0.5 Smoking cigarettes per day: 10.0 Years smoked: 40 Smoking pack-years: 20.00 Smoking status: Former smoker Tobacco type: cigarettes Second hand tobacco smoke exposure: No Smoking end date: 02/15/93 Alcohol intake: never Substance use: never Substance use type: does not use Do You Feel Safe in your Home?: Yes Lack of Transportation: No Lack of Food: Never True Current Housing: I Have Housing Concerned About Future Housing: No Difficulty Paying Gas/Electric Bills: No Difficulty Paying for Meds: No Currently Unemployed: No Education: Decline to Answer Difficulty w/ Childcare or Family Care: YES Living arrangements: with family Additional living arrangements comments: Has a son and daughter. Occupation/Education: retired [employer]
[2023-10-17] MEDS: levoFLOXacin 750 MG/D5W 150 ML 750 MG/150 ML BAG 100 MG IVPB (12:24)
--- NOTE | 2023-10-17 13:21 | PC.NURSE ---
This patient, Vladimir Blackburn, was admitted to Medical Room 345-01. Patient/family oriented to hospital policies and general routines including ID bracelet, bed and alarms, visiting hours, pain management, procedures, bathroom and other care routines, personal items, smoking policy, room service/diet, and visiting hours. Information on how to activate the Rapid Response Team has been discussed. Patient/Family are encouraged to report perceived risks to care and to ask questions if they do not understand what they are told or what they should do.
--- NOTE | 2023-10-17 14:10 | PM.IMHP ---
H&P: HPI History of Present Illness Date/Time: 10/17/23 14:10 Chief Complaint: Shortness of breath. Narrative: This is [id number] male with congestive heart failure, ischemic cardiomyopathy with ejection fraction as low as 30 to 35% although that has gradually improved, coronary artery disease status post 3 vessel bypass in 2009, bicuspid aortic valve with stenosis status post bioprosthetic aortic valve replacement, hypertension, hyperlipidemia, chronic kidney disease stage 3, anemia, benign prostatic hyperplasia, and hypothyroidism who presented to the emergency department for evaluation of shortness of breath. The patient provides the following history. He was admitted to hospital for 4 days earlier this month with hypoxia attributed to both pneumonia and congestive heart failure. He was feeling okay on discharge however over the past 1 week he has once again started to feel short of breath though it has been worse since about 6. He has also noticed an increase in lower extremity edema and new swelling in his arms. He also reports mild orthopnea and cough which is occasionally productive. He denies fever, chills, chest pain, pleuritic pain, nausea, vomiting, syncope, near-syncope, diarrhea, and dysuria. No sick contacts. He denies difficulty swallowing and concerns for aspirations. In the ED: He was afebrile on arrival with an SpO2 of 94% on room air and a blood pressure of 143/78. Labs are significant for WBC count of 9.1, hemoglobin 9.5, platelet 135, sodium 135, BUN 35, creatinine 1.90, proBNP 07550, total protein 6.0, albumin 3.0. He tested negative for influenza and COVID. Chest x-ray showed probable bibasilar pulmonary edema/atelectasis and small left pleural effusion. He was given levofloxacin 750 mg IV for possible pneumonia and is being admitted in this setting. Review of Systems Review of Systems: 12 systems were reviewed and are negative except for as per HPI. [facility] Past Medical History Medical History Aortic stenosis 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 History of cataract extraction History of coronary artery bypass graft x 3 (2009) MAGALLON to LAD, SVG to OM, SVG to PDA per Dr. Antony at [place]. History of hernia repair History of implantable cardioverter-defibrillator (ICD) placement (2009) History of melanoma excision Left hand. Family History Family History Father Patient's father is Family history of premature coronary heart disease, Onset Age: 56 Mother Bladder cancer Other No problems noted. Other Breast cancer Social History Social History (Updated 10/17/23 @ 20:32 by Justine Rivera PA-C) Social History: Surrogate medical decision maker: Kerri Tabor, daughter. Code status: Full code. Smoking packs per day: 0.5 Smoking cigarettes per day: 10.0 Years smoked: 40 Smoking pack-years: 20.00 Smoking status: Former smoker Second hand tobacco smoke exposure: No Alcohol intake: never Substance use: never Substance use type: does not use Do You Feel Safe in your Home?: Yes Lack of Transportation: No Lack of Food: Never True Current Housing: I Have Housing Concerned About Future Housi
[2023-10-17 16:50] LABS: Free T4 Free Thyroxine Reflex 1.43 ng/dL (0.78-2.19)
[2023-10-17 17:36] LABS: Total Triiodothyronine (T3) 0.78 NG/ML (0.97-1.69)
[2023-10-17 17:58] LABS: Color Urine Yellow (Yellow)
[2023-10-17 17:59] LABS: Appearance Urine Clear (Clear); Protein Urine 3+ mg/dL (Negative); Specific Grav Ur 1.025 (1.001-1.035)
[2023-10-17 18:00] LABS: Blood Urine Trace-intact (Negative); Glucose Urine UA Negative (Negative); Ketones Urine Negative (Negative)
[2023-10-17 18:01] LABS: Add Urine Microscopic? YES; Bilirubin Urine Negative (Negative); Leukocyte Esterase Ur Negative LEU/UL (Negative); Nitrate Urine Negative (Negative); Urobilinogen Urine 0.2 mg/dL (<2.0)
[2023-10-17 19:07] LABS: Bacteria Urine None Seen /hpf; Mucus Urine Present /lpf; Need Manual Microscopic Reviewed; RBC Urine 0-2 /hpf (0-2); Squamous Epithelial Cell Urine None Seen /hpf (Few); WBC Urine 0-5 /hpf (0-3)
[2023-10-17] MEDS: MELATONIN 5 MG TABLET PO (20:54)
[2023-10-17] MEDS: FUROSEMIDE INJ 40 MG/4 ML VIAL 20 MG IV PUSH (20:54)
--- NOTE | 2023-10-18 03:14 | PC.NURSE ---
Pt has called out multiple times and has been very argumentative and sarcastic when we are in with him.
[2023-10-18 05:18] LABS: Hematocrit 31.6 % (42.0-52.0); Immature Platelet Fraction Pct 4.6 % (0.9-11.2); Mean Corpuscular HGB Conc 31.6 g/dl (32-36); Mean Corpuscular Hemoglobin 34.1 pg (26-34); Mean Corpuscular Volume 107.8 fl (80-100); Mean Platelet Volume 10.7 fl (7.4-10.4); Platelet Count Result 148 k/mm3 (150-375); Red Blood Count 2.93 M/mm3 (4.6-6.20); Red Cell Distribution Width 15.1 % (11.5-14.5); White Blood Count 10.1 K/mm3 (4.5-10.0)
[2023-10-18 05:28] LABS: Anion Gap 7 mmol/L (4-12); Blood Urea Nitrogen 36 mg/dL (9-20); Calcium 8.9 mg/dL (8.4-10.2); Carbon Dioxide 22 mmol/L (22-30); Chloride 107 mmol/L (98-107); Estimated CRCL calculation 25 ml/min; Estimated Glomerular Filt Rate 30; Glucose 122 mg/dL (65-110); Magnesium 1.8 mg/dL (1.6-2.3); Potassium 4.7 mmol/L (3.4-5.0); Sodium 136 mmol/L (137-145)
[2023-10-18 06:00] VITALS: BP 135/82; PULSE 98; RESP 20; TEMP 36.4; O2SAT 98
[2023-10-18] MEDS: LEVOTHYROXINE SODIUM 75 MCG TABLET PO (06:14)
[2023-10-18 08:59] VITALS: O2SAT 99
[2023-10-18] MEDS: CYANOCOBALAMIN 500 MCG TABLET PO (08:59)
[2023-10-18] MEDS: ATORVASTATIN 40 MG TABLET PO (08:59)
[2023-10-18] MEDS: FUROSEMIDE INJ 40 MG/4 ML VIAL 20 MG IV PUSH ×2 (08:59→18:26)
[2023-10-18] MEDS: FERROUS SULFATE 325 MG TABLET DR PO (08:59)
[2023-10-18] MEDS: ASPIRIN 81 MG ENTERIC TABLET PO (08:59)
[2023-10-18] MEDS: EMPAGLIFLOZIN 10 MG TABLET PO (08:59)
[2023-10-18 09:00] VITALS: BP 149/83; PULSE 78; RESP 16; O2SAT 99
[2023-10-18] MEDS: METOPROLOL SUCCINATE EXT REL 100 MG TABCR PO (09:00)
[2023-10-18] MEDS: RIVAROXABAN 15 MG TABLET PO (09:00)
[2023-10-18] MEDS: TERAZOSIN HCL 1 MG CAPSULE 2 MG PO (09:02)
--- NOTE | 2023-10-18 12:32 | PM.IMPN ---
Progress Note: A&P Assessment and Plan (1) Acute hypoxic respiratory failure: Code(s): J96.01 - Acute respiratory failure with hypoxia Status: Acute Assessment and Plan: - Possibly related to # 2 and #3 below. - Mgt as # 2 and # 3. - Currently good O2 sats on RA > 90 %. - Continue to monitor for respiraory distress. (2) Pneumonia: Code(s): J18.9 - Pneumonia, unspecified organism Status: Acute Assessment and Plan: - CXR -Probable bibasilar pulmonary edema/atelectasis. Correlate clinically for pneumonia. - Patient noted with SOB and intermittent coughs of yellowish and dark sputum. - WBC's slightly elevated. - We'll treat for possible pneumonia currently. - We'll obtain blood cultures, urine S.pneumo and legionella Ag ordered, sputum Cx, start broad-spectrum IV abx. - Follow-cultures and adjust abx as needed. (3) Acute exacerbation of congestive heart failure: Code(s): I50.9 - Heart failure, unspecified Status: Acute Assessment and Plan: - Acute on Chronic. - BNP 23,100. - Started on Lasix IV BID. - Strict I &O's with daily weights. - Monitor renal panel with diuresis. (4) Chronic kidney disease, stage 3: Code(s): N18.30 - Chronic kidney disease, stage 3 unspecified Status: Acute Assessment and Plan: - Kidney function at previous baseline. - Cr 2.1>>1.8>>2.1 - Monitor closely with diuresis. - Avoid nephrotoxic agents. (5) Benign essential hypertension: Code(s): I10 - Essential (primary) hypertension Status: Acute Assessment and Plan: - Fairly well controlled. - Continue metoprolol. (6) AF (atrial fibrillation): Code(s): I48.91 - Unspecified atrial fibrillation Status: Chronic Assessment and Plan: - Rate well controlled. - Continue Metoprolol and Xarelto. (7) Chronic anemia: Code(s): D64.9 - Anemia, unspecified Status: Acute Assessment and Plan: - Hgb stable from previous baseline. - Monitor closely. (8) Hypothyroidism: Code(s): E03.9 - Hypothyroidism, unspecified Status: Acute Assessment and Plan: - Continue levothyroxine. Subjective Date/time seen: 10/18/23 11:30 Interval history: Patient was admitted here approximately 2 weeks ago for pneumonia and atrial fibrillation. Patient states that when he was discharged he was feeling slightly better and feels as though his symptoms have progressively gotten worse throughout the past few days. Patient also states that he been having some worsening lower extremity edema and states that the edema has now progressed to his arms as well. Denies taking any water pills at home. Review of Systems Review of Systems: 12 systems were reviewed and are negative except for as per HPI. Exam Narrative: General: Chronically ill-appearing elderly gentleman on bedrest, no acute distress. HEENT: PERRL, EOMI. Sclera anicteric. Moist mucous membranes. Neck: Supple. No significant jugular venous distension. Respiratory: Diminished breath sounds. Cardiovascular: Regular rate and rhythm, S1-S2. Left sternal border murmur. Gastrointestinal: Abdomen soft, nontender, nondistended, +ve bowel sounds all quadrants. Skin: Warm and dry and pink. No rash or lesions noted. Extremities: No cyanosis or clubbing. 2+ leona ankle edema joann. 2+ edema left foot. Neurological: Well oriented. Cranial nerves II-XII grossly intact. No gross focal deficits noted. Psychiatric: Cooperative with appropriate mood and affect. Objective Data Vital Signs Vital Signs: Vital Signs - 24 hr 10/17/23 13:01 10/17/23 13:48 10/17/23 20:32 Temperature 97.5 F L 97.5 F L 97.5 F L Pulse Rate 81 81 82 Respiratory Rate 20 17 20 Blood Pressure 151/77 H 140/86 136/79 Pulse Oximetry 98 94 98 Oxygen Delivery Oxygen Flow Rate 10/18/23 06:00 10/18/23 09:00 10/18/23 09:00 Temperature 97.5 F L Pulse Rate 98 78 78 Respiratory Rate 20 16 B
[2023-10-18 13:13] LABS: Procalcitonin 0.1 ng/mL
[2023-10-18] MEDS: CEFEPIME 1 GM/NS 50 ML 1 GM/50 ML BAG IVPB ×2 (14:26→20:25)
[2023-10-18] MEDS: VANCOMYCIN 1,250 MG/NS 250 ML 1,250 MG/250 ML BAG 166.67 MG IVPB (15:04)
[2023-10-18 15:09] VITALS: BP 118/92; PULSE 79; RESP 20; TEMP 36.4; O2SAT 97
[2023-10-18 15:52] LABS: MRSA (PCR) NOT DETECTED (NOT DETECTE)
--- NOTE | 2023-10-18 17:49 | PC.NURSE ---
RN spoke with hospitalist Stan. Lucinda to d/c blood culture ordered for today as patient had blood cultures drawn yesterday.
[2023-10-18 20:11] VITALS: BP 139/72; PULSE 80; RESP 16; TEMP 36.4; O2SAT 97
[2023-10-18] MEDS: MELATONIN 5 MG TABLET PO (20:25)
[2023-10-19 05:45] LABS: Estimated CRCL calculation 24 ml/min; Estimated Glomerular Filt Rate 29
[2023-10-19 06:00] VITALS: BP 135/88; PULSE 90; RESP 20; TEMP 36.3; O2SAT 95
[2023-10-19] MEDS: LEVOTHYROXINE SODIUM 75 MCG TABLET PO (06:00)
[2023-10-19 06:07] LABS: Vancomycin Random 11.3 ug/mL (10-20)
[2023-10-19] MEDS: VANCOMYCIN 1,250 MG/NS 250 ML 1,250 MG/250 ML BAG 166.67 MG IVPB (07:44)
[2023-10-19 10:05] VITALS: O2SAT 92
[2023-10-19] MEDS: ASPIRIN 81 MG ENTERIC TABLET PO (10:05)
[2023-10-19 10:06] VITALS: PULSE 80
[2023-10-19] MEDS: METOPROLOL SUCCINATE EXT REL 100 MG TABCR PO (10:06)
[2023-10-19] MEDS: FERROUS SULFATE 325 MG TABLET DR PO (10:06)
[2023-10-19] MEDS: RIVAROXABAN 15 MG TABLET PO (10:06)
[2023-10-19] MEDS: FUROSEMIDE INJ 40 MG/4 ML VIAL 20 MG IV PUSH ×2 (10:06→16:54)
[2023-10-19] MEDS: ATORVASTATIN 40 MG TABLET PO (10:06)
[2023-10-19] MEDS: CYANOCOBALAMIN 500 MCG TABLET PO (10:06)
[2023-10-19] MEDS: TERAZOSIN HCL 1 MG CAPSULE 2 MG PO (10:06)
[2023-10-19] MEDS: CEFEPIME 1 GM/NS 50 ML 1 GM/50 ML BAG IVPB ×2 (10:08→20:02)
--- NOTE | 2023-10-19 10:58 | P.CDI_ITS ---
CDI Query Clarification Request Acute exacerbation of CHF has been documented. Please specify type of heart failure if known. Clinical Indicators: BNP 32500 Treatment: IV lasix * Systolic * Diastolic * Combined Systolic and Diastolic * Unknown <Sarika Dai RN - Last Filed: 10/19/23 11:00> Clarified Diagnosis Clarified Diagnosis: Acute on Chronic HFpEF <Stan Fry NP - Last Filed: 11/03/23 22:36>
--- NOTE | 2023-10-19 10:58 | WPDCDIQUERY2 ---
CDI Query Clarification Request Acute exacerbation of CHF has been documented. Please specify type of heart failure if known. Clinical Indicators: BNP 97780 Treatment: IV lasix Systolic Diastolic Combined Systolic and Diastolic Unknown <Sarika Dai RN - Last Filed: 10/19/23 11:00> Clarified Diagnosis Clarified Diagnosis: Acute on Chronic HFpEF <Stan Fry NP - Last Filed: 11/03/23 22:36>
[2023-10-19 14:00] VITALS: BP 133/71; PULSE 81; RESP 20; TEMP 36.4; O2SAT 96
--- NOTE | 2023-10-19 15:00 | PM.IMPN ---
Progress Note: A&P Assessment and Plan (1) Acute hypoxic respiratory failure: Code(s): J96.01 - Acute respiratory failure with hypoxia Status: Acute Assessment and Plan: - Possibly related to # 2 and #3 below. - Mgt as # 2 and # 3. - Currently good O2 sats on RA > 90 %. - Continue to monitor for respiraory distress. (2) Pneumonia: Code(s): J18.9 - Pneumonia, unspecified organism Status: Acute Assessment and Plan: - CXR -Probable bibasilar pulmonary edema/atelectasis. Correlate clinically for pneumonia. - Patient reports improvement in SOB and intermittent coughs. - WBC's slightly elevated. - Continue IV abx. - Continue to cultures, urine S.pneumo and legionella Ag. (3) Acute exacerbation of congestive heart failure: Code(s): I50.9 - Heart failure, unspecified Status: Acute Assessment and Plan: - Acute on Chronic. - BNP 23,100. - Continue Lasix IV BID. - Strict I &O's with daily weights. - Monitor renal panel with diuresis. (4) Chronic kidney disease, stage 3: Code(s): N18.30 - Chronic kidney disease, stage 3 unspecified Status: Acute Assessment and Plan: - Kidney function at previous baseline. - Cr 2.1>>1.8>>2.1>>2.2 - Continue to monitor closely with diuresis. - Avoid nephrotoxic agents. (5) Benign essential hypertension: Code(s): I10 - Essential (primary) hypertension Status: Acute Assessment and Plan: - Fairly well controlled. - Continue metoprolol. (6) AF (atrial fibrillation): Code(s): I48.91 - Unspecified atrial fibrillation Status: Chronic Assessment and Plan: - Rate well controlled. - Continue Metoprolol and Xarelto. (7) Chronic anemia: Code(s): D64.9 - Anemia, unspecified Status: Acute Assessment and Plan: - Hgb stable from previous baseline. - Monitor closely. (8) Hypothyroidism: Code(s): E03.9 - Hypothyroidism, unspecified Status: Acute Assessment and Plan: - Continue levothyroxine. Subjective Date/time seen: 10/19/23 10:00 Interval history: Patient was admitted here approximately 2 weeks ago for pneumonia and atrial fibrillation. Patient states that when he was discharged he was feeling slightly better and feels as though his symptoms have progressively gotten worse throughout the past few days. Patient also states that he has been having some worsening lower extremity edema and states that the edema has now progressed to his arms as well. Denies taking any water pills at home. Review of Systems Review of Systems: 12 systems were reviewed and are negative except for as per HPI. Exam Narrative: General: Chronically ill-appearing elderly gentleman on bedrest, no acute distress. HEENT: PERRL, EOMI. Sclera anicteric. Moist mucous membranes. Neck: Supple. No significant jugular venous distension. Respiratory: Diminished breath sounds. Cardiovascular: Regular rate and rhythm, S1-S2. Grade III Left sternal border murmur. Gastrointestinal: Abdomen soft, nontender, nondistended, +ve bowel sounds all quadrants. Skin: Warm and dry and pink. No rash or lesions noted. Extremities: No cyanosis or clubbing. Trace leona-ankle edema. 2+ edema left foot. Neurological: Well oriented. Cranial nerves II-XII grossly intact. No gross focal deficits noted. Psychiatric: Cooperative with appropriate mood and affect. Objective Data Vital Signs Vital Signs: Vital Signs - 24 hr 10/18/23 15:09 10/18/23 20:11 10/18/23 20:00 Temperature 97.6 F 97.6 F Pulse Rate 79 80 Respiratory Rate 20 16 Blood Pressure 118/92 H 139/72 Pulse Oximetry 97 97 Oxygen Delivery Room Air 10/19/23 06:00 10/19/23 10:06 10/19/23 10:05 Temperature 97.4 F L Pulse Rate 90 80 Respiratory Rate 20 Blood Pressure 135/88 Pulse Oximetry 95 92 Oxygen Delivery Room Air Intake/Output Intake/Output: Intake & Output 10/16/23 10/17/23 10/18/23
[2023-10-19 20:04] VITALS: BP 145/66; PULSE 79; RESP 18; TEMP 36.3; O2SAT 98
[2023-10-20] MEDS: LEVOTHYROXINE SODIUM 75 MCG TABLET PO (05:32)
[2023-10-20 05:43] LABS: Basophils Percent Auto 0.4 % (0.2-1.2); Eosinophils Absolute Auto 0.1 K/mm3 (0-0.3); Eosinophils Percent Auto 1.2 % (0-4.4); Hematocrit 29.3 % (42.0-52.0); Hemoglobin 9.7 g/dL (14.0-18.0); Immature Granulocyte Absolute 0.05 K/mm3 (0.00-0.031); Immature Granulocyte Percent A 0.5 % (0-0.5); Lymphocytes Absolute Auto 2.17 K/mm3 (0.9-3.2); Lymphocytes Percent Auto 21.2 % (18.3-44.2); Mean Corpuscular HGB Conc 33.1 g/dl (32-36); Mean Corpuscular Hemoglobin 34.6 pg (26-34); Mean Corpuscular Volume 104.6 fl (80-100); Mean Platelet Volume 10.5 fl (7.4-10.4); Monocytes Absolute Auto 1.1 K/mm3 (0.1-0.6); Neutrophils Absolute Auto 6.7 K/mm3 (1.3-6.7); Neutrophils Percent Auto 65.7 % (45.5-73.1); Platelet Count Result 134 k/mm3 (150-375); Red Cell Distribution Width 15.3 % (11.5-14.5); White Blood Count 10.3 K/mm3 (4.5-10.0)
[2023-10-20 05:55] LABS: Anion Gap 9 mmol/L (4-12); Blood Urea Nitrogen 43 mg/dL (9-20); Calcium 8.6 mg/dL (8.4-10.2); Carbon Dioxide 24 mmol/L (22-30); Chloride 103 mmol/L (98-107); Estimated CRCL calculation 25 ml/min; Estimated Glomerular Filt Rate 30; Glucose 97 mg/dL (65-110); Potassium 4.5 mmol/L (3.4-5.0); Sodium 136 mmol/L (137-145)
[2023-10-20 06:00] VITALS: BP 142/75; PULSE 79; RESP 18; TEMP 36.8; O2SAT 94
--- NOTE | 2023-10-20 07:27 | PM.IMPN ---
Progress Note: A&P Assessment and Plan (1) Acute hypoxic respiratory failure: Code(s): J96.01 - Acute respiratory failure with hypoxia Status: Acute Assessment and Plan: - Possibly related to # 2 and #3 below. - Mgt as # 2 and # 3. - Currently good O2 sats on RA > 90 %. - Continue to monitor for respiraory distress. (2) Pneumonia: Code(s): J18.9 - Pneumonia, unspecified organism Status: Acute Assessment and Plan: - CXR -Probable bibasilar pulmonary edema/atelectasis. Correlate clinically for pneumonia. - Patient reports improvement in SOB and intermittent coughs. - WBC's slightly elevated. - Continue IV abx. - Continue to cultures, urine S.pneumo and legionella Ag. --CT chest, without contrast given renal flunction (3) Acute exacerbation of congestive heart failure: Code(s): I50.9 - Heart failure, unspecified Status: Acute Assessment and Plan: - Acute on Chronic, systolic - BNP 23,100. - Continue Lasix IV BID. - Strict I &O's with daily weights. - Monitor renal panel with diuresis. -Repeat echo, unclear cause of acute heart failure, previously had a WMA --Cardiology consult (4) Chronic kidney disease, stage 3: Code(s): N18.30 - Chronic kidney disease, stage 3 unspecified Status: Acute Assessment and Plan: - Kidney function at previous baseline. - Cr 2.1>>1.8>>2.1>>2.2 - Continue to monitor closely with diuresis. - Avoid nephrotoxic agents. (5) Benign essential hypertension: Code(s): I10 - Essential (primary) hypertension Status: Acute Assessment and Plan: - Fairly well controlled. - Continue metoprolol. (6) AF (atrial fibrillation): Code(s): I48.91 - Unspecified atrial fibrillation Status: Chronic Assessment and Plan: - Rate well controlled. - Continue Metoprolol and Xarelto. (7) Chronic anemia: Code(s): D64.9 - Anemia, unspecified Status: Acute Assessment and Plan: - Hgb stable from previous baseline. - Monitor closely. (8) Hypothyroidism: Code(s): E03.9 - Hypothyroidism, unspecified Status: Acute Assessment and Plan: - Continue levothyroxine. Time Spent With Patient Time: 59 minutes Subjective Date/time seen: 10/20/23 07:27 Interval history: Short of breath with activity. NTproBNP elevated Reports symptoms persistent since last admission, hasn't felt much improvement during admission. Primarily shortness of breath with activty, fatigue. Last echo echo difficult to interpret in comparison to prior. Last admission had a thoracentesis with 1 liter off. Diuresing, limited by kidney function Review of Systems Review of Systems: 12 systems were reviewed and are negative except for as per HPI. Exam Narrative: General: Chronically ill-appearing elderly gentleman on bedrest, no acute distress. HEENT: PERRL, EOMI. Sclera anicteric. Moist mucous membranes. Neck: Supple. No significant jugular venous distension. Respiratory: Diminished breath sounds. Cardiovascular: Regular rate and rhythm, S1-S2. Grade III Left sternal border murmur. Gastrointestinal: Abdomen soft, nontender, nondistended, +ve bowel sounds all quadrants. Skin: Warm and dry and pink. No rash or lesions noted. Extremities: No cyanosis or clubbing. Trace leona-ankle edema. 2+ edema left foot. Neurological: Well oriented. Cranial nerves II-XII grossly intact. No gross focal deficits noted. Psychiatric: Cooperative with appropriate mood and affect. Objective Data Vital Signs Vital Signs: Vital Signs - 24 hr 10/19/23 10:06 10/19/23 10:05 10/19/23 14:00 Temperature 97.6 F Pulse Rate 80 81 Respiratory Rate 20 Blood Pressure 133/71 Pulse Oximetry 92 96 Oxygen Delivery Room Air 10/19/23 20:04 10/19/23 20:00 10/20/23 06:00 Temperature 97.4 F L 98.2 F Pulse Rate 79 79 Respiratory Rate 18 18 Blood Pressure 145/66 H 142/75 H Pulse Oximetry 98
[2023-10-20 07:29] VITALS: O2SAT 95
[2023-10-20 08:35] VITALS: PULSE 81
[2023-10-20] MEDS: EMPAGLIFLOZIN 10 MG TABLET PO (08:35)
[2023-10-20] MEDS: METOPROLOL SUCCINATE EXT REL 100 MG TABCR PO (08:35)
[2023-10-20] MEDS: RIVAROXABAN 15 MG TABLET PO (08:35)
[2023-10-20] MEDS: ASPIRIN 81 MG ENTERIC TABLET PO (08:35)
[2023-10-20] MEDS: CYANOCOBALAMIN 500 MCG TABLET PO (08:35)
[2023-10-20] MEDS: FERROUS SULFATE 325 MG TABLET DR PO (08:35)
[2023-10-20] MEDS: ATORVASTATIN 40 MG TABLET PO (08:35)
[2023-10-20] MEDS: TERAZOSIN HCL 1 MG CAPSULE 2 MG PO (08:35)
[2023-10-20] MEDS: CEFEPIME 1 GM/NS 50 ML 1 GM/50 ML BAG IVPB ×2 (08:35→22:08)
[2023-10-20] MEDS: FUROSEMIDE INJ 40 MG/4 ML VIAL 20 MG IV PUSH ×2 (08:36→17:43)
[2023-10-20 09:00] VITALS: O2SAT 96
[2023-10-20 14:00] VITALS: BP 117/65; PULSE 79; RESP 18; TEMP 36.8; O2SAT 98
--- NOTE | 2023-10-20 16:13 | PCPTNOTE ---
On 10/20/23, the student, [Evelyne Patel], provided care and completed [facility] documentation on this patient. I have reviewed the student's documentation and agree with the findings.
[2023-10-20 18:49] LABS: Vancomycin Random 13.1 ug/mL (10-20)
[2023-10-20] MEDS: VANCOMYCIN 1,500 MG/NS 500 ML 1,500 MG/500 ML BAG 250 MG IVPB (19:39)
[2023-10-20 19:59] VITALS: BP 141/65; PULSE 80; RESP 18; TEMP 36.3; O2SAT 94
[2023-10-21] MEDS: ACETAMINOPHEN 325 MG TABLET 650 MG PO (01:43)
[2023-10-21 04:50] VITALS: BP 147/72; PULSE 80; RESP 18; TEMP 37.1; O2SAT 95
[2023-10-21] MEDS: LEVOTHYROXINE SODIUM 75 MCG TABLET PO (05:28)
[2023-10-21 05:46] LABS: Estimated CRCL calculation 23 ml/min; Estimated Glomerular Filt Rate 27
[2023-10-21] MEDS: METOPROLOL SUCCINATE EXT REL 100 MG TABCR PO (08:15)
[2023-10-21] MEDS: CEFEPIME 1 GM/NS 50 ML 1 GM/50 ML BAG IVPB (08:15)
[2023-10-21] MEDS: FERROUS SULFATE 325 MG TABLET DR PO (08:15)
[2023-10-21] MEDS: RIVAROXABAN 15 MG TABLET PO (08:15)
[2023-10-21] MEDS: CYANOCOBALAMIN 500 MCG TABLET PO (08:15)
[2023-10-21] MEDS: ASPIRIN 81 MG ENTERIC TABLET PO (08:15)
[2023-10-21] MEDS: EMPAGLIFLOZIN 10 MG TABLET PO (08:15)
[2023-10-21] MEDS: TERAZOSIN HCL 1 MG CAPSULE 2 MG PO (08:15)
[2023-10-21] MEDS: ATORVASTATIN 40 MG TABLET PO (08:15)
[2023-10-21] MEDS: FUROSEMIDE INJ 40 MG/4 ML VIAL 20 MG IV PUSH ×2 (08:15→17:35)
--- NOTE | 2023-10-21 09:30 | PC.NURSE ---
Patient to CT scan per wheelchair.
--- NOTE | 2023-10-21 10:12 | PM.IMPN ---
Progress Note: A&P Assessment and Plan (1) Acute hypoxic respiratory failure: Code(s): J96.01 - Acute respiratory failure with hypoxia Status: Acute Assessment and Plan: - Possibly related to # 2 and #3 below. - Mgt as # 2 and # 3. - Currently good O2 sats on RA > 90 %. - Continue to monitor for respiraory distress. (2) Pneumonia: Code(s): J18.9 - Pneumonia, unspecified organism Status: Acute Assessment and Plan: - CXR -Probable bibasilar pulmonary edema/atelectasis. Correlate clinically for pneumonia. - Patient reports improvement in SOB and intermittent coughs. - WBC's slightly elevated. - Continue IV abx. - Continue to cultures, urine S.pneumo and legionella Ag. --CT chest, without contrast given renal flunction (3) Acute exacerbation of congestive heart failure: Code(s): I50.9 - Heart failure, unspecified Status: Deleted Assessment and Plan: - Acute on Chronic, systolic - BNP 23,100. - Continue Lasix IV BID. - Strict I &O's with daily weights. - Monitor renal panel with diuresis. -Repeat echo, unclear cause of acute heart failure, previously had a WMA --Cardiology consult (4) Chronic kidney disease, stage 3: Code(s): N18.30 - Chronic kidney disease, stage 3 unspecified Status: Acute Assessment and Plan: - Kidney function at previous baseline. - Cr 2.1>>1.8>>2.1>>2.2 - Continue to monitor closely with diuresis. - Avoid nephrotoxic agents. (5) Benign essential hypertension: Code(s): I10 - Essential (primary) hypertension Status: Acute Assessment and Plan: - Fairly well controlled. - Continue metoprolol. (6) AF (atrial fibrillation): Code(s): I48.91 - Unspecified atrial fibrillation Status: Chronic Assessment and Plan: - Rate well controlled. - Continue Metoprolol and Xarelto. (7) Chronic anemia: Code(s): D64.9 - Anemia, unspecified Status: Acute Assessment and Plan: - Hgb stable from previous baseline. - Monitor closely. (8) Hypothyroidism: Code(s): E03.9 - Hypothyroidism, unspecified Status: Acute Assessment and Plan: - Continue levothyroxine. (9) Bacteremia: Code(s): R78.81 - Bacteremia Status: Acute Assessment and Plan: positive blood cultures 10/17- gram positive cocci clusters - on vanc and cefepime - will deescalate to po switch cefepime to augmentin po (2 more days total course 7 days) - if repeat culture negative- possible discharge tomorrow as doing a lot better Time Spent With Patient Time with patient: Greater than 35 minutes Subjective Date/time seen: 10/21/23 10:12 Interval history: Short of breath with activity. NTproBNP elevated Reports symptoms persistent since last admission, hasn't felt much improvement during admission. Primarily shortness of breath with activty, fatigue. Last echo echo difficult to interpret in comparison to prior. Last admission had a thoracentesis with 1 liter off. Diuresing, limited by kidney function 10/20 assuming care. pt is doing well today. resting with eyes closed. denies any chills, chest pain, sob Review of Systems Review of Systems: 12 systems were reviewed and are negative except for as per HPI. Exam Narrative: General: Chronically ill-appearing elderly gentleman on bedrest, no acute distress. HEENT: PERRL, EOMI. Sclera anicteric. Moist mucous membranes. Neck: Supple. No significant jugular venous distension. Respiratory: Diminished breath sounds. Cardiovascular: Regular rate and rhythm, S1-S2. Grade III Left sternal border murmur. Gastrointestinal: Abdomen soft, nontender, nondistended, +ve bowel sounds all quadrants. Skin: Warm and dry and pink. No rash or lesions noted. Extremities: No cyanosis or clubbing. Trace leona-ankle edema. 2+ edema left foot. Neurological: Well oriented. Cranial nerves II-XII grossly intact. No gross focal deficits noted. Ps
--- NOTE | 2023-10-21 10:26 | PM.CNCAR ---
History of Present Illness History of Present Illness Consult date/time: 10/21/23 10:26 Requesting physician: Rosa Flynn APRN Reason For Visit: Shortness of Breath/Pneumonia/Fluid Overload Narrative: Vladimir Blackburn is an 88 year old male with coronary artery disease s/p CABG (MAGALLON to LAD, SVG to OM, SVG to PDA) in 2009, s/p bioprosthetic AVR, s/p [employer] ICD, atrial fibrillation, heart failure with reduced LVEF of 40-45% per TTE 05/2023, chronic kidney disease. We are consulted because of congestive heart failure. [facility] Past Medical History Medical History Aortic stenosis 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 History of cataract extraction History of coronary artery bypass graft x 3 (2009) MAGALLON to LAD, SVG to OM, SVG to PDA per Dr. Antony at [facility]. History of hernia repair History of implantable cardioverter-defibrillator (ICD) placement (2009) History of melanoma excision Left hand. Family History Family History Father Patient's father is Family history of premature coronary heart disease, Onset Age: 56 Mother Bladder cancer Other No problems noted. Other Breast cancer Social History Social History (Updated 10/17/23 @ 20:32 by Justine Rivera PA-C) Social History: Surrogate medical decision maker: Kerri Oquendochinacharla, daughter. Code status: Full code. Smoking packs per day: 0.5 Smoking cigarettes per day: 10.0 Years smoked: 40 Smoking pack-years: 20.00 Smoking status: Former smoker Second hand tobacco smoke exposure: No Alcohol intake: never Substance use: never Substance use type: does not use Do You Feel Safe in your Home?: Yes Lack of Transportation: No Lack of Food: Never True Current Housing: I Have Housing Concerned About Future Housing: No Difficulty Paying Gas/Electric Bills: No Difficulty Paying for Meds: No Currently Unemployed: No Education: Decline to Answer Difficulty w/ Childcare or Family Care: YES Living arrangements: with family Additional living arrangements comments: Has a son and daughter. Occupation/Education: retired Spiritual care concerns: No Meds Home Medications and Allergies Home Medications Medication Instructions Recorded Confirmed Type aspirin 81 mg tablet,delayed 81 mg PO DAILY 04/11/19 10/17/23 History release (Adult Low Dose Aspirin) atorvastatin 40 mg tablet 40 mg PO DAILY #100 tabs 10/23/22 10/17/23 Rx levothyroxine 75 mcg tablet 75 mcg PO DAILY@0630 #90 tabs 06/14/23 10/17/23 Rx (Synthroid) rivaroxaban 15 mg tablet (Xarelto) 15 mg PO DAILY 09/21/23 10/17/23 History terazosin 2 mg capsule 2 mg PO DAILY 09/21/23 10/17/23 History cyanocobalamin (vitamin B-12) 500 500 mcg PO QAM #30 tabs 09/25/23 10/17/23 Rx mcg tablet (Vitamin B-12) empagliflozin 10 mg tablet 10 mg PO DAILY #30 tabs 09/25/23 10/17/23 Rx (Jardiance) ferrous sulfate 325 mg (65 mg 325 mg PO DAILY #30 tabs 09/25/23 10/17/23 Rx iron) tablet,delayed release metoprolol succinate 100 mg 100 mg PO QAM #30 tabs 09/25/23 10/17/23 Rx tablet,extended release 24 hr (Toprol XL) Allergies Allergy/AdvReac Type Severity Reaction Status Date /
--- NOTE | 2023-10-21 10:33 | PM.CNCAR ---
Assessment and Plan Assessment and plan (1) Acute on chronic heart failure with reduced ejection fraction (HFrEF, <= 40%): Code(s): I50.23 - Acute on chronic systolic (congestive) heart failure Status: Acute Assessment and Plan: CXR on admission with bibasilar pulmonary edema, small left pleural effusion. CT chest pending. Continue with IV Lasix for now. I/Os have not been accurately recorded, he has had several unmeasured voids. Please monitor strict I/Os. A repeat echocardiogram was ordered, however, since he had a recent echocardiogram done on 09/24/2023, I canceled the order for the repeat echo. (2) Pneumonia: Code(s): J18.9 - Pneumonia, unspecified organism Status: Acute Assessment and Plan: On antibiotics as per primary team. (3) CKD (chronic kidney disease) stage 3, GFR 30-59 ml/min: Code(s): N18.30 - Chronic kidney disease, stage 3 unspecified Status: Chronic Assessment and Plan: Stable. (4) S/P aortic valve replacement with bioprosthetic valve: Code(s): Z95.3 - Presence of xenogenic heart valve Status: Acute Assessment and Plan: Recent echocardiogram from September shows normal function of bioprosthetic aortic valve. (5) Paroxysmal atrial fibrillation: Code(s): I48.0 - Paroxysmal atrial fibrillation Status: Acute Assessment and Plan: Continue Metoprolol and Xarelto. History of Present Illness History of Present Illness Consult date/time: 10/21/23 10:33 Requesting physician: Rosa Flynn APRN Consult reason: congestive heart failure Reason For Visit: Shortness of Breath/Pneumonia/Fluid Overload Narrative: This is an 88 year old male with coronary artery disease s/p CABG (MAGALLON to LAD, SVG to OM, SVG to PDA) in 2009, s/p bioprosthetic AVR, s/p [employer] ICD, atrial fibrillation, heart failure with reduced LVEF of 35-40% per TTE 09/2023, chronic kidney disease. Patient was recently admitted here for CHF, pneumonia. He was admitted to [facility] again on 10/16 for shortness of breath with acute hypoxic respiratory failure, increased lower extremity edema. CXR on admission shows probable bibasilar pulmonary edema / atelectasis, small left pleural effusion. He has been started on IV diuresis. He reports his breathing is much better since admission and denies any shortness of breath today. He is sad because his cousin's the other day. She was 90. Review of Systems Review of Systems: All systems reviewed & are unremarkable except as noted in HPI and below (HPI) [facility] Past Medical History Medical History Aortic stenosis 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 History of cataract extraction History of coronary artery bypass graft x 3 (2009) MAGALLON to LAD, SVG to OM, SVG to PDA per Dr. Antony at [place]. History of hernia repair History of implantable cardioverter-defibrillator (ICD) placement (2009) History of melanoma excision Left hand. Family History Family History Father Patient's father is Family history of premature coronary heart disease, Onset Age: 56 Mother Bladder cancer Other No problems noted. Other Breast cancer Social
[2023-10-21 16:00] VITALS: BP 119/83; PULSE 90; RESP 18; TEMP 36.1; O2SAT 90
[2023-10-21 19:47] VITALS: BP 117/54; PULSE 81; RESP 18; TEMP 36.7; O2SAT 92
[2023-10-21] MEDS: AMOXICILLIN/CLAVULANATE K 500-125 MG TAB 1 TABLET PO (20:39)
[2023-10-22 04:44] VITALS: BP 128/66; PULSE 80; RESP 18; TEMP 36.5; O2SAT 96
[2023-10-22] MEDS: LEVOTHYROXINE SODIUM 75 MCG TABLET PO (06:08)
[2023-10-22] MEDS: FUROSEMIDE INJ 40 MG/4 ML VIAL 20 MG IV PUSH (08:11)
[2023-10-22] MEDS: TERAZOSIN HCL 1 MG CAPSULE 2 MG PO (08:13)
[2023-10-22] MEDS: AMOXICILLIN/CLAVULANATE K 500-125 MG TAB 1 TABLET PO ×2 (08:13→20:10)
[2023-10-22] MEDS: EMPAGLIFLOZIN 10 MG TABLET PO (08:13)
[2023-10-22] MEDS: RIVAROXABAN 15 MG TABLET PO (08:13)
[2023-10-22] MEDS: CYANOCOBALAMIN 500 MCG TABLET PO (08:13)
[2023-10-22] MEDS: ATORVASTATIN 40 MG TABLET PO (08:13)
[2023-10-22] MEDS: METOPROLOL SUCCINATE EXT REL 100 MG TABCR PO (08:13)
[2023-10-22] MEDS: ASPIRIN 81 MG ENTERIC TABLET PO (08:13)
[2023-10-22] MEDS: FERROUS SULFATE 325 MG TABLET DR PO (08:14)
--- NOTE | 2023-10-22 08:29 | PM.PNCARD ---
Progress Note: A&P Assessment and Plan (1) Acute on chronic heart failure with reduced ejection fraction (HFrEF, <= 40%): Code(s): I50.23 - Acute on chronic systolic (congestive) heart failure Status: Acute Assessment and Plan: CXR on admission with bibasilar pulmonary edema, small left pleural effusion. Chest CT yesterday showed large bilateral effusions. Increase furosemide to 40mg IV b.i.d. Reassess with CXR tomorrow morning. Will plan for a thoracentesis when able (currently anticoagulated with Xarelto, will hold now) Please monitor strict I&O, daily weight (2) Pneumonia: Code(s): J18.9 - Pneumonia, unspecified organism Status: Acute Assessment and Plan: On antibiotics as per primary team. (3) CKD (chronic kidney disease) stage 3, GFR 30-59 ml/min: Code(s): N18.30 - Chronic kidney disease, stage 3 unspecified Status: Chronic Assessment and Plan: Stable. (4) S/P aortic valve replacement with bioprosthetic valve: Code(s): Z95.3 - Presence of xenogenic heart valve Status: Acute Assessment and Plan: Recent echocardiogram from September shows normal function of bioprosthetic aortic valve. (5) Paroxysmal atrial fibrillation: Code(s): I48.0 - Paroxysmal atrial fibrillation Status: Acute Assessment and Plan: Continue Metoprolol. Xarelto on hold for thoracentesis. Plan Recommendation and plan discussed with radha Polanco Subjective Date/time seen: 10/22/23 08:29 Interval history: Cardiology follow up for CHF Date of service 10/22/2023: He feels well today and is wanting to go home. He denies any shortness of breath, orthopnea. Swelling has resolved. Review of Systems Review of Systems: All systems reviewed & are unremarkable except as noted in HPI and below (HPI) Exam Const: General: comfortable and no acute distress HENMT: Mouth: Yes moist mucous membranes Eyes: General: appearance normal, both eyes and all related structures Sclera: sclerae normal Resp: Effort & Inspection: normal respiratory effort Auscultation: clear to auscultation bilaterally, no rales and diminished lung sounds Cardio: Rate: regular rate Rhythm: regular rhythm Heart sounds: no murmurs Other: no edema Skin: General skin exam: normal color Neuro: Speech: normal speech Psych: Mental Status: mental status grossly normal Affect: normal affect Objective Data Vital Signs Vital Signs: Vital Signs - 24 hr 10/21/23 09:48 10/21/23 16:00 10/21/23 19:47 Temperature 36.1 C L 36.7 C Pulse Rate 90 81 Respiratory Rate 18 18 Blood Pressure 119/83 117/54 L Pulse Oximetry 90 92 Oxygen Delivery Room Air 10/21/23 20:00 10/22/23 04:44 Temperature 36.5 C Pulse Rate 80 Respiratory Rate 18 Blood Pressure 128/66 Pulse Oximetry 96 Oxygen Delivery Room Air Intake/Output Intake/Output: Intake & Output 10/19/23 10/20/23 10/21/23 10/22/23 23:59 23:59 23:59 23:59 Intake Total 1979 1900 1330 350 Output Total 2100 500 Balance 1979 9840 -311 -150 Meds/Results Medications: Active Medications Generic Name Dose Route Start Last Admin Trade Name Freq PRN Reason Stop Dose Admin Acetaminophen 650 mg 10/17/23 14:28 10/21/23 01:43 Acetaminophen 325 Mg Tablet PO 650 mg Q6H PRN Administration Mild Pain (1-3) or Fever Amoxicillin/Clavulanate Potassium 1 tablet 10/21/23 21:00 10/22/23 08:13 Amoxicillin/Clavulanate K 500-125 Mg Tab PO 10/23/23 21:01 1 tablet Q12HR BUSHRA Administration Aspirin 81 mg 10/18/23 09:00 10/22/23 08:13 Aspirin 81 Mg Enteric Tablet PO 81 mg DAILY BUSHRA Administration Atorvastatin Calcium 40 mg 10/18/23 09:00 10/22/23 08:13 Atorvastatin 40 Mg Tablet PO 40 mg DAILY BUSHRA Administration Cyanocobalamin 500 mcg 10/18/23 09:00 10/22/23 08:13 Cyanocobalamin 500 Mcg Tablet PO 500 mcg QAM BUSHRA Administration Empagliflozin 10 mg
[2023-10-22 10:41] LABS: Basophils Percent Auto 0.4 % (0.2-1.2); Eosinophils Absolute Auto 0.1 K/mm3 (0-0.3); Eosinophils Percent Auto 1.1 % (0-4.4); Hematocrit 28.2 % (42.0-52.0); Hemoglobin 9.2 g/dL (14.0-18.0); Immature Granulocyte Absolute 0.03 K/mm3 (0.00-0.031); Immature Granulocyte Percent A 0.4 % (0-0.5); Immature Platelet Fraction Pct 4.6 % (0.9-11.2); Lymphocytes Absolute Auto 1.55 K/mm3 (0.9-3.2); Lymphocytes Percent Auto 18.3 % (18.3-44.2); Mean Corpuscular HGB Conc 32.6 g/dl (32-36); Mean Corpuscular Hemoglobin 34.5 pg (26-34); Mean Corpuscular Volume 105.6 fl (80-100); Mean Platelet Volume 10.9 fl (7.4-10.4); Monocytes Percent Auto 11.8 % (2.6-8.5); Neutrophils Absolute Auto 5.8 K/mm3 (1.3-6.7); Platelet Count Result 134 k/mm3 (150-375); Red Blood Count 2.67 M/mm3 (4.6-6.20); Red Cell Distribution Width 15.6 % (11.5-14.5); White Blood Count 8.5 K/mm3 (4.5-10.0)
[2023-10-22 10:50] LABS: Alanine Aminotransferase 29 U/L (6-50); Alkaline Phosphatase 59 U/L (38-126); Anion Gap 7 mmol/L (4-12); Aspartate Amino Transferase 32 U/L (17-59); Bilirubin,Total 0.6 mg/dL (0.2-1.3); Blood Urea Nitrogen 51 mg/dL (9-20); Calcium 8.4 mg/dL (8.4-10.2); Carbon Dioxide 26 mmol/L (22-30); Chloride 101 mmol/L (98-107); Estimated CRCL calculation 24 ml/min; Estimated Glomerular Filt Rate 29; Glucose 100 mg/dL (65-110); Potassium 4.2 mmol/L (3.4-5.0); Sodium 134 mmol/L (137-145)
--- NOTE | 2023-10-22 12:47 | PM.IMPN ---
Progress Note: A&P Assessment and Plan (1) Acute hypoxic respiratory failure: Code(s): J96.01 - Acute respiratory failure with hypoxia Status: Acute Assessment and Plan: - Possibly related to # 2 and #3 below. - Mgt as # 2 and # 3. - Currently good O2 sats on RA > 90 %. - Continue to monitor for respiraory distress. 10/22/23: Overall improved to baseline. Monitor. (2) Pneumonia: Code(s): J18.9 - Pneumonia, unspecified organism Status: Acute Assessment and Plan: - CXR -Probable bibasilar pulmonary edema/atelectasis. Correlate clinically for pneumonia. - Patient reports improvement in SOB and intermittent coughs. - WBC's slightly elevated. - Continue IV abx. - Continue to cultures, urine S.pneumo and legionella Ag. --CT chest, without contrast given renal flunction 10/22/23: Legionella pending. Continue on Augmentin for now. (3) Acute exacerbation of congestive heart failure: Code(s): I50.9 - Heart failure, unspecified Status: Deleted Assessment and Plan: - Acute on Chronic, systolic - BNP 23,100. - Continue Lasix IV BID. - Strict I &O's with daily weights. - Monitor renal panel with diuresis. -Repeat echo, unclear cause of acute heart failure, previously had a WMA --Cardiology consult 10/22/23: Cardiology consulted, changed lasix to po from IV and should be amiable to discharge tomorrow given no further complications in pts condition tonight. Will discharge home on oral Lasix. (4) Chronic kidney disease, stage 3: Code(s): N18.30 - Chronic kidney disease, stage 3 unspecified Status: Acute Assessment and Plan: - Kidney function at previous baseline. - Cr 2.1>>1.8>>2.1>>2.2 - Continue to monitor closely with diuresis. - Avoid nephrotoxic agents. 10/22/23: Renal function remains impaired at 2.2/51 with GFR of 29 Monitor with labs in AM to ensure stability prior to discharge given his lasix dosing. (5) Benign essential hypertension: Code(s): I10 - Essential (primary) hypertension Status: Acute Assessment and Plan: - Fairly well controlled. - Continue metoprolol. 10/22/23: Continue current meds. Stable (6) AF (atrial fibrillation): Code(s): I48.91 - Unspecified atrial fibrillation Status: Chronic Assessment and Plan: - Rate well controlled. - Continue Metoprolol and Xarelto. 10/22/23: Chronic in nature. Continue meds as ordered. (7) Chronic anemia: Code(s): D64.9 - Anemia, unspecified Status: Acute Assessment and Plan: - Hgb stable from previous baseline. - Monitor closely. 10/22/23: Hgb is stable. Continue to monitor. (8) Hypothyroidism: Code(s): E03.9 - Hypothyroidism, unspecified Status: Acute Assessment and Plan: - Continue levothyroxine. (9) Bacteremia: Code(s): R78.81 - Bacteremia Status: Acute Assessment and Plan: positive blood cultures 10/17- gram positive cocci clusters - on vanc and cefepime - will deescalate to po switch cefepime to augmentin po (2 more days total course 7 days) - if repeat culture negative- possible discharge tomorrow as doing a lot better 10/22/23: 1 bottle grew out staph epi. Continue Augmentin Remainder of blood cultures with preliminary results of negative. Time Spent With Patient Time with patient: 25 - 35 minutes Subjective Date/time seen: 10/22/23 12:47 Interval history: Pt was examined at the bedside today in interval assessment. He is anxious for discharge, but just had his Lasix switched to oral from IV and he has not normally taken any Lasix at home to this point. His renal function at baseline is poor, so it is explained to him that we need to have a better idea of what the lasix will do to his renal function prior to discharge. He is hesitant but agrees. He has no new complaints, symptoms or concerns. Review of Systems Review of Systems: All systems reviewed &
--- NOTE | 2023-10-22 13:39 | PCPTNOTE ---
Patient refused treatment this session stating I can do all of that on my own. I just told the other therapy person that I am fine and I just want to rest right here. Educated patient on the importance of participating in PT to improve mobility and strength. Patient continued to refuse.
[2023-10-22 14:22] VITALS: BP 128/65; PULSE 81; RESP 17; TEMP 36.3; O2SAT 95
[2023-10-22] MEDS: FUROSEMIDE INJ 40 MG/4 ML VIAL IV PUSH (17:37)
[2023-10-22 20:26] VITALS: BP 116/78; PULSE 87; RESP 18; TEMP 37.1; O2SAT 92
[2023-10-22 22:09] LABS: Legionella pneumophila Ag Ur NOT DETECTED
[2023-10-23 05:21] LABS: Basophils Percent Auto 0.4 % (0.2-1.2); Eosinophils Absolute Auto 0.2 K/mm3 (0-0.3); Eosinophils Percent Auto 1.6 % (0-4.4); Hematocrit 30.3 % (42.0-52.0); Hemoglobin 9.8 g/dL (14.0-18.0); Immature Granulocyte Absolute 0.07 K/mm3 (0.00-0.031); Immature Granulocyte Percent A 0.6 % (0-0.5); Lymphocytes Absolute Auto 2.69 K/mm3 (0.9-3.2); Lymphocytes Percent Auto 23.8 % (18.3-44.2); Mean Corpuscular HGB Conc 32.3 g/dl (32-36); Mean Corpuscular Volume 105.2 fl (80-100); Mean Platelet Volume 10.8 fl (7.4-10.4); Monocytes Absolute Auto 1.2 K/mm3 (0.1-0.6); Neutrophils Absolute Auto 7.1 K/mm3 (1.3-6.7); Neutrophils Percent Auto 62.6 % (45.5-73.1); Platelet Count Result 143 k/mm3 (150-375); Red Blood Count 2.88 M/mm3 (4.6-6.20); Red Cell Distribution Width 15.5 % (11.5-14.5); White Blood Count 11.3 K/mm3 (4.5-10.0)
[2023-10-23 05:31] LABS: Alanine Aminotransferase 28 U/L (6-50); Albumin Level 3.3 g/dL (3.5-5.1); Alkaline Phosphatase 72 U/L (38-126); Anion Gap 11 mmol/L (4-12); Aspartate Amino Transferase 35 U/L (17-59); Bilirubin,Total 0.7 mg/dL (0.2-1.3); Blood Urea Nitrogen 54 mg/dL (9-20); Calcium 8.7 mg/dL (8.4-10.2); Carbon Dioxide 24 mmol/L (22-30); Chloride 101 mmol/L (98-107); Estimated CRCL calculation 22 ml/min; Estimated Glomerular Filt Rate 26; Glucose 105 mg/dL (65-110); Magnesium 1.7 mg/dL (1.6-2.3); Potassium 4.1 mmol/L (3.4-5.0); Sodium 136 mmol/L (137-145)
[2023-10-23 05:32] LABS: INR 1.7
[2023-10-23 09:27] VITALS: PULSE 87
[2023-10-23] MEDS: ATORVASTATIN 40 MG TABLET PO (09:27)
[2023-10-23] MEDS: TERAZOSIN HCL 1 MG CAPSULE 2 MG PO (09:27)
[2023-10-23] MEDS: METOPROLOL SUCCINATE EXT REL 100 MG TABCR PO (09:27)
[2023-10-23] MEDS: CYANOCOBALAMIN 500 MCG TABLET PO (09:27)
[2023-10-23] MEDS: EMPAGLIFLOZIN 10 MG TABLET PO (09:27)
[2023-10-23] MEDS: FUROSEMIDE INJ 40 MG/4 ML VIAL IV PUSH ×2 (09:28→17:12)
[2023-10-23] MEDS: FERROUS SULFATE 325 MG TABLET DR PO (09:28)
[2023-10-23] MEDS: AMOXICILLIN/CLAVULANATE K 500-125 MG TAB 1 TABLET PO ×2 (09:28→17:12)
--- NOTE | 2023-10-23 10:37 | PM.IMPN ---
Progress Note: A&P Assessment and Plan (1) Acute hypoxic respiratory failure: Code(s): J96.01 - Acute respiratory failure with hypoxia Status: Acute Assessment and Plan: - Possibly related to # 2 and #3 below. - Mgt as # 2 and # 3. - Currently good O2 sats on RA > 90 %. - Continue to monitor for respiraory distress. 10/22/23: Overall improved to baseline. Monitor. 10/22- stable this am- no acute events (2) Pneumonia: Code(s): J18.9 - Pneumonia, unspecified organism Status: Acute Assessment and Plan: - CXR -Probable bibasilar pulmonary edema/atelectasis. Correlate clinically for pneumonia. - Patient reports improvement in SOB and intermittent coughs. - WBC's slightly elevated. - Continue IV abx. - Continue to cultures, urine S.pneumo and legionella Ag. --CT chest, without contrast given renal flunction 10/22/23: Legionella pending. Continue on Augmentin for now. 10/22 continue therapy (3) Acute exacerbation of congestive heart failure: Code(s): I50.9 - Heart failure, unspecified Status: Deleted Assessment and Plan: - Acute on Chronic, systolic - BNP 23,100. - Continue Lasix IV BID. - Strict I &O's with daily weights. - Monitor renal panel with diuresis. -Repeat echo, unclear cause of acute heart failure, previously had a WMA --Cardiology consult 10/22/23: Cardiology consulted, changed lasix to po from IV and should be amiable to discharge tomorrow given no further complications in pts condition tonight. Will discharge home on oral Lasix. 10/22 per card- chest xry and possible thoracentesis (4) Chronic kidney disease, stage 3: Code(s): N18.30 - Chronic kidney disease, stage 3 unspecified Status: Acute Assessment and Plan: - Kidney function at previous baseline. - Cr 2.1>>1.8>>2.1>>2.2 - Continue to monitor closely with diuresis. - Avoid nephrotoxic agents. 10/22/23: Renal function remains impaired at 2.2/51 with GFR of 29 Monitor with labs in AM to ensure stability prior to discharge given his lasix dosing. (5) Benign essential hypertension: Code(s): I10 - Essential (primary) hypertension Status: Acute Assessment and Plan: - Fairly well controlled. - Continue metoprolol. 10/22/23: Continue current meds. Stable (6) AF (atrial fibrillation): Code(s): I48.91 - Unspecified atrial fibrillation Status: Chronic Assessment and Plan: - Rate well controlled. - Continue Metoprolol and Xarelto. 10/22/23: Chronic in nature. Continue meds as ordered. 10/22- holding xarelto- on lovenox now for a possible thoracentesis today (7) Chronic anemia: Code(s): D64.9 - Anemia, unspecified Status: Acute Assessment and Plan: - Hgb stable from previous baseline. - Monitor closely. 10/22/23: Hgb is stable. Continue to monitor. (8) Hypothyroidism: Code(s): E03.9 - Hypothyroidism, unspecified Status: Acute Assessment and Plan: - Continue levothyroxine. (9) Bacteremia: Code(s): R78.81 - Bacteremia Status: Acute Assessment and Plan: positive blood cultures 10/17- gram positive cocci clusters - on vanc and cefepime - will deescalate to po switch cefepime to augmentin po (2 more days total course 7 days) - if repeat culture negative- possible discharge tomorrow as doing a lot better 10/22/23: 1 bottle grew out staph epi. Continue Augmentin Remainder of blood cultures with preliminary results of negative. Time Spent With Patient Time with patient: Greater than 35 minutes Subjective Date/time seen: 10/23/23 10:37 Interval history: 10/22 Pt was examined at the bedside today. Lasix switched to oral from IV and he has not normally taken any Lasix at home to this point. His renal function at baseline is poor, so it is explained to him that we need to have a better idea of what the lasix will do to his renal function prior to discharge. Cardiology will
--- NOTE | 2023-10-23 15:51 | PM.DS ---
DS: Admitting Diagnosis Discharge Date 10/22 Admitting Diagnosis sob DS: Discharge Diagnosis Discharge Diagnosis (1) Acute hypoxic respiratory failure: Code(s): J96.01 - Acute respiratory failure with hypoxia Status: Acute Assessment and Plan: - Possibly related to # 2 and #3 below. - Mgt as # 2 and # 3. - Currently good O2 sats on RA > 90 %. - Continue to monitor for respiraory distress. 10/22/23: Overall improved to baseline. Monitor. 10/22- stable this am- no acute events (2) Pneumonia: Code(s): J18.9 - Pneumonia, unspecified organism Status: Acute Assessment and Plan: - CXR -Probable bibasilar pulmonary edema/atelectasis. Correlate clinically for pneumonia. - Patient reports improvement in SOB and intermittent coughs. - WBC's slightly elevated. - Continue IV abx. - Continue to cultures, urine S.pneumo and legionella Ag. --CT chest, without contrast given renal flunction 10/22/23: Legionella pending. Continue on Augmentin for now. 10/22 continue therapy (3) Acute exacerbation of congestive heart failure: Code(s): I50.9 - Heart failure, unspecified Status: Deleted Assessment and Plan: - Acute on Chronic, systolic - BNP 23,100. - Continue Lasix IV BID. - Strict I &O's with daily weights. - Monitor renal panel with diuresis. -Repeat echo, unclear cause of acute heart failure, previously had a WMA --Cardiology consult 10/22/23: Cardiology consulted, changed lasix to po from IV and should be amiable to discharge tomorrow given no further complications in pts condition tonight. Will discharge home on oral Lasix. 10/22 per card- chest xry and possible thoracentesis (4) Chronic kidney disease, stage 3: Code(s): N18.30 - Chronic kidney disease, stage 3 unspecified Status: Acute Assessment and Plan: - Kidney function at previous baseline. - Cr 2.1>>1.8>>2.1>>2.2 - Continue to monitor closely with diuresis. - Avoid nephrotoxic agents. 10/22/23: Renal function remains impaired at 2.2/51 with GFR of 29 Monitor with labs in AM to ensure stability prior to discharge given his lasix dosing. (5) Benign essential hypertension: Code(s): I10 - Essential (primary) hypertension Status: Acute Assessment and Plan: - Fairly well controlled. - Continue metoprolol. 10/22/23: Continue current meds. Stable (6) AF (atrial fibrillation): Code(s): I48.91 - Unspecified atrial fibrillation Status: Chronic Assessment and Plan: - Rate well controlled. - Continue Metoprolol and Xarelto. 10/22/23: Chronic in nature. Continue meds as ordered. 10/22- holding xarelto- on lovenox now for a possible thoracentesis today (7) Chronic anemia: Code(s): D64.9 - Anemia, unspecified Status: Acute Assessment and Plan: - Hgb stable from previous baseline. - Monitor closely. 10/22/23: Hgb is stable. Continue to monitor. (8) Hypothyroidism: Code(s): E03.9 - Hypothyroidism, unspecified Status: Acute Assessment and Plan: - Continue levothyroxine. (9) Bacteremia: Code(s): R78.81 - Bacteremia Status: Acute Assessment and Plan: positive blood cultures 10/17- gram positive cocci clusters - on vanc and cefepime - will deescalate to po switch cefepime to augmentin po (2 more days total course 7 days) - if repeat culture negative- possible discharge tomorrow as doing a lot better 10/22/23: 1 bottle grew out staph epi. Continue Augmentin Remainder of blood cultures with preliminary results of negative. DS: Summary Hospital Course Hospital Course: Narrative: This is [id number] male with congestive heart failure, ischemic cardiomyopathy with ejection fraction as low as 30 to 35% although that has gradually improved, coronary artery disease status post 3 vessel bypass in 2009, bicuspid aortic valve with stenosis status post bioprosthetic aortic valve replacement, hyperte
[2023-10-23 15:57] VITALS: BP 126/64; PULSE 75; RESP 18; TEMP 36.3; O2SAT 92
--- NOTE | 2023-10-23 20:02 | PC.NURSE ---
Pt called this evening at 1999 to clarify a prescription, therefore writer producer had to access chart.
== END 2023-10-23 17:25 | disposition home or self-care (01) | DRG 177 ==
LOC: ANHED 12:03 → ANH3MED 13:24
PROVIDERS: Emergency Medicine; Nurse Practitioner Adult Health; Physician Assistant; Admitting Provider Internal Medicine; Emergency Provider Emergency Medicine; PCP Family Medicine; Visit Provider Nurse Practitioner Adult Health
DX: J15.20 Pneumonia due to staphylococcus, unspecified (principal); I50.23 Acute on chronic systolic (congestive) heart failure; I13.0 Hypertensive heart and chronic kidney disease with heart failure and stage 1 through stage 4 chronic kidney disease, or unspecified chronic kidney disease; R78.81 Bacteremia; D63.1 Anemia in chronic kidney disease; E78.5 Hyperlipidemia, unspecified; E03.9 Hypothyroidism, unspecified; I25.10 Atherosclerotic heart disease of native coronary artery without angina pectoris; I25.5 Ischemic cardiomyopathy; I48.0 Paroxysmal atrial fibrillation; N40.0 Benign prostatic hyperplasia without lower urinary tract symptoms; N18.30 Chronic kidney disease, stage 3 unspecified; Z95.1 Presence of aortocoronary bypass graft; Z95.2 Presence of prosthetic heart valve; Z20.822 Contact with and (suspected) exposure to COVID-19; Z79.82 Long term (current) use of aspirin; Z79.01 Long term (current) use of anticoagulants; Z79.84 Long term (current) use of oral hypoglycemic drugs; Z87.891 Personal history of nicotine dependence; Z95.810 Presence of automatic (implantable) cardiac defibrillator
CPT/HCPCS: 32555; 36415; 71045; 71046; 71250; 80048; 80053; 80202; 81001; 82565; 83735; 83880; 84145; 84439; 84443; 84480; 85025; 85027; 85055; 85610; 87040; 87077; 87181; 87449; 87636; 87641; 93005; 96365; 97110; 97161; 97165; 99285; A9270; G0378; J0692; J1940; J1956; J3370

== ENCOUNTER 2023-12-09 14:18 | Outpatient (CLI) | payer MEDICARE, SELFPAY ==
--- NOTE | ~2023-12-09 | US_ITS ---
RIGHT LOWER EXTREMITY VENOUS ULTRASOUND Ordering provider: Narcisa Lopez MD History: . R60.0 - Localized edema . Comparison: None. FINDINGS: --COMMON FEMORAL: Patent and free of thrombus. Normal compressibility, phasic flow and augmentation. --PROXIMAL SUPERFICIAL FEMORAL: Patent and free of thrombus. Normal compressibility, phasic flow and augmentation. --DISTAL SUPERFICIAL FEMORAL: Patent and free of thrombus. Normal compressibility, phasic flow and au gmentation. --POPLITEAL: Patent and free of thrombus. Normal compressibility, phasic flow and augmentation. --POSTERIOR TIBIAL: Patent and free of thrombus. Normal compressibility, phasic flow and augmentation . IMPRESSION: Negative right lower extremity venous US. No deep vein thrombosis. Reviewed, dictated and finalized at location A.
--- NOTE | ~2023-12-09 | XR_ITS ---
EXAMINATION: XR ankle RT min 3V DATE: 12/09/2023 14:47 INDICATION: Sudden onset right ankle swelling TECHNIQUE: Anteroposterior, oblique, mortise, and lateral views of the right ankle were obtained. COMPARISON: Right foot radiographs dated 01/31/2023 FINDINGS: Bone alignment is normal. No fracture. 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 Subarticular lucency along the medial margin of the talar dome which could represent degenerative subarticular cystic change versus an osteochondral lesion. No evident ankle matty int effusion. Small plantar calcaneal spur. There is diffuse soft tissue swelling about the distal lo wer leg, ankle and extending over the dorsum of the foot. Scattered vascular calcifications. IMPRESSION: 1. 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 No acute osseous abnormality. Reviewed, dictated and finalized at location A. IMPRESSION: 1. 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 No acute osseous abnormality.
== END 2023-12-09 14:19 | disposition home or self-care (01) ==
PROVIDERS: PCP Family Medicine; Visit Provider Family Medicine
DX: R60.0 Localized edema (principal); M19.071 Primary osteoarthritis, right ankle and foot
CPT/HCPCS: 73610; 93971

== ENCOUNTER 2024-03-04 07:13 | Emergency (ER) | payer MEDICARE, SELFPAY ==
--- NOTE | ~2024-03-04 | XR_ITS ---
EXAMINATION: XR chest 1V portable DATE: 03/04/2024 07:32 INDICATION: Weakness. TECHNIQUE: A single frontal view of the chest was obtained on 2 radiographs. COMPARISON: Chest single view 10/23/2023, chest CT 10/21/2023 FINDINGS: There is a diffuse interstitial pattern in the lungs. There are mild airspace opacities in left mid and lower lung zones. No pleural effusion or pneumothorax. Cardiomegaly is noted. There are changes of aortic valve replacement. There is a closure device at the left atrial appendage. There is a left chest wall pacer with leads in the right atrium and right ventricle. IMPRESSION: 1. Diffuse lung disease, likely mild pulmonary edema. Pneumonia cannot be excluded. 2. Cardiomegaly. Reviewed, dictated and finalized at location [facility] IMPRESSION: 1. Diffuse lung disease, likely mild pulmonary edema. Pneumonia cannot be exclu ded. 2. Cardiomegaly.
--- NOTE | 2024-03-04 07:18 | ECG_ITS ---
Test Date: 2024-03-04 07:21:00 Measurements Intervals [place] Rate: 80 P: 0 OK: 0 QRS: -60 QRSD: 194 T: 116 QT: 455 QTc: 526 Interpretive Statements ELECTRONIC VENTRICULAR PACEMAKER ABNORMAL RHYTHM ECG Compared to ECG 10/17/2023 09:49:11 No significant changes Electronically Signed On 03-04-2024 10:45:09 [employer] SELECTOR by Tyrell Delgado M.D.
[2024-03-04 07:19] VITALS: BP 143/64; PULSE 80; RESP 20; TEMP 36.4; O2SAT 100
[2024-03-04 07:44] LABS: Basophils Percent Auto 0.2 % (0.2-1.2); Eosinophils Absolute Auto 0.1 K/mm3 (0-0.3); Eosinophils Percent Auto 0.9 % (0-4.4); Hematocrit 32.3 % (42.0-52.0); Hemoglobin 10.3 g/dL (14.0-18.0); Immature Granulocyte Absolute 0.05 K/mm3 (0.00-0.031); Immature Granulocyte Percent A 0.5 % (0-0.5); Lymphocytes Absolute Auto 2.03 K/mm3 (0.9-3.2); Lymphocytes Percent Auto 18.4 % (18.3-44.2); Mean Corpuscular HGB Conc 31.9 g/dl (32-36); Mean Corpuscular Hemoglobin 33.2 pg (26-34); Mean Corpuscular Volume 104.2 fl (80-100); Mean Platelet Volume 9.8 fl (7.4-10.4); Monocytes Absolute Auto 1.1 K/mm3 (0.1-0.6); Monocytes Percent Auto 10.2 % (2.6-8.5); Neutrophils Absolute Auto 7.7 K/mm3 (1.3-6.7); Neutrophils Percent Auto 69.8 % (45.5-73.1); Platelet Count Result 141 k/mm3 (150-375); Red Cell Distribution Width 13.6 % (11.5-14.5)
[2024-03-04 07:51] LABS: Alanine Aminotransferase 16 U/L (6-50); Albumin Level 3.4 g/dL (3.5-5.1); Alkaline Phosphatase 66 U/L (38-126); Anion Gap 7 mmol/L (4-12); Aspartate Amino Transferase 23 U/L (17-59); Bilirubin,Total 0.5 mg/dL (0.2-1.3); Blood Urea Nitrogen 43 mg/dL (9-20); Calcium 8.5 mg/dL (8.4-10.2); Carbon Dioxide 19 mmol/L (22-30); Chloride 109 mmol/L (98-107); Estimated CRCL calculation 26 ml/min; Estimated Glomerular Filt Rate 31; Glucose 109 mg/dL (65-110); Potassium 4.9 mmol/L (3.4-5.0); Sodium 135 mmol/L (137-145)
--- NOTE | 2024-03-04 08:09 | ED_ITS ---
HPI - General Adult General Chief complaint: Weakness Stated complaint: weak/diarrhea x 6 hours Time Seen by Provider: 03/04/24 07:41 History of Present Illness HPI narrative: 88-year-old male presents emergency department for evaluation for weakness that he states is now resolved. Patient states he woke up this morning and did have some nausea vomiting diarrhea. Patient states that the symptoms have resolved. Patient is requesting something to drink at this time. Patient is in no distress at time of evaluation. Patient denies any chest pain or shortness of breath. Related Data Home Medications ?Medication ?Instructions ?Recorded ?Confirmed ?Last Taken ?Type aspirin 81 mg tablet,delayed 81 mg PO DAILY 04/11/19 12/09/23 09/20/23 09:00 History release (Adult Low Dose Aspirin) rivaroxaban 15 mg tablet (Xarelto) 15 mg PO DAILY 09/21/23 12/09/23 09/20/23 17:00 History Allergies Allergy/AdvReac Type Severity Reaction Status Date / Time No Known Allergies Allergy Verified 03/04/24 07:35 Review of Systems 2 Review of Systems: All systems reviewed & are unremarkable except as noted in HPI and below PMFSH Past Medical History Medical History (Updated 03/04/24 @ 10:32 by Kush Cerda MD) Chronic anemia Paroxysmal atrial fibrillation Benign prostatic hyperplasia Aortic stenosis 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 History of implantable cardioverter-defibrillator (ICD) placement (2009) History of aortic valve replacement with bioprosthetic valve For severe AI/ due to bicuspid valve. History of hernia repair History of coronary artery bypass graft x 3 (2009) MAGALLON to LAD, SVG to OM, SVG to PDA per Dr. Antony at [place]. History of cataract extraction Family History Family History Father Patient's father is Family history of premature coronary heart disease, Onset Age: 56 Mother Bladder cancer Other No problems noted. Other Breast cancer Social History Social History Social History: Surrogate medical decision maker: Kerri Tabor, daughter. Code status: Full code. Smoking packs per day: 0.5 Smoking cigarettes per day: 10.0 Years smoked: 40 Smoking pack-years: 20.00 Smoking status: Former smoker Second hand tobacco smoke exposure: No Alcohol intake: never Substance use: never Substance use type: does not use Do You Feel Safe in your Home?: Yes Lack of Transportation: No Lack of Food: Never True Current Housing: I Have Housing Concerned About Future Housing: No Difficulty Paying Gas/Electric Bills: No Difficulty Paying for Meds: No Currently Unemployed: No Education: Decline to Answer Difficulty w/ Childcare or Family Care: YES Living arrangements: with family Additional living arrangements comments: Has a son and daughter. Occupation/Education: retired Spiritual care concerns: No Exam 2 Narrative: APPEARANCE: Well appearing, no pain, no distress, well-nourished. HEAD: normocephalic, atraumatic. EYES: PERRLA/EOMI, conjunctivae clear. NOSE: Normal no drainage EARS:TMS clear with good light reflex. THROAT: Pharynx clear, no exudate. NECK: Supple. No adenopathy, no masses. RESPIRATORY: Airway patent, respirations nonlabored. Clear to auscultation bilaterally, no rales, rhonchi, wheezing. CARDIOVASCULAR: Regular rate and rhythm without murmurs rubs or gallops. ABDOMINAL: Soft, nontender, nondistended, normal bowel sounds MUSCULOSKELETAL: Moves all extremities. Strength/ROM intact, No edema, No calf tenderness. NEURO: Alert. Cranial nerves II through XII intact. Good gait. Good coordination SKIN: Warm, dry. Normal Color PSYCHIATRIC: Normal affect/mood. Course Course Emergency Course: Patient did feel improved with treatment. Patient was updated the results of his workup. All questions concerns were addressed Vital Signs Vital signs: Vital Signs Temperature 97.6 F 03/04/24 07:19 Pulse Rate 80 03/04/24 07:19 Respiratory Rate 20 03/04/24 07:19 Blood Pressure 143/64 H 03/04/24 07:19 Pulse Oximetry 100 03/04/24 07:19 Oxygen Delivery Room Air 03/04/24 07:19 Temperature 97.6 F 03/04/24 07:19 Pulse Rate 79 03/04/24 10:56 Respiratory Rate 17 03/04/24 10:56 Blood Pressure 130/76 03/04/24 10:56 Pulse Oximetry 100 03/04/24 10:56 Oxygen Delivery Room Air 03/04/24 07:19 Medical Decision Making MDM Narrative Medical decision making narrative: 88-year-old male presents emergency department for evaluation for generalized weakness secondary to nausea vomiting and diarrhea that started during the night. Patient denies any cough or shortness of breath. Patient has had no further nausea vomiting or diarrhea since being in the emergency department and patient did tolerate a p.o. challenge. Patient states he does feel improved. Patient is well-appearing. Patient is afebrile but does have a leukocytosis of 11.0 with hemoglobin of 10.3, the hemoglobin is similar to his previous baseline. Patient's creatinine is 2.07 which is also similar to his baseline. No evidence of urinary tract infection of the urinary analysis. Patient was updated the results of his workup. Patient was comfortable with plan for discharge home. Patient will be discharged home with Zofran and recommendations to follow a clear liquid diet for the next 1-3 days. All questions concerns were addressed. Differential Diagnosis Differential Diagnosis: Colitis, diverticulitis, nausea, vomiting, diarrhea, dehydration, pneumonia, UTI Vital Signs Vital Signs: Vital Signs Temperature 97.6 F 03/04/24 07:19 Pulse Rate 80 03/04/24 07:19 Respiratory Rate 20 03/04/24 07:19 Blood Pressure 143/64 H 03/04/24 07:19 Pulse Oximetry 100 03/04/24 07:19 Oxygen Delivery Room Air 03/04/24 07:19 Temperature 97.6 F 03/04/24 07:19 Pulse Rate 79 03/04/24 10:56 Respiratory Rate 17 03/04/24 10:56 Blood Pressure 130/76 03/04/24 10:56 Pulse Oximetry 100 03/04/24 10:56 Oxygen Delivery Room Air 03/04/24 07:19 Lab Data Lab results reviewed: Yes I reviewed the patient's lab results. 03/04/24 07:36 03/04/24 07:36 Labs: Lab Results 03/04/24 03/04/24 Range/Units 07:36 09:01 WBC 11.0 H (4.5-10.0) K/mm3 RBC 3.10 L (4.6-6.20) M/mm3 Hgb 10.3 L (14.0-18.0) g/dL Hct 32.3 L (42.0-52.0) % MCV 104.2 H (80-100) fl MCH 33.2 (26-34) pg MCHC 31.9 L (32-36) g/dl RDW 13.6 (11.5-14.5) % Plt Count 141 L (150-375) k/mm3 MPV 9.8 (7.4-10.4) fl Immature Gran % (Auto) 0.5 (0-0.5) % Neut % (Auto) 69.8 (45.5-73.1) % Lymph % (Auto) 18.4 (18.3-44.2) % [place] % (Auto) 10.2 H (2.6-8.5) % Eos % (Auto) 0.9 (0-4.4) % Baso % (Auto) 0.2 (0.2-1.2) % Lymph # (Auto) 2.03 (0.9-3.2) K/mm3 [place] # (Auto) 1.1 H (0.1-0.6) K/mm3 Eos # (Auto) 0.1 (0-0.3) K/mm3 Baso # (Auto) 0.0 (0.0-0.1) K/mm3 Abs Immat Gran (auto) 0.05 H (0.00-0.031) K/mm3 Absolute Neuts (auto) 7.7 H (1.3-6.7) K/mm3 Absolute Nucleated RBC 0.000 (0.0-0.012) K/mm3 Nucleated RBC % 0.0 (0.0-0.2) % Sodium 135 L (137-145) mmol/L Potassium 4.9 (3.4-5.0) mmol/L Chloride 109 H (98-107) mmol/L Carbon Dioxide 19 L (22-30) mmol/L Anion Gap 7 (4-12) mmol/L BUN 43 H D (9-20) mg/dL Creatinine 2.07 H (0.7-1.3) mg/dL Estim Creat Clear Calc 26 ml/min Estimated GFR 31 L (59 - ) Glucose 109 (65-110) mg/dL Calcium 8.5 (8.4-10.2) mg/dL Total Bilirubin 0.5 (0.2-1.3) mg/dL AST 23 (17-59) U/L ALT 16 (6-50) U/L Alkaline Phosphatase 66 (38-126) U/L Total Protein 7.0 (6.3-8.2) g/dL Albumin 3.4 L (3.5-5.1) g/dL Urine Color Yellow (Yellow) Urine Appearance Clear (Clear) Urine pH 5.0 (5.0-9.0) Ur Specific [place] 1.018 (1.001-1.035) Urine Protein 2+ H (Negative) mg/dL Urine Glucose (UA) 1+ H (Negative) mg/dL Urine Ketones Negative (Negative) mg/dL Ur Blood (Man) Negative (Negative) Urine Nitrate Negative (Negative) Urine Bilirubin Negative (Negative) Urine Urobilinogen 0.2 (<2.0) mg/dL Leukocyte Esterase Rfl Negative (Negative) LENNIE/UL Urine RBC 0-2 (0-2) /hpf Urine WBC 0-5 (0-3) /hpf Ur Squamous Epith Cells None seen (Few) /hpf Urine Bacteria None seen /hpf Urine Casts 3-5 Imaging Data Radiologist's impression: Impressions Chest X-Ray 03/04/24 07:32 IMPRESSION: 1. Diffuse lung disease, likely mild pulmonary edema. Pneumonia cannot be excluded. 2. Cardiomegaly. Discharge Plan Discharge Clinical Impression: Nausea vomiting and diarrhea Patient Disposition: Home, Self-Care Condition: Stable Instructions: Antibiotic Form, Clear Liquid Diet (ED), Acute Nausea and Vomiting (ED) Additional Instructions: Zofran as needed for nausea control. Clear liquid diet for the next 1-3 days. Advance to bland diet as tolerated. If you have any worsening symptoms then please call or return to the emergency department. Patient Language: Bermudian Prescriptions: New ondansetron 4 mg tablet,disintegrating 4 mg PO Q8H PRN (Reason: nausea and vomiting) Qty: 14 0RF No Action aspirin [Adult Low Dose Aspirin] 81 mg tablet,delayed release (DR/EC) 81 mg PO DAILY Xarelto 15 mg tablet 15 mg PO DAILY cyanocobalamin (vitamin B-12) [Vitamin B-12] 500 mcg Tablet 500 mcg PO QAM Qty: 30 0RF atorvastatin 40 mg tablet 40 mg PO DAILY Qty: 100 1RF ferrous sulfate 325 mg (65 mg iron) tablet,delayed release (DR/EC) 325 mg PO DAILY Qty: 90 0RF pregabalin 25 mg capsule 25 mg PO TID Qty: 90 0RF cholestyramine (with sugar) 4 gram powder in packet 4 g PO BID Qty: 60 2RF Rx Instructions: administer w/meal; avoid other meds within 1hr before or 4-6hr after dose levothyroxine [Synthroid] 75 mcg tablet 75 mcg PO DAILY@0630 Qty: 90 1RF Jardiance 10 mg tablet 10 mg PO DAILY Qty: 90 1RF metoprolol succinate [Toprol XL] 100 mg tablet extended release 24 hr 100 mg PO QAM Qty: 90 0RF terazosin 2 mg capsule See Rx Instructions .ROUTE .COMPLEX Qty: 90 1RF Dose Instruction: TAKE 1 CAPSULE BY MOUTH EVERY DAY Rx Instructions: TAKE 1 CAPSULE BY MOUTH EVERY DAY furosemide 40 mg tablet See Rx Instructions .ROUTE .COMPLEX Qty: 90 0RF Dose Instruction: TAKE 1 TABLET BY MOUTH EVERY DAY Rx Instructions: TAKE 1 TABLET BY MOUTH EVERY DAY Follow-up/Referrals: John,Narcisa Lizama MD [Primary Care Provider] -
[2024-03-04 09:18] LABS: Add Urine Microscopic? YES; Appearance Urine Clear (Clear); Bacteria Urine None Seen /hpf; Bilirubin Urine Negative (Negative); Blood Urine Negative (Negative); Color Urine Yellow (Yellow); Glucose Urine UA 1+ mg/dL (Negative); Ketones Urine Negative (Negative); Leukocyte Esterase Ur Negative LEU/UL (Negative); Nitrate Urine Negative (Negative); Protein Urine 2+ mg/dL (Negative); RBC Urine 0-2 /hpf (0-2); Specific Grav Ur 1.018 (1.001-1.035); Squamous Epithelial Cell Urine None Seen /hpf (Few); Urobilinogen Urine 0.2 mg/dL (<2.0); WBC Urine 0-5 /hpf (0-3)
[2024-03-04 10:56] VITALS: BP 130/76; PULSE 79; RESP 17; O2SAT 100
== END 2024-03-04 10:57 | disposition home or self-care (01) ==
PROVIDERS: Emergency Provider Emergency Medicine; PCP Family Medicine
DX: R11.2 Nausea with vomiting, unspecified (principal); R19.7 Diarrhea, unspecified; I48.0 Paroxysmal atrial fibrillation; I25.10 Atherosclerotic heart disease of native coronary artery without angina pectoris; I34.0 Nonrheumatic mitral (valve) insufficiency; I35.0 Nonrheumatic aortic (valve) stenosis; E78.2 Mixed hyperlipidemia; E03.9 Hypothyroidism, unspecified; D64.9 Anemia, unspecified; N40.0 Benign prostatic hyperplasia without lower urinary tract symptoms; G62.9 Polyneuropathy, unspecified; Q23.81 Bicuspid aortic valve; Z95.3 Presence of xenogenic heart valve; Z95.1 Presence of aortocoronary bypass graft; Z95.0 Presence of cardiac pacemaker; Z98.49 Cataract extraction status, unspecified eye; Z85.820 Personal history of malignant melanoma of skin; Z87.891 Personal history of nicotine dependence; Z79.01 Long term (current) use of anticoagulants; Z79.82 Long term (current) use of aspirin; Z79.84 Long term (current) use of oral hypoglycemic drugs; Z79.899 Other long term (current) drug therapy; J98.4 Other disorders of lung; I51.7 Cardiomegaly
CPT/HCPCS: 36415; 71045; 80053; 81001; 85025; 93005; 99283

== ENCOUNTER 2024-05-08 15:05 | Observation (INO) | payer MEDICARE, MEDICAID, SELFPAY ==
--- NOTE | ~2024-05-08 | CT_ITS ---
EXAMINATION: CTA chest abdomen pelvis DATE: 05/08/2024 18:19 INDICATION: back pain, abdominal pain, elevated trop . TECHNIQUE: Computed tomography (CT) of the chest, abdomen, and pelvis was performed with 100 mL Omnip aque-350 intravenous contrast. Automated exposure control and iterative reconstruction technique were employed. The dose-length product was 1056.77 mGy-cm. COMPARISON: The chest 10/21/2023; CT abdomen pelvis 05/12/2022 FINDINGS: CHEST: Thoracic aorta: No significant dilation. No dissection. Mild arch calcification. Moderate short segme nt stenosis at the origin of the brachiocephalic artery. Incompletely visualized calcified plaque at the right carotid bifurcation. 3 mm ulcerative plaque in the descending thoracic aorta (image 95/294) . Lung parenchyma and airways: 3 mm left upper lobe peripheral nodule, likely granuloma or lymph node. Somewhat triangular shaped peripheral nodule in the right middle lobe, unchanged, possibly due to int rapulmonary lymph node. Dependent groundglass. Septal thickening. Patchy left lower lobe subsegmental consolidation. Thoracic inlet, axillae and chest wall: No thyroid or soft tissue mass. No axillary lymphadenopathy. Left chest pacer with intact leads, in good position. Mediastinum: Large hiatal hernia containing fat and approximately one half of the stomach. Heart and pericardium: Cardiomegaly. Coronary artery calcifications: Moderate. Pleura: Small volume left pleural fluid. Thoracic bones: No acute osseous finding in the chest. ABDOMEN/PELVIS: Liver: Normal. Biliary/Gallbladder: Layering gallstones/sludge. No inflammatory change. No bile duct dilation. Pancreas: No mass or duct dilation. Spleen: Normal. Adrenals:No mass. Kidneys: Simple bilateral renal cysts. Bilateral cortical thinning. Marked bilateral perinephric stra nding. GI tract: No small or large bowel dilation. Normal appendix. Diverticulosis without diverticulitis. R esolving focal fat necrosis adjacent to the sigmoid. Mesentery/Peritoneum: No ascites, mass, or free air. Retroperitoneum: No mass . Atherosclerotic calcifications of intra-abdominal arterial vessels. Severe short segment stenosis at the origin of the celiac axis. Short segment severe stenosis versus occlus ion at the SMA origin, with additional areas of focal severe narrowing in the proximal SMA. Flow dist ally is maintained by collaterals. Moderate right and severe left renal artery origin stenoses. The I MA is patent, with origin stenosis. Moderate proximal right common iliac artery stenosis. Small right common iliac artery aneurysm. 4 mm ulcerative plaque in the proximal abdominal aortic aorta (119/294 ). Pelvis: Pelvic organs are within normal limits Soft Tissues: Soft tissues and body wall unremarkable. Abdominopelvic bones: No acute osseous finding in the abdomen/pelvis. IMPRESSION: Mild pulmonary edema. Small left pleural effusion. Subsegmental lower lobe atelectasis/consolidation. 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 Small early ulcerative plaques noted in the descending thoracic aorta and proximal abdominal aorta. Severe origin stenoses at multiple aortic aortic branch vessels. Small left iliac artery aneurysm. Reviewed, dictated and finalized at location K. IMPRESSION: Mild pulmonary edema. Small left pleural effusion. Subsegmental lower lobe atelectasis/consolidation. 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 Small early ulcerative plaques noted in the descending thoracic aorta and proxi mal abdominal aorta. Severe origin stenoses at multiple aortic aortic branch vessels. Small left iliac artery aneurysm.
--- NOTE | ~2024-05-08 | XR_ITS ---
EXAMINATION: XR chest 2V Exam Date/Time: 05/08/2024 16:10 CDT HISTORY: pain with coughing WEAKNESS Comparison: 03/04/2024, 10/23/2023; CT chest 10/21/2023. RESULT: Lines, tubes, and devices: Left chest pacer/AICD, with intact leads. Atrial occlusion device. Cardia c valve replacement. Intact sternotomy wires. Lungs and pleura: Subsegmental left basilar airspace disease. Mild left lateral costophrenic angle b lunting. Cardiomediastinal silhouette: Stable. Moderate hiatal hernia. Other: No acute osseous or upper abdominal finding. IMPRESSION: Subsegmental left basilar atelectasis/consolidation. Chronic left lateral costophrenic angle scarring /blunting versus small effusion. Reviewed, dictated and finalized at location K. IMPRESSION: Subsegmental left basilar atelectasis/consolidation. Chronic left lateral costo phrenic angle scarring/blunting versus small effusion.
[2024-05-08 15:06] VITALS: BP 138/64; PULSE 81; RESP 16; TEMP 36.4; O2SAT 100
--- NOTE | 2024-05-08 15:12 | ECG_ITS ---
Test Date: 2024-05-08 16:16:30 Measurements Intervals [place] Rate: 79 P: 0 [place]: 0 QRS: -74 QRSD: 186 T: 101 QT: 446 QTc: 513 Interpretive Statements ELECTRONIC VENTRICULAR PACEMAKER ABNORMAL RHYTHM ECG Compared to ECG 03/04/2024 07:21:00 No significant changes Electronically Signed On 05-09-2024 15:39:51 CDT by Ju Hernandez M.D.
--- NOTE | 2024-05-08 15:13 | ED.BACK ---
HPI - Back Pain/Injury General Chief Complaint: Back Pain/Injury <Deanna Tiffanie Lopez APRN - Last Filed: 05/08/24 15:15> Stated Complaint: back pain <Deannabrandt Lopez APRN - Last Filed: 05/08/24 15:15> Time Seen by Provider: 05/08/24 15:10 <Deanna Lopez APRN - Last Filed: 05/08/24 15:15> Focused HPI: Patient is a 89-year-old male who presents to the ER with complaints of back and abdominal pain that worsen with coughing. Endorse a history chronic lower back pain but reports this pain is more mid back. Patient has a history of a pacemaker and is on Xarelto. He denies any chest pain, shortness of breath, recent fevers. GENERAL: Well-appearing, well-nourished, and in no acute distress. HEAD: Normocephalic, atraumatic. CHEST: Clear to auscultation. ?No respiratory distress. HEART: Regular rate and rhythm.? NEURO: ?Alert and oriented x3. Patient screened in triage and initial orders placed.? ?Additional care and disposition to be based upon?diagnostic testing and treatment. <Deanna Lopez APRN - Last Filed: 05/08/24 15:15> Source: patient <Liban Hewitt PA-C - Last Filed: 05/09/24 01:35> Mode of arrival: ambulatory <Liban Hewitt PA-C - Last Filed: 05/09/24 01:35> Limitations: no limitations <Liban Hewitt PA-C - Last Filed: 05/09/24 01:35> History of Present Illness HPI Narrative: Agree with MSE note above. Patient states that these pains have been ongoing for the past several days. There was no trauma to inside the injury. States the pain is in the mid back and does radiate into the abdomen. Denies urinary symptoms, flank pain, nausea, vomiting. States that he has not been feeling sick. Again denies any chest pain or shortness of breath. Denies numbness or weakness to the extremities. He does state the pain is specifically worse when standing up or with any cough. States he has had a bit of a cough lately but again no fevers. On Eliquis for history of AFib. Other PMH of CAD status post CABG, mitral regurgitation, HTN, melanoma, aortic stenosis, chronic anemia, lumbar spondylosis. Other surgical history of ICD placement, aortic valve replacement <Liban Hewitt PA-C - Last Filed: 05/09/24 01:35> Related Data Home Medications: Home Medications ?Medication ?Instructions ?Recorded ?Confirmed ?Last Taken ?Type aspirin 81 mg tablet,delayed 81 mg PO DAILY 04/11/19 05/08/24 05/08/24 History release (Adult Low Dose Aspirin) rivaroxaban 15 mg tablet (Xarelto) 15 mg PO DAILY 09/21/23 05/08/24 05/08/24 History Cyanacobalamin 50 mcg PO DAILY 05/08/24 05/08/24 05/08/24 History atorvastatin 80 mg tablet 80 mg PO DAILY 05/08/24 05/08/24 05/08/24 History pregabalin 25 mg capsule 75 mg PO BID 05/08/24 05/08/24 05/08/24 History tamsulosin 0.4 mg capsule 0.4 mg PO DAILY 05/08/24 05/08/24 05/08/24 History terazosin 2 mg capsule See Rx Instructions .Route .COMPLEX 05/08/24 05/08/24 05/07/24 History <Deanna Lopez APRN - Last Filed: 05/08/24 15:15> Allergies/Adverse Reactions: Allergies Allergy/AdvReac Type Severity Reaction Status Date / Time No Known Allergies Allergy Verified 03/04/24 07:35 <Deanna Lopez APRN - Last Filed: 05/08/24 15:15> Review of Systems Review of Systems: All systems as dictated in HPI <Liban Hewitt PA-C - Last Filed: 05/09/24 01:35> [facility] Past Medical History Medical History: Medical History (Updated 05/09/24 @ 01:35 by Liban Hewitt PA-C) Chronic anemia Paroxysmal atrial fibrillation Benign prostatic hyperplasia Aortic stenosis 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 History of implantable cardioverter-defibrillator (ICD) placement (2009) History of aortic valve replacement with bioprosthetic valve For severe AI/ due to bicuspid valve. History of hernia repair History of coronary artery bypass graft x 3 (2009) MAGALLON to LAD, SVG to OM, SVG to PDA per Dr. Antony at [facility]. History of cataract extraction <Deanna Lopez, TEENAGE BABYSITTER - Last Filed: 05/08/24 15:15> Family History Family History: Family History Father Patient's father is Family history of premature coronary heart disease, Onset Age: 56 Mother Bladder cancer Other No problems noted. Other Breast cancer <Deanna Lopez, TEENAGE BABYSITTER - Last Filed: 05/08/24 15:15> Social History Social History: Social History Social History: Surrogate medical decision maker: Kerri Tabor, daughter. Code status: Full code. Smoking packs per day: 0.5 Smoking cigarettes per day: 10.0 Years smoked: 40 Smoking pack-years: 20.00 Smoking status: Never smoker Second hand tobacco smoke exposure: No Alcohol intake: never Substance use: never Substance use type: does not use Do You Feel Safe in your Home?: Yes Lack of Transportation: No Lack of Food: Never True Current Housing: I Have Housing Concerned About Future Housing: No Difficulty Paying Gas/Electric Bills: No Difficulty Paying for Meds: No Currently Unemployed: No Education: Trade/Vocational Certificate Difficulty w/ Childcare or Family Care: No Living arrangements: with family Additional living arrangements comments: Has a son and daughter. Occupation/Education: retired Spiritual care concerns: No <Deanna Lopez, TEENAGE BABYSITTER - Last Filed: 05/08/24 15:15> Exam Narrative: GENERAL: Well-appearing, well-nourished, and in no acute distress. HEAD: Normocephalic, atraumatic. EYES: PERRLA and EOMI. ENT: Nares clear, no rhinorrhea or epistaxis. Mucous membranes moist. Oropharynx without tonsillar hypertrophy exudate or other lesions. NECK: Supple. No adenopathy or masses. CHEST: No respiratory distress. Clear to auscultation. No wheezes rales or rhonchi HEART: Regular rate and rhythm. No murmur heard. Normal peripheral pulses. ABDOMEN: Soft, nontender, nondistended, normal active bowel sounds. MSK: Normal range of motion. No edema. SKIN: Warm, dry, no rash. NEURO: Alert and oriented x4. No focal deficits. PSYCH: Normal mood and affect. <Liban Hewitt PA-C - Last Filed: 05/09/24 01:35> Course TWISTER TENDER/PA Physician Supervision For this patient encounter, I reviewed the TWISTER TENDER or PA documentation, treatment plan, and medical decision making; and I had [id number] time with this patient. <Kush Cerda MD - Last Filed: 05/09/24 20:13> Vital Signs Vital signs: Vital Signs Temperature 97.5 F L 05/08/24 15:06 Pulse Rate 81 05/08/24 15:06 Respiratory Rate 16 05/08/24 15:06 Blood Pressure 138/64 05/08/24 15:06 Pulse Oximetry 100 05/08/24 15:06 Oxygen Delivery Room Air 05/08/24 15:06 Temperature 97.7 F 05/09/24 14:00 Pulse Rate 78 05/09/24 14:00 Respiratory Rate 18 05/09/24 14:00 Blood Pressure 125/81 05/09/24 14:00 Pulse Oximetry 98 05/09/24 14:00 Oxygen Delivery Room Air 05/09/24 08:00 <Deanna Lopez APRN - Last Filed: 05/08/24 15:15> Vital Signs Temperature 97.5 F L 05/08/24 15:06 Pulse Rate 81 05/08/24 15:06 Respiratory Rate 16 05/08/24 15:06 Blood Pressure 138/64 05/08/24 15:06 Pulse Oximetry 100 05/08/24 15:06 Oxygen Delivery Room Air 05/08/24 15:06 Temperature 97.7 F 05/09/24 14:00 Pulse Rate 78 05/09/24 14:00 Respiratory Rate 18 05/09/24 14:00 Blood Pressure 125/81 05/09/24 14:00 Pulse Oximetry 98 05/09/24 14:00 Oxygen Delivery Room Air 05/09/24 08:00 <Liban Hewitt PA-C - Last Filed: 05/09/24 01:35> Vital Signs Temperature 97.5 F L 05/08/24 15:06 Pulse Rate 81 05/08/24 15:06 Respiratory Rate 16 05/08/24 15:06 Blood Pressure 138/64 05/08/24 15:06 Pulse Oximetry 100 05/08/24 15:06 Oxygen Delivery Room Air 05/08/24 15:06 Temperature 97.7 F 05/09/24 14:00 Pulse Rate 78 05/09/24 14:00 Respiratory Rate 18 05/09/24 14:00 Blood Pressure 125/81 05/09/24 14:00 Pulse Oximetry 98 05/09/24 14:00 Oxygen Delivery Room Air 05/09/24 08:00 <Kush Cerda MD - Last Filed: 05/09/24 20:13> MDM - Back Pain/Injury MDM Narrative Medical decision making narrative: This is a 89-year-old male who presents to the ED for chief complaint of back and abdominal pain as well as a cough. Vitals are normal. Workup initiated in triage and does show elevated troponin I 0.047. This appears to be actually at his baseline with several measures in this range over the past year. Regardless due to the elevated troponin complaint of back pain, abdominal pain CTA chest abdomen pelvis was ordered. CTA chest abdomen pelvis: IMPRESSION: Mild pulmonary edema. Small left pleural effusion. Subsegmental lower lobe atelectasis/consolidation. 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 Small early ulcerative plaques noted in the descending thoracic aorta and proximal abdominal aorta. Severe origin stenoses at multiple aortic aortic branch vessels. Small left iliac artery aneurysm. Reassuring that there is no evidence of dissection on the scan. Very likely that the vascular findings on the scan today are chronic for this patient. He may have an acute pneumonia with his complaint of cough and back pain. Will treat with antibiotics. Shared decision making regarding disposition today. Patient feels more comfortable staying in the hospital for observation. He will be admitted for IV antibiotics after discussing the case with hospitalist. <Liban Hewitt PA-C - Last Filed: 05/09/24 01:35> Lab Data Result diagrams: 05/09/24 09:38 05/09/24 09:38 <Deanna Lopez APRN - Last Filed: 05/08/24 15:15> Labs: Lab Results 05/08/24 05/08/24 05/08/24 Range/Units 16:17 16:49 19:51 WBC 10.9 H (4.5-10.0) K/mm3 RBC 3.20 L (4.6-6.20) M/mm3 Hgb 10.9 L (14.0-18.0) g/dL Hct 33.3 L (42.0-52.0) % MCV 104.1 H (80-100) fl MCH 34.1 H (26-34) pg MCHC 32.7 (32-36) g/dl RDW 13.9 (11.5-14.5) % Plt Count 152 (150-375) k/mm3 MPV 10.0 (7.4-10.4) fl Immature Gran % (Auto) 0.3 (0-0.5) % Neut % (Auto) 59.8 (45.5-73.1) % Lymph % (Auto) 24.2 (18.3-44.2) % [place] % (Auto) 13.5 H (2.6-8.5) % Eos % (Auto) 1.8 (0-4.4) % Baso % (Auto) 0.4 (0.2-1.2) % Lymph # (Auto) 2.64 (0.9-3.2) K/mm3 [place] # (Auto) 1.5 H (0.1-0.6) K/mm3 Eos # (Auto) 0.2 (0-0.3) K/mm3 Baso # (Auto) 0.0 (0.0-0.1) K/mm3 Abs Immat Gran (auto) 0.03 (0.00-0.031) K/mm3 Absolute Neuts (auto) 6.5 (1.3-6.7) K/mm3 Absolute Nucleated RBC 0.000 (0.0-0.012) K/mm3 Nucleated RBC % 0.0 (0.0-0.2) % PT 18.2 H (11.1-14.7) Seconds INR 1.5 APTT 33.0 (22.3-36.8) Seconds Sodium 134 L (137-145) mmol/L Potassium 4.9 (3.4-5.0) mmol/L Chloride 102 (98-107) mmol/L Carbon Dioxide 23 (22-30) mmol/L Anion Gap 9 (4-12) mmol/L BUN 55 H D (9-20) mg/dL Creatinine 2.43 H (0.7-1.3) mg/dL Estim Creat Clear Calc 20 ml/min Estimated GFR 25 L (59 - ) Glucose 114 H (65-110) mg/dL Calcium 8.7 (8.4-10.2) mg/dL Total Bilirubin 0.4 (0.2-1.3) mg/dL AST 26 (17-59) U/L ALT 19 (6-50) U/L Alkaline Phosphatase 70 (38-126) U/L Troponin I 0.047 H* 0.047 H* (0.000-0.034) ng/mL Total Protein 7.0 (6.3-8.2) g/dL Albumin 4.0 (3.5-5.1) g/dL Lipase 200 (23-300) U/L Urine Color Yellow (Yellow) Urine Appearance Clear (Clear) Urine pH 5.5 (5.0-9.0) Ur Specific [place] 1.012 (1.001-1.035) Urine Protein 1+ H (Negative) mg/dL Urine Glucose (UA) 2+ H (Negative) mg/dL Urine Ketones Negative (Negative) mg/dL Ur Blood (Man) Negative (Negative) Urine Nitrate Negative (Negative) Urine Bilirubin Negative (Negative) Urine Urobilinogen 0.2 (<2.0) mg/dL Leukocyte Esterase Rfl Negative (Negative) LENNIE/UL Urine RBC 0-2 (0-2) /hpf Urine WBC 0-5 (0-3) /hpf Ur Squamous Epith Cells None seen (Few) /hpf Urine Bacteria None seen /hpf Urine Casts 3-5 <Deanna Lopez, TEENAGE BABYSITTER - Last Filed: 05/08/24 15:15> Lab Results 05/08/24 05/08/24 05/08/24 Range/Units 16:17 16:49 19:51 WBC 10.9 H (4.5-10.0) K/mm3 RBC 3.20 L (4.6-6.20) M/mm3 Hgb 10.9 L (14.0-18.0) g/dL Hct 33.3 L (42.0-52.0) % MCV 104.1 H (80-100) fl MCH 34.1 H (26-34) pg MCHC 32.7 (32-36) g/dl RDW 13.9 (11.5-14.5) % Plt Count 152 (150-375) k/mm3 MPV 10.0 (7.4-10.4) fl Immature Gran % (Auto) 0.3 (0-0.5) % Neut % (Auto) 59.8 (45.5-73.1) % Lymph % (Auto) 24.2 (18.3-44.2) % [place] % (Auto) 13.5 H (2.6-8.5) % Eos % (Auto) 1.8 (0-4.4) % Baso % (Auto) 0.4 (0.2-1.2) % Lymph # (Auto) 2.64 (0.9-3.2) K/mm3 [place] # (Auto) 1.5 H (0.1-0.6) K/mm3 Eos # (Auto) 0.2 (0-0.3) K/mm3 Baso # (Auto) 0.0 (0.0-0.1) K/mm3 Abs Immat Gran (auto) 0.03 (0.00-0.031) K/mm3 Absolute Neuts (auto) 6.5 (1.3-6.7) K/mm3 Absolute Nucleated RBC 0.000 (0.0-0.012) K/mm3 Nucleated RBC % 0.0 (0.0-0.2) % PT 18.2 H (11.1-14.7) Seconds INR 1.5 APTT 33.0 (22.3-36.8) Seconds Sodium 134 L (137-145) mmol/L Potassium 4.9 (3.4-5.0) mmol/L Chloride 102 (98-107) mmol/L Carbon Dioxide 23 (22-30) mmol/L Anion Gap 9 (4-12) mmol/L BUN 55 H D (9-20) mg/dL Creatinine 2.43 H (0.7-1.3) mg/dL Estim Creat Clear Calc 20 ml/min Estimated GFR 25 L (59 - ) Glucose 114 H (65-110) mg/dL Calcium 8.7 (8.4-10.2) mg/dL Total Bilirubin 0.4 (0.2-1.3) mg/dL AST 26 (17-59) U/L ALT 19 (6-50) U/L Alkaline Phosphatase 70 (38-126) U/L Troponin I 0.047 H* 0.047 H* (0.000-0.034) ng/mL Total Protein 7.0 (6.3-8.2) g/dL Albumin 4.0 (3.5-5.1) g/dL Lipase 200 (23-300) U/L Urine Color Yellow (Yellow) Urine Appearance Clear (Clear) Urine pH 5.5 (5.0-9.0) Ur Specific [place] 1.012 (1.001-1.035) Urine Protein 1+ H (Negative) mg/dL Urine Glucose (UA) 2+ H (Negative) mg/dL Urine Ketones Negative (Negative) mg/dL Ur Blood (Man) Negative (Negative) Urine Nitrate Negative (Negative) Urine Bilirubin Negative (Negative) Urine Urobilinogen 0.2 (<2.0) mg/dL Leukocyte Esterase Rfl Negative (Negative) LENNIE/UL Urine RBC 0-2 (0-2) /hpf Urine WBC 0-5 (0-3) /hpf Ur Squamous Epith Cells None seen (Few) /hpf Urine Bacteria None seen /hpf Urine Casts 3-5 <Liban Hewitt PA-C - Last Filed: 05/09/24 01:35> Lab Results 05/08/24 05/08/24 05/08/24 Range/Units 16:17 16:49 19:51 WBC 10.9 H (4.5-10.0) K/mm3 RBC 3.20 L (4.6-6.20) M/mm3 Hgb 10.9 L (14.0-18.0) g/dL Hct 33.3 L (42.0-52.0) % MCV 104.1 H (80-100) fl MCH 34.1 H (26-34) pg MCHC 32.7 (32-36) g/dl RDW 13.9 (11.5-14.5) % Plt Count 152 (150-375) k/mm3 MPV 10.0 (7.4-10.4) fl Immature Gran % (Auto) 0.3 (0-0.5) % Neut % (Auto) 59.8 (45.5-73.1) % Lymph % (Auto) 24.2 (18.3-44.2) % [place] % (Auto) 13.5 H (2.6-8.5) % Eos % (Auto) 1.8 (0-4.4) % Baso % (Auto) 0.4 (0.2-1.2) % Lymph # (Auto) 2.64 (0.9-3.2) K/mm3 [place] # (Auto) 1.5 H (0.1-0.6) K/mm3 Eos # (Auto) 0.2 (0-0.3) K/mm3 Baso # (Auto) 0.0 (0.0-0.1) K/mm3 Abs Immat Gran (auto) 0.03 (0.00-0.031) K/mm3 Absolute Neuts (auto) 6.5 (1.3-6.7) K/mm3 Absolute Nucleated RBC 0.000 (0.0-0.012) K/mm3 Nucleated RBC % 0.0 (0.0-0.2) % PT 18.2 H (11.1-14.7) Seconds INR 1.5 APTT 33.0 (22.3-36.8) Seconds Sodium 134 L (137-145) mmol/L Potassium 4.9 (3.4-5.0) mmol/L Chloride 102 (98-107) mmol/L Carbon Dioxide 23 (22-30) mmol/L Anion Gap 9 (4-12) mmol/L BUN 55 H D (9-20) mg/dL Creatinine 2.43 H (0.7-1.3) mg/dL Estim Creat Clear Calc 20 ml/min Estimated GFR 25 L (59 - ) Glucose 114 H (65-110) mg/dL Calcium 8.7 (8.4-10.2) mg/dL Total Bilirubin 0.4 (0.2-1.3) mg/dL AST 26 (17-59) U/L ALT 19 (6-50) U/L Alkaline Phosphatase 70 (38-126) U/L Troponin I 0.047 H* 0.047 H* (0.000-0.034) ng/mL Total Protein 7.0 (6.3-8.2) g/dL Albumin 4.0 (3.5-5.1) g/dL Lipase 200 (23-300) U/L Urine Color Yellow (Yellow) Urine Appearance Clear (Clear) Urine pH 5.5 (5.0-9.0) Ur Specific [place] 1.012 (1.001-1.035) Urine Protein 1+ H (Negative) mg/dL Urine Glucose (UA) 2+ H (Negative) mg/dL Urine Ketones Negative (Negative) mg/dL Ur Blood (Man) Negative (Negative) Urine Nitrate Negative (Negative) Urine Bilirubin Negative (Negative) Urine Urobilinogen 0.2 (<2.0) mg/dL Leukocyte Esterase Rfl Negative (Negative) LENNIE/UL Urine RBC 0-2 (0-2) /hpf Urine WBC 0-5 (0-3) /hpf Ur Squamous Epith Cells None seen (Few) /hpf Urine Bacteria None seen /hpf Urine Casts 3-5 <Kush Cerda MD - Last Filed: 05/09/24 20:13> Discharge Plan Discharge Clinical Impression: Consolidation lung, Elevated troponin <Deanna Lopez APRN - Last Filed: 05/08/24 15:15> Patient Disposition: Still a Patient <Deanna Lopez APRN - Last Filed: 05/08/24 15:15> Condition: Improved <Deanna Lopez APRN - Last Filed: 05/08/24 15:15>
[2024-05-08 16:31] LABS: Add Urine Microscopic? YES; Appearance Urine Clear (Clear); Bacteria Urine None Seen /hpf; Bilirubin Urine Negative (Negative); Blood Urine Negative (Negative); Color Urine Yellow (Yellow); Glucose Urine UA 2+ mg/dL (Negative); Ketones Urine Negative (Negative); Leukocyte Esterase Ur Negative LEU/UL (Negative); Nitrate Urine Negative (Negative); Protein Urine 1+ mg/dL (Negative); RBC Urine 0-2 /hpf (0-2); Specific Grav Ur 1.012 (1.001-1.035); Squamous Epithelial Cell Urine None Seen /hpf (Few); Urobilinogen Urine 0.2 mg/dL (<2.0); WBC Urine 0-5 /hpf (0-3); pH Urine 5.5 (5.0-9.0)
[2024-05-08 16:55] LABS: Basophils Percent Auto 0.4 % (0.2-1.2); Eosinophils Absolute Auto 0.2 K/mm3 (0-0.3); Eosinophils Percent Auto 1.8 % (0-4.4); Hematocrit 33.3 % (42.0-52.0); Hemoglobin 10.9 g/dL (14.0-18.0); Immature Granulocyte Absolute 0.03 K/mm3 (0.00-0.031); Immature Granulocyte Percent A 0.3 % (0-0.5); Lymphocytes Absolute Auto 2.64 K/mm3 (0.9-3.2); Lymphocytes Percent Auto 24.2 % (18.3-44.2); Mean Corpuscular HGB Conc 32.7 g/dl (32-36); Mean Corpuscular Hemoglobin 34.1 pg (26-34); Mean Corpuscular Volume 104.1 fl (80-100); Monocytes Absolute Auto 1.5 K/mm3 (0.1-0.6); Monocytes Percent Auto 13.5 % (2.6-8.5); Neutrophils Absolute Auto 6.5 K/mm3 (1.3-6.7); Neutrophils Percent Auto 59.8 % (45.5-73.1); Platelet Count Result 152 k/mm3 (150-375); Red Cell Distribution Width 13.9 % (11.5-14.5); White Blood Count 10.9 K/mm3 (4.5-10.0)
[2024-05-08 17:07] LABS: Alanine Aminotransferase 19 U/L (6-50); Alkaline Phosphatase 70 U/L (38-126); Anion Gap 9 mmol/L (4-12); Aspartate Amino Transferase 26 U/L (17-59); Bilirubin,Total 0.4 mg/dL (0.2-1.3); Blood Urea Nitrogen 55 mg/dL (9-20); Calcium 8.7 mg/dL (8.4-10.2); Carbon Dioxide 23 mmol/L (22-30); Chloride 102 mmol/L (98-107); Estimated CRCL calculation 20 ml/min; Estimated Glomerular Filt Rate 25; Glucose 114 mg/dL (65-110); Lipase 200 U/L (23-300); Potassium 4.9 mmol/L (3.4-5.0); Sodium 134 mmol/L (137-145)
[2024-05-08 17:12] LABS: INR 1.5; Prothrombin Time 18.2 Seconds (11.1-14.7)
[2024-05-08 17:21] LABS: Troponin I 0.047 ng/mL (0.000-0.034)
--- NOTE | 2024-05-08 18:02 | PC.NURSE ---
Pt states his low back hurts only when he stands up. It is the motion of standing up that causes his pain. Pt states once he is up he is fine.
[2024-05-08 20:36] LABS: Troponin I 0.047 ng/mL (0.000-0.034)
[2024-05-08] MEDS: DOXYCYCLINE 100 MG/NS 100 ML 100 MG/100 ML BAG IVPB (21:40)
[2024-05-08 22:27] VITALS: BMI 25.9
--- NOTE | 2024-05-08 22:27 | ADMGEN ---
This patient, Vladimir Blackburn, was admitted to [facility] Surg Room 317-02. Patient/family oriented to hospital policies and general routines including ID bracelet, bed and alarms, visiting hours, pain management, procedures, bathroom and other care routines, personal items, smoking policy, room service/diet, and visiting hours. Information on how to activate the Rapid Response Team has been discussed. Patient/Family are encouraged to report perceived risks to care and to ask questions if they do not understand what they are told or what they should do.
[2024-05-08 22:38] VITALS: BP 146/84; PULSE 81; RESP 14; TEMP 36.1; O2SAT 96
[2024-05-09 05:52] VITALS: BP 120/60; PULSE 81; RESP 16; TEMP 36.2; O2SAT 94
[2024-05-09 09:47] LABS: Basophils Absolute Auto 0.1 K/mm3 (0.0-0.1); Basophils Percent Auto 0.6 % (0.2-1.2); Eosinophils Absolute Auto 0.1 K/mm3 (0-0.3); Eosinophils Percent Auto 1.6 % (0-4.4); Hematocrit 30.9 % (42.0-52.0); Hemoglobin 10.1 g/dL (14.0-18.0); Immature Granulocyte Absolute 0.03 K/mm3 (0.00-0.031); Immature Granulocyte Percent A 0.3 % (0-0.5); Lymphocytes Absolute Auto 1.77 K/mm3 (0.9-3.2); Mean Corpuscular HGB Conc 32.7 g/dl (32-36); Mean Corpuscular Hemoglobin 33.8 pg (26-34); Mean Corpuscular Volume 103.3 fl (80-100); Mean Platelet Volume 9.9 fl (7.4-10.4); Monocytes Percent Auto 11.6 % (2.6-8.5); Neutrophils Absolute Auto 5.9 K/mm3 (1.3-6.7); Neutrophils Percent Auto 65.9 % (45.5-73.1); Platelet Count Result 134 k/mm3 (150-375); Red Blood Count 2.99 M/mm3 (4.6-6.20); Red Cell Distribution Width 13.8 % (11.5-14.5); White Blood Count 8.9 K/mm3 (4.5-10.0)
[2024-05-09 09:57] VITALS: PULSE 80
[2024-05-09] MEDS: LEVOTHYROXINE SODIUM 75 MCG TABLET PO (09:57)
[2024-05-09] MEDS: FERROUS SULFATE 325 MG TABLET DR PO (09:57)
[2024-05-09] MEDS: EMPAGLIFLOZIN 10 MG TABLET PO (09:57)
[2024-05-09] MEDS: ASPIRIN 81 MG ENTERIC TABLET PO (09:57)
[2024-05-09] MEDS: TAMSULOSIN HCL 0.4 MG CAPSULE PO (09:57)
[2024-05-09] MEDS: PREGABALIN (*CRX) 25 MG CAPSULE 75 MG PO (09:57)
[2024-05-09] MEDS: METOPROLOL SUCCINATE EXT REL 100 MG TABCR PO (09:57)
[2024-05-09] MEDS: ATORVASTATIN 40 MG TABLET 80 MG PO (09:57)
[2024-05-09] MEDS: FUROSEMIDE 40 MG TABLET PO (09:58)
[2024-05-09 10:00] VITALS: BP 128/66; PULSE 80; O2SAT 95
[2024-05-09 10:08] LABS: Alanine Aminotransferase 16 U/L (6-50); Albumin Level 3.4 g/dL (3.5-5.1); Alkaline Phosphatase 63 U/L (38-126); Anion Gap 12 mmol/L (4-12); Aspartate Amino Transferase 21 U/L (17-59); Bilirubin,Total 0.6 mg/dL (0.2-1.3); Blood Urea Nitrogen 51 mg/dL (9-20); Calcium 8.7 mg/dL (8.4-10.2); Carbon Dioxide 20 mmol/L (22-30); Chloride 104 mmol/L (98-107); Estimated CRCL calculation 22 ml/min; Estimated Glomerular Filt Rate 28; Glucose 109 mg/dL (65-110); Magnesium 2.1 mg/dL (1.6-2.3); Sodium 136 mmol/L (137-145)
[2024-05-09 10:46] LABS: Influenza A QL RT-PCR Negative (Negative); Influenza B QL RT-PCR Negative (Negative); RSV RNA, RT-PCR Negative (Negative); SARS-CoV-2 RNA PCR Negative (Negative)
[2024-05-09 11:21] LABS: MRSA (PCR) NOT DETECTED (NOT DETECTE)
[2024-05-09 14:00] VITALS: BP 125/81; PULSE 78; RESP 18; TEMP 36.5; O2SAT 98
--- NOTE | 2024-05-09 14:42 | P.SS_ITS ---
Same Day Admit/Disch: HPI History of Present Illness Chief complaint: Pneumonia, Back pain Narrative: Vladimir Blackburn is a 89 year old male with a significant past medical history of chronic anemia, paroxysmal atrial fibrillation, BPH, aortic stenosis status post TAVR, coronary artery disease status post coronary artery bypass graft x3, hypothyroidism, hypertension, depression, neuropathy, scoliosis, hyperlipidemia who presented to the hospital with complaints of back pain. Workup in the hospital included a chest x-ray which showed subsegmental left basilar atelectasis / consolidation, chronic left lateral costophrenic angle scarring, blunting versus small effusion. Chest/abdomen / pelvis CTA showed mild pulmonary edema, small left pleural effusions, subsegmental lower lobe atelectasis / consolidation, small early ulcerative plaques noted in the descending thoracic aorta and proximal abdominal aorta, severe origin stenosis at multiple aortic branch vessels, small left iliac artery aneurysm. Initial labs showed a white blood cell count of 10.9, hemoglobin 10.9, sodium 134, creatinine 2.43, EGFR 25, troponin 0.047. UA was obtained which showed 1+ urine protein, 2+ urine glucose, otherwise negative. MRSA was negative. Respiratory panel was negative for influenza a and B, RSV, COVID. EKG showed electronic ventricular paced rhythm with a rate of 79, QTC 513. Patient was started on Augmentin and doxycycline for possible community-acquired pneumonia. [facility] Past Medical History Medical History Chronic anemia Paroxysmal atrial fibrillation Benign prostatic hyperplasia Aortic stenosis 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 History of implantable cardioverter-defibrillator (ICD) placement (2009) History of aortic valve replacement with bioprosthetic valve For severe AI/ due to bicuspid valve. History of hernia repair History of coronary artery bypass graft x 3 (2009) MAGALLON to LAD, SVG to OM, SVG to PDA per Dr. Antony at [place]. History of cataract extraction Family History Family History Father Patient's father is Family history of premature coronary heart disease, Onset Age: 56 Mother Bladder cancer Other No problems noted. Other Breast cancer Social History Social History Social History: Surrogate medical decision maker: Kerri Tabor, daughter. Code status: Full code. Smoking packs per day: 0.5 Smoking cigarettes per day: 10.0 Years smoked: 40 Smoking pack-years: 20.00 Smoking status: Never smoker Second hand tobacco smoke exposure: No Alcohol intake: never Substance use: never Substance use type: does not use Do You Feel Safe in your Home?: Yes Lack of Transportation: No Lack of Food: Never True Current Housing: I Have Housing Concerned About Future Housing: No Difficulty Paying Gas/Electric Bills: No Difficulty Paying for Meds: No Currently Unemployed: No Education: Trade/Vocational Certificate Difficulty w/ Childcare or Family Care: No Living arrangements: with family Additional living arrangements comments: Has a son and daughter. Occupation/Education: retired Spiritual care concerns: No Same Day Admit/Disch: Med Pre-admit Medications Home Medications ?Medication ?Instructions ?Recorded ?Confirmed ?Type aspirin 81 mg tablet,delayed 81 mg PO DAILY 04/11/19 05/15/24 History release (Adult Low Dose Aspirin) rivaroxaban 15 mg tablet (Xarelto) 15 mg PO DAILY 09/21/23 05/15/24 History ferrous sulfate 325 mg (65 mg 325 mg PO DAILY #90 tabs 11/04/23 05/15/24 Rx iron) tablet,delayed release levothyroxine 75 mcg tablet 75 mcg PO DAILY@0630 #90 tabs 12/22/23 05/15/24 Rx (Synthroid) empagliflozin 10 mg tablet 10 mg PO DAILY #90 tabs 12/27/23 05/15/24 Rx (Jardiance) metoprolol succinate 100 mg See Rx Instructions .Route 04/25/24 05/15/24 Rx tablet,extended release 24 hr .COMPLEX #90 tabs furosemide 40 mg tablet See Rx Instructions .Route 05/03/24 05/15/24 Rx .COMPLEX #90 tabs Cyanacobalamin 50 mcg PO DAILY 05/08/24 05/15/24 History atorvastatin 80 mg tablet 80 mg PO DAILY 05/08/24 05/15/24 History pregabalin 25 mg capsule 75 mg PO BID 05/08/24 05/15/24 History tamsulosin 0.4 mg capsule 0.4 mg PO DAILY 05/08/24 05/15/24 History terazosin 2 mg capsule See Rx Instructions .Route .COMPLEX 05/08/24 05/15/24 History amoxicillin 500 mg-potassium 1 tablet PO Q12H #10 tabs 05/09/24 05/15/24 Rx clavulanate 125 mg tablet (Augmentin) doxycycline hyclate 100 mg capsule 100 mg PO DAILY #5 caps 05/09/24 05/15/24 Rx Review of Systems Review of Systems All systems reviewed & are unremarkable except as noted in HPI and below Exam Narrative: General: In no acute distress, well nourished Head: atraumatic, no encephalopathy Eyes: PERRLA, sclera clear ENT: moist mucous membranes, nasal passages clear Neck: supple, no JVD, no adenopathy, trachea midline Cardiac: Normal S1 and S2. No murmur, gallops or friction rubs, peripheral pulses intact. Respiratory: Lungs clear to auscultation, no adventitious lung sounds , currently on room air Gastrointestinal: soft, non-distended, non-tender, normoactive bowel sounds. : voiding without difficulty. Extremities: moves all extremities well, no edema Skin: clean, dry, intact. No wounds or lesions. Neuro: Alert and oriented x4, cranial nerves intact, no neuro deficits. Psych: normal mood, normal affect, interactive DS: Data Data Completed and Pending Completed studies during hospitalization: chest x-ray chest/abdomen/ pelvis CTA Pending studies at discharge: none Labs on day of discharge: Labs from last 24 hours 05/09/24 05/09/24 05/08/24 10:03 09:38 19:51 WBC 8.9 RBC 2.99 L Hgb 10.1 L Hct 30.9 L MCV 103.3 H MCH 33.8 MCHC 32.7 RDW 13.8 Plt Count 134 L MPV 9.9 Immature Gran % (Auto) 0.3 Neut % (Auto) 65.9 Lymph % (Auto) 20.0 [place] % (Auto) 11.6 H Eos % (Auto) 1.6 Baso % (Auto) 0.6 Lymph # (Auto) 1.77 [place] # (Auto) 1.0 H Eos # (Auto) 0.1 Baso # (Auto) 0.1 Abs Immat Gran (auto) 0.03 Absolute Neuts (auto) 5.9 Absolute Nucleated RBC 0.000 Nucleated RBC % 0.0 PT INR APTT Sodium 136 L Potassium 5.0 Chloride 104 Carbon Dioxide 20 L Anion Gap 12 BUN 51 H Creatinine 2.25 H Estim Creat Clear Calc 22 Estimated GFR 28 L Glucose 109 Calcium 8.7 Magnesium 2.1 Total Bilirubin 0.6 AST 21 ALT 16 Alkaline Phosphatase 63 Troponin I 0.047 H* Total Protein 6.0 L Albumin 3.4 L Lipase Urine Color Urine Appearance Urine pH Ur Specific [place] Urine Protein Urine Glucose (UA) Urine Ketones Ur Blood (Man) Urine Nitrate Urine Bilirubin Urine Urobilinogen Leukocyte Esterase Rfl Urine RBC Urine WBC Ur Squamous Epith Cells Urine Bacteria Urine Casts Nasal MRSA (PCR) Not detected Influenza A (RT-PCR) Negative Influenza B (RT-PCR) Negative RSV (RT-PCR) Negative SARS-CoV-2 RNA (RT-PCR) Negative 05/08/24 05/08/24 16:49 16:17 WBC 10.9 H RBC 3.20 L Hgb 10.9 L Hct 33.3 L MCV 104.1 H MCH 34.1 H MCHC 32.7 RDW 13.9 Plt Count 152 MPV 10.0 Immature Gran % (Auto) 0.3 Neut % (Auto) 59.8 Lymph % (Auto) 24.2 [place] % (Auto) 13.5 H Eos % (Auto) 1.8 Baso % (Auto) 0.4 Lymph # (Auto) 2.64 [place] # (Auto) 1.5 H Eos # (Auto) 0.2 Baso # (Auto) 0.0 Abs Immat Gran (auto) 0.03 Absolute Neuts (auto) 6.5 Absolute Nucleated RBC 0.000 Nucleated RBC % 0.0 PT 18.2 H INR 1.5 APTT 33.0 Sodium 134 L Potassium 4.9 Chloride 102 Carbon Dioxide 23 Anion Gap 9 BUN 55 H D Creatinine 2.43 H Estim Creat Clear Calc 20 Estimated GFR 25 L Glucose 114 H Calcium 8.7 Magnesium Total Bilirubin 0.4 AST 26 ALT 19 Alkaline Phosphatase 70 Troponin I 0.047 H* Total Protein 7.0 Albumin 4.0 Lipase 200 Urine Color Yellow Urine Appearance Clear Urine pH 5.5 Ur Specific [place] 1.012 Urine Protein 1+ H Urine Glucose (UA) 2+ H Urine Ketones Negative Ur Blood (Man) Negative Urine Nitrate Negative Urine Bilirubin Negative Urine Urobilinogen 0.2 Leukocyte Esterase Rfl Negative Urine RBC 0-2 Urine WBC 0-5 Ur Squamous Epith Cells None seen Urine Bacteria None seen Urine Casts 3-5 Nasal MRSA (PCR) Influenza A (RT-PCR) Influenza B (RT-PCR) RSV (RT-PCR) SARS-CoV-2 RNA (RT-PCR) Procedures/Treatments: none Imaging Radiologist's impression: EXAMINATION: XR chest 2V Exam Date/Time: 05/08/2024 16:10 CDT HISTORY: pain with coughing WEAKNESS Comparison: 03/04/2024, 10/23/2023; CT chest 10/21/2023. RESULT: Lines, tubes, and devices: Left chest pacer/AICD, with intact leads. Atrial occlusion device. Cardiac valve replacement. Intact sternotomy wires. Lungs and pleura: Subsegmental left basilar airspace disease. Mild left lateral costophrenic angle blunting. Cardiomediastinal silhouette: Stable. Moderate hiatal hernia. Other: No acute osseous or upper abdominal finding. IMPRESSION: Subsegmental left basilar atelectasis/consolidation. Chronic left lateral costophrenic angle scarring/blunting versus small effusion. Reviewed, dictated and finalized at location K. EXAMINATION: CTA chest abdomen pelvis DATE: 05/08/2024 18:19 INDICATION: back pain, abdominal pain, elevated trop . TECHNIQUE: Computed tomography (CT) of the chest, abdomen, and pelvis was performed with 100 mL Omnipaque-350 intravenous contrast. Automated exposure control and iterative reconstruction technique were employed. The dose-length product was 1056.77 mGy-cm. COMPARISON: The chest 10/21/2023; CT abdomen pelvis 05/12/2022 FINDINGS: CHEST: Thoracic aorta: No significant dilation. No dissection. Mild arch calcification. Moderate short segment stenosis at the origin of the brachiocephalic artery. Incompletely visualized calcified plaque at the right carotid bifurcation. 3 mm ulcerative plaque in the descending thoracic aorta (image 95/294). Lung parenchyma and airways: 3 mm left upper lobe peripheral nodule, likely granuloma or lymph node. Somewhat triangular shaped peripheral nodule in the right middle lobe, unchanged, possibly due to intrapulmonary lymph node. Dependent groundglass. Septal thickening. Patchy left lower lobe subsegmental consolidation. Thoracic inlet, axillae and chest wall: No thyroid or soft tissue mass. No axillary lymphadenopathy. Left chest pacer with intact leads, in good position. Mediastinum: Large hiatal hernia containing fat and approximately one half of the stomach. Heart and pericardium: Cardiomegaly. Coronary artery calcifications: Moderate. Pleura: Small volume left pleural fluid. Thoracic bones: No acute osseous finding in the chest. ABDOMEN/PELVIS: Liver: Normal. Biliary/Gallbladder: Layering gallstones/sludge. No inflammatory change. No bile duct dilation. Pancreas: No mass or duct dilation. Spleen: Normal. Adrenals:No mass. Kidneys: Simple bilateral renal cysts. Bilateral cortical thinning. Marked bilateral perinephric stranding. GI tract: No small or large bowel dilation. Normal appendix. Diverticulosis without diverticulitis. Resolving focal fat necrosis adjacent to the sigmoid. Mesentery/Peritoneum: No ascites, mass, or free air. Retroperitoneum: No mass . Atherosclerotic calcifications of intra-abdominal arterial vessels. Severe short segment stenosis at the origin of the celiac axis. Short segment severe stenosis versus occlusion at the SMA origin, with additional areas of focal severe narrowing in the proximal SMA. Flow distally is maintained by collaterals. Moderate right and severe left renal artery origin stenoses. The REID is patent, with origin stenosis. Moderate proximal right common iliac artery stenosis. Small right common iliac artery aneurysm. 4 mm ulcerative plaque in the proximal abdominal aortic aorta (119/294). Pelvis: Pelvic organs are within normal limits Soft Tissues: Soft tissues and body wall unremarkable. Abdominopelvic bones: No acute osseous finding in the abdomen/pelvis. IMPRESSION: Mild pulmonary edema. Small left pleural effusion. Subsegmental lower lobe atelectasis/consolidation. 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 Small early ulcerative plaques noted in the descending thoracic aorta and proximal abdominal aorta. Severe origin stenoses at multiple aortic aortic branch vessels. Small left iliac artery aneurysm. Reviewed, dictated and finalized at location K. DS: Summary Hospital Course Reason for hospitalization: community-acquired pneumonia dorsalgia Hospital Course: Vladimir Blackburn is a 89 year old male with a significant past medical history of chronic anemia, paroxysmal atrial fibrillation, BPH, aortic stenosis status post TAVR, coronary artery disease status post coronary artery bypass graft x3, hypothyroidism, hypertension, depression, neuropathy, scoliosis, hyperlipidemia who presented to the hospital with complaints of back pain, abdominal pain and cough. Workup in the hospital included a chest x-ray which showed subsegmental left basilar atelectasis / consolidation, chronic left lateral costophrenic angle scarring, blunting versus small effusion. Chest/abdomen / pelvis CTA showed mild pulmonary edema, small left pleural effusions, subsegmental lower lobe atelectasis / consolidation, small early ulcerative plaques noted in the descending thoracic aorta and proximal abdominal aorta, severe origin stenosis at multiple aortic branch vessels, small left iliac artery aneurysm. Initial labs showed a white blood cell count of 10.9, hemoglobin 10.9, sodium 134, creatinine 2.43, EGFR 25, troponin 0.047. UA was obtained which showed 1+ urine protein, 2+ urine glucose, otherwise negative. MRSA was negative. Respiratory panel was negative for influenza a and B, RSV, COVID. EKG showed electronic ventricular paced rhythm with a rate of 79, QTC 513. Patient was started on Augmentin and doxycycline for community-acquired pneumonia. Final diagnosis: community-acquired pneumonia, dorsalgia Status at Discharge Cognitive/behavioral status at discharge: alert oriented x4 Functional status at discharge: uses cane/walker Overall status at discharge: patient is progressing back to baseline Time Spent with Patient Time attestation: Total time spent providing and/or coordinating discharge services: Time spent: Greater than 30 minutes DS: Admitting Diagnosis Discharge Date 05/09/24 Admitting Diagnosis community-acquired pneumonia dorsalgia Discharge Plan Discharge Attending physician on discharge: Chance Samuels Consulting providers: Deanna Lopez; Kush Cerda; Ju Hernandez; Jason Frederick Discharging Clinician: Suyapa Perez Anticipated Discharge Date/Time: 05/09/24 14:36 Patient Disposition: NH Nursing Home/Asst Living Activity: as tolerated Diet: as tolerated and heart healthy Discharge Instructions: * Finish all of your antibiotic as directed even if you are feeling better * Follow up with your primary care doctor in 1 week. Patient Instructions: Antibiotic Form, Apixaban (By mouth) Patient Language: Greenlandic Stand Alone Forms: General Discharge Information Follow-up/Referrals: Bradley Craft MD [Primary Care Provider] - 1 Week Discharge Medications: New amoxicillin-pot clavulanate [Augmentin] 500-125 mg tablet 1 tablet PO Q12H Qty: 10 0RF doxycycline hyclate 100 mg capsule 100 mg PO DAILY Qty: 5 0RF Continued aspirin [Adult Low Dose Aspirin] 81 mg tablet,delayed release (DR/EC) 81 mg PO DAILY Xarelto 15 mg tablet 15 mg PO DAILY atorvastatin 80 mg tablet 80 mg PO DAILY Cyanacobalamin 50 mcg PO DAILY tamsulosin 0.4 mg capsule 0.4 mg PO DAILY terazosin 2 mg capsule See Rx Instructions .ROUTE .COMPLEX Rx Instructions: TAKE 1 CAPSULE BY MOUTH EVERY EVENING pregabalin 25 mg capsule 75 mg PO BID ferrous sulfate 325 mg (65 mg iron) tablet,delayed release (DR/EC) 325 mg PO DAILY Qty: 90 0RF levothyroxine [Synthroid] 75 mcg tablet 75 mcg PO DAILY@0630 Qty: 90 1RF Jardiance 10 mg tablet 10 mg PO DAILY Qty: 90 1RF metoprolol succinate 100 mg tablet extended release 24 hr See Rx Instructions .ROUTE .COMPLEX Qty: 90 0RF Dose Instruction: TAKE 1 TABLET BY MOUTH EVERY DAY IN THE MORNING Rx Instructions: TAKE 1 TABLET BY MOUTH EVERY DAY IN THE MORNING furosemide 40 mg tablet See Rx Instructions .ROUTE .COMPLEX Qty: 90 0RF Dose Instruction: TAKE 1 TABLET BY MOUTH EVERY DAY Rx Instructions: TAKE 1 TABLET BY MOUTH EVERY DAY Date of admission: 05/08/24 21:18 Primary Care Provider: Bradley Craft Admitting Provider: Roxanne Lennon Attending physician on admission: Suyapa Perez Condition: Improved Quality VTE Prophylaxis VTE prophylaxis: mechanical ordered Hospitalist [facility] Advance Care Plan I have confirmed that the patient's Advanced Care Plan is present, code status is documented, or surrogate decision maker is listed in patient medical record.: Yes Medication Reconciliation I have utilized all available resources to obtain, update and review the patients current medications (includes all prescriptions, OTC, herbals, cannabis, and nutritional supplements).: Yes Heart Failure (Exclusion) Patient has history of Heart Transplant or Left Ventricular Assistive Device?: No IF YES, STOP HERE Heart Failure (Qualifier) Patient has current or prior documentation of LVEF less than or equal to 40%, or mod/servere depressed LVSF?: No IF NO, STOP HERE
== END 2024-05-09 15:10 ==
LOC: ANHED 17:32 → ANH3MEDSUR 05-09 01:35
PROVIDERS: Registered Nurse; Admitting Provider Internal Medicine; Emergency Provider Physician Assistant; PCP Family Medicine; Visit Provider Nurse Practitioner Acute Care
DX: J18.9 Pneumonia, unspecified organism (principal); M54.9 Dorsalgia, unspecified; R79.89 Other specified abnormal findings of blood chemistry; I48.0 Paroxysmal atrial fibrillation; I25.10 Atherosclerotic heart disease of native coronary artery without angina pectoris; I10 Essential (primary) hypertension; I34.0 Nonrheumatic mitral (valve) insufficiency; E03.9 Hypothyroidism, unspecified; E78.2 Mixed hyperlipidemia; D64.9 Anemia, unspecified; F32.1 Major depressive disorder, single episode, moderate; M47.816 Spondylosis without myelopathy or radiculopathy, lumbar region; N40.0 Benign prostatic hyperplasia without lower urinary tract symptoms; M41.9 Scoliosis, unspecified; F32.A Depression, unspecified; Z11.52 Encounter for screening for COVID-19; Z79.01 Long term (current) use of anticoagulants; Z79.82 Long term (current) use of aspirin; Z79.899 Other long term (current) drug therapy; Z95.1 Presence of aortocoronary bypass graft; Z95.2 Presence of prosthetic heart valve; Z95.810 Presence of automatic (implantable) cardiac defibrillator; Z85.820 Personal history of malignant melanoma of skin
CPT/HCPCS: 36415; 71046; 71275; 74174; 80053; 81001; 83690; 83735; 84484; 85025; 85610; 85730; 87637; 87641; 93005; 96365; 96367; 99285; A9270; G0378; J0696; Q9967

== ENCOUNTER 2024-06-01 00:06 | Emergency (ER) | payer MEDICARE, MEDICAID, SELFPAY ==
--- NOTE | 2024-05-31 23:58 | PC.NURSE ---
[address] [place] [address]
[2024-06-01] VITALS (15 sets, daily range): BP systolic 126–146; BP diastolic 59–84; PULSE 80–89; RESP 12–25; TEMP 36.9; O2SAT 93–100
--- NOTE | ~2024-06-01 | CT_ITS ---
Noncontrast CT scan of the thoracolumbar spine CLINICAL HISTORY: Status post fall TECHNIQUE: Axial noncontrast imaging of the thoracolumbar spine was performed. Sagittal and coronal r eformatted images were constructed. Dose reduction technique was used on this scan by utilizing autom ated exposure control and iterative reconstruction technique. The dose-length product (DLP) was 1706. 43 mGy-cm. FINDINGS: There is mild compression fracture at the inferior endplate region of T6, likely acute. No other fracture or subluxation seen in the thoracic spine. There is moderate degenerative disc narrowi ng from T6 through T12. No definite canal stenosis or cord compression seen in the thoracic spine. Th ere is advanced bilateral neural foraminal narrowing at T6-T7, T9-T10, and T10-T11. There is dextroscoliosis of the lumbar spine. No acute fracture or subluxation seen otherwise in the lumbar spine. At L1-L2, there is severe degenerative disc narrowing. There is minimal disc bulge and moderate facet arthropathy. No central canal stenosis. There is severe bilateral neural foraminal narrowing, left w orse than right. At L2-L3, there is severe degenerative disc narrowing. There is mild disc bulge with advanced facet a rthropathy. No central canal stenosis. There is severe bilateral neural foraminal narrowing. L3-L4, there is severe degenerative disc narrowing. Disc bulge and severe facet arthropathy contribut e to severe spinal canal stenosis/thecal sac compression. There is severe bilateral neural foraminal narrowing. At L4-L5, there is severe degenerative disc narrowing. There is severe facet arthropathy. No callum ce ntral canal stenosis. There is severe bilateral neural foraminal narrowing. At L5-S1, there is advanced degenerative disc narrowing. There is moderate facet arthropathy. No cent ral canal stenosis. There is moderate to severe bilateral neural foraminal narrowing, right worse annalise n left. Paravertebral soft tissues are unremarkable. Small left pleural effusion noted. Probable bibasilar atelectasis or mild pulmonary edema. Impression: Acute T6 compression fracture. Severe degenerative spondylosis throughout the lumbar spine, as detailed above. Moderate to advanced degenerative spondylosis of the lower thoracic spine. Please see details above. Dextroscoliosis of the lumbar spine. Reviewed, dictated and finalized at [facility]. Impression: Acute T6 compression fracture. Severe degenerative spondylosis throughout the lumbar spine, as detailed above. Moderate to advanced degenerative spondylosis of the lower thoracic spine. Ple ase see details above. Dextroscoliosis of the lumbar spine.
--- NOTE | ~2024-06-01 | CT_ITS ---
CT head without contrast Indication: Status post fall COMPARISON: 01/31/2023 Technique: Serial scans were obtained through the brain without the administration of contrast. Dose reduction technique was used on this scan by utilizing automated exposure control and iterative recon struction technique. The dose-length product (DLP) was 681.00 mGy-cm. Findings: There is no evidence of intracranial hemorrhage, mass lesion, or acute infarct. The ventri cles and subarachnoid spaces are dilated, consistent with moderate atrophy. Low attenuation regions are seen within the periventricular white matter bilaterally, likely representing changes from chroni c microvascular ischemic disease. There is no evidence of edema, mass effect or midline shift. Mild left maxillary sinus disease present. The remaining visualized paranasal sinuses and mastoid air cell s are clear. Impression: No intracranial hemorrhage, mass, or acute infarct. Atrophy and chronic white matter changes, as above. Reviewed, dictated and finalized at [facility]. Impression: No intracranial hemorrhage, mass, or acute infarct. Atrophy and chronic white matter changes, as above.
--- NOTE | ~2024-06-01 | CT_ITS ---
Noncontrast CT scan of the cervical spine Technique: Multiple contiguous axial [address] images of the cervical spine were obtained and rec onstructed in 2D sagittal and coronal planes on the acquisition scanner. Dose reduction technique was used on this scan by utilizing automated exposure control, adjustment of the mA and/or kV according to patient size. The dose-length product (DLP) was 434.20 mGy-cm. Clinical History: Pain COMPARISON: 01/31/2023 Findings: No acute fractures or dislocations. Osseous alignment is unchanged. Stable minimal grade 1 anterolisthesis of C4 over C5. Stable degenerative disc narrowing, especially at C5-C6 and C6-C7. Ex tensive facet arthropathy again present. There is multilevel neural foraminal narrowing, especially a t C4-C5, C5-C6, and C6-C7. No prevertebral soft tissue swelling. Impression: No acute fracture or subluxation of the cervical spine. Stable degenerative spondylosis. Reviewed, dictated and finalized at [facility]. Impression: No acute fracture or subluxation of the cervical spine. Stable degenerative spondylosis.
--- NOTE | 2024-06-01 00:44 | ED.FALL ---
HPI - Fall General Chief Complaint: Fall Stated Complaint: glf- L shoulder/ankle, and back pain History of Present Illness HPI Narrative: Patient is an 89-year-old male who presents the emergency department this evening from local long-term community secondary to a ground level fall. Patient states that he was getting of the shower and slipped falling backwards hitting his back and head on the ground. He denies any loss of consciousness. Initially patient was denying any neck or head pain, only complaining of back pain, however, upon arrival to the emergency department patient is now complaining of head and neck pain. Patient also admits that he has a history of chronic back pain, however, since the fall his back pain is worse, mainly in the midthoracic region. Admits that he is on Xarelto. Patient was placed in a C-collar by EMS prior to arrival. Denies any additional symptoms or concerns. Related Data Home Medications ?Medication ?Instructions ?Recorded ?Confirmed ?Last Taken ?Type aspirin 81 mg tablet,delayed 81 mg PO DAILY 04/11/19 05/15/24 05/08/24 History release (Adult Low Dose Aspirin) rivaroxaban 15 mg tablet (Xarelto) 15 mg PO DAILY 09/21/23 05/15/24 05/08/24 History Cyanacobalamin 50 mcg PO DAILY 05/08/24 05/15/24 05/08/24 History atorvastatin 80 mg tablet 80 mg PO DAILY 05/08/24 05/15/24 05/08/24 History pregabalin 25 mg capsule 75 mg PO BID 05/08/24 05/15/24 05/08/24 History tamsulosin 0.4 mg capsule 0.4 mg PO DAILY 05/08/24 05/15/24 05/08/24 History terazosin 2 mg capsule See Rx Instructions .Route .COMPLEX 05/08/24 05/15/24 05/07/24 History Allergies Allergy/AdvReac Type Severity Reaction Status Date / Time No Known Allergies Allergy Verified 05/15/24 14:55 Review of Systems Review of Systems: All systems are reviewed and are negative unless stated otherwise in the HPI. [facility] Past Medical History Medical History Chronic anemia Paroxysmal atrial fibrillation Benign prostatic hyperplasia Aortic stenosis 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 History of implantable cardioverter-defibrillator (ICD) placement (2009) History of aortic valve replacement with bioprosthetic valve For severe AI/ due to bicuspid valve. History of hernia repair History of coronary artery bypass graft x 3 (2009) MAGALLON to LAD, SVG to OM, SVG to PDA per Dr. Antony at [place]. History of cataract extraction Family History Family History Father Patient's father is Family history of premature coronary heart disease, Onset Age: 56 Mother Bladder cancer Other No problems noted. Other Breast cancer Social History Social History Social History: Surrogate medical decision maker: Kerri Tabor, daughter. Code status: Full code. Smoking packs per day: 0.5 Smoking cigarettes per day: 10.0 Years smoked: 40 Smoking pack-years: 20.00 Smoking status: Never smoker Second hand tobacco smoke exposure: No Alcohol intake: never Substance use: never Substance use type: does not use Do You Feel Safe in your Home?: Yes Lack of Transportation: No Lack of Food: Never True Current Housing: I Have Housing Concerned About Future Housing: No Difficulty Paying Gas/Electric Bills: No Difficulty Paying for Meds: No Currently Unemployed: No Education: Trade/Vocational Certificate Difficulty w/ Childcare or Family Care: No Living arrangements: with family Additional living arrangements comments: Has a son and daughter. Occupation/Education: retired Spiritual care concerns: No Exam Narrative: General: Alert, awake, afebrile, in no acute distress. HEENT: PERRL, no rhinorrhea, no post nasal drip, oropharynx clear. Neck: Trachea midline, no JVD, no lymphadenopathy. Cardiovascular: Regular rate and rhythm, no murmurs, rubs or gallops, no peripheral edema. Respiratory: Clear to auscultation bilaterally, no tachypnea, no wheezing, no rhonchi, no rubs, no respiratory distress. Abdomen: Soft, nontender, nondistended, no rebound, no guarding, no peritoneal signs. Musculoskeletal: No joint swelling or deformity, normal muscle tone. Back: No midline tenderness to palpation over the cervical or lumbar spine, midline tenderness to palpation over the midthoracic region over T5-T6. Skin: No rashes or petechia, no signs of infection. Psychiatric: Alert and oriented, normal behavior and judgment for situation. Neurological: Alert and oriented to person, place, and time. Follows all commands. No focal deficits, speech is clear and fluent. Course Vital Signs Vital signs: Vital Signs Temperature 98.4 F 06/01/24 00:03 Pulse Rate 80 06/01/24 00:03 Respiratory Rate 14 06/01/24 00:03 Blood Pressure 139/78 06/01/24 00:03 Pulse Oximetry 100 06/01/24 00:03 Oxygen Delivery Room Air 06/01/24 00:03 Temperature 98.4 F 06/01/24 00:03 Pulse Rate 80 06/01/24 00:03 Respiratory Rate 14 06/01/24 00:03 Blood Pressure 139/78 06/01/24 00:03 Pulse Oximetry 100 06/01/24 00:03 Oxygen Delivery Room Air 06/01/24 00:03 MDM - Fall MDM Narrative Medical decision making narrative: The patient was evaluated by myself in the emergency department. History is obtained from patient who is an independent historian and physical exam was performed. External medical records were reviewed at this time. Patient was administered an oral [place]ore 5-325 mg. Imaging studies obtained included CT brain, C, T, L-spine without IV contrast which was independently interpreted by me revealing an acute T6 inferior endplate compression fracture with 50% height loss, otherwise no acute process. Patient was informed of these findings at bedside, reassessed and states that his pain has resolved. Patient was ambulated and was able to ambulate without any difficulty using a walker which he uses to get around at home. Patient was informed that he will be scheduled to be fitted for a EVELYN brace and patient is in agreement. Differential diagnosis considerations include compression fractures, intracranial hemorrhage, musculoskeletal strain. Comorbidities impacting this visit include none. I have evaluated and discussed social determinants of health with the patient that could potentially impact subsequent diagnosis and treatment plans. On repeat assessment of the patient, reevaluation revealed that the patient is doing well and is in no acute distress. Patient symptoms have improved since he arrived to our emergency department. Repeat vital signs were all reviewed and noted to be stable. Differential diagnosis and treatment plan were discussed with the patient at bedside. Patient agrees with discussion and after shared medical decision making agrees with discharge. All questions were answered to the patient's satisfaction. Patient will follow up with Neurosurgery in 3-5 days. A script for [place] a sent to his pharmacy to take as needed for pain. Patient's demographic and form for EVELYN brace were faxed to [employer] and patient was informed that someone will present to his home tomorrow to fit him for a brace. Patient was provided with strict return precautions and instructed to return to the emergency department if any new or worsening symptoms develop. The patient was discharged in stable condition. Discharge Plan Discharge Clinical Impression: Fall from ground level, Compression fracture of T6 vertebra Patient Disposition: Home Condition: Improved Instructions: Antibiotic Form, Thoracolumbar Fracture (ED) Additional Instructions: Please follow-up with a spinal surgeon/neurosurgeon you were provided with today within the next 3-5 days. Someone from [employer] will be presenting to your facility tomorrow to feet you for a [employer] brace. Use the prescribed [place]ore as needed for a back pain. Return to the emergency department if any new or worsening symptoms develop. Patient Language: Malawian Prescriptions: New hydrocodone-acetaminophen 5-325 mg tablet 1 tablet PO Q8H PRN (Reason: pain) Qty: 10 0RF No Action aspirin [Adult Low Dose Aspirin] 81 mg tablet,delayed release (DR/EC) 81 mg PO DAILY Xarelto 15 mg tablet 15 mg PO DAILY atorvastatin 80 mg tablet 80 mg PO DAILY Cyanacobalamin 50 mcg PO DAILY tamsulosin 0.4 mg capsule 0.4 mg PO DAILY terazosin 2 mg capsule See Rx Instructions .ROUTE .COMPLEX Rx Instructions: TAKE 1 CAPSULE BY MOUTH EVERY EVENING pregabalin 25 mg capsule 75 mg PO BID amoxicillin-pot clavulanate [Augmentin] 500-125 mg tablet 1 tablet PO Q12H Qty: 10 0RF doxycycline hyclate 100 mg capsule 100 mg PO DAILY Qty: 5 0RF ferrous sulfate 325 mg (65 mg iron) tablet,delayed release (DR/EC) 325 mg PO DAILY Qty: 90 0RF levothyroxine [Synthroid] 75 mcg tablet 75 mcg PO DAILY@0630 Qty: 90 1RF Jardiance 10 mg tablet 10 mg PO DAILY Qty: 90 1RF metoprolol succinate 100 mg tablet extended release 24 hr See Rx Instructions .ROUTE .COMPLEX Qty: 90 0RF Dose Instruction: TAKE 1 TABLET BY MOUTH EVERY DAY IN THE MORNING Rx Instructions: TAKE 1 TABLET BY MOUTH EVERY DAY IN THE MORNING furosemide 40 mg tablet See Rx Instructions .ROUTE .COMPLEX Qty: 90 0RF Dose Instruction: TAKE 1 TABLET BY MOUTH EVERY DAY Rx Instructions: TAKE 1 TABLET BY MOUTH EVERY DAY Follow-up/Referrals: Bradley Craft MD [Primary Care Provider] - Margot Elmore MD [Physician] - 3 Days Time of Disposition: 02:45
[2024-06-01] MEDS: HYDROcodone/acetaminophen (*CRX) 5-325 MG TABLET 1 TAB PO (01:50)
== END 2024-06-01 03:25 | disposition home or self-care (01) ==
PROVIDERS: Emergency Provider Emergency Medicine; PCP Family Medicine
DX: S22.050A Wedge compression fracture of T5-T6 vertebra, initial encounter for closed fracture (principal); I48.0 Paroxysmal atrial fibrillation; I25.10 Atherosclerotic heart disease of native coronary artery without angina pectoris; I10 Essential (primary) hypertension; I35.0 Nonrheumatic aortic (valve) stenosis; Q23.81 Bicuspid aortic valve; I08.0 Rheumatic disorders of both mitral and aortic valves; E03.9 Hypothyroidism, unspecified; E78.2 Mixed hyperlipidemia; D64.9 Anemia, unspecified; N40.0 Benign prostatic hyperplasia without lower urinary tract symptoms; G62.9 Polyneuropathy, unspecified; Z95.1 Presence of aortocoronary bypass graft; Z95.810 Presence of automatic (implantable) cardiac defibrillator; Z95.3 Presence of xenogenic heart valve; Z85.820 Personal history of malignant melanoma of skin; Z87.891 Personal history of nicotine dependence; Z98.49 Cataract extraction status, unspecified eye; Z79.01 Long term (current) use of anticoagulants; Z79.82 Long term (current) use of aspirin; Z79.899 Other long term (current) drug therapy; W18.2XXA Fall in (into) shower or empty bathtub, initial encounter
CPT/HCPCS: 70450; 72125; 72128; 72131; 99284; A9270; L0140

== ENCOUNTER 2024-11-02 05:37 | Emergency (ER) | payer MEDICARE, MEDICAID, SELFPAY ==
--- NOTE | ~2024-11-02 | XR_ITS ---
EXAMINATION: XR ankle LT min 3V, 11/02/2024 6:40 CDT HISTORY: fall COMPARISON: No comparisons available. Findings: There is a remote appearing corticated nonunited fracture of the lateral malleolus, no acute fracture identified. Moderate degenerative changes Soft tissues unremarkable. Impression: No acute fracture or malalignment. Reviewed, dictated and finalized at location A. Impression: No acute fracture or malalignment.
--- NOTE | ~2024-11-02 | CT_ITS ---
EXAMINATION: CT brain wo con DATE: 11/02/2024 07:21 INDICATION: Head injury. TECHNIQUE: Computed tomography (CT) of the head was performed without intravenous contrast. The mA was adjusted according to patient size. Iterative reconstruction technique was employed. The dose-length product was 681.00 mGy-cm. COMPARISON: Head CT 06/01/2024 FINDINGS: There are old infarcts in the cerebellum bilaterally. There are old infarcts in the bilateral basal ganglia. There are scattered areas of low attenuation in the cerebral white matter. There is no intracranial hemorrhage, acute infarction, or abnormal intracranial mass lesion. The ventricles are normal in size. There are likely changes of ocular lens replacement surgeries. There is mucosal thickening in the paranasal sinuses. The mastoid air cells are normal. IMPRESSION: 1. 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 2. Stable extensive nonspecific cerebral white matter disease, which likely represents chronic small vessel ischemic disease. Reviewed, dictated and finalized at location E. IMPRESSION: 1. 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 2. Stable extensive nonspecific cerebral white matter disease, which likely rep resents chronic small vessel ischemic disease.
--- NOTE | ~2024-11-02 | CT_ITS ---
EXAMINATION: CT lumbar spine wo con DATE: 11/02/2024 06:39 INDICATION: Low back pain. Fall. TECHNIQUE: Computed tomography (CT) of the lumbar spine was performed without intravenous contrast. Automated exposure control and iterative reconstruction technique were employed. The dose-length product was 1190.71 mGy-cm. COMPARISON: Lumbar spine 06/01/2024 FINDINGS: There is a large sliding hiatal hernia. There are small pleural effusions. There are airspace opacities in the lower lobes, likely atelectasis. There is a 4.5 cm cyst in left kidney. There is 35 degrees dextroscoliosis of thoracolumbar spine. There is mild chronic anterior wedging of T10-T12 vertebral bodies. There is a chronic compression fracture of L2. There is severely decreased disc height from T12-L1 through L5-S1. There is multilevel severe facet joint osteoarthritis. The discs are bulging from T12-L1 through L5-S1. On the right, there is mild neural foraminal stenosis at T12-L1. On the right, there is moderate neural foraminal stenosis at L1-L2, L2-L3, L3-L4, L4-L5, and L5-S1. On the left, there is moderate neural frontal stenosis at T12-L1, L1-L2, L2-L3, L3-L4, L4-L5, and L5-S1. There is mild central canal stenosis at the disc levels from T12-L1 through L5-S1. IMPRESSION: 1. No acute fracture. 2. Severe lumbar spondylosis. 3. Thoracolumbar dextroscoliosis. 4. Large sliding hiatal hernia. Reviewed, dictated and finalized at location E.
[2024-11-02 05:38] VITALS: BP 141/59; PULSE 80; RESP 17; TEMP 36.4; O2SAT 100
[2024-11-02 05:49] VITALS: BP 134/67; PULSE 88; RESP 20; O2SAT 100
[2024-11-02 06:59] VITALS: BP 147/71; PULSE 83; RESP 20; O2SAT 100
--- NOTE | 2024-11-02 07:04 | ED.GENADULT ---
HPI - General Adult General Chief complaint: Fall Stated complaint: FALL; L ANKLE INJURY, LOW BACK PAIN Time Seen by Provider: 11/02/24 06:54 History of Present Illness HPI narrative: 89-year-old male presents to the emergency department for evaluation after having a ground level fall at home. Patient states he was attempting to get off the toilet and the dark in slipped and struck his head on the floor and injured his left ankle. Patient was also complaining of lower back pain. At time of evaluation patient is well-appearing and denies any other pain or injury. Patient denies any recent illnesses coughs colds or fevers. Related Data Home Medications ?Medication ?Instructions ?Recorded ?Confirmed ?Last Taken ?Type aspirin 81 mg tablet,delayed 81 mg PO DAILY 04/11/19 06/16/24 05/08/24 History release (Adult Low Dose Aspirin) rivaroxaban 15 mg tablet (Xarelto) 15 mg PO DAILY 09/21/23 06/16/24 05/08/24 History Cyanacobalamin 50 mcg PO DAILY 05/08/24 06/16/24 05/08/24 History atorvastatin 80 mg tablet 80 mg PO DAILY 05/08/24 06/16/24 05/08/24 History pregabalin 25 mg capsule 75 mg PO BID 05/08/24 06/16/24 05/08/24 History tamsulosin 0.4 mg capsule 0.4 mg PO DAILY 05/08/24 06/16/24 05/08/24 History terazosin 2 mg capsule See Rx Instructions .Route .COMPLEX 05/08/24 06/16/24 05/07/24 History Allergies Allergy/AdvReac Type Severity Reaction Status Date / Time No Known Allergies Allergy Verified 06/06/24 14:16 Review of Systems Review of Systems: All systems reviewed & are unremarkable except as noted in HPI and below [facility] Past Medical History Medical History Chronic anemia Paroxysmal atrial fibrillation Benign prostatic hyperplasia Aortic stenosis 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 History of implantable cardioverter-defibrillator (ICD) placement (2009) History of aortic valve replacement with bioprosthetic valve For severe AI/ due to bicuspid valve. History of hernia repair History of coronary artery bypass graft x 3 (2009) MAGALLON to LAD, SVG to OM, SVG to PDA per Dr. Antony at [place]. History of cataract extraction Family History Family History Father Patient's father is Family history of premature coronary heart disease, Onset Age: 56 Mother Bladder cancer Other No problems noted. Other Breast cancer Social History Social History Social History: Surrogate medical decision maker: Kerri Tabor, daughter. Code status: Full code. Smoking packs per day: 0.5 Smoking cigarettes per day: 10.0 Years smoked: 40 Smoking pack-years: 20.00 Smoking status: Never smoker Second hand tobacco smoke exposure: No Alcohol intake: never Substance use: never Substance use type: does not use Do You Feel Safe in your Home?: Yes Lack of Transportation: No Lack of Food: Never True Current Housing: I Have Housing Concerned About Future Housing: No Difficulty Paying Gas/Electric Bills: No Difficulty Paying for Meds: No Currently Unemployed: No Education: Trade/Vocational Certificate Difficulty w/ Childcare or Family Care: No Living arrangements: with family Additional living arrangements comments: Has a son and daughter. Occupation/Education: retired Spiritual care concerns: No Exam Narrative: APPEARANCE: Well appearing, no pain, no distress, well-nourished. HEAD: normocephalic, atraumatic. EYES: PERRLA/EOMI, conjunctivae clear. NOSE: Normal no drainage EARS:TMS clear with good light reflex. THROAT: Pharynx clear, no exudate. NECK: Supple. No adenopathy, no masses. RESPIRATORY: Airway patent, respirations nonlabored. Clear to auscultation bilaterally, no rales, rhonchi, wheezing. CARDIOVASCULAR: Regular rate and rhythm without murmurs rubs or gallops. ABDOMINAL: Soft, nontender, nondistended, normal bowel sounds MUSCULOSKELETAL: Left ankle tenderness to palpation NEURO: Alert. Cranial nerves II through XII intact. Good gait. Good coordination SKIN: Warm, dry. Normal Color Course Vital Signs Vital signs: Vital Signs Temperature 97.5 F L 11/02/24 05:38 Pulse Rate 80 11/02/24 05:38 Respiratory Rate 17 11/02/24 05:38 Blood Pressure 141/59 H 11/02/24 05:38 Pulse Oximetry 100 11/02/24 05:38 Oxygen Delivery Room Air 11/02/24 05:38 Temperature 97.5 F L 11/02/24 05:38 Pulse Rate 80 11/02/24 08:22 Respiratory Rate 18 11/02/24 08:22 Blood Pressure 130/74 11/02/24 08:22 Pulse Oximetry 93 11/02/24 08:22 Oxygen Delivery Room Air 11/02/24 05:38 Medical Decision Making MDM Narrative Medical decision making narrative: 89-year-old male present to the emergency department for evaluation for left ankle pain after having a fall from the toilet in the dark. Patient does strike his head on the floor but denied loss of consciousness. Patient was complaining of left ankle pain, lower back pain. Head CT was negative for all intracranial injury. L-spine was negative. X-ray of the left ankle was negative. Patient does have full range of motion of the left ankle. Patient does currently live in a assisted living. Patient will be written a prescription for a wheelchair to use to get around the facility along with being placed and Benjie wrap. Patient does have access to a walker and does use that to ambulate at all times. Patient was encouraged of close follow-up with his primary care physician. Patient's family was updated the results of the workup they are comfortable the plan for discharge and close follow-up. Differential Diagnosis Differential Diagnosis: Head injury, subdural hematoma, subarachnoid hemorrhage, lumbar fracture, ankle fracture, ankle sprain Vital Signs Vital Signs: Vital Signs Temperature 97.5 F L 11/02/24 05:38 Pulse Rate 80 11/02/24 05:38 Respiratory Rate 17 11/02/24 05:38 Blood Pressure 141/59 H 11/02/24 05:38 Pulse Oximetry 100 11/02/24 05:38 Oxygen Delivery Room Air 11/02/24 05:38 Temperature 97.5 F L 11/02/24 05:38 Pulse Rate 80 11/02/24 08:22 Respiratory Rate 18 11/02/24 08:22 Blood Pressure 130/74 11/02/24 08:22 Pulse Oximetry 93 11/02/24 08:22 Oxygen Delivery Room Air 11/02/24 05:38 Imaging Data Radiologist's impression: overnight read CT L-spine without contrast impression: No acute fracture seen. Impressions Head CT 11/02/24 07:25 IMPRESSION: 1. 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 2. Stable extensive nonspecific cerebral white matter disease, which likely represents chronic small vessel ischemic disease. Lumbar Spine CT 11/02/24 07:27 IMPRESSION: 1. No acute fracture. 2. Severe lumbar spondylosis. 3. Thoracolumbar dextroscoliosis. 4. Large sliding hiatal hernia. Ankle X-Ray 11/02/24 08:12 Impression: No acute fracture or malalignment. Discharge Plan Discharge Clinical Impression: Head injury, acute, Back pain, Left ankle sprain Patient Disposition: NH [facility]/Asst Living Condition: Stable Instructions: Antibiotic Form, Ankle Sprain (ED), Head Injury (ED) Additional Instructions: Benjie wrap left ankle for increased support. Ambulate using a walker as tolerated. Uses a wheelchair for the next few days as needed. have close follow-up with your primary care physician. Patient Language: British Prescriptions: New (DME) miscellaneous medical supply Misc See Rx Instructions .Route Qty: 1 0RF Rx Instructions: As directed No Action aspirin [Adult Low Dose Aspirin] 81 mg tablet,delayed release (DR/EC) 81 mg PO DAILY hydrocodone-acetaminophen 5-325 mg tablet 1 tablet PO Q8H PRN (Reason: severe pain) Qty: 30 0RF Xarelto 15 mg tablet 15 mg PO DAILY atorvastatin 80 mg tablet 80 mg PO DAILY Cyanacobalamin 50 mcg PO DAILY tamsulosin 0.4 mg capsule 0.4 mg PO DAILY terazosin 2 mg capsule See Rx Instructions .ROUTE .COMPLEX Rx Instructions: TAKE 1 CAPSULE BY MOUTH EVERY EVENING pregabalin 25 mg capsule 75 mg PO BID doxycycline hyclate 100 mg capsule 100 mg PO DAILY Qty: 5 0RF Jardiance 10 mg tablet 10 mg PO DAILY Qty: 90 1RF furosemide 40 mg tablet See Rx Instructions .ROUTE .COMPLEX Qty: 90 1RF Dose Instruction: TAKE 1 TABLET BY MOUTH EVERY DAY Rx Instructions: TAKE 1 TABLET BY MOUTH EVERY DAY levothyroxine 75 mcg tablet See Rx Instructions .ROUTE .COMPLEX Qty: 90 2RF Dose Instruction: TAKE 1 TABLET BY MOUTH EVERY DAY AT 6:30AM Rx Instructions: TAKE 1 TABLET BY MOUTH EVERY DAY AT 6:30AM metoprolol succinate 100 mg tablet extended release 24 hr See Rx Instructions .ROUTE .COMPLEX Qty: 90 0RF Dose Instruction: TAKE 1 TABLET BY MOUTH EVERY DAY IN THE MORNING Rx Instructions: TAKE 1 TABLET BY MOUTH EVERY DAY IN THE MORNING ferrous sulfate 325 mg (65 mg iron) tablet,delayed release (DR/EC) 325 mg PO DAILY Qty: 90 1RF Follow-up/Referrals: Bradley Craft MD [Primary Care Provider, Family Practice]
[2024-11-02] MEDS: HYDROcodone/acetaminophen (*CRX) 10-325 MG TABLET 1 TAB PO (08:20)
[2024-11-02 08:22] VITALS: BP 130/74; PULSE 80; RESP 18; O2SAT 93
== END 2024-11-02 09:12 ==
PROVIDERS: Emergency Provider Emergency Medicine; PCP Family Medicine
DX: S93.402A Sprain of unspecified ligament of left ankle, initial encounter (principal); S09.90XA Unspecified injury of head, initial encounter; S39.92XA Unspecified injury of lower back, initial encounter; I48.0 Paroxysmal atrial fibrillation; I35.0 Nonrheumatic aortic (valve) stenosis; Q23.81 Bicuspid aortic valve; I25.10 Atherosclerotic heart disease of native coronary artery without angina pectoris; I10 Essential (primary) hypertension; I34.0 Nonrheumatic mitral (valve) insufficiency; E78.2 Mixed hyperlipidemia; D64.9 Anemia, unspecified; N40.0 Benign prostatic hyperplasia without lower urinary tract symptoms; G62.9 Polyneuropathy, unspecified; M41.9 Scoliosis, unspecified; F17.210 Nicotine dependence, cigarettes, uncomplicated; Z95.2 Presence of prosthetic heart valve; Z95.810 Presence of automatic (implantable) cardiac defibrillator; Z95.1 Presence of aortocoronary bypass graft; Z85.820 Personal history of malignant melanoma of skin; Z98.49 Cataract extraction status, unspecified eye; W18.11XA Fall from or off toilet without subsequent striking against object, initial encounter; M47.816 Spondylosis without myelopathy or radiculopathy, lumbar region; K44.9 Diaphragmatic hernia without obstruction or gangrene; Z79.82 Long term (current) use of aspirin; Z79.01 Long term (current) use of anticoagulants; Z79.84 Long term (current) use of oral hypoglycemic drugs; Z79.899 Other long term (current) drug therapy
CPT/HCPCS: 70450; 72131; 73610; 99284; A9270

== ENCOUNTER 2025-01-04 09:25 | Observation (INO) | payer MEDICARE, SELFPAY ==
--- NOTE | ~2025-01-04 | CT_ITS ---
CT HEAD NON-CONTRAST CT C-SPINE Clinical History: fall last night, head injury-hit back of his head Comparison: CT brain 11/02/2024 CT brain and C-spine 06/01/2024 Technique: Unenhanced axial images skull base to vertex. Coronal, sagittal reformats. Axial images thoracic inlet to skull base. Sagittal and coronal reformats. CT images acquired with automatic exposure control for dose reduction DLP: 681 mGy-cm Findings: Head: Age-related atrophy and chronic white matter microvascular ischemic changes. Basal ganglia lacunae. Bilateral cerebellar chronic infarct. Sulci, ventricles: Unremarkable. No intracerebral hemorrhage. No evidence acute territorial infarct. No mass effect, midline shift, intra-/extra-axial fluid collection. Bony calvarium intact. Visualized paranasal sinuses: Frontal and ethmoid disease. Mastoid air cells: Clear. C-spine: No acute fracture Grade 1 anterolisthesis C4 on 5. Moderate degenerative changes and disc disease. Prevertebral soft tissues within normal limits. Visualized lung apices: Clear. Visualized thyroid: Unremarkable. No enlarged cervical nodes. IMPRESSION: HEAD: 1. No acute intracranial findings. C-SPINE: 1. No acute fracture. Reviewed, dictated and finalized at location R. ICAL GENETICIST IMPRESSION: HEAD: 1. No acute intracranial findings. C-SPINE: 1. No acute fracture.
--- NOTE | ~2025-01-04 | XR_ITS ---
EXAMINATION: XR ankle LT min 3V, 01/04/2025 9:55 REFERENCE AND INSTRUCTION LIBRARIAN HISTORY: ANKLE PAIN AFTER FALL COMPARISON: No comparisons available. Findings: Remote corticated fracture of the lateral malleolus. Remote corticated fracture of the medial malleolus. No acute fracture is identified. No significant degenerative changes. Soft tissues unremarkable. Impression: No acute fracture or malalignment. Reviewed, dictated and finalized at location P. RENCE AND INSTRUCTION LIBRARIAN Impression: No acute fracture or malalignment.
--- NOTE | ~2025-01-04 | XR_ITS ---
EXAMINATION: XR knee LT 3V, 01/04/2025 9:55 MULTIMEDIA SERVICES COORDINATOR HISTORY: ANTERIOR KNEE PAIN AFTER FALL COMPARISON: No comparisons available. Findings: No acute fracture or malalignment. Moderate tricompartmental degenerative changes with chondrocalcinosis and small effusion Soft tissues unremarkable. Impression: No acute fracture or malalignment. Reviewed, dictated and finalized at location P. IMEDIA SERVICES COORDINATOR Impression: No acute fracture or malalignment.
[2025-01-04 09:37] VITALS: BP 138/72; PULSE 80; RESP 20; TEMP 36.5; O2SAT 97
--- NOTE | 2025-01-04 11:33 | PC.NURSE ---
stated that at the other hospital he gave a sample and was told he had a mild bladder infection was not treated.
[2025-01-04] MEDS: ACETAMINOPHEN 500 MG TABLET 1000 MG PO (12:07)
--- NOTE | 2025-01-04 12:46 | ED.LOWEXIN ---
HPI - Extremity Injury (Lower) General Chief Complaint: Extremity Injury, Lower Stated Complaint: left ankle and knee pain Time Seen by Provider: 01/04/25 10:57 Source: patient Mode of arrival: EMS Limitations: no limitations History of Present Illness HPI Narrative: Patient is an 89-year-old male, with PMH of AFIB on xarelto, who presents the ED via EMS with report of left knee and ankle pain. Patient is a resident of [facility]. Reports he had a mechanical fall yesterday and fell on to his back and left side. Believes he may have his head. Denied LOC. Complains of pain to his left knee and left ankle. He was reportedly seen at [facility] yesterday and had negative x-rays. Wanted to be seen again. Has not had anything for pain. Related Data Home Medications ?Medication ?Instructions ?Recorded ?Confirmed ?Last Taken ?Type aspirin 81 mg tablet,delayed 81 mg PO DAILY 04/11/19 06/16/24 05/08/24 History release (Adult Low Dose Aspirin) rivaroxaban 15 mg tablet (Xarelto) 15 mg PO DAILY 09/21/23 06/16/24 05/08/24 History Cyanacobalamin 50 mcg PO DAILY 05/08/24 06/16/24 05/08/24 History atorvastatin 80 mg tablet 80 mg PO DAILY 05/08/24 06/16/24 05/08/24 History pregabalin 25 mg capsule 75 mg PO BID 05/08/24 06/16/24 05/08/24 History terazosin 2 mg capsule See Rx Instructions .Route .COMPLEX 05/08/24 06/16/24 05/07/24 History Allergies Allergy/AdvReac Type Severity Reaction Status Date / Time No Known Allergies Allergy Verified 01/04/25 09:36 Review of Systems Review of Systems: All systems reviewed & are unremarkable except as noted in HPI. All systems reviewed & are unremarkable except as noted in HPI and below PMFSH Past Medical History Medical History Chronic anemia Paroxysmal atrial fibrillation Benign prostatic hyperplasia Aortic stenosis 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 History of implantable cardioverter-defibrillator (ICD) placement (2009) History of aortic valve replacement with bioprosthetic valve For severe AI/ due to bicuspid valve. History of hernia repair History of coronary artery bypass graft x 3 (2009) MAGALLON to LAD, SVG to OM, SVG to PDA per Dr. Antony at [place]. History of cataract extraction Family History Family History Father Patient's father is Family history of premature coronary heart disease, Onset Age: 56 Mother Bladder cancer Other No problems noted. Other Breast cancer Social History Social History Social History: Surrogate medical decision maker: Kerri Tabor, daughter. Code status: Full code. Smoking packs per day: 0.5 Smoking cigarettes per day: 10.0 Years smoked: 40 Smoking pack-years: 20.00 Smoking status: Never smoker Second hand tobacco smoke exposure: No Alcohol intake: never Substance use: never Substance use type: does not use Do You Feel Safe in your Home?: Yes Lack of Transportation: No Lack of Food: Never True Current Housing: I Have Housing Concerned About Future Housing: No Difficulty Paying Gas/Electric Bills: No Difficulty Paying for Meds: No Currently Unemployed: No Education: Trade/Vocational Certificate Difficulty w/ Childcare or Family Care: No Living arrangements: with family Additional living arrangements comments: Has a son and daughter. Occupation/Education: retired Spiritual care concerns: No Exam Narrative: GENERAL: Elderly, well-nourished, non-toxic, in no acute distress. HEAD: Normocephalic, atraumatic. RESPIRATORY: Airway patent, respirations nonlabored. Clear to auscultation bilaterally, no rales, rhonchi, wheezing. CARDIOVASCULAR: Regular rate and rhythm without murmurs, rubs, or gallops. ABDOMINAL: Soft, nontender, nondistended. Normoactive BS. MUSCULOSKELETAL: Moves all extremities. No gross deformities. No C/T/L midline spinal tenderness. No tenderness over L hip. Mild diffuse tenderness over L anterior knee, no significant swelling. Mild TTP over L lateral malleoli of ankle, no swelling/warmth/erythema SKIN: Warm, dry, normal color. NEURO: A&O X3. Speech clear. Cranial nerves II-XII grossly intact. No ataxic movements. PSYCHIATRIC: Appropriate mood and affect. Normal interaction. Course Vital Signs Vital signs: Vital Signs Temperature 97.7 F 01/04/25 09:37 Pulse Rate 80 01/04/25 09:37 Respiratory Rate 01/04/25 09:37 Blood Pressure 138/72 01/04/25 09:37 Pulse Oximetry 97 01/04/25 09:37 Oxygen Delivery Room Air 01/04/25 09:37 Temperature 97.7 F 01/04/25 09:37 Pulse Rate 80 01/04/25 09:37 Respiratory Rate 01/04/25 09:37 Blood Pressure 138/72 01/04/25 09:37 Pulse Oximetry 97 01/04/25 09:37 Oxygen Delivery Room Air 01/04/25 09:37 MDM - Extremity Injury (Lower) MDM Narrative Medical decision making narrative: Patient?s injury is consistent with musculoskeletal etiology. No signs of neurologic or vascular compromise on physical examination. Compartments are soft without signs of compartment syndrome. XR of left knee and left ankle negative for acute fracture. Does show small joint effusion to left knee. CT brain and cervical spine were also obtained as patient reported head injury. These were without traumatic findings. Pain is consistent with likely knee/ankle sprain. Given ANDREA bandage. Discussed rice therapy, continuing Tylenol as needed for pain. Patient is felt to be stable for discharge home and further outpatient management and treatment. Will be discharged back to custodial facility. Given return precautions. Discharged in stable condition. Medical Records Attestation: I reviewed the patient's medical records. Imaging Data Attestation: I personally reviewed and interpreted this imaging study as follows: Radiologist's impression: ITS Impressions Ankle X-Ray 01/04/25 11:17 Impression: No acute fracture or malalignment. Knee X-Ray 01/04/25 11:18 Impression: No acute fracture or malalignment. Cervical Spine CT 01/04/25 12:32 IMPRESSION: HEAD: 1. No acute intracranial findings. C-SPINE: 1. No acute fracture. Head CT 01/04/25 12:32 IMPRESSION: HEAD: 1. No acute intracranial findings. C-SPINE: 1. No acute fracture. Discharge Plan Discharge Clinical Impression: Fall from ground level Sprain of left knee Qualifiers: Encounter type: initial encounter Involved ligament of knee: unspecified ligament Qualified Code(s): S83.92XA - Sprain of unspecified site of left knee, initial encounter Sprain of left ankle Qualifiers: Encounter type: initial encounter Involved ligament of ankle: unspecified ligament Qualified Code(s): S93.402A - Sprain of unspecified ligament of left ankle, initial encounter Patient Disposition: [facility] Living Condition: Stable Instructions: Antibiotic Form, Knee Pain (ED), Ankle Strain (ED) Additional Instructions: Utilize ANDREA bandage for compression and support. Continue Tylenol as needed for pain. Recommend frequent ice to areas of pain. Follow-up with your primary care doctor for further evaluation as needed. Return to the ED if you experience worsening or severe pain, recurrent fall or injury, numbness, or any other symptoms of concern. Patient Language: Belarusian Prescriptions: No Action aspirin [Adult Low Dose Aspirin] 81 mg tablet,delayed release (DR/EC) 81 mg PO DAILY hydrocodone-acetaminophen 5-325 mg tablet 1 tablet PO Q8H PRN (Reason: severe pain) Qty: 30 0RF (DME) miscellaneous medical supply Misc See Rx Instructions .Route Qty: 1 0RF Rx Instructions: As directed Xarelto 15 mg tablet 15 mg PO DAILY atorvastatin 80 mg tablet 80 mg PO DAILY Cyanacobalamin 50 mcg PO DAILY terazosin 2 mg capsule See Rx Instructions .ROUTE .COMPLEX Rx Instructions: TAKE 1 CAPSULE BY MOUTH EVERY EVENING pregabalin 25 mg capsule 75 mg PO BID doxycycline hyclate 100 mg capsule 100 mg PO DAILY Qty: 5 0RF levothyroxine 75 mcg tablet See Rx Instructions .ROUTE .COMPLEX Qty: 90 2RF Dose Instruction: TAKE 1 TABLET BY MOUTH EVERY DAY AT 6:30AM Rx Instructions: TAKE 1 TABLET BY MOUTH EVERY DAY AT 6:30AM metoprolol succinate 100 mg tablet extended release 24 hr See Rx Instructions .ROUTE .COMPLEX Qty: 90 0RF Dose Instruction: TAKE 1 TABLET BY MOUTH EVERY DAY IN THE MORNING Rx Instructions: TAKE 1 TABLET BY MOUTH EVERY DAY IN THE MORNING ferrous sulfate 325 mg (65 mg iron) tablet,delayed release (DR/EC) 325 mg PO DAILY Qty: 90 1RF furosemide 40 mg tablet See Rx Instructions .ROUTE .COMPLEX Qty: 90 0RF Dose Instruction: TAKE 1 TABLET BY MOUTH EVERY DAY Rx Instructions: TAKE 1 TABLET BY MOUTH EVERY DAY Jardiance 10 mg tablet 10 mg PO DAILY Qty: 90 0RF tamsulosin 0.4 mg capsule 0.4 mg PO DAILY Qty: 90 3RF Follow-up/Referrals: Bradley Craft MD [Primary Care Provider, Family Practice] Time of Disposition: 12:49
[2025-01-04] MEDS: traMADol HCL (*CRX) 25 MG TABLET PO (13:31)
--- NOTE | 2025-01-04 13:34 | PC.NURSE ---
when attempting to discharge pt, family in room verbalizes that the facility pt is living at is concerned about pt's mobility. CATHRYN Lincoln made aware. called care coordination to come speak with pt and family about possible placement to an assisted living facility. Elva at [facility] called and voiced concerns to me about pt. she states he has had frequent falls and has been a 2 person assist. she states their facility has a no lift policy. She is concerned for his safety at the facility.
[2025-01-04 18:00] VITALS: RESP 18
--- NOTE | 2025-01-04 18:09 | PCCCNOTE ---
1414- rec'd a call from Mariel WEST in the ER req that I come and talk to a pt in ED 21 regarding SNF/NH for D/C today. I spoke with pt with son in room regarding NH options. Pt states he has [facility] MCR and IDPA and currently lives at [facility] with his spouse. He is unable to return there at this time due to requiring 2 person assist for ambulation. [facility] req pt to be able to walk/get self to and from the dinning room for his meals and he is not able to do that himself at this time. We discussed that he could go straight to a NH under his IDPA but would be limited on facilities and open beds. This writter spoke with Ramya at [facility] facilities and they do have open Medicare male beds at 3 of there facilities at this time. Pt chose [facility] [address] and this was relayed to Ramya. Ramya requested info to be faxed to her for review at this time.
[2025-01-04 18:15] VITALS: BP 129/66; PULSE 81; RESP 16; TEMP 36.6; O2SAT 100
[2025-01-04 18:16] LABS: Hematocrit 32.1 % (42.0-52.0); Hemoglobin 10.4 g/dL (14.0-18.0); Immature Granulocyte Percent A 0.3 % (0-0.5); Lymphocytes Absolute Auto 3.59 K/mm3 (0.9-3.2); Mean Corpuscular HGB Conc 32.4 g/dl (32-36); Mean Corpuscular Hemoglobin 34.2 pg (26-34); Mean Corpuscular Volume 105.6 fl (80-100); Nucleated Red Blood Cells Absolute Auto 0.000 K/mm3 (0.0-0.012); Nucleated Red Blood Cells Perc 0.0 % (0.0-0.2); Platelet Count Result 141 k/mm3 (150-375); Red Blood Count 3.04 M/mm3 (4.6-6.20); White Blood Count 11.4 K/mm3 (4.5-10.0)
--- NOTE | 2025-01-04 18:19 | PCCCNOTE ---
1505- I called [facility] and requested a current med list in order to help facilitate the process. Med list reviewed per MD and RN , other info being gathered at this time to fax for review for admit to SNF, CR
--- NOTE | 2025-01-04 18:21 | PCCCNOTE ---
[id number]- Info requested by Ramya faxed to her for admit review for admit today from the ER. At 1705 rec'd a call back from Ramya stating pts IDPA has been terminated as of Oct 16 and [facility] M[facility] will need PT/OT notes and Ins auth before they can accept pt for admit. Spoke with ER MD and pt is unsafe to return to [facility] and son unable to stay with pt or allow him to stay at his home till arrangements could be made. Per MD pt will be admitted Obs for therapy evals and SNF arrangements. Son called [facility] to inquire about his IDPA and was told they submitted IDPA info but is still pend and hasnt been reinstated as of yet. CR
[2025-01-04 18:28] LABS: Alanine Aminotransferase 19 U/L (6-50); Albumin Level 3.7 g/dL (3.5-5.1); Alkaline Phosphatase 92 U/L (38-126); Anion Gap 10 mmol/L (4-12); Aspartate Amino Transferase 29 U/L (17-59); Bilirubin,Total 0.7 mg/dL (0.2-1.3); Blood Urea Nitrogen 60 mg/dL (9-20); Calcium 8.7 mg/dL (8.4-10.2); Carbon Dioxide 22 mmol/L (22-30); Chloride 101 mmol/L (98-107); Estimated CRCL calculation 23 ml/min; Estimated Glomerular Filt Rate 28; Glucose 151 mg/dL (65-110); Potassium 4.6 mmol/L (3.4-5.0); Sodium 133 mmol/L (137-145); Total Protein 7.2 g/dL (6.3-8.2)
[2025-01-04 18:43] LABS: Burr Cells Occasional; Ovalocytes Occasional
[2025-01-04 18:44] LABS: Schistocytes Rare
--- NOTE | 2025-01-04 19:59 | PM.IMHP ---
H&P: HPI History of Present Illness Date/Time: 01/04/25 19:59 [facility] Past Medical History Medical History (Updated 01/05/25 @ 00:04 by Edel Voss APRN) Chronic anemia Paroxysmal atrial fibrillation Benign prostatic hyperplasia Aortic stenosis 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 History of implantable cardioverter-defibrillator (ICD) placement (2009) History of aortic valve replacement with bioprosthetic valve For severe AI/ due to bicuspid valve. History of hernia repair History of coronary artery bypass graft x 3 (2009) MAGALLON to LAD, SVG to OM, SVG to PDA per Dr. Antony at [place]. History of cataract extraction Family History Family History Father Patient's father is Family history of premature coronary heart disease, Onset Age: 56 Mother Bladder cancer Other No problems noted. Other Breast cancer Social History Social History Social History: Surrogate medical decision maker: Kerri Tabor, daughter. Code status: Full code. Smoking packs per day: 0.5 Smoking cigarettes per day: 10.0 Years smoked: 40 Smoking pack-years: 20.00 Smoking status: Never smoker Second hand tobacco smoke exposure: No Alcohol intake: never Substance use: never Substance use type: does not use Do You Feel Safe in your Home?: Yes Lack of Transportation: No Lack of Food: Never True Current Housing: I Have Housing Concerned About Future Housing: No Difficulty Paying Gas/Electric Bills: No Difficulty Paying for Meds: No Currently Unemployed: No Education: Trade/Vocational Certificate Difficulty w/ Childcare or Family Care: No Living arrangements: with family Additional living arrangements comments: Has a son and daughter. Occupation/Education: retired Spiritual care concerns: No Meds Home Medications and Allergies Home Medications ?Medication ?Instructions ?Recorded ?Confirmed ?Type aspirin 81 mg tablet,delayed 81 mg PO DAILY 04/11/19 01/04/25 History release (Adult Low Dose Aspirin) rivaroxaban 15 mg tablet (Xarelto) 15 mg PO DAILY 09/21/23 01/04/25 History Cyanacobalamin 50 mcg PO DAILY 05/08/24 01/04/25 History atorvastatin 80 mg tablet 80 mg PO DAILY 05/08/24 01/04/25 History pregabalin 25 mg capsule 75 mg PO BID 05/08/24 01/04/25 History terazosin 2 mg capsule See Rx Instructions .Route .COMPLEX 05/08/24 01/04/25 History levothyroxine 75 mcg tablet See Rx Instructions .Route 09/25/24 01/04/25 Rx .COMPLEX #90 tabs ferrous sulfate 325 mg (65 mg 325 mg PO DAILY #90 tabs 10/30/24 01/04/25 Rx iron) tablet,delayed release metoprolol succinate 100 mg See Rx Instructions .Route 10/30/24 01/04/25 Rx tablet,extended release 24 hr .COMPLEX #90 tabs miscellaneous medical supply #1 ea 11/02/24 01/04/25 Rx empagliflozin 10 mg tablet 10 mg PO DAILY #90 tabs 11/20/24 01/04/25 Rx (Jardiance) furosemide 40 mg tablet See Rx Instructions .Route 11/20/24 01/04/25 Rx .COMPLEX #90 tabs tamsulosin 0.4 mg capsule 0.4 mg PO DAILY #90 caps 12/22/24 01/04/25 Rx Allergies Allergy/AdvReac Type Severity Reaction Status Date / Time No Known Allergies Allergy Verified 01/04/25 22:03 Vital Signs Vital Signs - 24 hr 01/04/25 09:37 01/04/25 18:00 01/04/25 18:15 Temperature 97.7 F 98 F Pulse Rate 80 81 Respiratory Rate 20 18 16 Blood Pressure 138/72 129/66 Pulse Oximetry 97 100 Oxygen Delivery Room Air H&P: Results Labs Labs: Short CBC 01/04/25 Range/Units 18:10 WBC 11.4 H (4.5-10.0) K/mm3 Hgb 10.4 L (14.0-18.0) g/dL Hct 32.1 L (42.0-52.0) % Plt Count 141 L (150-375) k/mm3 BMP 01/04/25 18:10 Sodium 133 L Potassium 4.6 Chloride 101 Carbon Dioxide 22 BUN 60 H Creatinine 2.22 H Glucose 151 H Calcium 8.7 Liver Function 01/04/25 Range/Units 18:10 Total Bilirubin 0.7 (0.2-1.3) mg/dL AST 29 (17-59) U/L ALT 19 (6-50) U/L Alkaline Phosphatase 92 (38-126) U/L Albumin 3.7 (3.5-5.1) g/dL
--- NOTE | 2025-01-04 20:21 | WPCEDHO ---
ED Hand Off Checklist All vitals saved: yes IV Site documented: yes All med administrations documented: yes Triage Note Triage Note patient to ED per EMS from 01/04/25 11:26 [facility]. patient was seen at [facility] 01/03 for same, c/o L knee and ankle pain and had XR completed which were negative. patient stated that he wanted to be seen elsewhere for evaluation agree w / triage note. Allergies No Known Allergies Allergy (Verified 01/04/25 09:36) Family History (Last Reviewed 01/04/25 @ 12:54 by Latonia Vera PA-C) Father Patient's father is Family history of premature coronary heart disease Mother Bladder cancer Other No problems noted. Other Breast cancer Administered/Completed Medications Discontinued Medications Acetaminophen (Acetaminophen 500 Mg Tablet) 1,000 mg PO ONCE STA Stop: 01/04/25 12:00 Last Admin: 01/04/25 12:07 Dose: 1,000 mg Documented By: JUMANA Tramadol HCl (Tramadol Hcl (*Crx) 25 Mg Tablet) 25 mg PO ONCE STA Stop: 01/04/25 13:27 Last Admin: 01/04/25 13:31 Dose: 25 mg Documented By: JUMANA Notes 01/04/25 18:21 Care Coordination Note by Juli Hernandez [id number]- Info requested by Ramya faxed to her for admit review for admit today from the ER. At 1705 rec'd a call back from Ramya stating pts IDPA has been terminated as of Oct 16 and [facility] will need PT/OT notes and Ins auth before they can accept pt for admit. Spoke with ER MD and pt is unsafe to return to [facility] and son unable to stay with pt or allow him to stay at his home till arrangements could be made. Per MD pt will be admitted Obs for therapy evals and SNF arrangements. Son called [facility] to inquire about his IDPA and was told they submitted IDPA info but is still pend and hasnt been reinstated as of yet. CR Initialized on 01/04/25 18:21 - END OF NOTE 01/04/25 18:19 Care Coordination Note by Juli Hernandez [id number]- I called [facility] and requested a current med list in order to help facilitate the process. Med list reviewed per MD and RN , other info being gathered at this time to fax for review for admit to SNF, CR Initialized on 01/04/25 18:19 - END OF NOTE 01/04/25 18:09 Care Coordination Note by Juli Hernandez [phone]- rec'd a call from Mariel WEST in the ER req that I come and talk to a pt in ED 21 regarding SNF/NH for D/C today. I spoke with pt with son in room regarding NH options. Pt states he has [facility] and IDPA and currently lives at [facility] with his spouse. He is unable to return there at this time due to requiring 2 person assist for ambulation. [facility] req pt to be able to walk/get self to and from the dinning room for his meals and he is not able to do that himself at this time. We discussed that he could go straight to a NH under his IDPA but would be limited on facilities and open beds. This writter spoke with Ramya at [facility] facilities and they do have open Medicare male beds at 3 of there facilities at this time. Pt chose [facility] on [address] and this was relayed to Ramya. Ramya requested info to be faxed to her for review at this time. Initialized on 01/04/25 18:09 - END OF NOTE 01/04/25 13:34 Nurse Note by Mariel Jacobson when attempting to discharge pt, family in room verbalizes that the facility pt is living at is concerned about pt's mobility. CATHRYN Lincoln made aware. called care coordination to come speak with pt and family about possible placement to an assisted living facility. Elva at [facility] called and voiced concerns to me about pt. she states he has had frequent falls and has been a 2 person assist. she states their facility has a no lift policy. She is concerned for his safety at the facility. Initialized on 01/04/25 13:34 - END OF NOTE 01/04/25 11:33 Nurse Note by Blanca Montes stated that at the other hospital he gave a sample and was told he had a mild bladder infection was not treated. Initialized on 01/04/25 11:33 - END OF NOTE Interventions/Assessments General Assessment Start: 01/04/25 18:00 Freq: Status: Active Protocol: Document 01/04/25 18:00 [facility] (Rec: 01/04/25 18:02 [facility] [id number]) GA Neurological Assessment Level of Alert,Awake Consciousness Arousable to Verbal Orientation Oriented to Person,Oriented to Place,Oriented to Time Behavior Appropriate,Cooperative Patient Able to Comprehend Comprehension Memory Description Intact Ability to Maintain Impaired Balance Facial Symmetry Symmetrical Speech Pattern Clear Blink Reflex Present Response Cough/Gag Reflex Present GA HEENT Assessment Head Symptoms None Neck Symptoms None Neck Movement No Limitations GA Cardiovascular Assessment Cardiovascular None Symptoms Skin Description Normal Color Heart Sounds Normal Jugular Vein None Distention GA Respiratory Assessment Symptoms None Respiratory Rate (12 18 -20) Effort Normal Pattern Regular Depth Normal Chest Expansion Symmetrical Adult Capillary Normal/Less than 2 Seconds Refill Bilateral Upper Lobe(s) Phase Inspiratory & Expiratory Lung Sounds Clear GA Gastrointestinal Assessment Gastrointestinal Yes Assessment WNL GA Genitourinary Assessment Voiding Method Toilet GA Integumentary Assessment Integumentary Yes Assessment WNL IV / Saline Lock, Insert Start: 01/04/25 17:31 Freq: ONCE Status: Active Protocol: Document 01/04/25 18:16 [facility] (Rec: 01/04/25 18:16 [facility] [id number]) IV Assessment Peripheral Access Right Forearm IV Catheter Access Initiated IV Insertion Date 01/04/25 IV Insertion Time 18:16 Catheter Gauge 20 IV Insertion 1 Attempts IV Site Assessment WNL IV Care and WNL Maintenance Last Vital Signs Temperature 98 F 01/04/25 18:15 Pulse Rate 81 01/04/25 18:15 Respiratory Rate 16 01/04/25 18:15 Pulse Oximetry 100 01/04/25 18:15 Blood Pressure 129/66 01/04/25 18:15 Blood Pressure Mean 87 01/04/25 18:15 Oxygen Delivery Room Air 01/04/25 09:37 Weight 77.3 kg 01/04/25 11:26 Last Result - Abnormals Only WBC 11.4 K/mm3 (4.5-10.0) H 01/04/25 18:10 RBC 3.04 M/mm3 (4.6-6.20) L 01/04/25 18:10 Hgb 10.4 g/dL (14.0-18.0) L 01/04/25 18:10 Hct 32.1 % (42.0-52.0) L 01/04/25 18:10 MCV 105.6 fl (80-100) H 01/04/25 18:10 MCH 34.2 pg (26-34) H 01/04/25 18:10 Plt Count 141 k/mm3 (150-375) L 01/04/25 18:10 Garrard % (Auto) 11.5 % (2.6-8.5) H 01/04/25 18:10 Lymph # (Auto) 3.59 K/mm3 (0.9-3.2) H 01/04/25 18:10 Garrard # (Auto) 1.3 K/mm3 (0.1-0.6) H 01/04/25 18:10 Abs Immat Gran (auto) 0.04 K/mm3 (0.00-0.031) H 01/04/25 18:10 Sodium 133 mmol/L (137-145) L 01/04/25 18:10 BUN 60 mg/dL (9-20) H 01/04/25 18:10 Creatinine 2.22 mg/dL (0.7-1.3) H 01/04/25 18:10 Estimated GFR 28 (59-) L 01/04/25 18:10 Glucose 151 mg/dL (65-110) H 01/04/25 18:10 Most Recent Suicide Severity Rating Suicide Severity Rating NO RISK INDICATED 01/04/25 11:26
--- NOTE | 2025-01-04 20:34 | PC.NURSE ---
pt requesting to stay in clothes and not put on a gown. May RN notified as well.
[2025-01-04 20:36] VITALS: BP 129/66; PULSE 81; RESP 16; TEMP 36.6; O2SAT 100
--- NOTE | 2025-01-04 20:40 | ADMGEN ---
This patient, Vladimir Blackburn, was admitted to [facility] Surg Room 311-01. Patient/family oriented to hospital policies and general routines including ID bracelet, bed and alarms, visiting hours, pain management, procedures, bathroom and other care routines, personal items, smoking policy, room service/diet, and visiting hours. Information on how to activate the Rapid Response Team has been discussed. Patient/Family are encouraged to report perceived risks to care and to ask questions if they do not understand what they are told or what they should do.
[2025-01-04 21:20] VITALS: O2SAT 98
[2025-01-04 21:55] VITALS: BMI 21.8
[2025-01-04 21:56] VITALS: BP 114/60; PULSE 79; RESP 18; TEMP 35.9; O2SAT 98
--- NOTE | 2025-01-04 22:35 | PM.IMHP ---
H&P: [facility] History of Present Illness Date/Time: 01/04/25 22:35 Chief Complaint: Left knee and ankle pain Narrative: 89-year-old male with past medical history of AFib on Xarelto, hypertension, BPH, CHF, S/P aortic valve replacement, hypothyroidism, depression, neuropathy, hyperlipidemia presents to the ED on 01/04/2025 with left knee and ankle pain. Patient is currently in independent living at [facility]. Patient had a fall on 01/03 and was seen at [facility]. His workup was negative and he was sent back. Patient wanted to be seen again stating he still has pain. Patient also stated he is unsure if he hit his head. Patient was set discharged from [place] ED however family reported concerns over patient's inability to ambulate very well since his fall. Patient is only able to take a couple small steps with a walker before being unable to walk any further. [facility] contacted the ED as well expressing their concerns about the patient returning to their facility. They state he has been falling more frequently and requiring 2 person assist. Patient was accepted at [facility] for fci placement, however patient's insurance will require observation and PT/OT evaluation. Initial vital signs stable Labs reveal WBC 11.4, chronic anemia, baseline hyponatremia with sodium 133, BUN 60, creatinine 2.[address] with no acute process. Cervical spine CT no acute process. Left knee x-ray no acute fracture or malalignment. Ankle x-ray with no acute fracture or malalignment. Review of Systems Review of Systems: All systems reviewed & are unremarkable except as noted in HPI and below [facility] Past Medical History Medical History (Updated 01/05/25 @ 00:04 by Edel Voss APRN) Chronic anemia Paroxysmal atrial fibrillation Benign prostatic hyperplasia Aortic stenosis 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 History of implantable cardioverter-defibrillator (ICD) placement (2009) History of aortic valve replacement with bioprosthetic valve For severe AI/ due to bicuspid valve. History of hernia repair History of coronary artery bypass graft x 3 (2009) MAGALLON to LAD, SVG to OM, SVG to PDA per Dr. Antony at [place]. History of cataract extraction Family History Family History Father Patient's father is Family history of premature coronary heart disease, Onset Age: 56 Mother Bladder cancer Other No problems noted. Other Breast cancer Social History Social History Social History: Surrogate medical decision maker: Kerri Tabor, daughter. Code status: Full code. Smoking packs per day: 0.5 Smoking cigarettes per day: 10.0 Years smoked: 40 Smoking pack-years: 20.00 Smoking status: Never smoker Second hand tobacco smoke exposure: No Alcohol intake: never Substance use: never Substance use type: does not use Do You Feel Safe in your Home?: Yes Lack of Transportation: No Lack of Food: Never True Current Housing: I Have Housing Concerned About Future Housing: No Difficulty Paying Gas/Electric Bills: No Difficulty Paying for Meds: No Currently Unemployed: No Education: Trade/Vocational Certificate Difficulty w/ Childcare or Family Care: No Living arrangements: with family Additional living arrangements comments: Has a son and daughter. Occupation/Education: retired Spiritual care concerns: No Meds Home Medications and Allergies Home Medications ?Medication ?Instructions ?Recorded ?Confirmed ?Type aspirin 81 mg tablet,delayed 81 mg PO DAILY 04/11/19 01/04/25 History release (Adult Low Dose Aspirin) rivaroxaban 15 mg tablet (Xarelto) 15 mg PO DAILY 09/21/23 01/04/25 History Cyanacobalamin 50 mcg PO DAILY 05/08/24 01/04/25 History atorvastatin 80 mg tablet 80 mg PO DAILY 05/08/24 01/04/25 History pregabalin 25 mg capsule 75 mg PO BID 05/08/24 01/04/25 History terazosin 2 mg capsule See Rx Instructions .Route .COMPLEX 05/08/24 01/04/25 History levothyroxine 75 mcg tablet See Rx Instructions .Route 09/25/24 01/04/25 Rx .COMPLEX #90 tabs ferrous sulfate 325 mg (65 mg 325 mg PO DAILY #90 tabs 10/30/24 01/04/25 Rx iron) tablet,delayed release metoprolol succinate 100 mg See Rx Instructions .Route 10/30/24 01/04/25 Rx tablet,extended release 24 hr .COMPLEX #90 tabs miscellaneous medical supply #1 ea 11/02/24 01/04/25 Rx empagliflozin 10 mg tablet 10 mg PO DAILY #90 tabs 11/20/24 01/04/25 Rx (Jardiance) furosemide 40 mg tablet See Rx Instructions .Route 11/20/24 01/04/25 Rx .COMPLEX #90 tabs tamsulosin 0.4 mg capsule 0.4 mg PO DAILY #90 caps 12/22/24 01/04/25 Rx Allergies Allergy/AdvReac Type Severity Reaction Status Date / Time No Known Allergies Allergy Verified 01/04/25 22:03 Vital Signs Vital Signs - 24 hr 01/04/25 09:37 01/04/25 18:00 01/04/25 18:15 Temperature 97.7 F 98 F Pulse Rate 80 81 Respiratory Rate 20 18 16 Blood Pressure 138/72 129/66 Pulse Oximetry 97 100 Oxygen Delivery Room Air 01/04/25 20:36 01/04/25 21:56 Temperature 98 F 96.7 F L Pulse Rate 81 79 Respiratory Rate 16 18 Blood Pressure 129/66 114/60 Pulse Oximetry 100 98 Oxygen Delivery Exam Narrative: GENERAL: non-toxic appearing, in no acute distress. Frail appearing HEAD: Normocephalic, atraumatic. EYES: PERRLA. Conjunctivae clear. NOSE: Normal no drainage. THROAT: Pharynx clear, no exudate. NECK: Trachea midline. No adenopathy, no masses. RESPIRATORY: Airway patent, respirations nonlabored. CTA. CARDIOVASCULAR: Regular rate and rhythm GASTROINTESTINAL: Abdomen is soft and nontender. No organomegaly. Bowel sounds normal in all quadrants. GENITOURINARY: Defer MUSCULOSKELETAL: Moves all extremities. No gross deformities. SKIN: Warm, dry, normal color. NEURO: A&O X4. Speech clear PSYCHIATRIC: Normal interaction H&P: Results Labs Labs: Short CBC 01/04/25 Range/Units 18:10 WBC 11.4 H (4.5-10.0) K/mm3 Hgb 10.4 L (14.0-18.0) g/dL Hct 32.1 L (42.0-52.0) % Plt Count 141 L (150-375) k/mm3 BMP 01/04/25 18:10 Sodium 133 L Potassium 4.6 Chloride 101 Carbon Dioxide 22 BUN 60 H Creatinine 2.22 H Glucose 151 H Calcium 8.7 Liver Function 01/04/25 Range/Units 18:10 Total Bilirubin 0.7 (0.2-1.3) mg/dL AST 29 (17-59) U/L ALT 19 (6-50) U/L Alkaline Phosphatase 92 (38-126) U/L Albumin 3.7 (3.5-5.1) g/dL Assessment and Plan Assessment and plan (1) Fall from ground level: Code(s): W18.30XA - Fall on same level, unspecified, initial encounter Status: Acute Assessment and Plan: Patient sustained fall on 01/03. Complains of left knee and ankle pain status post fall. Head CT with no acute process. Cervical spine CT no acute process. Left knee x-ray no acute fracture or malalignment. Ankle x-ray with no acute fracture or malalignment. Patient has been falling more frequently at his independent living and requiring 2 person assist. Unable to return to his independent living facility. -PT/OT evaluation for placement -Tylenol p.r.n. and tramadol. -fall precautions (2) Benign essential HTN: Code(s): I10 - Essential (primary) hypertension Status: Chronic Assessment and Plan: Continue metoprolol (3) CHF (congestive heart failure): Qualifiers: Heart failure chronicity: chronic Heart failure type: systolic Qualified Code(s): I50.22 - Chronic systolic (congestive) heart failure Code(s): I50.9 - Heart failure, unspecified Status: Chronic Assessment and Plan: Does not appear to be in acute exacerbation. AICD in place. Most recent echo from 09/24/2023 shows EF 35-40% -continue Jardiance and furosemide (4) BPH (benign prostatic hyperplasia): Qualifiers: Lower urinary tract symptom presence: unspecified whether lower urinary tract symptoms present Qualified Code(s): N40.0 - Benign prostatic hyperplasia without lower urinary tract symptoms Code(s): N40.0 - Benign prostatic hyperplasia without lower urinary tract symptoms Status: Chronic Assessment and Plan: Continue tamsulosin and terazosin -monitor output (5) Hypothyroidism: Qualifiers: Hypothyroidism type: unspecified Qualified Code(s): E03.9 - Hypothyroidism, unspecified Code(s): E03.9 - Hypothyroidism, unspecified Status: Chronic Assessment and Plan: Continue levothyroxine 75 mcg daily (6) Neuropathy: Code(s): G62.9 - Polyneuropathy, unspecified Status: Chronic Assessment and Plan: Continue pregabalin 75 mg p.o. b.i.d. (7) AF (atrial fibrillation): Qualifiers: Atrial fibrillation type: paroxysmal Qualified Code(s): I48.0 - Paroxysmal atrial fibrillation Code(s): I48.91 - Unspecified atrial fibrillation Status: Chronic Assessment and Plan: Continue Xarelto Plan Diet: Heart healthy GI prophylaxis: NA DVT prophylaxis: Xarelto lines/drains: PIV Fluids: NA Code status: Full Quality VTE Prophylaxis VTE prophylaxis: pharmacologic ordered
[2025-01-05] MEDS: TERAZOSIN HCL 1 MG CAPSULE 2 MG PO (00:41)
[2025-01-05 01:01] VITALS: PULSE 79; RESP 18; O2SAT 98
[2025-01-05] MEDS: traMADol HCL (*CRX) 25 MG TABLET PO (04:36)
[2025-01-05 04:42] VITALS: BP 120/60; PULSE 80; RESP 20; TEMP 36.4; O2SAT 100
[2025-01-05] MEDS: LEVOTHYROXINE SODIUM 75 MCG TABLET BY MOUTH (05:45)
--- NOTE | 2025-01-05 07:20 | PM.IMPN ---
Progress Note: A&P Assessment and Plan (1) Fall from ground level: Code(s): W18.30XA - Fall on same level, unspecified, initial encounter Status: Acute Assessment and Plan: Patient sustained fall on 01/03. Complains of left knee and ankle pain status post fall. Patient has been falling more frequently at his independent living and requiring 2 person assist. Unable to return to his independent living facility. Head/Cervical spine CT no acute process Ankle XR with no acute fracture or malalignment Left knee XR no acute fracture or malalignment PT/OT evaluation for placement Tylenol p.r.n. and tramadol. fall precautions Working with care coordination regarding placement pending PT/OT evaluation (2) Benign essential HTN: Code(s): I10 - Essential (primary) hypertension Status: Chronic Assessment and Plan: Continue metoprolol (3) CHF (congestive heart failure): Qualifiers: Heart failure chronicity: chronic Heart failure type: systolic Qualified Code(s): I50.22 - Chronic systolic (congestive) heart failure Code(s): I50.9 - Heart failure, unspecified Status: Chronic Assessment and Plan: Does not appear to be in acute exacerbation AICD in place Most recent echo from 09/24/2023 shows EF 35-40% continue Jardiance and furosemide (4) BPH (benign prostatic hyperplasia): Qualifiers: Lower urinary tract symptom presence: unspecified whether lower urinary tract symptoms present Qualified Code(s): N40.0 - Benign prostatic hyperplasia without lower urinary tract symptoms Code(s): N40.0 - Benign prostatic hyperplasia without lower urinary tract symptoms Status: Chronic Assessment and Plan: Continue tamsulosin and terazosin monitor output (5) Hypothyroidism: Qualifiers: Hypothyroidism type: unspecified Qualified Code(s): E03.9 - Hypothyroidism, unspecified Code(s): E03.9 - Hypothyroidism, unspecified Status: Chronic Assessment and Plan: Continue levothyroxine 75 mcg daily (6) Neuropathy: Code(s): G62.9 - Polyneuropathy, unspecified Status: Chronic Assessment and Plan: Continue pregabalin 75 mg p.o. b.i.d. (7) AF (atrial fibrillation): Qualifiers: Atrial fibrillation type: paroxysmal Qualified Code(s): I48.0 - Paroxysmal atrial fibrillation Code(s): I48.91 - Unspecified atrial fibrillation Status: Chronic Assessment and Plan: Continue Xarelto Plan Diet: Heart healthy GI prophylaxis: NA DVT prophylaxis: Xarelto lines/drains: PIV Fluids: NA Code status: Full Subjective Date/time seen: 01/05/25 07:20 Interval history: 89-year-old male with past medical history of AFib on Xarelto, hypertension, BPH, CHF, S/P aortic valve replacement, hypothyroidism, depression, neuropathy, hyperlipidemia presents to the ED on 01/04/2025 with left knee and ankle pain. 01/05/2025 Patient sitting comfortably in bed at time of examination. Reports minimal left knee pain but otherwise feels great. Working with care coordination regarding placement to outside facility pending PT/OT evaluations. Review of Systems Review of Systems: All systems reviewed & are unremarkable except as noted in HPI and below Exam Narrative: GENERAL: non-toxic appearing, in no acute distress. Frail appearing HEAD: Normocephalic, atraumatic. EYES: PERRLA. Conjunctivae clear. NOSE: Normal no drainage. THROAT: Pharynx clear, no exudate. NECK: Trachea midline. No adenopathy, no masses. RESPIRATORY: Airway patent, respirations nonlabored. CTA. CARDIOVASCULAR: Regular rate and rhythm GASTROINTESTINAL: Abdomen is soft and nontender. No organomegaly. Bowel sounds normal in all quadrants. GENITOURINARY: Defer MUSCULOSKELETAL: Moves all extremities. No gross deformities. SKIN: Warm, dry, normal color. NEURO: A&O X4. Speech clear PSYCHIATRIC: Normal interaction Objective Data Vital Signs Vital Signs: Vital Signs - 24 hr 01/04/25 09:37 01/04/25 18:00 01/04/25 18:15 Temperature 97.7 F 98 F Pulse Rate 80 81 Respiratory Rate 20 18 16 Blood Pressure 138/72 129/66 Pulse Oximetry 97 100 Oxygen Delivery Room Air 01/04/25 20:36 01/04/25 21:20 01/04/25 21:56 Temperature 98 F 96.7 F L Pulse Rate 81 79 Respiratory Rate 16 18 Blood Pressure 129/66 114/60 Pulse Oximetry 100 98 98 Oxygen Delivery Room Air 01/05/25 01:01 01/05/25 04:42 Temperature 97.6 F Pulse Rate 79 80 Respiratory Rate 18 20 Blood Pressure 120/60 Pulse Oximetry 98 100 Oxygen Delivery Room Air Intake/Output Intake/Output: Intake & Output 11/18/25 11/19/25 11/20/25 11/21/25 23:59 23:59 23:59 23:59 Intake Total 490 Balance 490 Meds/Results Medications: Active Medications Generic Name Dose Route Start Last Admin Trade Name Freq PRN Reason Stop Dose Admin Acetaminophen 650 mg 01/04/25 18:54 Acetaminophen 325 Mg Tablet PO Q4H PRN Mild Pain (1-3) or Fever Aspirin 81 mg 01/05/25 09:00 Aspirin 81 Mg Enteric Tablet PO DAILY [facility] Atorvastatin Calcium 80 mg 01/05/25 09:00 Atorvastatin 40 Mg Tablet PO DAILY [facility] Empagliflozin 10 mg 01/05/25 09:00 Empagliflozin 10 Mg Tablet PO DAILY [facility] Ferrous Sulfate 325 mg 01/05/25 09:00 Ferrous Sulfate 325 Mg Tablet PO DAILY [facility] Furosemide 40 mg 01/05/25 09:00 Furosemide 40 Mg Tablet BY MOUTH DAILY [facility] Levothyroxine Sodium 75 mcg 01/05/25 06:30 01/05/25 05:45 Levothyroxine Sodium 75 Mcg Tablet BY MOUTH 75 mcg DAILY@0630 [facility] Administration Metoprolol Succinate 100 mg 01/05/25 09:00 Metoprolol Succinate Ext Rel 100 Mg Tabcr BY MOUTH DAILY [facility] Pregabalin 75 mg 01/05/25 09:00 Pregabalin (*Crx) 25 Mg Capsule PO BID [facility] Rivaroxaban 15 mg 01/05/25 17:00 Rivaroxaban 15 Mg Tablet PO DAILY@1700 [facility] Tamsulosin HCl 0.4 mg 01/05/25 09:00 Tamsulosin Hcl 0.4 Mg Capsule PO DAILY [facility] Terazosin HCl 2 mg 01/04/25 23:40 01/05/25 00:41 Terazosin Hcl 1 Mg Capsule PO 2 mg HS [facility] Administration Tramadol HCl 25 mg 01/04/25 18:59 01/05/25 04:36 Tramadol Hcl (*Crx) 25 Mg Tablet PO 25 mg Q6H PRN Administration Pain Rated 4-6 Radiology Results: ITS Impressions Ankle X-Ray 01/04/25 11:17 Impression: No acute fracture or malalignment. Knee X-Ray 01/04/25 11:18 Impression: No acute fracture or malalignment. Cervical Spine CT 01/04/25 12:32 IMPRESSION: HEAD: 1. No acute intracranial findings. C-SPINE: 1. No acute fracture. Head CT 01/04/25 12:32 IMPRESSION: HEAD: 1. No acute intracranial findings. C-SPINE: 1. No acute fracture. Labs Labs: Laboratory Results - last 24 hr 01/04/25 18:10 WBC 11.4 H RBC 3.04 L Hgb 10.4 L Hct 32.1 L MCV 105.6 H MCH 34.2 H MCHC 32.4 RDW 14.1 Plt Count 141 L MPV 10.1 Immature Gran % (Auto) 0.3 Neut % (Auto) 55.5 Lymph % (Auto) 31.4 [place] % (Auto) 11.5 H Eos % (Auto) 1.0 Baso % (Auto) 0.3 Lymph # (Auto) 3.59 H [place] # (Auto) 1.3 H Eos # (Auto) 0.1 Baso # (Auto) 0.0 Abs Immat Gran (auto) 0.04 H Absolute Neuts (auto) 6.3 Absolute Nucleated RBC 0.000 Band Neutrophils % Not Reportable Nucleated RBC % 0.0 Platelet Estimate Adequate Ovalocytes Occasional [place] Cells Occasional Schistocytes Rare Sodium 133 L Potassium 4.6 Chloride 101 Carbon Dioxide 22 Anion Gap 10 BUN 60 H Creatinine 2.22 H Estim Creat Clear Calc 23 Estimated GFR 28 L Glucose 151 H Calcium 8.7 Total Bilirubin 0.7 AST 29 ALT 19 Alkaline Phosphatase 92 Total Protein 7.2 Albumin 3.7 Quality VTE Prophylaxis VTE prophylaxis: pharmacologic ordered
[2025-01-05] MEDS: PREGABALIN (*CRX) 25 MG CAPSULE 75 MG PO (08:46)
[2025-01-05 08:47] VITALS: PULSE 75
[2025-01-05] MEDS: ATORVASTATIN 40 MG TABLET 80 MG PO (08:47)
[2025-01-05] MEDS: FUROSEMIDE 40 MG TABLET BY MOUTH (08:47)
[2025-01-05] MEDS: EMPAGLIFLOZIN 10 MG TABLET PO (08:47)
[2025-01-05] MEDS: ASPIRIN 81 MG ENTERIC TABLET PO (08:47)
[2025-01-05] MEDS: FERROUS SULFATE 325 MG TABLET PO (08:47)
[2025-01-05] MEDS: TAMSULOSIN HCL 0.4 MG CAPSULE PO (08:47)
[2025-01-05] MEDS: METOPROLOL SUCCINATE EXT REL 100 MG TABCR BY MOUTH (08:47)
[2025-01-05 10:58] LABS: Hematocrit 28.6 % (42.0-52.0); Hemoglobin 9.1 g/dL (14.0-18.0); Immature Granulocyte Percent A 0.5 % (0-0.5); Lymphocytes Absolute Auto 2.57 K/mm3 (0.9-3.2); Mean Corpuscular HGB Conc 31.8 g/dl (32-36); Mean Corpuscular Hemoglobin 33.5 pg (26-34); Mean Corpuscular Volume 105.1 fl (80-100); Nucleated Red Blood Cells Absolute Auto 0.000 K/mm3 (0.0-0.012); Nucleated Red Blood Cells Perc 0.0 % (0.0-0.2); Platelet Count Result 127 k/mm3 (150-375); Red Blood Count 2.72 M/mm3 (4.6-6.20); White Blood Count 9.4 K/mm3 (4.5-10.0)
[2025-01-05 11:21] LABS: Alanine Aminotransferase 15 U/L (6-50); Albumin Level 3.1 g/dL (3.5-5.1); Alkaline Phosphatase 79 U/L (38-126); Anion Gap 5 mmol/L (4-12); Aspartate Amino Transferase 24 U/L (17-59); Bilirubin,Total 0.5 mg/dL (0.2-1.3); Blood Urea Nitrogen 60 mg/dL (9-20); Calcium 8.5 mg/dL (8.4-10.2); Carbon Dioxide 23 mmol/L (22-30); Chloride 103 mmol/L (98-107); Estimated CRCL calculation 22 ml/min; Estimated Glomerular Filt Rate 29; Glucose 112 mg/dL (65-110); Potassium 5.0 mmol/L (3.4-5.0); Sodium 131 mmol/L (137-145); Total Protein 6.3 g/dL (6.3-8.2)
[2025-01-05 11:27] LABS: Schistocytes Rare
[2025-01-05 11:28] LABS: Acanthocytes Occasional; Crenated RBC 1+; Hypochromasia 1+
--- NOTE | 2025-01-05 13:05 | PC.NURSE ---
I, Donna Paulino RN, have reviewed documentation by Sophy YU and agree with the findings.
--- NOTE | 2025-01-05 13:06 | P.DS_ITS ---
DS: Admitting Diagnosis Discharge Date 01/05/2025 Admitting Diagnosis Fall DS: Discharge Diagnosis Discharge Diagnosis (1) Fall from ground level: Code(s): W18.30XA - Fall on same level, unspecified, initial encounter Status: Acute Assessment and Plan: Patient sustained fall on 01/03. Complains of left knee and ankle pain status post fall. Patient has been falling more frequently at his independent living and requiring 2 person assist. Unable to return to his independent living facility. * Head/Cervical spine CT no acute process * Ankle XR with no acute fracture or malalignment * Left knee XR no acute fracture or malalignment * PT/OT evaluation for placement * Tylenol p.r.n. and tramadol. * fall precautions * Working with care coordination regarding placement pending PT/OT evaluation (2) Benign essential HTN: Code(s): I10 - Essential (primary) hypertension Status: Chronic Assessment and Plan: * Continue metoprolol (3) CHF (congestive heart failure): Qualifiers: Heart failure chronicity: chronic Heart failure type: systolic Qualified Code(s): I50.22 - Chronic systolic (congestive) heart failure Code(s): I50.9 - Heart failure, unspecified Status: Chronic Assessment and Plan: * Does not appear to be in acute exacerbation * AICD in place * Most recent echo from 09/24/2023 shows EF 35-40% * continue Jardiance and furosemide (4) BPH (benign prostatic hyperplasia): Qualifiers: Lower urinary tract symptom presence: unspecified whether lower urinary tract symptoms present Qualified Code(s): N40.0 - Benign prostatic hyperplasia without lower urinary tract symptoms Code(s): N40.0 - Benign prostatic hyperplasia without lower urinary tract symptoms Status: Chronic Assessment and Plan: * Continue tamsulosin and terazosin * monitor output (5) Hypothyroidism: Qualifiers: Hypothyroidism type: unspecified Qualified Code(s): E03.9 - Hypothyroidism, unspecified Code(s): E03.9 - Hypothyroidism, unspecified Status: Chronic Assessment and Plan: * Continue levothyroxine 75 mcg daily (6) Neuropathy: Code(s): G62.9 - Polyneuropathy, unspecified Status: Chronic Assessment and Plan: * Continue pregabalin 75 mg p.o. b.i.d. (7) AF (atrial fibrillation): Qualifiers: Atrial fibrillation type: paroxysmal Qualified Code(s): I48.0 - Paro xysmal atrial fibrillation Code(s): I48.91 - Unspecified atrial fibrillation Status: Chronic Assessment and Plan: * Continue Xarelto Plan Diet: Heart healthy GI prophylaxis: NA DVT prophylaxis: Xarelto lines/drains: PIV Fluids: NA Code status: Full DS: Summary Hospital Course Reason for hospitalization: Fall, left knee pain Hospital Course: Per HPI: 89-year-old male with past medical history of AFib on Xarelto, hypertension, BPH, CHF, S/P aortic valve replacement, hypothyroidism, depression, neuropathy, hyperlipidemia presents to the ED on 01/04/2025 with left knee and ankle pain. Patient is currently in independent living at [facility]. Patient had a fall on 01/03 and was seen at [facility]. His workup was negative and he was sent back. Patient wanted to be seen again stating he still has pain. Patient also stated he is unsure if he hit his head. Patient was set discharged from [place] ED however family reported concerns over patient's inability to ambulate very well since his fall. Patient is only able to take a couple small steps with a walker before being unable to walk any further. [place] contacted the ED as well expressing their concerns about the patient returning to their facility. They state he has been falling more frequently and requiring 2 person assist. Patient was accepted at [facility] for retirement placement, however patient's insurance will require observation and PT/OT evaluation. Initial vital signs stable Labs reveal WBC 11.4, chronic anemia, baseline hyponatremia with sodium 133, BUN 60, creatinine 2.[address] with no acute process. Cervical spine CT no acute process. Left knee x-ray no acute fracture or malalignment. Ankle x-ray with no acute fracture or malalignment. Hospital course: Blood work on 01/05 was unremarkable, slight hyponatremia but this appears chronic. PT/OT ordered for placement to nursing facility. Per PT evaluation: Patient presents with decreased functional independence with functional mobility secondary to limitations with strength/balance/endurance and safety awareness, patient will benefit skilled PT for gait training, transfer training, lower extremity strengthening, endurance building activities, and safety education. Work with care coordination throughout hospitalization regarding placement to possible facility. Patient able to be accepted at [facility] SNF. Patient is otherwise hemodynamically stable. Plan for discharge at this time. Status at Discharge Functional status at discharge: uses cane/walker Overall status at discharge: patient is progressing back to baseline Time Spent with Patient Time attestation: Total time spent providing and/or coordinating discharge services: 31 Exam Narrative: GENERAL: non-toxic appearing, in no acute distress. Frail appearing HEAD: Normocephalic, atraumatic. EYES: PERRLA. Conjunctivae clear. NOSE: Normal no drainage. THROAT: Pharynx clear, no exudate. NECK: Trachea midline. No adenopathy, no masses. RESPIRATORY: Airway patent, respirations nonlabored. CTA. CARDIOVASCULAR: Regular rate and rhythm GASTROINTESTINAL: Abdomen is soft and nontender. No organomegaly. Bowel sounds normal in all quadrants. GENITOURINARY: Defer MUSCULOSKELETAL: Moves all extremities. No gross deformities. SKIN: Warm, dry, normal color. NEURO: A&O X4. Speech clear PSYCHIATRIC: Normal interaction DS: Data Data Completed and Pending Labs on day of discharge: Labs from last 24 hours 01/05/25 01/04/25 10:46 18:10 WBC 9.4 11.4 H RBC 2.72 L 3.04 L Hgb 9.1 L 10.4 L Hct 28.6 L 32.1 L MCV 105.1 H 105.6 H MCH 33.5 34.2 H MCHC 31.8 L 32.4 RDW 14.1 14.1 Plt Count 127 L 141 L MPV 10.1 10.1 Immature Gran % (Auto) 0.5 0.3 Neut % (Auto) 58.2 55.5 Lymph % (Auto) 27.4 31.4 [place] % (Auto) 12.9 H 11.5 H Eos % (Auto) 0.7 1.0 Baso % (Auto) 0.3 0.3 Lymph # (Auto) 2.57 3.59 H [place] # (Auto) 1.2 H 1.3 H Eos # (Auto) 0.1 0.1 Baso # (Auto) 0.0 0.0 Abs Immat Gran (auto) 0.05 H 0.04 H Absolute Neuts (auto) 5.4 6.3 Absolute Nucleated RBC 0.000 0.000 Band Neutrophils % Not Reportable Not Reportable Nucleated RBC % 0.0 0.0 Platelet Estimate Slightly decreased Adequate Hypochromasia 1+ Ovalocytes Occasional [place] Cells Occasional Crenated Cell 1+ Acanthocytes (Sp[place]) Occasional Schistocytes Rare Rare Sodium 131 L 133 L Potassium 5.0 4.6 Chloride 103 101 Carbon Dioxide 23 22 Anion Gap 5 10 BUN 60 H 60 H Creatinine 2.17 H 2.22 H Estim Creat Clear Calc 22 23 Estimated GFR 29 L 28 L Glucose 112 H 151 H Calcium 8.5 8.7 Total Bilirubin 0.5 0.7 AST 24 29 ALT 15 19 Alkaline Phosphatase 79 92 Total Protein 6.3 7.2 Albumin 3.1 L 3.7 Discharge Plan Discharge Attending physician on discharge: Stevo Benavides Consulting providers: Migel Justin Discharging Clinician: Migel Justin Anticipated Discharge Date/Time: 01/05/25 13:05 Patient Disposition: SNF Activity: as tolerated Diet: regular Discharge Instructions: Discharge disposition: [facility] Take medications as prescribed Monitor blood pressures Take caution while standing, rising, or moving Change positions slowly taking a break between each position change If you standing feel dizzy sit back down and take a break Encouraged to continue with yearly vaccinations Return to the emergency department if you develop sudden shortness of breath, chest pain, nausea, vomiting, upset stomach or intractable diarrhea Return to the emergency department if you develop fever greater than 101.5 Follow-up with the primary care physician within 1-2 weeks Thank you for [facility] for your healthcare needs Patient Instructions: Rivaroxaban (By mouth) Patient Language: Vietnamese Stand Alone Forms: General Discharge Information Follow-up/Referrals: Bradley Craft MD [Primary Care Provider, Family Practice] Discharge Medications: Continued aspirin [Adult Low Dose Aspirin] 81 mg tablet,delayed release (DR/EC) 81 mg PO DAILY Xarelto 15 mg tablet 15 mg PO DAILY atorvastatin 80 mg tablet 80 mg PO DAILY Cyanacobalamin 50 mcg PO DAILY terazosin 2 mg capsule See Rx Instructions .ROUTE .COMPLEX Rx Instructions: TAKE 1 CAPSULE BY MOUTH EVERY EVENING pregabalin 25 mg capsule 75 mg PO BID levothyroxine 75 mcg tablet See Rx Instructions .ROUTE .COMPLEX Qty: 90 2RF Dose Instruction: TAKE 1 TABLET BY MOUTH EVERY DAY AT 6:30AM Rx Instructions: TAKE 1 TABLET BY MOUTH EVERY DAY AT 6:30AM metoprolol succinate 100 mg tablet extended release 24 hr See Rx Instructions .ROUTE .COMPLEX Qty: 90 0RF Dose Instruction: TAKE 1 TABLET BY MOUTH EVERY DAY IN THE MORNING Rx Instructions: TAKE 1 TABLET BY MOUTH EVERY DAY IN THE MORNING ferrous sulfate 325 mg (65 mg iron) tablet,delayed release (DR/EC) 325 mg PO DAILY Qty: 90 1RF furosemide 40 mg tablet See Rx Instructions .ROUTE .COMPLEX Qty: 90 0RF Dose Instruction: TAKE 1 TABLET BY MOUTH EVERY DAY Rx Instructions: TAKE 1 TABLET BY MOUTH EVERY DAY Jardiance 10 mg tablet 10 mg PO DAILY Qty: 90 0RF tamsulosin 0.4 mg capsule 0.4 mg PO DAILY Qty: 90 3RF No Action (DME) miscellaneous medical supply Misc See Rx Instructions .Route Qty: 1 0RF Rx Instructions: As directed Date of admission: 01/04/25 18:55 Primary Care Provider: Bradley Craft Admitting Provider: Stevo Benavides Attending physician on admission: Stevo Benavides Condition: Stable Quality VTE Prophylaxis VTE prophylaxis: pharmacologic ordered
[2025-01-05 13:29] VITALS: BMI 21.8
== END 2025-01-05 13:45 ==
LOC: ANHED 12:58 → ANH3MEDSUR 19:41
PROVIDERS: Physician Assistant; Admitting Provider Internal Medicine; Emergency Provider Physician Assistant; PCP Family Medicine; Visit Provider Internal Medicine
DX: S83.92XA Sprain of unspecified site of left knee, initial encounter (principal); S93.402A Sprain of unspecified ligament of left ankle, initial encounter; W18.30XA Fall on same level, unspecified, initial encounter; I48.0 Paroxysmal atrial fibrillation; Z79.01 Long term (current) use of anticoagulants; I25.10 Atherosclerotic heart disease of native coronary artery without angina pectoris; I11.0 Hypertensive heart disease with heart failure; I50.22 Chronic systolic (congestive) heart failure; E03.9 Hypothyroidism, unspecified; Z85.820 Personal history of malignant melanoma of skin; E78.2 Mixed hyperlipidemia; Z95.2 Presence of prosthetic heart valve; Z95.810 Presence of automatic (implantable) cardiac defibrillator; N40.0 Benign prostatic hyperplasia without lower urinary tract symptoms; G62.9 Polyneuropathy, unspecified
CPT/HCPCS: 36415; 70450; 72125; 73562; 73610; 80053; 85025; 97161; 97166; 99285; A9270; G0378